=== PATIENT | male | born 1945 | race Caucasian/White ===

== ENCOUNTER 2019-01-14 22:08 | Inpatient (IN) | payer MEDICARE, MEDICAID ==
[~2019-01-14] VITALS: Ht 182.9 cm; Wt 97.6 kg
[2019-01-14] MEDS ORDERED: morphine INJ 4 MG/ML 1 ML (VIAL/SYRINGE) IVP STA (22:31)
[2019-01-14 22:45] LABS: HEMATOCRIT 34 % (40-54); HEMOGLOBIN 11.2 G/DL (13.3-17.7); MEAN CORPUSCULAR HEMOGLOBIN 29 PG (25-34); MEAN CORPUSCULAR HGB CONC 33 G/DL (32-36); MEAN CORPUSCULAR VOLUME 96 FL (80-99); RED CELL DISTRIBUTION WIDTH 17.8 % (10.0-14.5); WHITE BLOOD COUNT 1.6 10^3/uL (4.3-11.0)
[2019-01-14] MEDS ORDERED: ONDANSETRON 4 MG/2 ML (SDV) Z0FRAN IVP ONE (22:45)
[2019-01-14] MEDS ORDERED: RT-ALBUTEROL/IPRATROPIUM 3 ML (DUONEB) VIAL INH ONE (22:45)
[2019-01-14 22:46] LABS: MEAN PLATELET VOLUME 12.5 FL (7.4-10.4); PLATELET COUNT 83 10^3/uL (130-400)
[2019-01-14 22:47] LABS: BASOPHILS % (AUTO) 2 % (0-10); EOSINOPHILS # (AUTO) 0.1 10^3/uL (0.0-0.3); EOSINOPHILS % (AUTO) 6 % (0-10); LYMPHOCYTES # (AUTO) 1.1 X 10^3 (1.0-4.0); LYMPHOCYTES % (AUTO) 66 % (12-44); MONOCYTES # (AUTO) 0.3 X 10^3 (0.0-1.0); MONOCYTES % (AUTO) 17 % (0-12); NEUTROPHILS # (AUTO) 0.1 X 10^3 (1.8-7.8); NEUTROPHILS % (AUTO) 4 % (42-75)
[2019-01-14] MEDS ORDERED: ALBU18HF2 INH (22:51)
[2019-01-14] MEDS ORDERED: CITA20TA9 PO (22:51)
[2019-01-14] MEDS ORDERED: METF-399 PO (22:51)
[2019-01-14] MEDS ORDERED: ATOR40TA70 PO (22:51)
[2019-01-14] MEDS ORDERED: INSA70301U SC (22:51)
[2019-01-14] MEDS ORDERED: FLUT1AER INH (22:51)
[2019-01-14] MEDS ORDERED: MUPI22OI2 (22:51)
[2019-01-14] MEDS ORDERED: CODE118S4 (22:51)
[2019-01-14] MEDS ORDERED: morphine INJ 10 MG/ML 1ML (SYR OR VIAL) ONE (22:51)
[2019-01-14] MEDS ORDERED: LORA1TAB PO (22:51)
[2019-01-14] MEDS ORDERED: BLOO-438 (22:51)
[2019-01-14] MEDS ORDERED: morphine INJ 10 MG/ML 1ML (SYR OR VIAL) IV STA (23:06)
[2019-01-14] MEDS ORDERED: CEFEPIME INJECTION 2,000 MG in WATER (STERILE) FOR INJECTION 20 ML IV ONE (23:15)
[2019-01-14 23:22] LABS: BUN/CREATININE RATIO 24; CALCIUM 9.4 MG/DL (8.5-10.1); CARBON DIOXIDE 18 MMOL/L (21-32); CHLORIDE 93 MMOL/L (98-107); CREATININE SERUM 0.89 MG/DL (0.60-1.30); GFR ESTIMATED > 60; GLUCOSE 278 MG/DL (70-105); POTASSIUM 4.2 MMOL/L (3.6-5.0); SODIUM 128 MMOL/L (135-145)
[2019-01-14 23:23] LABS: ALANINE AMINOTRANSFERASE 20 U/L (0-55); ALBUMIN 3.6 GM/DL (3.2-4.5); ALKALINE PHOSPHATASE 53 U/L (40-136); BILIRUBIN,TOTAL 0.7 MG/DL (0.1-1.0); TOTAL PROTEIN 6.6 GM/DL (6.4-8.2)
[2019-01-14] MEDS ORDERED: NS IV 1000 ML 1,000 ML IV SCH (23:30)
[2019-01-14 23:32] LABS: BAND NEUTROPHILS 2 %; BASOPHILS % (MANUAL) 2 %; EOSINOPHILS % (MANUAL) 2 %; LYMPHOCYTES % (MANUAL) 76 %; MONOCYTES % (MANUAL) 12 %; NEUTROPHILS % (MANUAL) 8 %
[2019-01-14 23:33] LABS: RBC MORPH NORMAL
--- NOTE | 2019-01-14 23:33 | ED General ---
General Chief Complaint: Chest Pain Stated Complaint: LEG PAIN,COUGH Nursing Triage Note: Cough, Shortness of breathe, and chest pain Nursing Sepsis Screen: Possible Sepsis Risk Source of Information: Patient, Caregiver Exam Limitations: No Limitations History of Present Illness Date Seen by Provider: Jan 14, 2019 Time Seen by Provider: 22:30 Initial Comments Patient is a 73-year-old male with history of lymphoma currently on chemotherapy with last chemotherapy 1 week ago presents with voice hoarseness, persistent cough, sore throat, left-sided chest wall pain, leg pain and fever. Pressure 100.4 at triage. Left-sided chest pain is diffuse, worse with palpation and left arm movement. No nausea vomiting. No abdominal pain. No reports of diarrhea, urinary frequency or urgency or burning. No other acute symptoms or complaints. History obtained from the patient's [id number] and son his power of commercial attorney.. Allergies and Home Medications Allergies Coded Allergies: acetaminophen (Verified Allergy, Unknown, 01/14/19) adhesive tape (Verified Allergy, Unknown, Rash, 01/14/19) aspirin (Verified Allergy, Unknown, 01/14/19) Patient Home Medication List Home Medication List Reviewed: Yes Review of Systems Review of Systems Constitutional: see HPI, fever, malaise, weakness EENTM: see HPI, hoarseness, nose congestion, throat pain Respiratory: short of breath Gastrointestinal: No abdominal pain Genitourinary: no symptoms reported Musculoskeletal: muscle cramps Skin: no symptoms reported Psychiatric/Neurological: Anxiety Past Wexcfox-Dlxtuq-Yarsld Hx Patient Social History Recent Foreign Travel: No Contact w/Someone Who Travel: No Recent Infectious Disease Expo: No Physical Abuse: No Sexual Abuse: No Mistreated: No Fear: No Physical Exam-Suspected Sepsis Physical Exam Vital Signs Vital Signs - First Documented 01/14/19 22:10 Temp 100.4 Pulse 103 Resp 16 B/P (MAP) 130/52 (78) Pulse Ox 96 Capillary Refill : Less Than 3 Seconds Blood Pressure Mean: 78 Height, Weight, BMI Height: 6'0" Weight: 214lbs. oz. 97.455829yi; BMI Method:Actual General Appearance: No Apparent Distress, Anxious Eyes: Bilateral Eye Normal Inspection, Bilateral Eye PERRL HEENT: PERRL/EOMI, TMs Normal; No Pharyngeal Erythema Neck: Full Range of Motion, Normal Inspection, Non Tender, Supple Respiratory: No No Respiratory Distress; Decreased Breath Sounds, Rales, Rhonci Cardiovascular: Regular Rate, Rhythm Gastrointestinal: Normal Bowel Sounds Back: Normal Inspection Extremity: No Calf Tenderness Neurologic/Psychiatric: Oriented x3, Other (anxious) Skin: normal color; No diaphoresis Focused Exam Sepsis Stage: Sepsis Possible Source: Pulmonary Lactate Level 01/14/19 22:35: Lactic Acid Level 2.23*H Time of Focused Exam: 22:45 Respiratory: No Normal Breath Sounds, No No Accessory Muscle Use; Decreased Breath Sounds, Rales Cardiovascular: Regular Rate, Rhythm Skin: normal color Lactic Acid Level Laboratory Tests Test 01/14/19 22:35 Lactic Acid Level 2.23 MMOL/L (0.50-2.00) *H Within 3hrs of presentation: Admin fluids, Admin ABX, Blood cultures prior to ABX's, Lactate level Progress/Results/Core Measures Suspected Sepsis Recent Fever Within 48 Hours: Yes Infection Criteria Present: Suspected New Infection New/Unexplained Altered Menta: No Sepsis Screen: Possible Sepsis Risk SIRS Temperature:100.4 Pulse: 103 Respiratory Rate: 16 Laboratory Tests 01/14/19 22:25: White Blood Count 1.6L Blood Pressure 130 /52 Mean: 78 01/14/19 22:35: Lactic Acid Level 2.23*H Laboratory Tests 01/14/19 22:25: Creatinine 0.89, Platelet Count 83L, Total Bilirubin 0.7 Results/Orders Lab Results Laboratory Tests Test 01/14/19 22:25 01/14/19 22:35 01/14/19 23:24 Range/Units White Blood Count 1.6 L 4.3-11.0 10^3/uL Red Blood Count 3.92 L 4.35-5.85 10^6/uL Hemoglobin 11.2 L 13.3-17.7 G/DL Hematocrit 34 L 40-54 % Mean Corpuscular Volume 96 80-99 FL Mean Corpuscular Hemoglobin 29 25-34 PG Mean Corpuscular Hemoglobin Concent 33 32-36 G/DL Red Cell Distribution Width 17.8 H 10.0-14.5 % Platelet Count 83 L 130-400 10^3/uL Mean Platelet Volume 12.5 H 7.4-10.4 FL Neutrophils (%) (Auto) 4 L 42-75 % Lymphocytes (%) (Auto) 66 H 12-44 % Monocytes (%) (Auto) 17 H 0-12 % Eosinophils (%) (Auto) 6 0-10 % Basophils (%) (Auto) 2 0-10 % Neutrophils # (Auto) 0.1 L 1.8-7.8 X 10^3 Lymphocytes # (Auto) 1.1 1.0-4.0 X 10^3 Monocytes # (Auto) 0.3 0.0-1.0 X 10^3 Eosinophils # (Auto) 0.1 0.0-0.3 10^3/uL Basophils # (Auto) 0.0 0.0-0.1 10^3/uL Neutrophils % (Manual) 8 % Lymphocytes % (Manual) 76 % Monocytes % (Manual) 12 % Eosinophils % (Manual) 2 % Basophils % (Manual) 2 % Band Neutrophils 2 % Blood Morphology Comment NORMAL Sodium Level 128 L 135-145 MMOL/L Potassium Level 4.2 3.6-5.0 MMOL/L Chloride Level 93 L 98-107 MMOL/L Carbon Dioxide Level 18 L 21-32 MMOL/L Anion Gap 17 H 5-14 MMOL/L Blood Urea Nitrogen 21 H 7-18 MG/DL Creatinine 0.89 0.60-1.30 MG/DL Estimat Glomerular Filtration Rate > 60 BUN/Creatinine Ratio 24 Glucose Level 278 H 70-105 MG/DL Calcium Level 9.4 8.5-10.1 MG/DL Corrected Calcium 9.7 8.5-10.1 MG/DL Total Bilirubin 0.7 0.1-1.0 MG/DL Aspartate Amino Transf (AST/SGOT) 27 5-34 U/L Alanine Aminotransferase (ALT/SGPT) 20 0-55 U/L Alkaline Phosphatase 53 40-136 U/L Troponin T 27 H <=15 NG/L Total Protein 6.6 6.4-8.2 GM/DL Albumin 3.6 3.2-4.5 GM/DL Lactic Acid Level 2.23 *H 0.50-2.00 MMOL/L My Velia Gunn - TYREL GASTON DO Cbc With Automated Diff (01/14/19 22:23) Comprehensive Metabolic Panel (01/14/19 22:23) Chest 1 View Ap/Pa Only (01/14/19 22:23) BNP (01/14/19 22:23) Blood Culture (01/14/19 22:23) Lactic Acid Analyzer (01/14/19 22:23) Albuterol/Ipra Inhalation Soln (Duoneb I (01/14/19 22:45) Svn Small Volume Nebulizer (01/14/19 22:31) Morphine Injection (Morphine Injection (01/14/19 22:31) Ondansetron Injection (Zofran Injectio (01/14/19 22:45) Manual Differential (01/14/19 22:25) Morphine Injection (Morphine Injection (01/14/19 22:51) Morphine Injection (Morphine Injection (01/14/19 23:06) Cefepime Injection (Maxipime Injection) (01/14/19 23:15) Blood Culture (01/14/19 23:10) Influenza A Antibodies (01/14/19 23:10) Ns Iv 1000 Ml (Sodium Chloride 0.9%) (01/14/19 23:30) Clopidogrel Tablet (Plavix Tablet) (01/14/19 23:45) Enoxaparin Injection (Lovenox Injection) (01/14/19 23:45) Medications Given in ED Current Medications Medications Dose Ordered Sig/Stephan Route Start Time Stop Time Status Last Admin Dose Admin Albuterol/ Ipratropium 3 ml ONCE ONCE INH 01/14/19 22:45 01/14/19 22:46 DC 01/14/19 23:00 3 ML Morphine Sulfate 10 mg STK-MED ONCE .ROUTE 01/14/19 22:51 01/14/19 22:57 DC 01/14/19 23:08 4 MG Ondansetron HCl 4 mg ONCE ONCE IVP 01/14/19 22:45 01/14/19 22:46 DC 01/14/19 23:01 4 MG Vital Signs/I&O 01/14/19 22:10 Temp 100.4 Pulse 103 Resp 16 B/P (MAP) 130/52 (78) Pulse Ox 96 Capillary Refill : Less Than 3 Seconds Blood Pressure Mean: 78 Progress Note : Time: 23:33 Progress Note Medically complex patient with h/o lymphoma on chemo who presents with fever, cough, abnormal chest x-ray. Serum lactate is elevated. IV fluids, Blood cultures obtained, empiric abx. Fluid bolus restricted to less than 30 cc/kg due to concern of volume overload and congestive heart failure. Trop elevated. No acute ST segment elevation. Lovenox and Plavix given. Will transfer to [facility] for comprehensive medical treatment. Dr. Mai accepts and Dr. Felix agrees to consult. family and patient given. ECG Initial ECG Impression Date: Jan 14, 2019 Initial ECG Impression Time: 22:09 Initial ECG Rate: 107 Initial ECG Rhythm: S.Tach Diagnostic Imaging Diagonstic Imaging: Xray (cardiomegaly, pulmonary vascular congestion, questionable left lobar infiltrate versus effusion on preliminary ED read.) Departure Impression Primary Impression: Chest pain Additional Impressions: Non-STEMI (non-ST elevated myocardial infarction) Pneumonia Sepsis Leukopenia Lymphoma Hyponatremia Disposition: XFER SHT-TRM HOSP Condition: Critical Admissions Decision to Admit Reason: Admit from ER (General) Decision to Admit/Date: Jan 14, 2019 Time/Decision to Admit Time: 23:00 Transfer Time Spoke to Accepting Phy: 23:30 (Dr. Mai) Transfer Progress Notes Patient resting comfortably, stable blood pressure time of transfer. Method of Transfer: EMS Departure-Patient Inst. Referrals: ANNEMARIE WANG MD (PCP/Family) Primary Care Physician TYREL GASTON DO Jan 14, 2019 23:33
[2019-01-14] MEDS ORDERED: CLOPIDOGREL 300 MG (PLAVIX) TABLET PO ONE (23:45)
[2019-01-14] MEDS ORDERED: ENOXAPARIN 100 MG/1 ML (LOVENOX) SYR SC ONE (23:45)
[2019-01-15] VITALS (20 sets, daily range): BP systolic 88–145; BP diastolic 27–104
[2019-01-15 02:26] LABS: BASOPHILS % (AUTO) 2 % (0-10); BUN/CREATININE RATIO 22; CALCIUM 9.3 MG/DL (8.5-10.1); CARBON DIOXIDE 20 MMOL/L (21-32); CHLORIDE 100 MMOL/L (98-107); CREATININE SERUM 1.02 MG/DL (0.60-1.30); EOSINOPHILS # (AUTO) 0.1 10^3/uL (0.0-0.3); EOSINOPHILS % (AUTO) 9 % (0-10); GFR ESTIMATED > 60; GLUCOSE 210 MG/DL (70-105); HEMATOCRIT 31 % (40-54); HEMOGLOBIN 10.4 G/DL (13.3-17.7); LYMPHOCYTES # (AUTO) 0.8 X 10^3 (1.0-4.0); LYMPHOCYTES % (AUTO) 58 % (12-44); MAGNESIUM 1.5 MG/DL (1.8-2.4); MEAN CORPUSCULAR HEMOGLOBIN 28 PG (25-34); MEAN CORPUSCULAR HGB CONC 34 G/DL (32-36); MEAN CORPUSCULAR VOLUME 84 FL (80-99); MEAN PLATELET VOLUME 11.7 FL (7.4-10.4); MONOCYTES # (AUTO) 0.2 X 10^3 (0.0-1.0); MONOCYTES % (AUTO) 19 % (0-12); NEUTROPHILS # (AUTO) 0.2 X 10^3 (1.8-7.8); NEUTROPHILS % (AUTO) 14 % (42-75); PHOSPHORUS 2.7 MG/DL (2.3-4.7); PLATELET COUNT 85 10^3/uL (130-400); POTASSIUM 3.8 MMOL/L (3.6-5.0); RED CELL DISTRIBUTION WIDTH 18.3 % (10.0-14.5); SODIUM 131 MMOL/L (135-145)
[2019-01-15 02:28] LABS: WHITE BLOOD COUNT 1.3 10^3/uL (4.3-11.0)
[2019-01-15] MEDS ORDERED: IOHEXOL 350 MG/ML 150 ML (OMNIPAQUE 350) VIAL IV ONE (02:45)
[2019-01-15] MEDS ORDERED: RECEIVED CONTRAST (Hold Metformin) IV SCH (02:45)
[2019-01-15] MEDS ORDERED: NS 100 ML (IVPB) BAG IV ONE (02:45)
[2019-01-15] MEDS ORDERED: VANCOMYCIN 2000 MG/NS 500 ML IVPB IV ONE ×2 (04:45)
[2019-01-15] MEDS ORDERED: AZITHROMYCIN 500 MG/NS 250 ML IVPB IV SCH ×2 (05:00)
[2019-01-15] MEDS ORDERED: RT-ALBUTEROL/IPRATROPIUM 3 ML (DUONEB) VIAL INH PRN (05:15)
--- NOTE | 2019-01-15 05:22 | History & Physical-Hospitalist ---
History of Present Illness HPI/Chief Complaint CC: Pneumonia with left chest wall pain. HPI: This is a 73yoWM patient of Dr. Epps and Dr. Shi (Oncology out of [place], [place]) Pt has a history of Non Hodgkins lymphoma diagnosed 8 years ago and in remission for 4 years, but receiving chemotherapy who presented with left chest wall pain found to have low grade fever and pneumonia, heart failure, hyponatremia, neutropenia, giving rise to the need for ICU admission to higher level of care from [facility]. is at the bedside. Aggressive IV fluids will be initiated along with landrum catheter placement and empiric antibiotics. Overall critical illness and considering Pt is very hard of hearing, and blind, cannot obtain any significant, relevant details from the Pt. Source: family, RN/MD Exam Limitations: clinical condition Date Seen 01/15/19 Time Seen by a Provider: 09:30 Attending Physician Brielle Mai Pankaj K MD Referring Physician Date of Admission Jan 15, 2019 at 01:20 Home Medications & Allergies Home Medications Reviewed patient Home Medication Reconciliation performed by pharmacy medication reconciliations building energy retrofit technician and/or nursing. Patients Allergies have been reviewed. Allergies Allergies Coded Allergies acetaminophen (Verified Allergy, Unknown, 01/14/19) adhesive tape (Verified Allergy, Unknown, Rash, 01/14/19) aspirin (Verified Allergy, Unknown, 01/14/19) Past Fcxtkgp-Foyouo-Kzjbpz Hx Past Med/Social Hx: Reviewed Nursing Past Med/Soc Hx, Reviewed and Corrections made Patient Social History Marrital Status: Employed/Student: retired Alcohol Use: Denies Use Recreational Drug Use: No Smoking Status: Never a Smoker 2nd Hand Smoke Exposure: No Recent Foreign Travel: No Contact w/other who traveled: No Recent Hopitalizations: No Recent Infectious Disease Expo: No Immunizations Up To Date Tetanus Booster (TDap): Unknown Seasonal Allergies Seasonal Allergies: No Past Medical History Surgeries: CABG Cardiac: Congenital Heart Disease, Heart Attack Sexually Transmitted Disease: No HIV/AIDS: No Musculoskeletal: Arthritis, Chronic Back Pain Endocrine: Diabetes, Insulin dep Are Your Blood Sugars Over 250: Yes HEENT: Cataract, Glaucoma Loss of Vision: Bilateral Hearing Impairment: Denies Cancer: Lymphoma Did You Recieve Any Treatments: Yes What Type of Treatment Did You: Chemotherapy History of Blood Disorders: No Family History Hypertension Review of Systems Constitutional: fever, malaise, weakness EENTM: no symptoms reported Respiratory: cough, dyspnea on exertion, short of breath, wheezing Cardiovascular: chest pain Gastrointestinal: loss of appetite, nausea, vomiting Genitourinary: no symptoms reported Musculoskeletal: no symptoms reported Skin: no symptoms reported Psychiatric/Neurological: No Symptoms Reported All Other Systems Reviewed Negative Unless Noted: Yes Physical Exam Physical Exam Vital Signs Vital Signs - First Documented 01/14/19 01/14/19 01/15/19 22:10 22:45 01:25 Temp 100.4 Pulse 103 Resp 16 B/P (MAP) 130/52 (78) Pulse Ox 96 O2 Delivery Room Air O2 Flow Rate 2.00 Capillary Refill : Less Than 3 Seconds Height, Weight, BMI Height: 6'0" Weight: 214lbs. oz. 97.002502ee; BMI Method:Actual General Appearance: WD/WN, Chronically ill, Cachetic, Moderate Distress HEENT: Other (blindness, deafness) Neck: Normal Inspection, Non Tender, Supple Respiratory: Crackles, Decreased Breath Sounds, Wheezing Cardiovascular: Regular Rate, Rhythm, No Edema, Systolic Murmur Neurologic/Psychiatric: Alert, Disoriented Results Results/Procedures Labs Laboratory Tests 01/14/19 22:25 01/15/19 01:59 Patient resulted labs reviewed. Assessment/Plan Admission Diagnosis Assessment: Sepsis Pneumonia Neutropenia due to chemotherapy Blindness Deafness CAD previous CABG Plan: IVF Abx Monitor closely Appreciate Dr Alonso's expertise Admission Status: Inpatient Order (span 2 midnights) Reason for Inpatient Admission: Critical care management chinedu require 4 days of inpt Diagnosis/Problems Diagnosis/Problems (1) Sepsis Status: Acute Qualifiers: Sepsis type: sepsis due to unspecified organism Qualified Codes: A41.9 - Sepsis, unspecified organism (2) Neutropenia Status: Acute Qualifiers: Neutropenia type: secondary to cancer chemotherapy Qualified Codes: D70.1 - Agranulocytosis secondary to cancer chemotherapy; T45.1X5A - Adverse effect of antineoplastic and immunosuppressive drugs, initial encounter (3) Non-Hodgkin lymphoma Status: Chronic Qualifiers: Non-Hodgkin lymphoma type: unspecified type Lymphoma site: unspecified region Qualified Codes: C85.90 - Non-Hodgkin lymphoma, unspecified, unspecified site (4) Blindness Status: Chronic (5) Deafness Status: Chronic Qualifiers: Laterality: unspecified laterality Qualified Codes: H91.90 - Unspecified hearing loss, unspecified ear (6) CHF (congestive heart failure) Status: Chronic Qualifiers: Heart failure type: unspecified Heart failure chronicity: unspecified Qualified Codes: I50.9 - Heart failure, unspecified (7) NSTEMI (non-ST elevated myocardial infarction) Status: Acute Clinical Quality Measures AMI/AHF: ASA po Prior to arrival: BRIELLE Espinosa DO Jan 15, 2019 05:22
[2019-01-15] MEDS ORDERED: VANCOMYCIN 1000 MG/VIAL ONE (05:30)
[2019-01-15] MEDS ORDERED: NS IV 500 ML 500 ML ONE (05:32)
[2019-01-15] MEDS: MAGNESIUM 1 GM/100 ML IVPB 100 ML IV SCH ×3 (05:48→08:28)
[2019-01-15] MEDS: KCL 20 MEQ TAB (K-DUR) PO SCH (05:48)
[2019-01-15] MEDS: POTASSIUM CL 10MEQ/50ML IVPB 50 ML IV SCH (05:48)
--- NOTE | 2019-01-15 06:25 | Pulmonary Consultation ---
History of Present Illness History of Present Illness Date of Consultation 01/15/19 06:20 Time Seen by Provider: 06:59 Date of Admission History of Present Illness 73 yo with hx of lymphoma currently undergoing chemotherapy (last chemo 1wk ago ) presented to [facility] secondary to fever hoarsness, persistent cough, sore throat, and reproducible left sided chest wall pain. Allergies and Home Medications Allergies Coded Allergies: acetaminophen (Verified Allergy, Unknown, 01/14/19) adhesive tape (Verified Allergy, Unknown, Rash, 01/14/19) aspirin (Verified Allergy, Unknown, 01/14/19) Past Mwopumy-Wexlfh-Nbieqn Hx Patient Social History Alcohol Use: Denies Use Recreational Drug Use: No Smoking Status: Never a Smoker 2nd Hand Smoke Exposure: No Recent Foreign Travel: No Contact w/Someone Who Travel: No Recent Infectious Disease Expo: No Recent Hopitalizations: No Physical Abuse: No Sexual Abuse: No Mistreated: No Fear: No Immunizations Up To Date Tetanus Booster (TDap): Unknown Seasonal Allergies Seasonal Allergies: No Past Medical History Surgeries: Yes CABG Respiratory: No Cardiac: Yes Congenital Heart Disease, Heart Attack Neurological: No Sexually Transmitted Disease: No HIV/AIDS: No Genitourinary: No Gastrointestinal: No Musculoskeletal: Yes Arthritis, Chronic Back Pain Endocrine: Yes Diabetes, Insulin dep Are Your Blood Sugars Over 250: Yes HEENT: Yes Cataract, Glaucoma Loss of Vision: Bilateral Hearing Impairment: Denies Cancer: Yes Lymphoma Did You Recieve Any Treatments: Yes What Type of Treatment Did You: Chemotherapy Psychosocial: No Integumentary: No Blood Disorders: No Review of Systems Time Seen by Provider: 07:06 Constitutional: Fever, Chills, Sweats, Weakness, Malaise Eyes: No: Pain, Vision change, Conjunctivae inflammation, Eyelid inflammation, Other, Redness ENT: No: Ear pain, Ear discharge, Nose pain, Nose discharge, Nose congestion, Mouth pain, Mouth swelling, Throat pain, Throat swelling, Other Respiratory: Cough, Dry, Shortness of breath, SOB with excertion, Wheezing, Pleuritic Pain Cardiovascular: Chest Pain, Paroxysmal Noc. Dyspnea, Lt Headedness Gastrointestinal: No: Nausea, Vomiting, Abdominal Pain, Diarrhea, Constipation , Melena, Hematochezia, Other Neurological: Weakness, Incoordination, Confusion Sepsis Event Evaluation Height, Weight, BMI Height: 6'0.00" Weight: 205lbs. 1.0oz. 93.733683eb; 27.8 BMI Method:Actual Exam Exam Vital Signs Date Time Temp Pulse Resp B/P (MAP) Pulse Ox O2 Delivery O2 Flow Rate FiO2 01/15/19 06:00 8 22 119/67 (84) 93 Nasal Cannula 2.00 01/15/19 05:00 90 12 115/73 (87) 96 Nasal Cannula 2.00 01/15/19 04:00 86 13 125/59 (81) 91 Nasal Cannula 2.00 01/15/19 03:00 82 13 127/57 (80) 94 Nasal Cannula 2.00 01/15/19 01:45 89 11 120/72 (88) 98 Nasal Cannula 2.00 01/15/19 01:29 92 01/15/19 01:25 98.7 93 16 113/66 (82) 98 Nasal Cannula 2.00 01/15/19 00:39 99.0 94 18 105/52 (69) 95 Room Air 01/14/19 22:45 Room Air 01/14/19 22:10 100.4 103 16 130/52 (78) 96 I & O 01/15/19 06:59 Intake Total 1000 ml Output Total 0 ml Balance 1000 ml Height & Weight Height: 6'0.00" Weight: 205lbs. 1.0oz. 93.954874lb; 27.8 BMI Method:Actual General Appearance: No Apparent Distress, Anxious HEENT: PERRL/EOMI, TMs Normal; No Pharyngeal Erythema Neck: Full Range of Motion, Normal Inspection, Non Tender, Supple Respiratory: No Normal Breath Sounds, No No Accessory Muscle Use; Decreased Breath Sounds, Rales Cardiovascular: Regular Rate, Rhythm Capillary Refill: Less Than 3 Seconds Gastrointestinal: normal bowel sounds, non tender, soft Extremity: No Calf Tenderness, No Pedal Edema Neurologic/Psychiatric: Oriented x3, Other (anxious) Skin: Normal Color, Warm/Dry Lymphatic: No Adenopathy Results Lab Laboratory Tests 01/14/19 22:25 01/15/19 01:59 Assessment/Plan Assessment/Plan Severe sepsis with PNA -Vancomycin, and cefepime - change to vanco zosyn -30cc/kg of IVF were not given secondary to fear of volume overload -pt has not been hypotensive -Will repeat LA -Start NS at 150 for now and monitor close -landon cultures pending -IVF Metabolic lactic acidosis -IVF start at 150cc/hr now -Repeat LA pancytopenia with neutropenia -Start reverse isolation -Monitor CHF hx NSTEMI lymphoma - currently undergoing chemotherapy MARCUS OLIVIER DO Jan 15, 2019 06:25
--- NOTE | 2019-01-15 06:28 | Diagnostic Imaging Report ---
PROCEDURE: CT angiography of the chest with contrast. TECHNIQUE: Multiple contiguous axial images were obtained through the chest after uneventful bolus administration of intravenous contrast. 2D reconstructed CTA MIP acquisitions were also performed. INDICATION: Chest pain. Heart failure. Pneumonia. COMPARISON: Chest radiograph 01/14/2019. FINDINGS: Examination limited by motion artifact. No large or central pulmonary emboli. No thoracic aortic aneurysm or dissection. Sternotomy with CABG. Cardiomegaly. No pericardial effusion. Moderate esophageal hiatal hernia. No mediastinal, hilar or axillary lymphadenopathy. Dependent atelectasis in the lungs. No pleural effusion or pneumothorax. Chronic left rib fractures. No acute osseous findings. Calcified granulomas in the liver. Indeterminate enhancing mass in the left hepatic lobe measuring up to 2.9 x 2.0 cm. There is a similar lesion more superiorly in the left hepatic lobe measuring up to 2.4 x 2.6 cm. Both of these appear to demonstrate peripheral arterial enhancement. Cystic mass in the body of the pancreas measuring 2.9 x 1.8 cm. IMPRESSION: 1. No thoracic aortic aneurysm or dissection. No large or central pulmonary emboli. 2. Indeterminate enhancing masses in the left hepatic lobe. Although these demonstrate peripheral arterial enhancement and may represent benign hemangiomas, a malignant process is not excluded. Recommend dedicated multiphase contrast-enhanced CT for further evaluation. 3. Cystic mass in the body of the pancreas measuring up to 2.9 cm. This is also indeterminate and should be evaluated with the same multiphase contrast enhanced CT of the abdomen. 4. Moderate esophageal hiatal hernia. Dictated by: Dictated on workstation # [id number]
[2019-01-15] MEDS ORDERED: PIPERACILLIN/TAZOBACTAM (BULK) 4.5 GM in NS (IVPB) 100 ML IV SCH (06:30)
[2019-01-15] MEDS ORDERED: PIPERACILLIN/TAZO 4.5 GM/NS 100 ML IV NR ×2 (06:45)
--- NOTE | 2019-01-15 06:55 | Diagnostic Imaging Report ---
EXAM: CHEST 1 VIEW AP/PA ONLY INDICATION: Chest pain. Cough. COMPARISON: None. FINDINGS: Low lung volumes. Normal heart size and central pulmonary vascularity. Mild perihilar and bibasilar atelectasis. Sternotomy. No pleural effusion or pneumothorax. No acute osseous findings. IMPRESSION: Low lung volumes with perihilar and bibasilar atelectasis. Dictated by: Dictated on workstation # [id number]
--- NOTE | 2019-01-15 07:17 | NUR ---
PTD VANCOMYCIN: LABS: SCR 1.02 A/P: PATIENT RECEIVED VANCOMYCIN 2 GRAMS IV AT 0400 THIS AM, WE WILL START VANCOMYCIN 1,500MG IV Q 12 HOURS X 3 DAYS, NEXT DOSE DUE @ 1600. IF PLAN TO CONTINUE LONGER THAN 3 DAYS WILL ORDER A TROUGH LEVEL AND ADJUST DOSING, MONITOR SCR/RENAL FXN AND ADJUST DOSE/ORDER LEVEL IS CHANGES OCCUR.
--- NOTE | 2019-01-15 07:38 | Diagnostic Imaging Report ---
EXAM: CHEST 1 VIEW, AP/PA ONLY INDICATION: Pneumonia. Heart failure. COMPARISON: CTA chest 01/15/2019. FINDINGS: Normal heart size and central pulmonary vascularity. Low lung volumes. No focal pulmonary opacity, pleural effusion or pneumothorax. Sternotomy. No acute osseous findings. IMPRESSION: Low lung volumes. Chest is otherwise unremarkable. Dictated by: Dictated on workstation # [id number]
[2019-01-15] MEDS ORDERED: morphine INJ 4 MG/ML 1 ML (VIAL/SYRINGE) ONE (08:20)
[2019-01-15] MEDS: morphine INJ 4 MG/ML 1 ML (VIAL/SYRINGE) IVP PRN ×4 (08:28→21:02)
[2019-01-15] MEDS: inSUlin ASPART (NovoLOG) 1 UNIT/0.01 ML (CHARGE PER UNIT) SC SCH ×3 (08:29→21:03)
[2019-01-15] MEDS: NS IV 1000 ML 1,000 ML IV SCH ×3 (08:33→20:40)
[2019-01-15] MEDS ORDERED: CEFEPIME 2,000 MG/SWFI 20 ML IV PUSH IV SCH ×2 (09:00)
--- NOTE | 2019-01-15 09:29 | Consultation-Cardiology ---
HPI-Cardiology Cardiology Consultation: Date of Consultation 01/15/19 Date of Admission Attending Physician Brielle Mai DO Admitting Physician Alvarado Epps MD Consulting Physician Jeanne FELIX MD HPI: Time Seen by a Provider: 09:30 Chief Complaint: Cough, fever This is a 73-year-old gentleman who has history of non-Hodgkin lymphoma on chemotherapy. He was lost chemotherapy was a week ago. He presented with cough , fever left-sided chest discomfort. The patient denies any GI symptoms. Review of Systems-Cardiology Review of Systems Constitutional: As described under HPI; No As described under HPI, No no symptoms reported, No chills; fever; No lightheadedness Eyes: No As described under HPI, No no symptoms reported; blindness; No blurred vision, No contact lenses, No drainage, No decreased acuity, No foreign body sensation, No pain, No vision change Ears/Nose/Throat: No As described under HPI, No no symptoms reported; chronic hearing loss; No ear discharge, No ear pain, No nasal drainage, No ulcerations Respiratory: No no symptoms reported; As described under HPI; No As described under HPI, No cough, No orthopnea; shortness of breath; No SOB with excertion Cardiovascular: No no symptoms reported; As described under HPI; No As described under HPI; chest pain; No edema, No irregular heart rate, No lightheadedness, No palpitations Gastrointestinal: No no symptoms reported, No As described under HPI, No abdomen distended, No abdominal pain, No blood streaked bowels, No constipation , No diarrhea, No nausea, No vomiting, No stool coloration changes Genitourinary: No As described under HPI, No burning, No dysuria, No discharge , No frequency, No flank pain, No hematuria, No urgency Skin: No rash, No skin related problems, No ulcerations Psychiatric/Neurological: No anxiety, No depression, No seizure, No focal weakness, No syncope Hematologic: No bleeding abnormalities [id number] Hx Patient Social History Alcohol Use: Denies Use Recreational Drug Use: No Smoking Status: Never a Smoker 2nd Hand Smoke Exposure: No Recent Foreign Travel: No Recent Infectious Disease Expo: No Hospitalization with Isolation: Denies Immunizations Up To Date Tetanus Booster (TDap): Unknown Date of Pneumonia Vaccine: Sep 10, 2017 Date of Influenza Vaccine: Aug 12, 2018 Past Medical History PMH As described under Assessment. Allergies and Home Medications Allergies Coded Allergies: acetaminophen (Verified Allergy, Unknown, 01/14/19) adhesive tape (Verified Allergy, Unknown, Rash, 01/14/19) aspirin (Verified Allergy, Unknown, 01/14/19) Home Medications Albuterol Sulfate 18 Gm Hfa.aer.ad, 2 PUFF INH Q6H PRN for SHORTNESS OF BREATH, (Reported) Allopurinol 300 Mg Tablet, 300 MG PO DAILY, (Reported) Atorvastatin Calcium 40 Mg Tablet, 40 MG PO HS, (Reported) Brimonidine Tartrate 5 Ml Drops, 1 DROP OS BID, (Reported) Cilostazol 100 Mg Tablet, 100 MG PO BID, (Reported) Citalopram Hydrobromide 20 Mg Tablet, 20 MG PO DAILY, (Reported) Dorzolamide HCl/Timolol Maleat 10 Ml Drops, 1 DROP OU BID, (Reported) Fenofibrate Nanocrystallized 145 Mg Tablet, 145 MG PO HS, (Reported) Flaxseed Oil 1,000 Mg Capsule, 1,000 MG PO BID, (Reported) Fluticasone/Vilanterol 1 Each Blst.w.dev, 1 PUFF INH DAILY, (Reported) Gabapentin 300 Mg Capsule, 300 MG PO BID, (Reported) Insuln Asp Prt/Insulin Aspart 1 Unit/0.01 Ml Susp, 100 UNITS SC BID, (Reported) Lorazepam 1 Mg Tablet, 1 MG PO TID PRN for ANXIETY, (Reported) Metformin HCl 1,000 Mg Tablet, 1,000 MG PO BID, (Reported) [place] 3 Polyunsat Fatty Acids 1,000 Mg Cap, 1,000 MG PO BID, (Reported) Prednisolone Acetate 5 Ml Drops.susp, 1 DROP OU BID, (Reported) Tramadol HCl 50 Mg Tablet, 100 MG PO Q6H PRN for PAIN-MODERATE, (Reported) Patient Home Medication List Home Medication List Reviewed: Yes Physical Exam-Cardiology Physical Exam Vital Signs/I&O 01/17/19 01/17/19 01/17/19 01/17/19 07:15 08:00 08:28 09:49 Temp 98.2 Pulse 75 81 Resp 20 B/P (MAP) 162/77 (105) Pulse Ox 95 94 94 O2 Delivery Room Air Room Air Room Air 01/17/19 01/17/19 01/17/19 11:39 13:26 15:50 Temp 98.5 97.8 Pulse 78 85 75 Resp 20 18 B/P (MAP) 173/73 (106) 174/70 (104) Pulse Ox 93 95 O2 Delivery Room Air Room Air 01/17/19 00:00 Intake Total 2460 ml Output Total 3100 ml Balance -640 ml Capillary Refill : Less Than 3 Seconds Constitutional: appears stated age; No apparent distress; well-developed, well- nourished HEENT: PERRL; No discharge; hearing is well preserved, oral hygience is good; No ulceration, No xanthelasmas are seen Neck: No carotid bruit; carotid pulses are 2 + bilaterally Respiratory: chest is bilaterally symmetric, crackles, other (course respiratory breathing) Cardiovascular: regular rate-rhythm; No irregularly irregular, No extra beats, No parasternal heave is noted, No JVD, No edema, No bradycardia, No tachycardia , No point of maximal impulse, No cardiac thrills are palpable; S1 and S2; No gallop/S3, No gallop/S4, No diastolic murmur, No systolic murmur, No friction rub, No click, No other Gastrointestinal: No tender, No soft, No round, No distended, No pulsatile mass , No organomegaly, No guarding, No rebound, No tenderness, No hernia, No mass, No audible bowel sounds, No abnormal bowel sounds, No abdominal bruits, No spleenomegaly, No other Rectal: deferred Extremities: No normal range of motion, No non-tender, No normal inspection, No pedal edema, No calf tenderness, No normal capillary refill, No pelvis stable , No calf tenderness, No inflammation, No pedal edema, No slow capillary refill , No swelling, No other, No abrasion, No clubbing, No cyanosis, No ecchymosis, No laceration, No no lower extremity edema bilateral, No significant edema, No tenderness, No wound Neurologic/Psychiatric: no motor/sensory deficits, power is 5/5 both on sides Skin: normal color; No warm/dry, No cyanosis, No cool, No diaphoresis, No damp , No ecchymosis, No jaundice, No mottled, No pallor, No rash, No tattoos/ piercings, No ulcerations, No rash on exposed areas, No ulcerations on exposed areas, No other Data Review Labs Laboratory Tests 01/16/19 21:05: Glucometer 136H 01/17/19 05:21: Glucometer 198H 01/17/19 06:55: White Blood Count 1.1*L, Red Blood Count 3.68L, Hemoglobin 10.6L, Hematocrit 32L , Mean Corpuscular Volume 86, Mean Corpuscular Hemoglobin 29, Mean Corpuscular Hemoglobin Concent 33, Red Cell Distribution Width 18.6H, Platelet Count 105L, Mean Platelet Volume 11.7H, Neutrophils (%) (Auto) 37L, Lymphocytes (%) (Auto) 36, Monocytes (%) (Auto) 22H, Eosinophils (%) (Auto) 4, Basophils (%) (Auto) 1, Neutrophils # (Auto) 0.4L, Lymphocytes # (Auto) 0.4L, Monocytes # (Auto) 0.3, Eosinophils # (Auto) 0.1, Basophils # (Auto) 0.0, Sodium Level 138, Potassium Level 3.2L, Chloride Level 104, Carbon Dioxide Level 22, Anion Gap 12, Blood Urea Nitrogen 5L, Creatinine 0.80, Estimat Glomerular Filtration Rate > 60, BUN/ Creatinine Ratio 6, Glucose Level 198H, Calcium Level 8.2L, Corrected Calcium 8.5, Total Bilirubin 0.6, Aspartate Amino Transf (AST/SGOT) 32, Alanine Aminotransferase (ALT/SGPT) 26, Alkaline Phosphatase 44, Total Protein 5.3L, Albumin 3.6 01/17/19 15:33: Glucometer 199H Microbiology 01/14/19 Blood Culture - Preliminary, Resulted No growth 01/14/19 Influenza Types A,B Antigen (SHAI) - Final, Complete ECG Impression ECG Initial ECG Rhythm: Normal Sinus Initial ECG Impression: Nonspecific Changes A/P-Cardiology Assessment/Admission Diagnosis Type II [place] , likely due to severe sepsis, Severe sepsis, Cancer, on chemotherapy, diabetes, CAD, CABG Plan Severe sepsis, immunodeficiency, broad-spectrum antibiotics, IV fluids, deferred to the primary team. Type II [place] likely due to severe sepsis, pneumonia. However patient may require nuclear stress testing as an outpatient once infection is resolved. CAD/CABG: Continue outpatient medical therapy. Diabetes: Continue metformin. Non-Hodgkin's lymphoma. Thank you for your consultation. Please call me if you have any questions. Nagi Felix MD, FACP, FACC, FSCAI, FHRS, CCDS Interventional Cardiology Cardiac Electrophysiology Vascular Medicine and Endovascular Interventions Clinical Quality Measures AMI/AHF: ASA po Prior to arrival: No DVT/VTE Risk/Contraindication: Risk Factor Score Per Nursin RFS Level Per Nursing on Admit: 4+=Very High Jeanne FELIX MD Jan 15, 2019 09:29
[2019-01-15] MEDS ORDERED: ALLO300T2 PO (09:31)
[2019-01-15] MEDS ORDERED: CILO100T PO (09:31)
[2019-01-15] MEDS ORDERED: GABA-488 PO (09:31)
[2019-01-15] MEDS ORDERED: TRAM50TA2 PO (09:31)
[2019-01-15] MEDS ORDERED: FLUT16SP22 NS (09:31)
[2019-01-15] MEDS ORDERED: FENO145T37 PO (09:31)
[2019-01-15] MEDS ORDERED: BRIM5DRO2 OS (09:36)
[2019-01-15] MEDS ORDERED: DORZ10DR8 OU (09:36)
[2019-01-15] MEDS ORDERED: PRED5DRO17 OU (09:36)
[2019-01-15] MEDS ORDERED: OMG1KC PO (09:38)
[2019-01-15] MEDS ORDERED: FLAX100031 PO (09:38)
--- NOTE | 2019-01-15 09:39 | NUR ---
WENT OVER THE EXT MED HX WITH THE PATIENTS . SHE VERIFIED HOW HE TAKES EACH MEDICATION. SHE STATES HE TAKES FISH OIL AND FLAXSEED OIL BID OTC WELL. HE IS NO LONGER TAKING THE FLONASE NASAL SPRAY. SHE ALSO STATES HE FINISHED HIS CHEMO TREATMENTS SO WILL NO LONGER BE TAKING THE DEXAMETHASONE. HE DID NOT NEED THE ZOFRAN FOR NAUSEA SO I DID NOT INCLUDE THAT ON THE MED REC EITHER.
[2019-01-15] MEDS: RT-ALBUTEROL/IPRATROPIUM 3 ML (DUONEB) VIAL INH SCH ×3 (09:55→22:09)
[2019-01-15 11:55] LABS: BILIRUBIN,URINE NEGATIVE (NEGATIVE); CLARITY,URINE SLIGHTLY CLOUDY; COLOR,URINE YELLOW; GLUCOSE, URINE (UA) 2+ (NEGATIVE); KETONES,URINE NEGATIVE (NEGATIVE); LEUKOCYTE ESTERASE ,URINE NEGATIVE (NEGATIVE); NITRITE,URINE NEGATIVE (NEGATIVE); PH,URINE 5 (5-9); PROTEIN,URINE 2+ (NEGATIVE); UROBILINOGEN,URINE NORMAL (NORMAL)
[2019-01-15 12:05] LABS: BACTERIA,URINE NEGATIVE /HPF; RBC,URINE RARE /HPF; SQUAMOUS EPITHELIAL CELL,UR RARE /HPF
--- NOTE | 2019-01-15 13:55 | NUR ---
Pastoral care visit, provided support and prayer.
[2019-01-15] MEDS: PIPERACILLIN/TAZOBACTAM (BULK) 4.5 GM in NS (IVPB) 100 ML IV SCH ×2 (14:11→21:02)
[2019-01-15] MEDS: ENOXAPARIN 100 MG/1 ML (LOVENOX) SYR SC SCH (14:11)
[2019-01-15] MEDS: VANCOMYCIN 1500 MG/NS 500 ML IVPB IV SCH ×2 (16:25)
[2019-01-15] MEDS ORDERED: METHYL SALICYLATE/MENTHOL (BENGAY, MUSCLE RUB) 3 OZ TUBE TP PRN (16:30)
[2019-01-15] MEDS: FAMOTIDINE 20MG/2ML IV (PEPCID) IVP SCH (21:02)
[2019-01-16] VITALS (11 sets, daily range): BP systolic 111–177; BP diastolic 55–83
[2019-01-16] MEDS: NS IV 1000 ML 1,000 ML IV SCH (00:56)
[2019-01-16] MEDS: ENOXAPARIN 100 MG/1 ML (LOVENOX) SYR SC SCH ×3 (01:30→23:47)
[2019-01-16] MEDS: morphine INJ 4 MG/ML 1 ML (VIAL/SYRINGE) IVP PRN ×4 (03:15→21:12)
[2019-01-16] MEDS: RT-ALBUTEROL/IPRATROPIUM 3 ML (DUONEB) VIAL INH SCH ×4 (03:41→20:41)
[2019-01-16 03:45] LABS: BASOPHILS % (AUTO) 2 % (0-10); EOSINOPHILS # (AUTO) 0.1 10^3/uL (0.0-0.3); EOSINOPHILS % (AUTO) 7 % (0-10); HEMATOCRIT 30 % (40-54); HEMOGLOBIN 10.2 G/DL (13.3-17.7); LYMPHOCYTES # (AUTO) 0.5 X 10^3 (1.0-4.0); LYMPHOCYTES % (AUTO) 46 % (12-44); MEAN CORPUSCULAR HEMOGLOBIN 29 PG (25-34); MEAN CORPUSCULAR HGB CONC 34 G/DL (32-36); MEAN CORPUSCULAR VOLUME 85 FL (80-99); MEAN PLATELET VOLUME 10.4 FL (7.4-10.4); MONOCYTES # (AUTO) 0.3 X 10^3 (0.0-1.0); MONOCYTES % (AUTO) 22 % (0-12); NEUTROPHILS # (AUTO) 0.3 X 10^3 (1.8-7.8); NEUTROPHILS % (AUTO) 24 % (42-75); PLATELET COUNT 74 10^3/uL (130-400); RED CELL DISTRIBUTION WIDTH 18.2 % (10.0-14.5)
[2019-01-16 03:50] LABS: WHITE BLOOD COUNT 1.2 10^3/uL (4.3-11.0)
[2019-01-16 04:03] LABS: BUN/CREATININE RATIO 13; CALCIUM 8.3 MG/DL (8.5-10.1); CARBON DIOXIDE 19 MMOL/L (21-32); CHLORIDE 105 MMOL/L (98-107); CREATININE SERUM 0.78 MG/DL (0.60-1.30); GFR ESTIMATED > 60; GLUCOSE 145 MG/DL (70-105); MAGNESIUM 1.6 MG/DL (1.8-2.4); PHOSPHORUS 2.4 MG/DL (2.3-4.7); POTASSIUM 3.2 MMOL/L (3.6-5.0); SODIUM 136 MMOL/L (135-145)
[2019-01-16] MEDS: VANCOMYCIN 1500 MG/NS 500 ML IVPB IV SCH ×4 (05:05→16:30)
[2019-01-16] MEDS: KCL 20 MEQ TAB (K-DUR) PO SCH (05:57)
[2019-01-16] MEDS: POTASSIUM CL 10MEQ/50ML IVPB 50 ML IV SCH (05:57)
[2019-01-16] MEDS: MAGNESIUM 1 GM/100 ML IVPB 100 ML IV SCH (05:57)
[2019-01-16] MEDS: inSUlin ASPART (NovoLOG) 1 UNIT/0.01 ML (CHARGE PER UNIT) SC SCH ×4 (05:59→21:08)
--- NOTE | 2019-01-16 06:19 | Pulmonary Progress Note ---
Subjective Time Seen by a Provider: 06:19 Subjective/Events-last exam BC positive x 1 Sepsis Event Evaluation Height, Weight, BMI Height: 6'0.00" Weight: 205lbs. 1.0oz. 93.939017fh; 27.8 BMI Method:Actual Focused Exam Lactate Level 01/14/19 00:35: Lactic Acid Level 1.70 01/14/19 22:35: Lactic Acid Level 2.23*H 01/15/19 08:00: Lactic Acid Level 0.99 Time of Focused Exam: 22:45 Exam Exam Vital Signs Date Time Temp Pulse Resp B/P (MAP) Pulse Ox O2 Delivery O2 Flow Rate FiO2 01/16/19 04:00 94 Room Air 01/16/19 03:42 95 Room Air 01/16/19 03:00 83 10 94 Room Air 01/16/19 02:00 82 21 151/83 (105) 92 Room Air 01/16/19 01:00 88 01/16/19 01:00 81 22 130/62 (84) 90 Room Air 01/16/19 00:00 94 Room Air 01/16/19 00:00 85 23 92 Room Air 01/15/19 23:00 85 23 91 Room Air 01/15/19 22:09 95 Room Air 01/15/19 22:00 96 28 122/79 (93) 94 Room Air 01/15/19 21:00 89 13 145/65 (91) 95 Room Air 01/15/19 20:00 89 15 95 Room Air 01/15/19 20:00 96 Room Air 01/15/19 19:33 98.3 90 16 126/98 (107) 96 Nasal Cannula 2.00 01/15/19 19:00 85 01/15/19 18:00 87 13 138/104 (115) 95 Vapotherm 45.00 15.00 01/15/19 17:00 78 16 140/90 (107) 95 Vapotherm 45.00 15.00 01/15/19 16:00 98.4 01/15/19 16:00 80 14 113/27 (55) 93 Vapotherm 45.00 15.00 01/15/19 16:00 96 Room Air 0.00 01/15/19 15:29 95 Room Air 01/15/19 15:00 87 22 130/61 (84) 93 Vapotherm 45.00 15.00 01/15/19 14:00 81 21 120/90 (100) 92 Vapotherm 45.00 15.00 01/15/19 13:00 85 18 120/90 (100) 94 Vapotherm 45.00 15.00 01/15/19 13:00 84 01/15/19 12:00 98.1 01/15/19 12:00 96 Room Air 0.00 01/15/19 12:00 84 21 139/84 (102) 97 Vapotherm 45.00 15.00 01/15/19 11:00 81 24 106/52 (70) 94 Vapotherm 45.00 15.00 01/15/19 10:00 78 11 93 Vapotherm 45.00 15.00 01/15/19 09:56 94 Room Air 01/15/19 09:00 81 42 115/55 (75) 93 Vapotherm 45.00 15.00 01/15/19 08:00 80 18 139/78 (98) 94 Vapotherm 45.00 15.00 01/15/19 08:00 93 Nasal Cannula 2.00 01/15/19 07:00 97.4 01/15/19 07:00 76 01/15/19 07:00 78 17 143/74 (97) 92 Vapotherm 45.00 15.00 I & O 01/16/19 07:00 Intake Total 1650 ml Output Total 2200 ml Balance -550 ml Height & Weight Height: 6'0.00" Weight: 205lbs. 1.0oz. 93.186505pw; 27.8 BMI Method:Actual General Appearance: WD/WN, Chronically ill, Cachetic, Mild Distress HEENT: Other (blindness, deafness) Neck: Normal Inspection, Non Tender, Supple Respiratory: Crackles, Decreased Breath Sounds, Wheezing Cardiovascular: Regular Rate, Rhythm, No Edema, Systolic Murmur Capillary Refill: Less Than 3 Seconds Gastrointestinal: normal bowel sounds, non tender, soft Extremity: No Calf Tenderness, No Pedal Edema Neurologic/Psychiatric: Alert, Disoriented Skin: Normal Color, Warm/Dry Lymphatic: No Adenopathy Results Lab Laboratory Tests 01/14/19 22:25 01/15/19 01:59 01/16/19 03:05 Assessment/Plan Assessment/Plan Severe sepsis with PNA -Vancomycin, and cefepime - change to vanco zosyn -Start NS at 150 for now and monitor close -landon cultures pending -IVF Metabolic lactic acidosis -Improving hep lock IVF -Repeat LA - was normal pancytopenia with neutropenia -Start reverse isolation -Monitor CHF hx NSTEMI lymphoma - currently undergoing chemotherapy MARCUS OLIVIER DO Jan 16, 2019 06:19
[2019-01-16] MEDS: PIPERACILLIN/TAZOBACTAM (BULK) 4.5 GM in NS (IVPB) 100 ML IV SCH ×3 (06:23→21:13)
--- NOTE | 2019-01-16 07:50 | Diagnostic Imaging Report ---
INDICATION: Shortness of breath. Portable chest 3:38 AM FINDINGS: There are postop changes from CABG surgery. Heart size and pulmonary vascularity are normal. Lungs are clear. There are no effusions or pneumothoraces. IMPRESSION: Postsurgical changes in the chest. No acute abnormality is seen. Dictated by: Dictated on workstation # [id number]
--- NOTE | 2019-01-16 09:00 | Progress Note-Hospitalist ---
Subjective HPI/CC On Admission Date Seen by Provider: Jan 16, 2019 Time Seen by Provider: 09:30 CC: Pneumonia with left chest wall pain. HPI: This is a 73yoWM patient of Dr. Epps and Dr. Shi (Oncology out of [place], [place]) Pt has a history of Non Hodgkins lymphoma diagnosed 8 years ago and in remission for 4 years, but receiving chemotherapy who presented with left chest wall pain found to have low grade fever and pneumonia, heart failure, hyponatremia, neutropenia, giving rise to the need for ICU admission to higher level of care from [facility]. is at the bedside. Aggressive IV fluids will be initiated along with landrum catheter placement and empiric antibiotics. Overall critical illness and considering Pt is very hard of hearing, and blind, cannot obtain any significant, relevant details from the Pt. Subjective/Events-last exam Patient much improved Transferring to fourth floor Denied any pain at bedside We'll continue supportive care Review of Systems General: Fatigue Focused Exam Lactate Level 01/14/19 00:35: Lactic Acid Level 1.70 01/14/19 22:35: Lactic Acid Level 2.23*H 01/15/19 08:00: Lactic Acid Level 0.99 Time of Focused Exam: 22:45 Objective Exam Vital Signs Vital Signs Date Time Temp Pulse Resp B/P (MAP) Pulse Ox O2 Delivery O2 Flow Rate FiO2 01/16/19 09:23 Room Air 01/16/19 09:00 87 17 111/59 (76) 95 01/15/19 19:33 98.3 2.00 Capillary Refill : Less Than 3 Seconds General Appearance: No Apparent Distress, WD/WN, Chronically ill, Cachetic HEENT: Other (blindness, deafness) Neck: Normal Inspection, Non Tender, Supple Respiratory: Crackles, Decreased Breath Sounds, Wheezing Cardiovascular: Regular Rate, Rhythm, No Edema, Systolic Murmur Gastrointestinal: Normal Bowel Sounds Back: Normal Inspection Extremity: No Calf Tenderness, No Pedal Edema Neurologic/Psychiatric: Alert, Disoriented Skin: Normal Color, Warm/Dry Lymphatic: No Adenopathy Results/Procedures Lab Laboratory Tests 01/16/19 03:05 Patient resulted labs reviewed. Assessment/Plan Assessment and Plan Assess & Plan/Chief Complaint Assessment: Sepsis Pneumonia Neutropenia due to chemotherapy Blindness Deafness CAD previous CABG Plan: IVF Tx to 4th Abx Monitor closely Appreciate Dr Alonso's expertise Diagnosis/Problems Diagnosis/Problems (1) Sepsis Status: Resolved Qualifiers: Sepsis type: sepsis due to unspecified organism Qualified Codes: A41.9 - Sepsis, unspecified organism Resolution Date/Time: 01/16/19 @ 11:20 (2) Neutropenia Status: Acute Qualifiers: Neutropenia type: secondary to cancer chemotherapy Qualified Codes: D70.1 - Agranulocytosis secondary to cancer chemotherapy; T45.1X5A - Adverse effect of antineoplastic and immunosuppressive drugs, initial encounter (3) Non-Hodgkin lymphoma Status: Chronic Qualifiers: Non-Hodgkin lymphoma type: unspecified type Lymphoma site: unspecified region Qualified Codes: C85.90 - Non-Hodgkin lymphoma, unspecified, unspecified site (4) Blindness Status: Chronic (5) Deafness Status: Chronic Qualifiers: Laterality: unspecified laterality Qualified Codes: H91.90 - Unspecified hearing loss, unspecified ear (6) CHF (congestive heart failure) Status: Chronic Qualifiers: Heart failure type: unspecified Heart failure chronicity: unspecified Qualified Codes: I50.9 - Heart failure, unspecified (7) NSTEMI (non-ST elevated myocardial infarction) Status: Acute Clinical Quality Measures AMI/AHF: ASA po Prior to arrival: No DVT/VTE Risk/Contraindication: Risk Factor Score Per Nursin RFS Level Per Nursing on Admit: 4+=Very High ERICKSON BARAJAS DO Jan 16, 2019 09:00
[2019-01-16] MEDS: FAMOTIDINE 20MG/2ML IV (PEPCID) IVP SCH ×2 (09:35→21:12)
--- NOTE | 2019-01-16 20:19 | Cardiology Progress Note ---
Cardiology SOAP Progress Note Subjective: No cardiac complaints. Objective: I&O/Vital Signs 01/17/19 01/17/19 01/17/19 01/17/19 07:15 08:00 08:28 09:49 Temp 98.2 Pulse 75 81 Resp 20 B/P (MAP) 162/77 (105) Pulse Ox 95 94 94 O2 Delivery Room Air Room Air Room Air 01/17/19 01/17/19 01/17/19 11:39 13:26 15:50 Temp 98.5 97.8 Pulse 78 85 75 Resp 20 18 B/P (MAP) 173/73 (106) 174/70 (104) Pulse Ox 93 95 O2 Delivery Room Air Room Air 01/17/19 00:00 Intake Total 2460 ml Output Total 3100 ml Balance -640 ml Weight (Pounds): 215 Weight (Ounces): 1.0 Weight (Calculated Kilograms): 97.896571 Constitutional: No appears stated age; AAO x 3; No apparent distress, No PERRL , No well-developed, No well-nourished, No other Respiratory: No accessory muscle use, No respiratory distress, No chest tender , No chest expansion is symmetric; chest is bilaterally symmetric; No lungs clear to percussion; lungs clear to auscultation; No crackles, No rhonchi, No rales, No stridor, No wheezing, No pleural rub, No other Cardiovascular: regular rate-rhythm; No irregularly irregular, No extra beats, No parasternal heave is noted, No JVD, No edema, No bradycardia, No tachycardia , No point of maximal impulse, No cardiac thrills are palpable; S1 and S2; No gallop/S3, No gallop/S4, No diastolic murmur, No systolic murmur, No friction rub, No click, No other Gastrointestional: No tender, No soft, No round, No distended, No pulsatile mass, No organomegaly, No guarding, No rebound, No tenderness, No hernia, No mass, No audible bowel sounds, No abnormal bowel sounds, No abdominal bruits, No spleenomegaly, No other Extremities: No normal range of motion, No non-tender, No normal inspection, No pedal edema, No calf tenderness, No normal capillary refill, No pelvis stable , No calf tenderness, No inflammation, No pedal edema, No slow capillary refill , No swelling, No other, No abrasion, No clubbing, No cyanosis, No ecchymosis, No laceration, No no lower extremity edema bilateral, No significant edema, No tenderness, No wound Neurologic/Psychiatric: no motor/sensory deficits, alert, normal mood/affect Skin: normal color Results/Procedures: Labs Laboratory Tests 01/16/19 21:05: Glucometer 136H 01/17/19 05:21: Glucometer 198H 01/17/19 06:55: White Blood Count 1.1*L, Red Blood Count 3.68L, Hemoglobin 10.6L, Hematocrit 32L , Mean Corpuscular Volume 86, Mean Corpuscular Hemoglobin 29, Mean Corpuscular Hemoglobin Concent 33, Red Cell Distribution Width 18.6H, Platelet Count 105L, Mean Platelet Volume 11.7H, Neutrophils (%) (Auto) 37L, Lymphocytes (%) (Auto) 36, Monocytes (%) (Auto) 22H, Eosinophils (%) (Auto) 4, Basophils (%) (Auto) 1, Neutrophils # (Auto) 0.4L, Lymphocytes # (Auto) 0.4L, Monocytes # (Auto) 0.3, Eosinophils # (Auto) 0.1, Basophils # (Auto) 0.0, Sodium Level 138, Potassium Level 3.2L, Chloride Level 104, Carbon Dioxide Level 22, Anion Gap 12, Blood Urea Nitrogen 5L, Creatinine 0.80, Estimat Glomerular Filtration Rate > 60, BUN/ Creatinine Ratio 6, Glucose Level 198H, Calcium Level 8.2L, Corrected Calcium 8.5, Total Bilirubin 0.6, Aspartate Amino Transf (AST/SGOT) 32, Alanine Aminotransferase (ALT/SGPT) 26, Alkaline Phosphatase 44, Total Protein 5.3L, Albumin 3.6 01/17/19 15:33: Glucometer 199H Microbiology 01/14/19 Blood Culture - Preliminary, Resulted No growth 01/14/19 Influenza Types A,B Antigen (SHAI) - Final, Complete A/P: Assessment/Dx: Type II [place] , likely due to severe sepsis, Severe sepsis, Cancer, on chemotherapy, diabetes, CAD, CABG Plan: Severe sepsis, immunodeficiency, broad-spectrum antibiotics, IV fluids, deferred to the primary team. Type II [place] likely due to severe sepsis, pneumonia. However patient may require nuclear stress testing as an outpatient once infection is resolved. CAD/CABG: Continue outpatient medical therapy. Diabetes: Continue metformin. Non-Hodgkin's lymphoma. Thank you for your consultation. Please call me if you have any questions. Nagi Felix MD, FACP, FACC, FSCAI, FHRS, CCDS Interventional Cardiology Cardiac Electrophysiology Vascular Medicine and Endovascular Interventions Focused Exam Lactate Level 01/14/19 22:35: Lactic Acid Level 2.23*H 01/15/19 08:00: Lactic Acid Level 0.99 Time of Focused Exam: 22:45 Clinical Quality Measures AMI/AHF: ASA po Prior to arrival: Jeanne Posey MD Jan 16, 2019 20:19
[2019-01-17] VITALS (8 sets, daily range): BP systolic 141–174; BP diastolic 64–81
[2019-01-17] MEDS: morphine INJ 4 MG/ML 1 ML (VIAL/SYRINGE) IVP PRN ×5 (01:28→23:54)
[2019-01-17] MEDS: RT-ALBUTEROL/IPRATROPIUM 3 ML (DUONEB) VIAL INH SCH ×5 (03:10→20:44)
[2019-01-17] MEDS: VANCOMYCIN 1500 MG/NS 500 ML IVPB IV SCH ×4 (04:02→15:39)
[2019-01-17] MEDS: PIPERACILLIN/TAZOBACTAM (BULK) 4.5 GM in NS (IVPB) 100 ML IV SCH ×3 (05:20→20:53)
[2019-01-17] MEDS: inSUlin ASPART (NovoLOG) 1 UNIT/0.01 ML (CHARGE PER UNIT) SC SCH ×4 (05:22→20:57)
--- NOTE | 2019-01-17 08:04 | Pulmonary Progress Note ---
Sepsis Event Evaluation Height, Weight, BMI Height: 6'0.00" Weight: 215lbs. 1.0oz. 97.425151sl; 27.8 BMI Method:Actual Focused Exam Lactate Level 01/14/19 22:35: Lactic Acid Level 2.23*H 01/15/19 08:00: Lactic Acid Level 0.99 Time of Focused Exam: 22:45 Exam Exam Vital Signs Date Time Temp Pulse Resp B/P (MAP) Pulse Ox O2 Delivery O2 Flow Rate FiO2 01/17/19 07:15 75 01/17/19 01:00 88 01/17/19 00:05 98.9 82 20 141/65 (90) 92 Room Air 01/16/19 20:41 92 Room Air 01/16/19 20:18 97.6 75 20 177/77 (110) 94 Room Air 01/16/19 19:00 84 01/16/19 16:20 97.7 80 20 150/70 (96) 97 Room Air 01/16/19 13:00 91 01/16/19 12:07 98.4 83 18 128/72 (90) 93 Room Air 01/16/19 09:23 Room Air 01/16/19 09:00 87 17 111/59 (76) 95 Room Air I & O 01/17/19 07:00 Intake Total 2460 ml Output Total 3100 ml Balance -640 ml Height & Weight Height: 6'0.00" Weight: 215lbs. 1.0oz. 97.542697jp; 27.8 BMI Method:Actual General Appearance: No Apparent Distress, WD/WN, Chronically ill, Cachetic HEENT: Other (blindness, deafness) Neck: Normal Inspection, Non Tender, Supple Respiratory: Crackles, Decreased Breath Sounds, Wheezing Cardiovascular: Regular Rate, Rhythm, No Edema, Systolic Murmur Capillary Refill: Less Than 3 Seconds Gastrointestinal: normal bowel sounds, non tender, soft Extremity: No Calf Tenderness, No Pedal Edema Neurologic/Psychiatric: Alert, Disoriented Skin: Normal Color, Warm/Dry Lymphatic: No Adenopathy Results Lab Laboratory Tests 01/16/19 03:05 Assessment/Plan Assessment/Plan Severe sepsis with PNA -change to vanco zosyn -landon cultures pending -IVF Metabolic lactic acidosis -Improving hep lock IVF -Repeat LA - was normal pancytopenia with neutropenia -Start reverse isolation -Monitor CHF hx NSTEMI lymphoma - currently undergoing chemotherapy MARCUS OLIVIER DO Jan 17, 2019 08:04
[2019-01-17] MEDS: FAMOTIDINE 20MG/2ML IV (PEPCID) IVP SCH ×2 (10:06→20:53)
[2019-01-17] MEDS: ENOXAPARIN 100 MG/1 ML (LOVENOX) SYR SC SCH (11:34)
[2019-01-17] MEDS ORDERED: ONDANSETRON 4 MG/2 ML (SDV) Z0FRAN IVP PRN (13:15)
--- NOTE | 2019-01-17 13:59 | Progress Note-Hospitalist ---
Subjective HPI/CC On Admission Date Seen by Provider: Jan 17, 2019 Time Seen by Provider: 13:00 CC: Pneumonia with left chest wall pain. HPI: This is a 73yoWM patient of Dr[address] Epps and Dr. Shi (Oncology out of [place], [place]) Pt has a history of Non Hodgkins lymphoma diagnosed 8 years ago and in remission for 4 years, but receiving chemotherapy who presented with left chest wall pain found to have low grade fever and pneumonia, heart failure, hyponatremia, neutropenia, giving rise to the need for ICU admission to higher level of care from [facility]. is at the bedside. Aggressive IV fluids will be initiated along with landrum catheter placement and empiric antibiotics. Overall critical illness and considering Pt is very hard of hearing, and blind, cannot obtain any significant, relevant details from the Pt. Subjective/Events-last exam Chest x-ray shows no infiltrate ,patient started vomiting after I left today. he would like to go home. No blood work was available today. CT chest does show hepatic masses and possible a mass at the pancreatic head. He is still on antibiotics. He coughs during my exam. He has no new complaints Review of Systems Pulmonary: Cough Gastrointestinal: Nausea, Vomiting Focused Exam Lactate Level 01/14/19 22:35: Lactic Acid Level 2.23*H 01/15/19 08:00: Lactic Acid Level 0.99 Time of Focused Exam: 22:45 Objective Exam Vital Signs Vital Signs Date Time Temp Pulse Resp B/P (MAP) Pulse Ox O2 Delivery O2 Flow Rate FiO2 01/17/19 11:39 98.5 78 20 173/73 (106) 93 Room Air 01/16/19 20:30 2.00 Capillary Refill : Less Than 3 Seconds General Appearance: No Apparent Distress, WD/WN, Chronically ill, Cachetic HEENT: Other (blindness, deafness) Neck: Normal Inspection, Non Tender, Supple Respiratory: Crackles, Decreased Breath Sounds, Wheezing Cardiovascular: Regular Rate, Rhythm, No Edema, Systolic Murmur Gastrointestinal: Normal Bowel Sounds Back: Normal Inspection Extremity: No Calf Tenderness, No Pedal Edema Neurologic/Psychiatric: Alert, Disoriented Skin: Normal Color, Warm/Dry Lymphatic: No Adenopathy Results/Procedures Lab Patient resulted labs reviewed. Imaging: Reviewed Imaging Report Assessment/Plan Assessment and Plan Assess & Plan/Chief Complaint neutropenia Non-Hodgkin's lymphoma Hepatic masses Massive the pancreatic head monocytosis New onset vomiting of uncertain etiology Plan to continue the Zosyn and further evaluation per oncology as needed Clinical Quality Measures AMI/AHF: ASA po Prior to arrival: No DVT/VTE Risk/Contraindication: Risk Factor Score Per Nursin RFS Level Per Nursing on Admit: 4+=Very High LIA MITCHELL MD Jan 17, 2019 13:59
[2019-01-17 14:05] LABS: BASOPHILS % (AUTO) 1 % (0-10); EOSINOPHILS # (AUTO) 0.1 10^3/uL (0.0-0.3); EOSINOPHILS % (AUTO) 4 % (0-10); HEMATOCRIT 32 % (40-54); HEMOGLOBIN 10.6 G/DL (13.3-17.7); LYMPHOCYTES # (AUTO) 0.4 X 10^3 (1.0-4.0); LYMPHOCYTES % (AUTO) 36 % (12-44); MEAN CORPUSCULAR HEMOGLOBIN 29 PG (25-34); MEAN CORPUSCULAR HGB CONC 33 G/DL (32-36); MEAN CORPUSCULAR VOLUME 86 FL (80-99); MEAN PLATELET VOLUME 11.7 FL (7.4-10.4); MONOCYTES # (AUTO) 0.3 X 10^3 (0.0-1.0); MONOCYTES % (AUTO) 22 % (0-12); NEUTROPHILS # (AUTO) 0.4 X 10^3 (1.8-7.8); NEUTROPHILS % (AUTO) 37 % (42-75); PLATELET COUNT 105 10^3/uL (130-400); RED CELL DISTRIBUTION WIDTH 18.6 % (10.0-14.5)
[2019-01-17 14:11] LABS: WHITE BLOOD COUNT 1.1 10^3/uL (4.3-11.0)
[2019-01-17 14:20] LABS: ALANINE AMINOTRANSFERASE 26 U/L (0-55); ALBUMIN 3.6 GM/DL (3.2-4.5); ALKALINE PHOSPHATASE 44 U/L (40-136); BILIRUBIN,TOTAL 0.6 MG/DL (0.1-1.0); BUN/CREATININE RATIO 6; CALCIUM 8.2 MG/DL (8.5-10.1); CARBON DIOXIDE 22 MMOL/L (21-32); CHLORIDE 104 MMOL/L (98-107); GFR ESTIMATED > 60; GLUCOSE 198 MG/DL (70-105); POTASSIUM 3.2 MMOL/L (3.6-5.0); SODIUM 138 MMOL/L (135-145); TOTAL PROTEIN 5.3 GM/DL (6.4-8.2)
[2019-01-17] MEDS ORDERED: METHYL SALICYLATE/MENTHOL (BENGAY, MUSCLE RUB) 3 OZ TUBE TP PRN (14:30)
--- NOTE | 2019-01-17 17:45 | Cardiology Progress Note ---
Cardiology SOAP Progress Note Subjective: No cardiac complaints. Objective: I&O/Vital Signs 01/17/19 01/17/19 01/17/19 01/17/19 07:15 08:00 08:28 09:49 Temp 98.2 Pulse 75 81 Resp 20 B/P (MAP) 162/77 (105) Pulse Ox 95 94 94 O2 Delivery Room Air Room Air Room Air 01/17/19 01/17/19 01/17/19 11:39 13:26 15:50 Temp 98.5 97.8 Pulse 78 85 75 Resp 20 18 B/P (MAP) 173/73 (106) 174/70 (104) Pulse Ox 93 95 O2 Delivery Room Air Room Air 01/17/19 00:00 Intake Total 2460 ml Output Total 3100 ml Balance -640 ml Weight (Pounds): 215 Weight (Ounces): 1.0 Weight (Calculated Kilograms): 97.626624 Constitutional: No appears stated age; AAO x 3; No apparent distress, No PERRL , No well-developed, No well-nourished, No other Respiratory: No accessory muscle use, No respiratory distress, No chest tender , No chest expansion is symmetric; chest is bilaterally symmetric; No lungs clear to percussion; lungs clear to auscultation; No crackles, No rhonchi, No rales, No stridor, No wheezing, No pleural rub, No other Cardiovascular: regular rate-rhythm; No irregularly irregular, No extra beats, No parasternal heave is noted, No JVD, No edema, No bradycardia, No tachycardia , No point of maximal impulse, No cardiac thrills are palpable; S1 and S2; No gallop/S3, No gallop/S4, No diastolic murmur, No systolic murmur, No friction rub, No click, No other Gastrointestional: No tender, No soft, No round, No distended, No pulsatile mass, No organomegaly, No guarding, No rebound, No tenderness, No hernia, No mass, No audible bowel sounds, No abnormal bowel sounds, No abdominal bruits, No spleenomegaly, No other Extremities: No normal range of motion, No non-tender, No normal inspection, No pedal edema, No calf tenderness, No normal capillary refill, No pelvis stable , No calf tenderness, No inflammation, No pedal edema, No slow capillary refill , No swelling, No other, No abrasion, No clubbing, No cyanosis, No ecchymosis, No laceration, No no lower extremity edema bilateral, No significant edema, No tenderness, No wound Neurologic/Psychiatric: no motor/sensory deficits, alert, normal mood/affect Skin: normal color Results/Procedures: Labs Laboratory Tests 01/16/19 21:05: Glucometer 136H 01/17/19 05:21: Glucometer 198H 01/17/19 06:55: White Blood Count 1.1*L, Red Blood Count 3.68L, Hemoglobin 10.6L, Hematocrit 32L , Mean Corpuscular Volume 86, Mean Corpuscular Hemoglobin 29, Mean Corpuscular Hemoglobin Concent 33, Red Cell Distribution Width 18.6H, Platelet Count 105L, Mean Platelet Volume 11.7H, Neutrophils (%) (Auto) 37L, Lymphocytes (%) (Auto) 36, Monocytes (%) (Auto) 22H, Eosinophils (%) (Auto) 4, Basophils (%) (Auto) 1, Neutrophils # (Auto) 0.4L, Lymphocytes # (Auto) 0.4L, Monocytes # (Auto) 0.3, Eosinophils # (Auto) 0.1, Basophils # (Auto) 0.0, Sodium Level 138, Potassium Level 3.2L, Chloride Level 104, Carbon Dioxide Level 22, Anion Gap 12, Blood Urea Nitrogen 5L, Creatinine 0.80, Estimat Glomerular Filtration Rate > 60, BUN/ Creatinine Ratio 6, Glucose Level 198H, Calcium Level 8.2L, Corrected Calcium 8.5, Total Bilirubin 0.6, Aspartate Amino Transf (AST/SGOT) 32, Alanine Aminotransferase (ALT/SGPT) 26, Alkaline Phosphatase 44, Total Protein 5.3L, Albumin 3.6 01/17/19 15:33: Glucometer 199H Microbiology 01/14/19 Blood Culture - Preliminary, Resulted No growth 01/14/19 Influenza Types A,B Antigen (SHAI) - Final, Complete A/P: Assessment/Dx: Type II AL , likely due to severe sepsis, Severe sepsis, Cancer, on chemotherapy, diabetes, CAD, CABG Plan: Severe sepsis, immunodeficiency, broad-spectrum antibiotics, IV fluids, deferred to the primary team. Type II AL likely due to severe sepsis, pneumonia. However patient may require nuclear stress testing as an outpatient once infection is resolved. CAD/CABG: Continue outpatient medical therapy. Diabetes: Continue metformin. Non-Hodgkin's lymphoma. Thank you for your consultation. Please call me if you have any questions. Nagi Felix MD, FACP, FACC, FSCAI, FHRS, CCDS Interventional Cardiology Cardiac Electrophysiology Vascular Medicine and Endovascular Interventions Focused Exam Lactate Level 01/14/19 22:35: Lactic Acid Level 2.23*H 01/15/19 08:00: Lactic Acid Level 0.99 Time of Focused Exam: 22:45 Clinical Quality Measures AMI/AHF: ASA po Prior to arrival: Jeanne Posey MD Jan 17, 2019 17:45
[2019-01-17] MEDS: ACETAMINOPHEN 325 MG TABLET PO PRN (22:33)
[2019-01-18] MEDS: ENOXAPARIN 100 MG/1 ML (LOVENOX) SYR SC SCH ×3 (00:14→23:39)
[2019-01-18 04:59] VITALS: BP 158/70
[2019-01-18] MEDS: inSUlin ASPART (NovoLOG) 1 UNIT/0.01 ML (CHARGE PER UNIT) SC SCH ×4 (06:18→20:46)
[2019-01-18] MEDS: PIPERACILLIN/TAZOBACTAM (BULK) 4.5 GM in NS (IVPB) 100 ML IV SCH ×3 (06:19→20:45)
[2019-01-18 06:47] LABS: BASOPHILS % (AUTO) 1 % (0-10); EOSINOPHILS # (AUTO) 0.1 10^3/uL (0.0-0.3); EOSINOPHILS % (AUTO) 7 % (0-10); HEMATOCRIT 37 % (40-54); HEMOGLOBIN 12.1 G/DL (13.3-17.7); LYMPHOCYTES # (AUTO) 0.5 X 10^3 (1.0-4.0); LYMPHOCYTES % (AUTO) 29 % (12-44); MEAN CORPUSCULAR HEMOGLOBIN 27 PG (25-34); MEAN CORPUSCULAR HGB CONC 33 G/DL (32-36); MEAN CORPUSCULAR VOLUME 84 FL (80-99); MEAN PLATELET VOLUME 11.1 FL (7.4-10.4); MONOCYTES # (AUTO) 0.3 X 10^3 (0.0-1.0); MONOCYTES % (AUTO) 17 % (0-12); NEUTROPHILS # (AUTO) 0.7 X 10^3 (1.8-7.8); NEUTROPHILS % (AUTO) 46 % (42-75); PLATELET COUNT 126 10^3/uL (130-400); WHITE BLOOD COUNT 1.6 10^3/uL (4.3-11.0)
[2019-01-18 07:12] LABS: BUN/CREATININE RATIO 6; CALCIUM 9.1 MG/DL (8.5-10.1); CARBON DIOXIDE 23 MMOL/L (21-32); CHLORIDE 104 MMOL/L (98-107); CREATININE SERUM 0.69 MG/DL (0.60-1.30); GFR ESTIMATED > 60; GLUCOSE 158 MG/DL (70-105); PHOSPHORUS 1.9 MG/DL (2.3-4.7); POTASSIUM 2.9 MMOL/L (3.6-5.0); SODIUM 140 MMOL/L (135-145)
[2019-01-18 08:58] VITALS: BP 169/70
[2019-01-18] MEDS: FAMOTIDINE 20MG/2ML IV (PEPCID) IVP SCH ×2 (10:26→20:45)
[2019-01-18] MEDS: RT-ALBUTEROL/IPRATROPIUM 3 ML (DUONEB) VIAL INH SCH ×3 (10:27→19:25)
[2019-01-18 11:08] VITALS: BP 161/74
--- NOTE | 2019-01-18 12:02 | Cardiology Progress Note ---
Cardiology SOAP Progress Note Subjective: no cardiac complaints. Objective: I&O/Vital Signs 01/18/19 01/18/19 01/18/19 01/18/19 01:00 04:59 07:13 08:58 Temp 97.3 98.6 Pulse 67 79 66 82 Resp 18 20 B/P (MAP) 158/70 (99) 169/70 (103) Pulse Ox 94 97 O2 Delivery Room Air Room Air 01/18/19 11:08 Temp 98.2 Pulse 81 Resp 16 B/P (MAP) 161/74 (103) Pulse Ox 98 O2 Delivery Room Air 01/18/19 00:00 Intake Total 1825 ml Output Total 2800 ml Balance -975 ml Weight (Pounds): 215 Weight (Ounces): 1.0 Weight (Calculated Kilograms): 97.875303 Constitutional: No appears stated age; AAO x 3; No apparent distress, No PERRL , No well-developed, No well-nourished, No other Respiratory: No accessory muscle use, No respiratory distress, No chest tender , No chest expansion is symmetric; chest is bilaterally symmetric; No lungs clear to percussion; lungs clear to auscultation; No crackles, No rhonchi, No rales, No stridor, No wheezing, No pleural rub, No other Cardiovascular: regular rate-rhythm; No irregularly irregular, No extra beats, No parasternal heave is noted, No JVD, No edema, No bradycardia, No tachycardia , No point of maximal impulse, No cardiac thrills are palpable; S1 and S2; No gallop/S3, No gallop/S4, No diastolic murmur, No systolic murmur, No friction rub, No click, No other Gastrointestional: No tender, No soft, No round, No distended, No pulsatile mass, No organomegaly, No guarding, No rebound, No tenderness, No hernia, No mass, No audible bowel sounds, No abnormal bowel sounds, No abdominal bruits, No spleenomegaly, No other Extremities: No normal range of motion, No non-tender, No normal inspection, No pedal edema, No calf tenderness, No normal capillary refill, No pelvis stable , No calf tenderness, No inflammation, No pedal edema, No slow capillary refill , No swelling, No other, No abrasion, No clubbing, No cyanosis, No ecchymosis, No laceration, No no lower extremity edema bilateral, No significant edema, No tenderness, No wound Neurologic/Psychiatric: no motor/sensory deficits, alert, normal mood/affect Skin: normal color Results/Procedures: Labs Laboratory Tests 01/17/19 15:33: Glucometer 199H 01/17/19 20:56: Glucometer 227H 01/18/19 06:16: Glucometer 171H 01/18/19 06:20: White Blood Count 1.6L, Red Blood Count 4.41, Hemoglobin 12.1L, Hematocrit 37L, Mean Corpuscular Volume 84, Mean Corpuscular Hemoglobin 27, Mean Corpuscular Hemoglobin Concent 33, Red Cell Distribution Width 18.0H, Platelet Count 126L, Mean Platelet Volume 11.1H, Neutrophils (%) (Auto) 46, Lymphocytes (%) (Auto) 29 , Monocytes (%) (Auto) 17H, Eosinophils (%) (Auto) 7, Basophils (%) (Auto) 1, Neutrophils # (Auto) 0.7L, Lymphocytes # (Auto) 0.5L, Monocytes # (Auto) 0.3, Eosinophils # (Auto) 0.1, Basophils # (Auto) 0.0, Sodium Level 140, Potassium Level 2.9L, Chloride Level 104, Carbon Dioxide Level 23, Anion Gap 13, Blood Urea Nitrogen 4L, Creatinine 0.69, Estimat Glomerular Filtration Rate > 60, BUN/ Creatinine Ratio 6, Glucose Level 158H, Calcium Level 9.1, Phosphorus Level 1.9L , Magnesium Level 2.0 01/18/19 11:11: Glucometer 197H Microbiology 01/14/19 Blood Culture - Preliminary, Resulted No growth 01/14/19 Influenza Types A,B Antigen (SHAI) - Final, Complete A/P: Assessment/Dx: Type II [place] , likely due to severe sepsis, Severe sepsis, Cancer, on chemotherapy, diabetes, CAD, CABG Plan: Severe sepsis, immunodeficiency, broad-spectrum antibiotics, IV fluids, deferred to the primary team. Type II FL likely due to severe sepsis, pneumonia. However patient may require nuclear stress testing as an outpatient once infection is resolved. CAD/CABG: Continue outpatient medical therapy. Diabetes: Continue metformin. Non-Hodgkin's lymphoma. Thank you for your consultation. Please call me if you have any questions. Nagi Felix MD, FACP, FACC, FSCAI, FHRS, CCDS Interventional Cardiology Cardiac Electrophysiology Vascular Medicine and Endovascular Interventions Focused Exam Time of Focused Exam: 22:45 Clinical Quality Measures AMI/AHF: ASA po Prior to arrival: Jeanne Posey MD Jan 18, 2019 12:02 pm
[2019-01-18] MEDS: ACETAMINOPHEN 325 MG TABLET PO PRN ×3 (12:08→23:39)
[2019-01-18] MEDS ORDERED: POTASSIUM PHOSPHATE INJ 30 MM in NS (IVPB) 250 ML IV ONE (13:15)
--- NOTE | 2019-01-18 13:20 | Progress Note-Hospitalist ---
Subjective HPI/CC On Admission Date Seen by Provider: Jan 18, 2019 Time Seen by Provider: 11:45 CC: Pneumonia with left chest wall pain. HPI: This is a 73yoWM patient of Dr[address] Epps and Dr. Shi (Oncology out of [place], [place]) Pt has a history of Non Hodgkins lymphoma diagnosed 8 years ago and in remission for 4 years, but receiving chemotherapy who presented with left chest wall pain found to have low grade fever and pneumonia, heart failure, hyponatremia, neutropenia, giving rise to the need for ICU admission to higher level of care from [facility]. is at the bedside. Aggressive IV fluids will be initiated along with landrum catheter placement and empiric antibiotics. Overall critical illness and considering Pt is very hard of hearing, and blind, cannot obtain any significant, relevant details from the Pt. Subjective/Events-last exam Patient is sleeping today the says that he is getting a little bit better. Both white count hemoglobin and platelet count are up a bit today. He's had no further vomiting Review of Systems Neurological: Weakness Focused Exam Time of Focused Exam: 22:45 Objective Exam Vital Signs Vital Signs Date Time Temp Pulse Resp B/P (MAP) Pulse Ox O2 Delivery O2 Flow Rate FiO2 01/18/19 11:08 98.2 81 16 161/74 (103) 98 Room Air 01/17/19 21:11 21 01/16/19 20:30 2.00 Capillary Refill : Less Than 3 Seconds General Appearance: No Apparent Distress, WD/WN, Chronically ill, Cachetic HEENT: Other (blindness, deafness) Neck: Normal Inspection, Non Tender, Supple Respiratory: Lungs Clear, No Accessory Muscle Use, No Respiratory Distress, Crackles, Decreased Breath Sounds, Wheezing Cardiovascular: Regular Rate, Rhythm, No Edema, Systolic Murmur Gastrointestinal: Normal Bowel Sounds Back: Normal Inspection Extremity: No Calf Tenderness, No Pedal Edema Neurologic/Psychiatric: Alert, Disoriented Skin: Normal Color, Warm/Dry Lymphatic: No Adenopathy Results/Procedures Lab Laboratory Tests 01/18/19 06:20 Patient resulted labs reviewed. Imaging: Reviewed Imaging Report Assessment/Plan Assessment and Plan Assess & Plan/Chief Complaint Pancytopenia presumed secondary to chemotherapy Non-Hodgkin's lymphoma Hepatic masses Mass of the pancreatic head monocytosis New onset vomiting of uncertain etiology hypokalemia will replace Hypo-phosphatemia Plan to continue the Zosyn and further evaluation per oncology as needed Clinical Quality Measures AMI/AHF: ASA po Prior to arrival: No DVT/VTE Risk/Contraindication: Risk Factor Score Per Nursin RFS Level Per Nursing on Admit: 4+=Very High LIA MITCHELL MD Jan 18, 2019 13:20
[2019-01-18] MEDS: KCL 20 MEQ TAB (K-DUR) PO SCH (13:54)
--- NOTE | 2019-01-18 14:48 | NUR ---
PT HAS HAD SEVERAL LOOSE STOOLS TODAY AND IS REQUESTING IMODIUM. DR MITCHELL NOTIFIED AND NEW ORDERS RECEIVED TO START IMODIUM DIRECTED AND CHECK PT FOR C-DIFF. ORDERS ENTERED. PT INFORMED.
[2019-01-18 16:11] VITALS: BP 160/71
[2019-01-18] MEDS: LOPERAMIDE 2 MG (IMODIUM) CAP PO PRN (17:57)
[2019-01-18 20:00] VITALS: BP 129/63
[2019-01-18] MEDS: morphine INJ 4 MG/ML 1 ML (VIAL/SYRINGE) IVP PRN (20:46)
[2019-01-19 00:03] VITALS: BP 137/67
[2019-01-19 04:58] LABS: BASOPHILS % (AUTO) 2 % (0-10); EOSINOPHILS # (AUTO) 0.1 10^3/uL (0.0-0.3); EOSINOPHILS % (AUTO) 6 % (0-10); HEMATOCRIT 33 % (40-54); HEMOGLOBIN 11.3 G/DL (13.3-17.7); LYMPHOCYTES # (AUTO) 0.4 X 10^3 (1.0-4.0); LYMPHOCYTES % (AUTO) 25 % (12-44); MEAN CORPUSCULAR HEMOGLOBIN 29 PG (25-34); MEAN CORPUSCULAR HGB CONC 35 G/DL (32-36); MEAN CORPUSCULAR VOLUME 84 FL (80-99); MEAN PLATELET VOLUME 9.9 FL (7.4-10.4); MONOCYTES # (AUTO) 0.3 X 10^3 (0.0-1.0); MONOCYTES % (AUTO) 16 % (0-12); NEUTROPHILS # (AUTO) 0.8 X 10^3 (1.8-7.8); NEUTROPHILS % (AUTO) 51 % (42-75); PLATELET COUNT 132 10^3/uL (130-400); RED CELL DISTRIBUTION WIDTH 18.4 % (10.0-14.5); WHITE BLOOD COUNT 1.6 10^3/uL (4.3-11.0)
[2019-01-19 05:17] LABS: BUN/CREATININE RATIO 7; CALCIUM 8.8 MG/DL (8.5-10.1); CARBON DIOXIDE 22 MMOL/L (21-32); CHLORIDE 103 MMOL/L (98-107); CREATININE SERUM 0.72 MG/DL (0.60-1.30); GFR ESTIMATED > 60; GLUCOSE 235 MG/DL (70-105); MAGNESIUM 1.7 MG/DL (1.8-2.4); POTASSIUM 3.1 MMOL/L (3.6-5.0); SODIUM 138 MMOL/L (135-145)
[2019-01-19] MEDS: PIPERACILLIN/TAZOBACTAM (BULK) 4.5 GM in NS (IVPB) 100 ML IV SCH ×3 (05:35→21:27)
[2019-01-19] MEDS: inSUlin ASPART (NovoLOG) 1 UNIT/0.01 ML (CHARGE PER UNIT) SC SCH ×4 (05:57→21:29)
[2019-01-19] MEDS: RT-ALBUTEROL/IPRATROPIUM 3 ML (DUONEB) VIAL INH SCH ×3 (07:30→19:43)
[2019-01-19 08:00] VITALS: BP 148/66
--- NOTE | 2019-01-19 08:40 | Cardiology Progress Note ---
Cardiology SOAP Progress Note Subjective: No cardiac complaints. Objective: I&O/Vital Signs 01/19/19 01/19/19 00:03 07:30 Temp 97.2 Pulse 74 Resp 18 B/P (MAP) 137/67 (90) Pulse Ox 99 96 O2 Delivery Room Air Room Air 01/19/19 00:00 Intake Total 1830 ml Output Total 1100 ml Balance 730 ml Weight (Pounds): 215 Weight (Ounces): 1.0 Weight (Calculated Kilograms): 97.103289 Constitutional: No appears stated age; AAO x 3; No apparent distress, No PERRL , No well-developed, No well-nourished, No other Respiratory: No accessory muscle use, No respiratory distress, No chest tender , No chest expansion is symmetric; chest is bilaterally symmetric; No lungs clear to percussion; lungs clear to auscultation; No crackles, No rhonchi, No rales, No stridor, No wheezing, No pleural rub, No other Cardiovascular: regular rate-rhythm; No irregularly irregular, No extra beats, No parasternal heave is noted, No JVD, No edema, No bradycardia, No tachycardia , No point of maximal impulse, No cardiac thrills are palpable; S1 and S2; No gallop/S3, No gallop/S4, No diastolic murmur, No systolic murmur, No friction rub, No click, No other Gastrointestional: No tender, No soft, No round, No distended, No pulsatile mass, No organomegaly, No guarding, No rebound, No tenderness, No hernia, No mass, No audible bowel sounds, No abnormal bowel sounds, No abdominal bruits, No spleenomegaly, No other Extremities: No normal range of motion, No non-tender, No normal inspection, No pedal edema, No calf tenderness, No normal capillary refill, No pelvis stable , No calf tenderness, No inflammation, No pedal edema, No slow capillary refill , No swelling, No other, No abrasion, No clubbing, No cyanosis, No ecchymosis, No laceration, No no lower extremity edema bilateral, No significant edema, No tenderness, No wound Neurologic/Psychiatric: no motor/sensory deficits, alert, normal mood/affect Skin: normal color Results/Procedures: Labs Laboratory Tests 01/18/19 11:11: Glucometer 197H 01/18/19 16:11: Glucometer 254H 01/18/19 19:51: Glucometer 174H 01/19/19 04:50: White Blood Count 1.6L, Red Blood Count 3.93L, Hemoglobin 11.3L, Hematocrit 33L , Mean Corpuscular Volume 84, Mean Corpuscular Hemoglobin 29, Mean Corpuscular Hemoglobin Concent 35, Red Cell Distribution Width 18.4H, Platelet Count 132, Mean Platelet Volume 9.9, Neutrophils (%) (Auto) 51, Lymphocytes (%) (Auto) 25, Monocytes (%) (Auto) 16H, Eosinophils (%) (Auto) 6, Basophils (%) (Auto) 2, Neutrophils # (Auto) 0.8L, Lymphocytes # (Auto) 0.4L, Monocytes # (Auto) 0.3, Eosinophils # (Auto) 0.1, Basophils # (Auto) 0.0, Sodium Level 138, Potassium Level 3.1L, Chloride Level 103, Carbon Dioxide Level 22, Anion Gap 13, Blood Urea Nitrogen 5L, Creatinine 0.72, Estimat Glomerular Filtration Rate > 60, BUN/ Creatinine Ratio 7, Glucose Level 235H, Calcium Level 8.8, Phosphorus Level 2.0L , Magnesium Level 1.7L 01/19/19 05:47: Glucometer 222H Microbiology 01/14/19 Blood Culture - Preliminary, Resulted No growth 01/14/19 Influenza Types A,B Antigen (SHAI) - Final, Complete A/P: Assessment/Dx: Type II SD , likely due to severe sepsis, Severe sepsis, Cancer, on chemotherapy, diabetes, CAD, CABG Plan: Severe sepsis, immunodeficiency, broad-spectrum antibiotics, IV fluids, deferred to the primary team. Type II SD likely due to severe sepsis, pneumonia. However patient may require nuclear stress testing as an outpatient once infection is resolved. CAD/CABG: Continue outpatient medical therapy. Diabetes: Continue metformin. Non-Hodgkin's lymphoma. Thank you for your consultation. Please call me if you have any questions. Nagi Felix MD, FACP, FACC, FSCAI, FHRS, CCDS Interventional Cardiology Cardiac Electrophysiology Vascular Medicine and Endovascular Interventions Focused Exam Time of Focused Exam: 22:45 Clinical Quality Measures AMI/AHF: ASA po Prior to arrival: Jeanne Posey MD Jan 19, 2019 8:40 am
[2019-01-19] MEDS: FAMOTIDINE 20MG/2ML IV (PEPCID) IVP SCH ×2 (09:47→21:27)
[2019-01-19] MEDS: KCL 20 MEQ TAB (K-DUR) PO SCH (09:47)
[2019-01-19] MEDS: ACETAMINOPHEN 325 MG TABLET PO PRN ×4 (09:47→22:36)
[2019-01-19] MEDS: ENOXAPARIN 100 MG/1 ML (LOVENOX) SYR SC SCH ×2 (12:04→23:03)
--- NOTE | 2019-01-19 13:34 | Progress Note-Hospitalist ---
Subjective HPI/CC On Admission Date Seen by Provider: Jan 19, 2019 Time Seen by Provider: 13:28 CC: Pneumonia with left chest wall pain. HPI: This is a 73yoWM patient of Dr[address] Epps and Dr. Shi (Oncology out of [place], [place]) Pt has a history of Non Hodgkins lymphoma diagnosed 8 years ago and in remission for 4 years, but receiving chemotherapy who presented with left chest wall pain found to have low grade fever and pneumonia, heart failure, hyponatremia, neutropenia, giving rise to the need for ICU admission to higher level of care from [facility]. is at the bedside. Aggressive IV fluids will be initiated along with landrum catheter placement and empiric antibiotics. Overall critical illness and considering Pt is very hard of hearing, and blind, cannot obtain any significant, relevant details from the Pt. Subjective/Events-last exam Pt is laying in bed requesting discharge home because his cannot stay with him tonight. He became distraught at the idea of having to stay but calmed quickly. Focused Exam Time of Focused Exam: 22:45 Objective Exam Vital Signs Vital Signs Date Time Temp Pulse Resp B/P (MAP) Pulse Ox O2 Delivery O2 Flow Rate FiO2 01/19/19 08:00 94 Room Air 01/19/19 08:00 98.2 73 18 148/66 (93) 01/17/19 21:11 21 01/16/19 20:30 2.00 Capillary Refill : Less Than 3 Seconds General Appearance: No Apparent Distress, WD/WN, Chronically ill, Cachetic HEENT: Other (blindness, deafness, left eye with cataract) Respiratory: Lungs Clear, No Accessory Muscle Use, No Respiratory Distress Cardiovascular: Regular Rate, Rhythm, No Edema, Systolic Murmur Gastrointestinal: Normal Bowel Sounds Back: Normal Inspection Extremity: No Calf Tenderness, No Pedal Edema Neurologic/Psychiatric: Alert, Disoriented Skin: Normal Color, Warm/Dry Lymphatic: No Adenopathy Results/Procedures Lab Laboratory Tests 01/19/19 04:50 Patient resulted labs reviewed. Imaging: Reviewed Imaging Report Assessment/Plan Assessment and Plan Assess & Plan/Chief Complaint Severe sepsis- 2/2 pneumonia improved, continue on Zosyn Pulm consulted appreciate recs Pancytopenia presumed secondary to chemotherapy- remains neutropenic, discussed with oncology who recommends Granix and will see in consultation Non-Hodgkin's lymphoma- hold chemotherapy Hepatic masses Mass of the pancreatic head Hypokalemia- replaced Elevated troponin- cardiology consulted, appreciate recs; likely Type II CA- outpatient follow up needed Clinical Quality Measures AMI/AHF: ASA po Prior to arrival: No DVT/VTE Risk/Contraindication: Risk Factor Score Per Nursin RFS Level Per Nursing on Admit: 4+=Very High SHANTELL MALAGON MD Jan 19, 2019 13:34
[2019-01-19] MEDS ORDERED: LORazepam 1 MG (ATIVAN) TAB PO PRN (13:45)
[2019-01-19] MEDS: TBO-FILGRASTIM 480 MCG/0.8 ML (GRANIX) SQ SCH (14:13)
[2019-01-19] MEDS: LOPERAMIDE 2 MG (IMODIUM) CAP PO PRN (14:23)
--- NOTE | 2019-01-19 15:28 | Pulmonary Progress Note ---
Sepsis Event Evaluation Height, Weight, BMI Height: 6'0.00" Weight: 215lbs. 1.0oz. 97.247643ac; 27.8 BMI Method:Actual Focused Exam Time of Focused Exam: 22:45 Exam Exam Vital Signs Date Time Temp Pulse Resp B/P (MAP) Pulse Ox O2 Delivery O2 Flow Rate FiO2 01/19/19 08:00 94 Room Air 01/19/19 08:00 98.2 73 18 148/66 (93) 94 Room Air 01/19/19 07:30 96 Room Air 01/19/19 00:03 97.2 74 18 137/67 (90) 99 Room Air 01/18/19 20:15 Room Air 01/18/19 20:00 97.5 82 18 129/63 (85) 97 Room Air 01/18/19 19:25 96 Room Air 01/18/19 16:11 98.6 74 18 160/71 (100) 97 Room Air I & O 01/19/19 07:00 Intake Total 2080 ml Output Total 1850 ml Balance 230 ml Height & Weight Height: 6'0.00" Weight: 215lbs. 1.0oz. 97.224921ho; 27.8 BMI Method:Actual General Appearance: No Apparent Distress, WD/WN, Chronically ill, Cachetic HEENT: Other (blindness, deafness, left eye with cataract) Respiratory: Lungs Clear, No Accessory Muscle Use, No Respiratory Distress Cardiovascular: Regular Rate, Rhythm, No Edema, Systolic Murmur Capillary Refill: Less Than 3 Seconds Gastrointestinal: normal bowel sounds, non tender, soft Extremity: No Calf Tenderness, No Pedal Edema Neurologic/Psychiatric: Alert, Disoriented Skin: Normal Color, Warm/Dry Lymphatic: No Adenopathy Results Lab Laboratory Tests 01/18/19 06:20 01/19/19 04:50 Assessment/Plan Assessment/Plan PNA - improving - vanco zosyn -landon cultures pending Metabolic lactic acidosis -Improving hep lock IVF -Repeat LA - was normal CHF hx NSTEMI lymphoma - currently undergoing chemotherapy MARCUS OLIVIER DO Jan 19, 2019 15:28
--- NOTE | 2019-01-19 15:51 | NUR ---
TALKED TO PATIENT ABOUT HIS LISTED ALLERGIES. HE DENIES ALLERGY TO TYLENOL, OR TAPE. HE CAN TAKE THE 81 MG ASPIRIN BUT NOT THE "BIG ASPIRIN"
[2019-01-19 16:01] VITALS: BP 136/64
[2019-01-19 20:05] VITALS: BP 165/70
[2019-01-19] MEDS ORDERED: prednisoLONE 1% OPTH (PRED FORTE) 5 ML BTL OU SCH (21:00)
[2019-01-19] MEDS ORDERED: ATORVASTATIN 40 MG (LIPITOR) TABLET PO SCH (21:00)
[2019-01-19] MEDS ORDERED: NON-FORMULARY MEDICATION 1 EA EA (Cilostazol 100 MG) PO SCH (21:00)
[2019-01-19] MEDS: DORZOLAMIDE/TIMOLOL (COSOPT) 2-0.68% 10 ML BTL OU SCH (21:28)
[2019-01-19] MEDS: GABAPENTIN 300 MG (NEURONTIN) CAP PO SCH (21:28)
[2019-01-19] MEDS: BRIMONIDINE 0.2% (ALPHAGAN) OPHTH SOLN 5 ML BTL OU SCH (21:28)
[2019-01-19] MEDS: inSUlin NPH/REG (NovoLIN 70/30) CHARGE PER UNIT SQ SCH (21:29)
--- NOTE | 2019-01-19 21:49 | CONSULTATION REPORT ---
DATE OF SERVICE: 01/19/2019 The patient is admitted to room #431. PHYSICIAN REQUESTING CONSULTATION: Alejandrina Jones MD IMPRESSION: 1. A 73-year-old male admitted to the hospital with cough, sore throat and fever with evidence of bibasilar atelectasis by chest x-ray. 2. History of lymphoma and on chemotherapy with bendamustine and Rituxan completed two weeks ago. 3. Grade III to IV neutropenia secondary to chemotherapy. 4. Other comorbidities including diabetes mellitus, coronary artery disease with 4-vessel CABG. 5. Blindness. RECOMMENDATIONS: 1. Continue broad spectrum antibiotic therapy as you are doing. 2. Start the patient on GCSF 480 mcg subcutaneously daily until ANC more than 10,000. Monitor CBC daily while on growth factors. 3. Continue incentive spirometry. Follow up with primary oncologist upon discharge. BRIEF HISTORY: The patient is a 73-year-old male patient from [place], [place], with the 6- to 7-year history of non-Hodgkin's lymphoma. The patient and his does not know the type of lymphoma, but from the treatments and maintenance that he has been on previously, most likely he has a low-grade lymphoma. Recently, he was started on chemotherapy with bendamustine and Rituxan regimen and completed the first course approximately 2 weeks ago. The patient developed sore throat, cough and fever at home and was evaluated at the [facility]. Because of neutropenia and possible pneumonia, he was sent to [facility] for admission and further management. The patient was noted to have a grade IV neutropenia at the time of admission, which has improved slightly over the past two days. As he still has a grade III neutropenia, oncology consultation was requested for further evaluation and recommendations. PAST MEDICAL HISTORY: Significant for diagnosis of non-Hodgkin's lymphoma as mentioned above. The patient or his is unsure about what all treatments he has had, but remembers that he was on Rituxan for maintenance for long time. Recently, he was restarted on chemotherapy with bendamustine plus Rituxan regimen. Other significant history includes diabetes mellitus diagnosed approximately 12 years ago. He was initially on oral agents, switched over to insulin now. He has coronary artery disease and GA in the past, requiring a 4-vessel CABG few years ago. He has a glaucoma and complete blindness since past few years. SOCIAL HISTORY: The patient is and lives in [facility]. He has two sons, both of whom live close by. 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 He has also used chewing tobacco extensively and quit this more than 12 to 15 years ago. He denied any recreational drug use. Previously, he worked as a flight teacher for a long time. He is unsure if he has had any exposure to chemicals during his work or not. FAMILY HISTORY: Unremarkable as the patient does not remember the details. PHYSICAL EXAMINATION: GENERAL: Today showed elderly male, slightly hard of hearing and completely blind, awake and answering questions fairly, in no acute distress. VITAL SIGNS: Temperature 97.6, pulse rate of 78, respirations 20, blood pressure 136/64 with oxygen saturation of 98% on room air. HEENT: Normocephalic, extraocular muscles intact with markedly diminished visual acuity, oral mucosa moist. NECK: Supple, with no JVD. No cervical, supraclavicular or axillary lymphadenopathy palpable. CHEST: Symmetrical. Lungs with slightly diminished breath sounds bilaterally without wheezes or rales. HEART: Regular in rate and rhythm with occasional missed beats. No murmurs or gallops heard. ABDOMEN: Soft, nontender with no hepatosplenomegaly or other masses palpable. EXTREMITIES: Showed no edema. NEUROLOGIC: Showed no focal motor deficits. LABORATORY DATA: CBC done today showed total white count of 1.6, hemoglobin 11.3, platelet count 132,000 with neutrophil count 0.8 and lymphocyte count 0.4. CBC done at the time of admission showed total white count of 1.6, hemoglobin 11.2 and platelet count of 83,000 with neutrophil count 0.1 and lymphocyte count 1.1. BMP done today showed normal electrolytes except potassium level of 3.1. BUN was 5 and creatinine 0.72 with GFR more than 60 mL per minute. Nonfasting glucose was 235. Serum magnesium was 1.7. Liver function studies from 01/17/2019 was within normal limits. Chest x-ray done at the time of admission showed low lung volumes with perihilar and bibasilar atelectasis. CT angiogram of the chest done on 01/15/2019 showed indeterminate enhancing masses in the left hepatic lobe and may represent benign hemangiomas. Malignant process is not excluded. Cystic mass in the body of the pancreas measuring up to 2.8 cm this was also indeterminate and recommended further evaluation. Most recent chest x-ray from 01/16/2019 showed postsurgical changes of CABG. Heart size and pulmonary vascularity are normal. Lungs were clear with no effusion or pneumothoraces. Thank you for allowing me to participate in this patient's care. Job ID: [id number] DocumentID: [id number] Dictated Date: 01/19/2019 17:19:56 Dining Service Worker Date: 01/19/2019 21:49:24 Dictated By: ANEL ARMENDARIZ MD
[2019-01-19 23:10] VITALS: BP 142/64
[2019-01-20 04:52] LABS: BASOPHILS % (AUTO) 1 % (0-10); EOSINOPHILS # (AUTO) 0.1 10^3/uL (0.0-0.3); EOSINOPHILS % (AUTO) 1 % (0-10); HEMATOCRIT 36 % (40-54); LYMPHOCYTES # (AUTO) 0.6 X 10^3 (1.0-4.0); LYMPHOCYTES % (AUTO) 9 % (12-44); MEAN CORPUSCULAR HEMOGLOBIN 28 PG (25-34); MEAN CORPUSCULAR HGB CONC 34 G/DL (32-36); MEAN CORPUSCULAR VOLUME 83 FL (80-99); MEAN PLATELET VOLUME 11.6 FL (7.4-10.4); MONOCYTES # (AUTO) 0.5 X 10^3 (0.0-1.0); MONOCYTES % (AUTO) 8 % (0-12); NEUTROPHILS # (AUTO) 5.2 X 10^3 (1.8-7.8); NEUTROPHILS % (AUTO) 80 % (42-75); PLATELET COUNT 157 10^3/uL (130-400); RED CELL DISTRIBUTION WIDTH 18.5 % (10.0-14.5); WHITE BLOOD COUNT 6.4 10^3/uL (4.3-11.0)
[2019-01-20] MEDS: PIPERACILLIN/TAZOBACTAM (BULK) 4.5 GM in NS (IVPB) 100 ML IV SCH ×2 (05:05→14:11)
[2019-01-20 05:12] LABS: BUN/CREATININE RATIO 7; CALCIUM 9.2 MG/DL (8.5-10.1); CARBON DIOXIDE 22 MMOL/L (21-32); CHLORIDE 105 MMOL/L (98-107); CREATININE SERUM 0.72 MG/DL (0.60-1.30); GFR ESTIMATED > 60; GLUCOSE 121 MG/DL (70-105); MAGNESIUM 1.6 MG/DL (1.8-2.4); PHOSPHORUS 2.3 MG/DL (2.3-4.7); POTASSIUM 2.8 MMOL/L (3.6-5.0); SODIUM 141 MMOL/L (135-145)
[2019-01-20] MEDS: inSUlin ASPART (NovoLOG) 1 UNIT/0.01 ML (CHARGE PER UNIT) SC SCH ×2 (06:25→12:23)
--- NOTE | 2019-01-20 07:30 | Pulmonary Progress Note ---
Subjective Time Seen by a Provider: 08:06 Subjective/Events-last exam Pt appears to be doing better. He wants to go home. Sepsis Event Evaluation Height, Weight, BMI Height: 6'0.00" Weight: 215lbs. 1.0oz. 97.926626hv; 27.8 BMI Method:Actual Focused Exam Time of Focused Exam: 22:45 Exam Exam Vital Signs Date Time Temp Pulse Resp B/P (MAP) Pulse Ox O2 Delivery O2 Flow Rate FiO2 01/19/19 23:10 97.3 81 18 142/64 (90) 95 Room Air 01/19/19 20:30 Room Air 01/19/19 20:05 97.8 77 18 165/70 (101) 95 Room Air 01/19/19 19:43 98 Room Air 01/19/19 16:01 97.6 78 20 136/64 (88) 98 Room Air 01/19/19 15:28 98 Room Air 01/19/19 08:00 94 Room Air 01/19/19 08:00 98.2 73 18 148/66 (93) 94 Room Air 01/19/19 07:30 96 Room Air I & O 01/20/19 07:00 Intake Total 1520 ml Output Total 1475 ml Balance 45 ml Height & Weight Height: 6'0.00" Weight: 215lbs. 1.0oz. 97.214635os; 27.8 BMI Method:Actual General Appearance: No Apparent Distress, WD/WN, Chronically ill, Cachetic HEENT: Other (blindness, deafness, left eye with cataract) Respiratory: Lungs Clear, No Accessory Muscle Use, No Respiratory Distress Cardiovascular: Regular Rate, Rhythm, No Edema, Systolic Murmur Capillary Refill: Less Than 3 Seconds Gastrointestinal: normal bowel sounds, non tender, soft Extremity: No Calf Tenderness, No Pedal Edema Neurologic/Psychiatric: Alert, Disoriented Skin: Normal Color, Warm/Dry Lymphatic: No Adenopathy Results Lab Laboratory Tests 01/19/19 04:50 01/20/19 04:40 Assessment/Plan Assessment/Plan PNA - improving -zosyn change to Augmentin -landon cultures pending Hypokalemia, and hypomag -replace CHF hx NSTEMI lymphoma - currently undergoing chemotherapy Pt is ok for discharge from pulmonary standpoint. MARCUS OLIVIER DO Jan 20, 2019 07:30
[2019-01-20] MEDS ORDERED: RT-ADVAIR HFA 115/21 MCG PER PUFF IH SCH (08:00)
--- NOTE | 2019-01-20 08:03 | Diagnostic Imaging Report ---
Indication: Dyspnea. Findings: The sternal wires are midline. The lungs are clear. The heart size and vascularity are within normal limits. No effusion or pneumothorax. Impression: No acute-appearing abnormality. Dictated by: Dictated on workstation # [id number]
[2019-01-20] MEDS ORDERED: KCL 20 MEQ TAB (K-DUR) PO NR (08:15)
[2019-01-20 08:42] VITALS: BP 170/71
[2019-01-20] MEDS ORDERED: AMOX-358 PO (08:53)
--- NOTE | 2019-01-20 08:58 | Discharge Inst-Simple/Standard ---
Discharge Inst-Standard Discharge Medications New, Converted or Re-Newed RX: Transmitted to Pharmacy Patient Instructions/Follow Up Plan of Care/Instructions/FU: Please continue to take your medications as written. Please follow up with Dr Epps in the next week and with you oncologist in the next week as well. Activity as Tolerated: Yes Discharge Diet: No Restrictions Return to The Hospital For: Shortness of breath, fever, chest pain, confusion, if you feel you are getting worse. SHANTELL MALAGON MD Jan 20, 2019 08:58
[2019-01-20] MEDS ORDERED: ALLOPURINOL 300 MG (ZYLOPRIM) TAB PO SCH (09:00)
[2019-01-20] MEDS: inSUlin NPH/REG (NovoLIN 70/30) CHARGE PER UNIT SQ SCH (09:00)
--- NOTE | 2019-01-20 09:02 | Discharge Summary-Hospitalist ---
Diagnosis/Chief Complaint Date of Admission Jan 15, 2019 at 01:20 Date of Discharge Discharge Date: Jan 20, 2019 Admission Diagnosis Assessment: Sepsis Pneumonia Neutropenia due to chemotherapy Blindness Deafness CAD previous CABG Discharge Diagnosis (1) Sepsis Status: Resolved (2) Neutropenia Status: Acute (3) Non-Hodgkin lymphoma Status: Chronic (4) Blindness Status: Chronic (5) Deafness Status: Chronic (6) CHF (congestive heart failure) Status: Chronic (7) NSTEMI (non-ST elevated myocardial infarction) Status: Acute Discharge Summary Procedures/Consulations Dr Alonso- Pulm Dr Felix- Cardiology Dr Mittal- Oncology Discharge Physical Exam Allergies: Coded Allergies: aspirin (Unverified Adverse Reaction, Unknown, 01/19/19) PATIENT STATES HE IS ABLE TO TAKE THE 81 MG DOSE BUT NOT THE "BIG ASPIRIN" Vitals & I&Os Vital Signs Date Time Temp Pulse Resp B/P (MAP) Pulse Ox O2 Delivery O2 Flow Rate FiO2 01/20/19 16:30 79 18 170/71 96 Room Air 01/20/19 16:00 97.7 01/17/19 21:11 21 01/16/19 20:30 2.00 General Appearance: No Apparent Distress, Chronically ill HEENT: Other (blindness, deafness, left eye with cataract) Respiratory: Lungs Clear, No Accessory Muscle Use, No Respiratory Distress Cardiovascular: Regular Rate, Rhythm, No Edema, Systolic Murmur Gastrointestinal: Normal Bowel Sounds Extremity: No Calf Tenderness, No Pedal Edema Neurologic/Psychiatric: Alert, Other (oriented to person and place) Hospital Course Pt was admitted for sepsis due to pneumonia and was found to be neutropenic secondary to chemotherapy for his NHL. He responded well to antibiotics but had a slow recovery of his cell counts. Oncology was consulted to assist with management of neutropenia and granix was given with significant increase in his ANC. He remained afebrile and was requesting discharge home emphatically. He was discharged to home to follow up with his PCP. He did request information on switching oncologists to [facility] due to distance his current oncologist is from his home. Social Work was consulted to assist with this. Labs (last 24 hrs) Microbiology 01/14/19 Blood Culture - Final, Complete No growth 01/19/19 Stool Culture - Final, Complete 01/14/19 Influenza Types A,B Antigen (SHAI) - Final, Complete Patient resulted labs reviewed. Pending Labs Imaging: Reviewed Imaging Report Discussion & Recommendations Discharge Planning: >30 minutes discharge planning Discharge Home Medications: Active Scripts Active Augmentin 875-125 Tablet (Amoxicillin/Potassium Clav) 1 Each Tablet 1 Each PO BID Reported Flax Seed Oil (Flaxseed Oil) 1,000 Mg Capsule 1,000 Mg PO BID Fish Oil 1,000 mg Capsule (Vilas 3 Polyunsat Fatty Acids) 1,000 Mg Cap 1,000 Mg PO BID Prednisolone Acetate 5 Ml Drops.susp 1 Drop OU BID Dorzolamide-Timolol Eye Drops (Dorzolamide HCl/Timolol Maleat) 10 Ml Drops 1 Drop OU BID Alphagan P (Brimonidine Tartrate) 5 Ml Drops 1 Drop OS BID Fenofibrate (Fenofibrate Nanocrystallized) 145 Mg Tablet 145 Mg PO HS Gabapentin 300 Mg Capsule 300 Mg PO BID Allopurinol 300 Mg Tablet 300 Mg PO DAILY Cilostazol 100 Mg Tablet 100 Mg PO BID Tramadol HCl 50 Mg Tablet 100 Mg PO Q6H PRN Breo Ellipta 100-25 Mcg INH (Fluticasone/Vilanterol) 1 Each Blst.w.dev 1 Puff INH DAILY Metformin HCl 1,000 Mg Tablet 1,000 Mg PO BID Novolog Mix 70-30 Vial (Insuln Asp Prt/Insulin Aspart) 1 Unit/0.01 Ml Susp 100 Units SC BID Atorvastatin Calcium 40 Mg Tablet 40 Mg PO HS Ventolin Hfa (Albuterol Sulfate) 18 Gm Hfa.aer.ad 2 Puff INH Q6H PRN Lorazepam 1 Mg Tablet 1 Mg PO TID PRN Citalopram HBr (Citalopram Hydrobromide) 20 Mg Tablet 20 Mg PO DAILY Instructions to patient/family Please see electronic discharge instructions given to patient. Clinical Quality Measures AMI/AHF: ASA po Prior to arrival: No DVT/VTE Risk/Contraindication: Risk Factor Score Per Nursin RFS Level Per Nursing on Admit: 4+=Very High Problem Qualifiers (1) Sepsis: Sepsis type: sepsis due to unspecified organism Qualified Codes: A41.9 - Sepsis, unspecified organism (2) Neutropenia: Neutropenia type: secondary to cancer chemotherapy Qualified Codes: D70.1 - Agranulocytosis secondary to cancer chemotherapy; T45.1X5A - Adverse effect of antineoplastic and immunosuppressive drugs, initial encounter (3) Non-Hodgkin lymphoma: Non-Hodgkin lymphoma type: unspecified type Lymphoma site: unspecified region Qualified Codes: C85.90 - Non-Hodgkin lymphoma, unspecified, unspecified site (4) Deafness: Laterality: unspecified laterality Qualified Codes: H91.90 - Unspecified hearing loss, unspecified ear (5) CHF (congestive heart failure): Heart failure type: unspecified Heart failure chronicity: unspecified Qualified Codes: I50.9 - Heart failure, unspecified SHANTELL MALAGON MD Jan 20, 2019 09:02
[2019-01-20] MEDS: GABAPENTIN 300 MG (NEURONTIN) CAP PO SCH (09:07)
[2019-01-20] MEDS: FAMOTIDINE 20MG/2ML IV (PEPCID) IVP SCH (09:07)
[2019-01-20] MEDS: LOPERAMIDE 2 MG (IMODIUM) CAP PO PRN (09:07)
[2019-01-20] MEDS: KCL 20 MEQ TAB (K-DUR) PO SCH ×2 (09:08→09:13)
[2019-01-20] MEDS: DORZOLAMIDE/TIMOLOL (COSOPT) 2-0.68% 10 ML BTL OU SCH (09:08)
[2019-01-20] MEDS ORDERED: NS IV 1000 ML 1,000 ML ONE (09:08)
[2019-01-20] MEDS: BRIMONIDINE 0.2% (ALPHAGAN) OPHTH SOLN 5 ML BTL OU SCH (09:08)
[2019-01-20] MEDS: POTASSIUM CL 10MEQ/50ML IVPB 50 ML IV SCH ×5 (09:20→13:47)
[2019-01-20] MEDS: MAGNESIUM 1 GM/100 ML IVPB 100 ML IV SCH ×3 (09:21→11:46)
--- NOTE | 2019-01-20 09:21 | Cardiology Progress Note ---
Cardiology SOAP Progress Note Subjective: No cardiac complaints. Objective: I&O/Vital Signs 01/19/19 01/20/19 23:10 08:42 Temp 97.3 97.5 Pulse 81 79 Resp 18 18 B/P (MAP) 142/64 (90) 170/71 (104) Pulse Ox 95 99 O2 Delivery Room Air Room Air 01/20/19 00:00 Intake Total 1180 ml Output Total 925 ml Balance 255 ml Weight (Pounds): 215 Weight (Ounces): 1.0 Weight (Calculated Kilograms): 97.373367 Constitutional: No appears stated age; AAO x 3; No apparent distress, No PERRL , No well-developed, No well-nourished, No other Respiratory: No accessory muscle use, No respiratory distress, No chest tender , No chest expansion is symmetric; chest is bilaterally symmetric; No lungs clear to percussion; lungs clear to auscultation; No crackles, No rhonchi, No rales, No stridor, No wheezing, No pleural rub, No other Cardiovascular: regular rate-rhythm; No irregularly irregular, No extra beats, No parasternal heave is noted, No JVD, No edema, No bradycardia, No tachycardia , No point of maximal impulse, No cardiac thrills are palpable; S1 and S2; No gallop/S3, No gallop/S4, No diastolic murmur, No systolic murmur, No friction rub, No click, No other Gastrointestional: No tender, No soft, No round, No distended, No pulsatile mass, No organomegaly, No guarding, No rebound, No tenderness, No hernia, No mass, No audible bowel sounds, No abnormal bowel sounds, No abdominal bruits, No spleenomegaly, No other Extremities: No normal range of motion, No non-tender, No normal inspection, No pedal edema, No calf tenderness, No normal capillary refill, No pelvis stable , No calf tenderness, No inflammation, No pedal edema, No slow capillary refill , No swelling, No other, No abrasion, No clubbing, No cyanosis, No ecchymosis, No laceration, No no lower extremity edema bilateral, No significant edema, No tenderness, No wound Neurologic/Psychiatric: no motor/sensory deficits, alert, normal mood/affect Skin: normal color Results/Procedures: Labs Laboratory Tests 01/19/19 11:33: Glucometer 250H 01/19/19 15:49: Glucometer 258H 01/19/19 20:08: Glucometer 222H 01/20/19 04:40: White Blood Count 6.4, Red Blood Count 4.30L, Hemoglobin 12.0L, Hematocrit 36L, Mean Corpuscular Volume 83, Mean Corpuscular Hemoglobin 28, Mean Corpuscular Hemoglobin Concent 34, Red Cell Distribution Width 18.5H, Platelet Count 157, Mean Platelet Volume 11.6H, Neutrophils (%) (Auto) 80H, Lymphocytes (%) (Auto) 9L, Monocytes (%) (Auto) 8, Eosinophils (%) (Auto) 1, Basophils (%) (Auto) 1, Neutrophils # (Auto) 5.2, Lymphocytes # (Auto) 0.6L, Monocytes # (Auto) 0.5, Eosinophils # (Auto) 0.1, Basophils # (Auto) 0.0, Sodium Level 141, Potassium Level 2.8L, Chloride Level 105, Carbon Dioxide Level 22, Anion Gap 14, Blood Urea Nitrogen 5L, Creatinine 0.72, Estimat Glomerular Filtration Rate > 60, BUN/ Creatinine Ratio 7, Glucose Level 121H, Calcium Level 9.2, Phosphorus Level 2.3 , Magnesium Level 1.6L Microbiology 01/14/19 Blood Culture - Preliminary, Resulted No growth 01/14/19 Influenza Types A,B Antigen (SHAI) - Final, Complete A/P: Assessment/Dx: Type II OR , likely due to severe sepsis, Severe sepsis, Cancer, on chemotherapy, diabetes, CAD, CABG Plan: Severe sepsis, immunodeficiency, broad-spectrum antibiotics, IV fluids, deferred to the primary team. Type II OR likely due to severe sepsis, pneumonia. However patient may require nuclear stress testing as an outpatient once infection is resolved. CAD/CABG: Continue outpatient medical therapy. Diabetes: Continue metformin. Non-Hodgkin's lymphoma. Will be discharged today. Can follow-up with me in 2 weeks. Thank you for your consultation. Please call me if you have any questions. Nagi Felix MD, FACP, FACC, FSCAI, FHRS, CCDS Interventional Cardiology Cardiac Electrophysiology Vascular Medicine and Endovascular Interventions Focused Exam Time of Focused Exam: 22:45 Clinical Quality Measures AMI/AHF: ASA po Prior to arrival: Jeanne Posey MD Jan 20, 2019 9:21 am
[2019-01-20] MEDS: RT-ALBUTEROL/IPRATROPIUM 3 ML (DUONEB) VIAL INH SCH ×2 (10:29→15:32)
[2019-01-20] MEDS: TBO-FILGRASTIM 480 MCG/0.8 ML (GRANIX) SQ SCH (10:46)
[2019-01-20] MEDS: ENOXAPARIN 100 MG/1 ML (LOVENOX) SYR SC SCH (12:23)
[2019-01-20 16:00] VITALS: BP 148/62
[2019-01-20 16:30] VITALS: BP 170/71
--- NOTE | 2019-01-20 17:14 | NUR ---
Pt was ready for discharge home. He is being transported by his 's sister home as is working today at the local alf. Pt requested that I call tomorrow morning for 's concerns about follow-up care and I agreed with plan.
--- NOTE | 2019-01-21 15:20 | NUR ---
Contacted p's as he had requested. states pt is doing well and will make contact us if she would like follow-up with [facility]. Pt does have an appt with his oncologist Dr. Prince.
== END 2019-01-20 16:30 | disposition home or self-care (01) | DRG 871 ==
LOC: ER FS 22:11 → ICU 23:30 → UNDOADMIN 01-15 00:08 → ICU 01-15 00:08 → UNDOADMIN 01-15 01:20 → ICU 01-15 01:20 → 4TH 01-16 10:29 → UNDODISIN 01-20 16:30
PROVIDERS: ADMIT Internal Medicine; ATTEND Internal Medicine
DX: A41.9 Sepsis, unspecified organism (principal); R65.20 Severe sepsis without septic shock; J18.9 Pneumonia, unspecified organism; I21.A1 Myocardial infarction type 2; E87.2 Acidosis; C85.90 Non-Hodgkin lymphoma, unspecified, unspecified site; E87.1 Hypo-osmolality and hyponatremia; R64 Cachexia; D84.9 Immunodeficiency, unspecified; D61.810 Antineoplastic chemotherapy induced pancytopenia; D70.1 Agranulocytosis secondary to cancer chemotherapy; T45.1X5A Adverse effect of antineoplastic and immunosuppressive drugs, initial encounter; E87.6 Hypokalemia; E83.39 Other disorders of phosphorus metabolism; I11.0 Hypertensive heart disease with heart failure; I50.9 Heart failure, unspecified; I25.10 Atherosclerotic heart disease of native coronary artery without angina pectoris; E11.9 Type 2 diabetes mellitus without complications; R16.0 Hepatomegaly, not elsewhere classified; K86.9 Disease of pancreas, unspecified; F41.9 Anxiety disorder, unspecified; H91.90 Unspecified hearing loss, unspecified ear; H40.9 Unspecified glaucoma; H54.8 Legal blindness, as defined in USA; M19.91 Primary osteoarthritis, unspecified site; M54.9 Dorsalgia, unspecified; R11.10 Vomiting, unspecified; I25.2 Old myocardial infarction; Z95.1 Presence of aortocoronary bypass graft; Z79.4 Long term (current) use of insulin
CPT/HCPCS: 36415; 71045; 71275; 80048; 80053; 81000; 82962; 83605; 83735; 83880; 84100; 84145; 84484; 85007; 85025; 85027; 86710; 87015; 87040; 87045; 87046; 87077; 87804; 87899; 93005; 93306; 94640; 94760; 96361; 96365; 96372; 96375

== ENCOUNTER 2019-02-06 14:44 | Emergency (ER) | payer MEDICARE, MEDICAID ==
[~2019-02-06] VITALS: Ht 175.3 cm; Wt 92.5 kg
[~2019-02-06 14:44] MED LIST: ALBU18HF2 INH; ALLO300T2 PO; AMOX-358 PO; ATOR40TA70 PO; BLOO-438; BRIM5DRO2 OS; CILO100T PO; CITA20TA9 PO; CODE118S4; DORZ10DR8 OU; FENO145T37 PO; FLAX100031 PO; FLUT16SP22 NS; FLUT1AER INH; GABA-488 PO; INSA70301U SC; LORA1TAB PO; METF-399 PO; MUPI22OI2; OMG1KC PO; PRED5DRO17 OU; TRAM50TA2 PO
--- NOTE | 2019-02-06 16:11 | Diagnostic Imaging Report ---
EXAMINATION: Portable erect AP chest at 02:54 p.m. INDICATION: Chest pain. FINDINGS: There is shallow inspiration when compared with the prior exam 01/20/2019. Allowing for this technical factor, the heart size is stable. The sternotomy wires and surgical clips noted previously are again evident and no different. The lungs remain clear. There is still no sign of failure, pneumonia, or pleural effusion. The mediastinum is not widened. The osseous structures are intact. IMPRESSION: Allowing for the shallow degree of inspiration, there has been no significant change since the prior exam. There is no evidence for an acute abnormality. Dictated by: Dictated on workstation # [id number]
[2019-02-06 16:17] LABS: INR 1.1 (0.8-1.4); PROTHROMBIN TIME PATIENT 14.3 SEC (12.2-14.7)
[2019-02-06 16:19] LABS: BUN/CREATININE RATIO 23; CALCIUM 9.6 MG/DL (8.5-10.1); CARBON DIOXIDE 15 MMOL/L (21-32); CHLORIDE 97 MMOL/L (98-107); CREATININE SERUM 0.88 MG/DL (0.60-1.30); GFR ESTIMATED > 60; GLUCOSE 176 MG/DL (70-105); MAGNESIUM 1.5 MG/DL (1.8-2.4); POTASSIUM 3.9 MMOL/L (3.6-5.0); SODIUM 135 MMOL/L (135-145)
[2019-02-06 16:20] LABS: ALANINE AMINOTRANSFERASE 19 U/L (0-55); ALBUMIN 4.3 GM/DL (3.2-4.5); ALKALINE PHOSPHATASE 58 U/L (40-136)
[2019-02-06 16:22] LABS: HEMATOCRIT 36 % (40-54); HEMOGLOBIN 11.8 G/DL (13.3-17.7); MEAN CORPUSCULAR HEMOGLOBIN 28 PG (25-34); MEAN CORPUSCULAR HGB CONC 33 G/DL (32-36); MEAN CORPUSCULAR VOLUME 87 FL (80-99); WHITE BLOOD COUNT 1.3 10^3/uL (4.3-11.0)
[2019-02-06 16:23] LABS: BASOPHILS % (AUTO) 1 % (0-10); EOSINOPHILS # (AUTO) 0.1 10^3/uL (0.0-0.3); EOSINOPHILS % (AUTO) 9 % (0-10); LYMPHOCYTES # (AUTO) 0.7 X 10^3 (1.0-4.0); LYMPHOCYTES % (AUTO) 53 % (12-44); MEAN PLATELET VOLUME 10.4 FL (7.4-10.4); MONOCYTES # (AUTO) 0.4 X 10^3 (0.0-1.0); MONOCYTES % (AUTO) 30 % (0-12); NEUTROPHILS # (AUTO) 0.1 X 10^3 (1.8-7.8); NEUTROPHILS % (AUTO) 7 % (42-75); PLATELET COUNT 118 10^3/uL (130-400); RED CELL DISTRIBUTION WIDTH 16.8 % (10.0-14.5)
[2019-02-06 16:32] LABS: ANISOCYTOSIS SLIGHT; BAND NEUTROPHILS 1 %; BASOPHILS % (MANUAL) 2 %; EOSINOPHILS % (MANUAL) 9 %; LYMPHOCYTES % (MANUAL) 46 %; MICROCYTOSIS SLIGHT; MONOCYTES % (MANUAL) 35 %; NEUTROPHILS % (MANUAL) 7 %
[2019-02-06 17:43] VITALS: BP 108/56
--- NOTE | 2019-02-06 18:31 | ED General ---
General Chief Complaint: Cardiac/General Problems Stated Complaint: CHEST PAIN Nursing Triage Note: PT REPORTS CHEST PAIN LEFT UPPER SIDE AND LEFT LOWER SIDE. REPORTS HE HAS CHEST PAIN QUITE OFTEN AT HOME. COUGHING FOR ABOUT TWO WEEKS. Nursing Sepsis Screen: Possible Sepsis Risk History of Present Illness Date Seen by Provider: Feb 06, 2019 Time Seen by Provider: 17:00 Initial Comments 73 yo M presents with 3 weeks of diarrhea since leaving hospital in [place]. Also complaining of cough and chest wall pain that has recurred in the last few days. He has recurrent cough off and on that has been an issue with his Non Hodgkins Lymphoma and his prior treatments for it. He was found to be neutropenic when he was admitted in December to [facility] and was treated for it at that time. Now he is having low grade temp and complaining of chest wall pain with the cough. He was more concerned about the non stop diarrhea over the last 3 weeks. he denies any n/v but states anytime he tries to eat or drink it goes right through him with the diarrhea. He has had decreased urine output as well. He denies having any abdominal pain and no blood in stool or urine. He is not taking chemotherapy right now with his recent bout of neutropenia when he was admitted in December. He is trying to get set up to see Dr. Jaquez in the outpatient Oncology services at [facility] but has not had an appointment yet. Allergies and Home Medications Allergies Coded Allergies: aspirin (Unverified Adverse Reaction, Unknown, 01/19/19) PATIENT STATES HE IS ABLE TO TAKE THE 81 MG DOSE BUT NOT THE "BIG ASPIRIN" Home Medications Albuterol Sulfate 18 Gm Hfa.aer.ad, 2 PUFF INH Q6H PRN for SHORTNESS OF BREATH, (Reported) Allopurinol 300 Mg Tablet, 300 MG PO DAILY, (Reported) Amoxicillin/Potassium Clav 1 Each Tablet, 1 EACH PO BID Prescribed by: SHANTELL MALAGON on 01/20/19 0853 Atorvastatin Calcium 40 Mg Tablet, 40 MG PO HS, (Reported) Brimonidine Tartrate 5 Ml Drops, 1 DROP OS BID, (Reported) Cilostazol 100 Mg Tablet, 100 MG PO BID, (Reported) Citalopram Hydrobromide 20 Mg Tablet, 20 MG PO DAILY, (Reported) Dorzolamide HCl/Timolol Maleat 10 Ml Drops, 1 DROP OU BID, (Reported) Fenofibrate Nanocrystallized 145 Mg Tablet, 145 MG PO HS, (Reported) Flaxseed Oil 1,000 Mg Capsule, 1,000 MG PO BID, (Reported) Fluticasone/Vilanterol 1 Each Blst.w.dev, 1 PUFF INH DAILY, (Reported) Gabapentin 300 Mg Capsule, 300 MG PO BID, (Reported) Insuln Asp Prt/Insulin Aspart 1 Unit/0.01 Ml Susp, 100 UNITS SC BID, (Reported) Lorazepam 1 Mg Tablet, 1 MG PO TID PRN for ANXIETY, (Reported) Metformin HCl 1,000 Mg Tablet, 1,000 MG PO BID, (Reported) [place] 3 Polyunsat Fatty Acids 1,000 Mg Cap, 1,000 MG PO BID, (Reported) Prednisolone Acetate 5 Ml Drops.susp, 1 DROP OU BID, (Reported) Tramadol HCl 50 Mg Tablet, 100 MG PO Q6H PRN for PAIN-MODERATE, (Reported) Patient Home Medication List Home Medication List Reviewed: Yes Review of Systems Review of Systems Constitutional: malaise, weakness EENTM: No epistaxis, No nose congestion, No throat pain Respiratory: cough, dyspnea on exertion; No hemoptysis; short of breath Cardiovascular: chest pain (with coughing) Gastrointestinal: No abdominal pain; diarrhea (x 3 weeks); No melena, No nausea , No vomiting Genitourinary: decreased output; No dysuria Musculoskeletal: muscle pain (diffuse) Skin: dryness; No rash Psychiatric/Neurological: Anxiety Past Hxrndnp-Fynmck-Cihkvs Hx Past Med/Social Hx: Reviewed Nursing Past Med/Soc Hx Patient Social History Alcohol Use: Denies Use Recreational Drug Use: No 2nd Hand Smoke Exposure: No Recent Foreign Travel: No Contact w/Someone Who Travel: No Recent Infectious Disease Expo: No Recent Hopitalizations: No Physical Abuse: No Sexual Abuse: No Mistreated: No Fear: No Immunizations Up To Date Tetanus Booster (TDap): Unknown Date of Pneumonia Vaccine: Sep 10, 2017 Date of Influenza Vaccine: Aug 12, 2018 Seasonal Allergies Seasonal Allergies: No Past Medical History Surgeries: Yes CABG Respiratory: No Cardiac: Yes Congenital Heart Disease, Heart Attack Neurological: No Sexually Transmitted Disease: No HIV/AIDS: No Genitourinary: No Gastrointestinal: No Musculoskeletal: Yes Arthritis, Chronic Back Pain Endocrine: Yes Diabetes, Insulin dep HEENT: Yes Cataract, Glaucoma Loss of Vision: Bilateral Hearing Impairment: Denies Cancer: Yes Lymphoma Did You Recieve Any Treatments: Yes What Type of Treatment Did You: Chemotherapy Psychosocial: No Integumentary: No Blood Disorders: No Family Medical History Hypertension Physical Exam Vital Signs Vital Signs - First Documented 02/06/19 02/06/19 15:11 17:43 Temp 100.0 Pulse 91 Resp 18 B/P (MAP) 134/82 (99) Pulse Ox 99 O2 Delivery Room Air Capillary Refill : Less Than 3 Seconds Height, Weight, BMI Height: 5'9.00" Weight: 204lbs. 1.0oz. [id number]; 27.8 BMI Method:Stated General Appearance: Chronically ill Eyes: Bilateral Eye Other (blind with scarring bilaterally) HEENT: No Moist Mucous Membranes (slightly dry MM) Neck: Non Tender, Supple Respiratory: No Respiratory Distress, Decreased Breath Sounds; No Respiratory Distress; Rhonci; No Stridor Cardiovascular: Regular Rate, Rhythm Gastrointestinal: No Pulsatile Mass, Abnormal Bowel Sounds (hyperactive); No Rebound, No Tenderness Rectal: Deferred Extremity: Normal Range of Motion, Non Tender Neurologic/Psychiatric: Alert, Oriented x3 Skin: Cool, Pallor; No Rash Progress/Results/Core Measures Suspected Sepsis Recent Fever Within 48 Hours: Yes Infection Criteria Present: Suspected New Infection New/Unexplained Altered Menta: No Sepsis Screen: Possible Sepsis Risk SIRS Temperature:100.0 Pulse: 81 Respiratory Rate: 16 Laboratory Tests 02/06/19 15:30: White Blood Count 1.3*L Blood Pressure 108 /56 Mean: 73 Laboratory Tests 02/06/19 15:30: Creatinine 0.88, INR Comment 1.1, Platelet Count 118L, Total Bilirubin 5.0H Results/Orders Lab Results Laboratory Tests Test 02/06/19 15:30 Range/Units White Blood Count 1.3 *L 4.3-11.0 10^3/uL Red Blood Count 4.16 L 4.35-5.85 10^6/uL Hemoglobin 11.8 L 13.3-17.7 G/DL Hematocrit 36 L 40-54 % Mean Corpuscular Volume 87 80-99 FL Mean Corpuscular Hemoglobin 28 25-34 PG Mean Corpuscular Hemoglobin Concent 33 32-36 G/DL Red Cell Distribution Width 16.8 H 10.0-14.5 % Platelet Count 118 L 130-400 10^3/uL Mean Platelet Volume 10.4 7.4-10.4 FL Neutrophils (%) (Auto) 7 L 42-75 % Lymphocytes (%) (Auto) 53 H 12-44 % Monocytes (%) (Auto) 30 H 0-12 % Eosinophils (%) (Auto) 9 0-10 % Basophils (%) (Auto) 1 0-10 % Neutrophils # (Auto) 0.1 L 1.8-7.8 X 10^3 Lymphocytes # (Auto) 0.7 L 1.0-4.0 X 10^3 Monocytes # (Auto) 0.4 0.0-1.0 X 10^3 Eosinophils # (Auto) 0.1 0.0-0.3 10^3/uL Basophils # (Auto) 0.0 0.0-0.1 10^3/uL Neutrophils % (Manual) 7 % Lymphocytes % (Manual) 46 % Monocytes % (Manual) 35 % Eosinophils % (Manual) 9 % Basophils % (Manual) 2 % Band Neutrophils 1 % Anisocytosis SLIGHT Microcytosis SLIGHT Prothrombin Time 14.3 12.2-14.7 SEC INR Comment 1.1 0.8-1.4 Activated Partial Thromboplast Time 29 24-35 SEC Sodium Level 135 135-145 MMOL/L Potassium Level 3.9 3.6-5.0 MMOL/L Chloride Level 97 L 98-107 MMOL/L Carbon Dioxide Level 15 L 21-32 MMOL/L Anion Gap 23 H 5-14 MMOL/L Blood Urea Nitrogen 20 H 7-18 MG/DL Creatinine 0.88 0.60-1.30 MG/DL Estimat Glomerular Filtration Rate > 60 BUN/Creatinine Ratio 23 Glucose Level 176 H 70-105 MG/DL Calcium Level 9.6 8.5-10.1 MG/DL Corrected Calcium 9.4 8.5-10.1 MG/DL Magnesium Level 1.5 L 1.8-2.4 MG/DL Total Bilirubin 5.0 H 0.1-1.0 MG/DL Aspartate Amino Transf (AST/SGOT) 24 5-34 U/L Alanine Aminotransferase (ALT/SGPT) 19 0-55 U/L Alkaline Phosphatase 58 40-136 U/L Troponin T 24 H <=15 NG/L Pro-B-Type Natriuretic Peptide 272.2 H <75.0 PG/ML Total Protein 7.0 6.4-8.2 GM/DL Albumin 4.3 3.2-4.5 GM/DL My Orders Orders - OPAL CARTER MD Cbc With Automated Diff (02/06/19:02) Magnesium (02/06/19:) Chest 1 View Ap/Pa Only (02/06/19:) Ekg Tracing (02/06/19:) Comprehensive Metabolic Panel (02/06/19:) Protime With Inr (02/06/19:) Partial Thromboplastin Time (02/06/19:) O2 (02/06/19:) Monitor-Rhythm Ecg Trace Only (02/06/19:) Saline Lock/Iv-Start (02/06/19:) Troponin T (02/06/19:) Probnp Fs (02/06/19:) Manual Differential (02/06/19 15:30) Stool Culture (02/06/19 17:39) Fecal Wbc (02/06/19 17:39) C Difficile Ag + Toxin A/B. (02/06/19 17:39) Parasite Complete Exam Stool (02/06/19 17:39) Isolation Central Supply Req (02/06/19 17:39) Blood Culture (02/06/19 18:25) Blood Culture (02/06/19 18:25) Ns Iv 1000 Ml (Sodium Chloride 0.9%) (02/06/19 19:00) Vital Signs/I&O 02/07/19 00:00 Intake Total 1000 ml Balance 1000 ml Capillary Refill : Less Than 3 Seconds Blood Pressure Mean: 73 Progress Note #1: Time: 15:20 Progress Note Obtain labs and with his temp at 100 F will check a lactic acid as well. Progress Note #2: Time: 17:00 Progress Note Labs are back and do show he is neutropenic again and has a 7% Neutrophil count with 1.3K WBC count. He had a normal lactic acid. Will obtain 2 sets of blood cultures and obtain stool studies. He has no acute change on his CXR. D/w Dr. Haney that is covering for Oncology out of [facility]. She stated that unless he was running high fevers with this or having pain or having trouble staying hydrated he could try pushing fluids at home rather than be admitted and be exposed to more infections in the hospital. When discussed with pt and family they stated that he was not able to urinate much and felt hydration was an issue so family especially wanted him to be admitted for fluids. The pt refused to go to [place], stating he had a bad experience there but would not elaborate on the details. He was willing to go to [place] and be admitted. He was not wanting to o by ambulance but his family did get him calmed down and convinced to go instead of signing out AMA. But it did take a while to get to that point. Finally at 183 they stated he was willing to be admitted and transferred so I called to [facility]. 1844 I placed a page for hospitalist for [facility] 1852 Dr. Aguila Pineda called back and I discussed the case with him. He accepted the patient for admit and to get hydration and observe for fever and wait on stool studies and culture prelim results to come back. Departure Impression Primary Impression: Neutropenia Qualified Codes: D70.1 - Agranulocytosis secondary to cancer chemotherapy; T45.1X5A - Adverse effect of antineoplastic and immunosuppressive drugs, initial encounter Additional Impressions: Diarrhea Qualified Codes: R19.7 - Diarrhea, unspecified Dehydration Personal history of non-Hodgkin lymphomas Disposition: S[facility]-TRM HOSP Condition: Stable Transfer Time Spoke to Accepting Phy: 18:53 Transfer Progress Notes Discussed with Dr. Pineda and with the patient and family. Patient does need IV fluids for hydration due to his continuous presumed infectious diarrhea. At this point will hold off on any antibiotics until any stool studies or blood cultures come back. Transfer Facility: [facility] Method of Transfer: EMS Departure-Patient Inst. Referrals: ANNEMARIE WANG MD (PCP/Family) Primary Care Physician OPAL CARTER MD Feb 06, 2019 18:31
[2019-02-06] MEDS ORDERED: NS IV 1000 ML 1,000 ML IV SCH (19:00)
[2019-02-06 21:13] VITALS: BP 130/66
== END 2019-02-06 21:13 | disposition short-term general hospital (02) ==
LOC: EDUNIT# 14:44 → ER FS 14:46
DX: D70.9 Neutropenia, unspecified (principal); R19.7 Diarrhea, unspecified; E86.0 Dehydration; I25.2 Old myocardial infarction; E11.9 Type 2 diabetes mellitus without complications; Z92.21 Personal history of antineoplastic chemotherapy; Z82.49 Family history of ischemic heart disease and other diseases of the circulatory system; Z85.72 Personal history of non-Hodgkin lymphomas; Z88.6 Allergy status to analgesic agent; Z79.51 Long term (current) use of inhaled steroids; Z79.52 Long term (current) use of systemic steroids; Z95.1 Presence of aortocoronary bypass graft
CPT/HCPCS: 36415; 71045; 80053; 83735; 83880; 84484; 85007; 85027; 85610; 85730; 87040; 93005; 93041

== ENCOUNTER → 2019-03-16 | Outpatient (CLI) | payer MEDICARE, MEDICAID, OTHER ==
[~2019-03-16] MED LIST changes: +HOLD METFORMIN - RECEIVED CONTRAST 20 ML VIAL IV SCH; +IOHEXOL 350 MG/ML 100 ML (OMNIPAQUE 350) VIAL IV ONE
--- NOTE | 2019-03-16 15:51 | Diagnostic Imaging Report ---
PROCEDURE: CT chest with contrast, CT abdomen and pelvis with and without contrast. TECHNIQUE: Pre and post intravenous contrast axial imaging of the abdomen and pelvis and post contrast axial imaging of the chest were performed. Auto Exposure Controls were utilized during the CT exam to meet ALARA standards for radiation dose reduction. INDICATION: Non-Hodgkin's lymphoma. COMPARISON: Correlation is made with prior CT chest study from 01/15/2019. No prior CT of the abdomen or pelvis is identified for comparison. CT CHEST: Changes of median sternotomy are noted. No axillary lymphadenopathy is seen. There are calcified lymph nodes in the mediastinum and blanquita consistent with prior granulomatous exposure versus treated lymphoma. No noncalcified mediastinal or hilar lymphadenopathy is seen. No pericardial or pleural fluid is detected. No pulmonary masses or nodules are seen. There are no infiltrates. IMPRESSION: Stable CT of the chest since study from 01/15/2019. No thoracic lymphadenopathy or evidence of pulmonary metastatic disease is identified. CT ABDOMEN AND PELVIS: Previously noted hyperenhancing lesion in the left lobe of the liver is barely visible on today's study, likely owing to slight differences in bolus contrast timing. No other liver mass is identified. The gallbladder is unremarkable. No biliary ductal dilatation is seen. Cystic mass in the region of the pancreatic body has decreased in size measuring 15 mm AP x 17 mm transverse compared with 29 mm AP x 18 mm transverse on prior exam. No new pancreatic lesion is seen. No pancreatic ductal dilatation is seen. The spleen is unremarkable. No adrenal mass is identified. The kidneys are unremarkable. The aorta is non aneurysmal. Small lymph nodes in the central retroperitoneum are noted. No pathologically enlarged nodes are seen. No mesenteric lymphadenopathy is seen. Small and large bowel loops are normal in caliber. There is moderate stool in the sigmoid colon. Prostate is unremarkable. There appears to be some wall thickening of the bladder, particularly the anterior bladder near the dome, indeterminate. No pelvic lymphadenopathy is seen. Bony structures are unremarkable. IMPRESSION: 1. Previously noted hepatic lesions are not well seen on today's study, perhaps owing to differences in contrast bolus timing. Continued followup with dedicated hepatic imaging is recommended to assure stability of previously described lesions. 2. Decrease in size of pancreatic cystic mass since prior CT. 3. No evidence of abdominal or pelvic lymphadenopathy. 4. Abnormal wall thickening involving the urinary bladder. While this may in part be secondary to incomplete distention, other etiologies cannot be entirely excluded. Cystoscopy may be useful for further evaluation. Dictated by: Dictated on workstation # [id number]
== END ==
LOC: RAD 14:46
PROVIDERS: ATTEND Internal Medicine Hematology & Oncology
DX: C82.89 Other types of follicular lymphoma, extranodal and solid organ sites (principal); K86.89 Other specified diseases of pancreas; N32.89 Other specified disorders of bladder; Z98.890 Other specified postprocedural states
CPT/HCPCS: 71260; 74178

== ENCOUNTER 2019-05-15 20:56 | Emergency (ER) | payer MEDICARE, MEDICAID ==
[~2019-05-15] VITALS: Ht 182.9 cm; Wt 88.0 kg
[~2019-05-15 20:56] MED LIST changes: -HOLD METFORMIN - RECEIVED CONTRAST 20 ML VIAL IV SCH; -IOHEXOL 350 MG/ML 100 ML (OMNIPAQUE 350) VIAL IV ONE
[2019-05-15] MEDS ORDERED: ASPIRIN 81 MG CHEW (CHILDREN'S ASA) PO ONE (21:15)
[2019-05-15] MEDS ORDERED: RT-ALBUTEROL/IPRATROPIUM 3 ML (DUONEB) VIAL INH ONE (21:15)
[2019-05-15] MEDS ORDERED: NITROGLYCERIN 0.4 MG SL TABS BTL 25'S SL PRN (21:15)
[2019-05-15] MEDS ORDERED: NS IV 1000 ML 1,000 ML IV SCH (21:15)
[2019-05-15 21:30] LABS: HEMATOCRIT 32 % (40-54); HEMOGLOBIN 10.7 G/DL (13.3-17.7); LYMPHOCYTES % (AUTO) 48 % (12-44); MEAN CORPUSCULAR HEMOGLOBIN 28 PG (25-34); MEAN CORPUSCULAR HGB CONC 33 G/DL (32-36); MEAN CORPUSCULAR VOLUME 83 FL (80-99); MEAN PLATELET VOLUME 10.8 FL (7.4-10.4); MONOCYTES % (AUTO) 16 % (0-12); NEUTROPHILS % (AUTO) 26 % (42-75); PLATELET COUNT 157 10^3/uL (130-400); RED CELL DISTRIBUTION WIDTH 14.9 % (10.0-14.5); WHITE BLOOD COUNT 1.9 10^3/uL (4.3-11.0)
[2019-05-15 21:31] LABS: BASOPHILS % (AUTO) 1 % (0-10); EOSINOPHILS # (AUTO) 0.2 10^3/uL (0.0-0.3); EOSINOPHILS % (AUTO) 8 % (0-10); LYMPHOCYTES # (AUTO) 0.9 X 10^3 (1.0-4.0); MONOCYTES # (AUTO) 0.3 X 10^3 (0.0-1.0); NEUTROPHILS # (AUTO) 0.5 X 10^3 (1.8-7.8)
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
[2019-05-15 21:46] LABS: INR 1.1 (0.8-1.4)
--- NOTE | 2019-05-15 21:47 | Diagnostic Imaging Report ---
PATIENT HISTORY: Chest pain. TECHNIQUE: Frontal view of the chest. COMPARISON: 02/06/2019. FINDINGS: Lung volumes are low. Interstitial opacities appear prominent. The heart is normal in size. Sternotomy wires and post CABG changes are seen. No pneumothorax or pleural effusion is seen. IMPRESSION: Mildly prominent interstitial opacities, may be due to mild interstitial edema or secondary to low lung volumes. No focal consolidation is seen. Dictated by: Dictated on workstation # [id number]
[2019-05-15 21:53] LABS: CARBON DIOXIDE 23 MMOL/L (21-32); CHLORIDE 92 MMOL/L (98-107); POTASSIUM 4.1 MMOL/L (3.6-5.0); SODIUM 131 MMOL/L (135-145)
[2019-05-15 21:54] LABS: ALANINE AMINOTRANSFERASE 36 U/L (0-55); ALKALINE PHOSPHATASE 64 U/L (40-136); BILIRUBIN,TOTAL 0.5 MG/DL (0.1-1.0); BUN/CREATININE RATIO 21; CALCIUM 9.3 MG/DL (8.5-10.1); CREATININE SERUM 0.95 MG/DL (0.60-1.30); GFR ESTIMATED > 60; GLUCOSE 169 MG/DL (70-105); MAGNESIUM 1.5 MG/DL (1.8-2.4); TOTAL PROTEIN 6.6 GM/DL (6.4-8.2)
[2019-05-15 21:55] LABS: ALBUMIN 3.7 GM/DL (3.2-4.5)
[2019-05-15] MEDS ORDERED: AZITHROMYCIN INJECTION 500 MG in NS (IVPB) 250 ML IV ONE (22:00)
[2019-05-15] MEDS ORDERED: cefTRIAXone FOR IV USE 2,000 MG in WATER (STERILE) FOR INJECTION 20 ML IV ONE (22:00)
[2019-05-15 22:06] LABS: BAND NEUTROPHILS 2 %; BASOPHILS % (MANUAL) 2 %; EOSINOPHILS % (MANUAL) 7 %; LYMPHOCYTES % (MANUAL) 53 %; MONOCYTES % (MANUAL) 12 %; NEUTROPHILS % (MANUAL) 19 %
[2019-05-15 22:07] LABS: ATYPICAL LYMPHOCYTES 1 %; BLAST CELLS 1 %; METAMYELOCYTES % 1 %; MYELOCYTES % 0 %; PROMYELOCYTES % 2 %
--- OUTSIDE RECORDS SUMMARY | 2019-05-15 22:09 | XMS REPORT | Continuity of Care Document ---
Author Organization Unknown Address Unknown Allergies Active Description Code Type Severity Reaction Onset Reported/Identified Relationship to Patient Clinical Status Yes acetaminophen [id number] Drug Allergy Unknown N/A 01/14/2019 Yes adhesive tape [id number] Drug Allergy Unknown Rash 01/14/2019 Yes No Known Drug Allergies [id number] Drug Allergy Unknown N/A 01/14/2019 Yes aspirin [id number] Drug Allergy Unknown N/A 01/19/2019 Medications There is no data. 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0 HYPERTENSIVE HEART DISEASE WITH HEART FA 01/19/2019 KARL PORTER ERICKSON Ot I21.A1 MYOCARDIAL INFARCTION TYPE 2 01/19/2019 EMILE BARAJAS DOI Ot I25.10 ATHSCL HEART DISEASE OF [place] CORONARY 01/19/2019 KARL PORTER ERICKSON Ot I25.2 OLD MYOCARDIAL INFARCTION 01/19/2019 KARL PORTER ERICKSON Ot I50.9 HEART FAILURE, UNSPECIFIED 01/19/2019 KARL PORTER ERICKSON Ot J18.9 PNEUMONIA, UNSPECIFIED ORGANISM 01/19/2019 KARL PORTER ERICKSON Ot K86.9 DISEASE OF PANCREAS, UNSPECIFIED 01/19/2019 KARL PORTER ERICKSON Ot M19.91 PRIMARY OSTEOARTHRITIS, UNSPECIFIED SITE 01/19/2019 KARL PORTER ERICKSON Ot M54.9 DORSALGIA, UNSPECIFIED 01/19/2019 KARL PORTER ERICKSON Ot R16.0 HEPATOMEGALY, NOT ELSEWHERE CLASSIFIED 01/19/2019 KARL PORTER ERICKSON Ot R64 CACHEXIA 01/19/2019 KARL PORTER ERICKSON Ot R65.20 SEVERE SEPSIS WITHOUT SEPTIC SHOCK 01/19/2019 KARL PORTER ERICKSON Ot T45.1X5A ADVERSE EFFECT OF ANTINEOPLASTIC AND IMM 01/19/2019 EMILE BARAJAS DOI Ot Z79.4 IRONER SOCK (CURRENT) USE OF INSULIN 01/19/2019 EMILE BARAJAS DOI Ot Z95.1 PRESENCE OF AORTOCORONARY BYPASS GRAFT 01/20/2019 EMILE BARAJAS DOI Ot A41.9 SEPSIS, UNSPECIFIED ORGANISM 01/20/2019 EMILE BARAJAS DOI Ot C85.90 NON-[place] LYMPHOMA, UNSPECIFIED, UNSPE 01/20/2019 KARL PORTER ERICKSON Ot 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9 UNSPECIFIED GLAUCOMA 01/20/2019 KARL PORTER ERICKSON Ot 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, [place]FINED [place] 01/20/2019 EMILE BARAJAS DOI Ot H91.90 UNSPECIFIED HEARING LOSS, UNSPECIFIED EA 01/20/2019 KARL PORTER ERICKSON Ot I11.0 HYPERTENSIVE HEART DISEASE WITH HEART FA 01/20/2019 KARL PORTER ERICKSON Ot 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.A1 MYOCARDIAL INFARCTION TYPE 2 01/20/2019 KARL PORTER ERICKSON Ot I25.10 ATHSCL HEART DISEASE OF [place] CORONARY 01/20/2019 KARL PORTER ERICKSON Ot I25.2 OLD MYOCARDIAL INFARCTION 01/20/2019 KARL PORTER ERICKSON Ot I50.9 HEART FAILURE, UNSPECIFIED 01/20/2019 KARL PORTER ERICKSON Ot J18.9 PNEUMONIA, UNSPECIFIED ORGANISM 01/20/2019 KARL PORTER ERICKSON Ot K86.9 DISEASE OF PANCREAS, UNSPECIFIED 01/20/2019 KARL PORTER ERICKSON Ot M19.91 PRIMARY OSTEOARTHRITIS, UNSPECIFIED SITE 01/20/2019 EMILE BARAJAS DOI Ot M54.9 DORSALGIA, UNSPECIFIED 01/20/2019 KARL PORTER ERICKSON Ot R11.10 VOMITING, UNSPECIFIED 01/20/2019 KARL PORTER ERICKSON Ot R16.0 HEPATOMEGALY, NOT ELSEWHERE CLASSIFIED 01/20/2019 KARL PORTER ERICKSON Ot R64 CACHEXIA 01/20/2019 KARL PORTER ERICKSON Ot R65.20 SEVERE SEPSIS WITHOUT SEPTIC SHOCK 01/20/2019 KARL PORTER ERICKSON Ot T45.1X5A ADVERSE EFFECT OF ANTINEOPLASTIC AND IMM 01/20/2019 ERICKSON BARAJAS DO Ot Z79.4 SNF (CURRENT) USE OF INSULIN 01/20/2019 EMILE BARAJAS DOI Ot Z95.1 PRESENCE OF AORTOCORONARY BYPASS GRAFT 01/21/2019 EMILE BARAJAS DOI Ot A41.9 SEPSIS, UNSPECIFIED ORGANISM 01/21/2019 KARL PORTER ERICKSON Ot C85.90 NON-[place] LYMPHOMA, UNSPECIFIED, UNSPE 01/21/2019 KARL PORTER ERICKSON Ot 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 01/21/2019 EMILE BARAJAS DOI Ot D84.9 IMMUNODEFICIENCY, UNSPECIFIED 01/21/2019 KARL PORTER ERICKSON Ot E11.9 TYPE 2 DIABETES MELLITUS WITHOUT COMPLIC 01/21/2019 KARL PORTER ERICKSON Ot E87.1 HYPO-OSMOLALITY AND HYPONATREMIA 01/21/2019 ERICKSON BARAJAS DO Ot E87.2 ACIDOSIS 01/21/2019 KARL PORTER ERICKSON Ot F41.9 ANXIETY DISORDER, UNSPECIFIED 01/21/2019 EMILE BARAJAS DOI Ot H40.9 UNSPECIFIED GLAUCOMA 01/21/2019 EMILE BARAJAS DOI Ot 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, [place]FINED [place] 01/21/2019 EMILE BARAJAS DOI Ot H91.90 UNSPECIFIED HEARING LOSS, UNSPECIFIED EA 01/21/2019 KARL PORTER ERICKSON Ot I11.0 HYPERTENSIVE HEART DISEASE WITH HEART FA 01/21/2019 EMILE BARAJAS DOI Ot 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.A1 MYOCARDIAL INFARCTION TYPE 2 01/21/2019 KARL PORTER ERICKSON Ot I25.10 ATHSCL HEART DISEASE OF [place] CORONARY 01/21/2019 KARL PORTER ERICKSON Ot I25.2 OLD MYOCARDIAL INFARCTION 01/21/2019 EMILE BARAJAS DOI Ot I50.9 HEART FAILURE, UNSPECIFIED 01/21/2019 KARL PORTER ERICKSON Ot J18.9 PNEUMONIA, UNSPECIFIED ORGANISM 01/21/2019 KARL PORTER ERICKSON Ot K86.9 DISEASE OF PANCREAS, UNSPECIFIED 01/21/2019 KARL PORTER ERICKSON Ot M19.91 PRIMARY OSTEOARTHRITIS, UNSPECIFIED SITE 01/21/2019 KARL PORTER ERICKSON Ot M54.9 DORSALGIA, UNSPECIFIED 01/21/2019 EMILE BARAJAS DOI Ot R16.0 HEPATOMEGALY, NOT ELSEWHERE CLASSIFIED 01/21/2019 KARL PORTER ERICKSON Ot R64 CACHEXIA 01/21/2019 KARL PORTER ERICKSON Ot R65.20 SEVERE SEPSIS WITHOUT SEPTIC SHOCK 01/21/2019 ERICKSON BARAJAS DO Ot T45.1X5A ADVERSE EFFECT OF ANTINEOPLASTIC AND IMM 01/21/2019 ERICKSON BARAJAS DO Ot Z79.4 SNF (CURRENT) USE OF INSULIN 01/21/2019 ERICKSON BARAJAS DO Ot Z95.1 PRESENCE OF AORTOCORONARY BYPASS GRAFT 02/06/2019 OPAL CARTER MD, Ot D70.9 NEUTROPENIA, UNSPECIFIED 02/06/2019 OPAL CARTER MD Ot E11.9 TYPE 2 DIABETES MELLITUS WITHOUT COMPLIC 02/06/2019 OPAL CARTER MD Ot E86.0 DEHYDRATION 02/06/2019 OPAL CARTER MD Ot I25.2 OLD MYOCARDIAL INFARCTION 02/06/2019 OPAL CRATER MD Ot R07.89 OTHER CHEST PAIN 02/06/2019 OPAL CARTER MD Ot R19.7 DIARRHEA, UNSPECIFIED 02/06/2019 OPAL CARTER MD Ot Z79.51 SNF (CURRENT) USE OF INHALED STERO 02/06/2019 OPAL CARTER MD Ot Z79.52 IRONER SOCK (CURRENT) USE OF SYSTEMIC STER 02/06/2019 OPAL CARTER MD Ot Z82.49 FAMILY HX OF ISCHEM HEART DIS AND OTH DI 02/06/2019 OPAL CARTER MD Ot Z85.72 PERSONAL HISTORY OF NON-[place] LYMPHOMA 02/06/2019 OPAL CARTER MD Ot Z88.6 ALLERGY STATUS TO ANALGESIC AGENT STATUS 02/06/2019 OPAL CARTER MD Ot Z92.21 PERSONAL HISTORY OF ANTINEOPLASTIC CHEMO 02/06/2019 OPAL CARTER MD Ot Z95.1 PRESENCE OF AORTOCORONARY BYPASS GRAFT 02/09/2019 OPAL CARTER MD Ot D70.9 NEUTROPENIA, UNSPECIFIED 02/09/2019 OPAL CARTER MD Ot E11.9 TYPE 2 DIABETES MELLITUS WITHOUT COMPLIC 02/09/2019 OPAL CARTER MD Ot E86.0 DEHYDRATION 02/09/2019 OPAL CARTER MD Ot I25.2 OLD MYOCARDIAL INFARCTION 02/09/2019 OPAL CARTER MD Ot R07.89 OTHER CHEST PAIN 02/09/2019 OPAL CARTER MD Ot R19.7 DIARRHEA, UNSPECIFIED 02/09/2019 OPAL CARTER MD Ot Z79.51 IRONER SOCK (CURRENT) USE OF INHALED STERO 02/09/2019 OPAL CARTER MD Ot Z79.52 IRONER SOCK (CURRENT) USE OF SYSTEMIC STER 02/09/2019 OPAL CARTER MD Ot Z82.49 FAMILY HX OF ISCHEM HEART DIS AND OTH DI 02/09/2019 OPAL CARTER MD Ot Z85.72 PERSONAL HISTORY OF NON-[place] LYMPHOMA 02/09/2019 OPAL CARTER MD Ot Z88.6 ALLERGY STATUS TO ANALGESIC AGENT STATUS 02/09/2019 RAUL PONCE, OPAL Powers Ot Z92.21 PERSONAL HISTORY OF ANTINEOPLASTIC CHEMO 02/09/2019 RAUL PONCE, OPAL Powers Ot Z95.1 PRESENCE OF AORTOCORONARY BYPASS GRAFT 03/11/2019 KALAANEL Ot C85.90 NON-[place] LYMPHOMA, UNSPECIFIED, UNSPE 03/11/2019 KALAANEL N Ot E11.9 TYPE 2 DIABETES MELLITUS WITHOUT COMPLIC 03/11/2019 ANEL ARMENDARIZ N Ot Z79.4 SNF (CURRENT) USE OF INSULIN 03/11/2019 ANEL ARMENDARIZ N Ot Z79.82 IRONER SOCK (CURRENT) USE OF ASPIRIN 03/11/2019 ANEL ARMENDARIZ N Ot Z79.899 OTHER SNF (CURRENT) DRUG THERAPY 03/17/2019 KALAANEL N Ot 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, EXTRNOD AND 03/17/2019 ANEL ARMENDARIZ N Ot K86.89 OTHER SPECIFIED DISEASES OF PANCREAS 03/17/2019 KALAANEL N Ot N32.89 OTHER SPECIFIED DISORDERS OF BLADDER 03/17/2019 KALAANEL N Ot Z98.890 OTHER SPECIFIED POSTPROCEDURAL STATES 03/17/2019 KALAANEL N Ot 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, EXTRNOD AND 03/17/2019 KALAANEL N Ot K86.89 OTHER SPECIFIED DISEASES OF PANCREAS 03/17/2019 KALASANDYANNA N Ot N32.89 OTHER SPECIFIED DISORDERS OF BLADDER 03/17/2019 KALAANEL N Ot Z98.890 OTHER SPECIFIED POSTPROCEDURAL STATES 03/18/2019 KALAANEL N Ot C85.90 NON-[place] LYMPHOMA, UNSPECIFIED, UNSPE 03/18/2019 KALAANEL N Ot E11.9 TYPE 2 DIABETES MELLITUS WITHOUT COMPLIC 03/18/2019 ANEL ARMENDARIZ N Ot Z79.4 IRONER SOCK (CURRENT) USE OF INSULIN 03/18/2019 ANEL ARMENDARIZ N Ot Z79.82 SNF (CURRENT) USE OF ASPIRIN 03/18/2019 ANEL ARMENDARIZ N Ot Z79.899 OTHER IRONER SOCK (CURRENT) DRUG THERAPY 03/18/2019 ANEL ARMENDARIZ N Ot 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, EXTRNOD AND 03/18/2019 ANEL ARMENDARIZ Wilder Ot K86.89 OTHER SPECIFIED DISEASES OF PANCREAS 03/18/2019 ANEL ARMENDARIZ Wilder Ot N32.89 OTHER SPECIFIED DISORDERS OF BLADDER 03/18/2019 ANEL ARMENDARIZ Wilder Ot Z98.890 OTHER SPECIFIED POSTPROCEDURAL STATES 03/18/2019 ANEL ARMENDARIZ Wilder Ot C85.90 NON-[place] LYMPHOMA, UNSPECIFIED, UNSPE 03/18/2019 ANEL ARMENDARIZ Wilder Ot E11.9 TYPE 2 DIABETES MELLITUS WITHOUT COMPLIC 03/18/2019 ANEL ARMENDARIZ Wilder Ot Z79.4 IRONER SOCK (CURRENT) USE OF INSULIN 03/18/2019 AKLASANDYANNA Wilder Ot Z79.82 SNF (CURRENT) USE OF ASPIRIN 03/18/2019 ANEL ARMENDARIZ Wilder Ot Z79.899 OTHER SNF (CURRENT) DRUG THERAPY 03/19/2019 NANCY PONCE, Jeanne THORNE Ot I73.9 PERIPHERAL VASCULAR DISEASE, UNSPECIFIED 03/19/2019 Jeanne CRUZ MD Ot I73.9 PERIPHERAL VASCULAR DISEASE, UNSPECIFIED 03/19/2019 Jeanne CRUZ MD Ot I73.9 PERIPHERAL VASCULAR DISEASE, UNSPECIFIED 03/22/2019 ANEL ARMENDARIZ Wilder Ot 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, EXTRNOD AND 03/22/2019 KALA ANEL Wilder Ot K86.89 OTHER SPECIFIED DISEASES OF PANCREAS 03/22/2019 ANEL ARMENDARIZ Wilder Ot N32.89 OTHER SPECIFIED DISORDERS OF BLADDER 03/22/2019 ANEL ARMENDARIZ Wilder Ot Z98.890 OTHER SPECIFIED POSTPROCEDURAL STATES 03/27/2019 ANEL ARMENDARIZ Wilder Ot 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, EXTRNOD AND 03/27/2019 KALASANDYANNA Wilder Ot K86.89 OTHER SPECIFIED DISEASES OF PANCREAS 03/27/2019 KALASANDYANNA Wilder Ot N32.89 OTHER SPECIFIED DISORDERS OF BLADDER 03/27/2019 ANEL ARMENDARIZ Wilder Ot Z98.890 OTHER SPECIFIED POSTPROCEDURAL STATES 03/30/2019 KALASANDYANNA Wilder Ot C85.90 NON-[place] LYMPHOMA, UNSPECIFIED, UNSPE 03/30/2019 ANEL ARMENDARIZ Ot E11.9 TYPE 2 DIABETES MELLITUS WITHOUT COMPLIC 03/30/2019 ANEL ARMENDARIZ Ot Z79.4 IRONER SOCK (CURRENT) USE OF INSULIN 03/30/2019 ANEL ARMENDARIZ N Ot Z79.82 SNF (CURRENT) USE OF ASPIRIN 03/30/2019 ANEL ARMENDARIZ N Ot Z79.899 OTHER IRONER SOCK (CURRENT) DRUG THERAPY 03/31/2019 ANEL ARMENDARIZ N Ot C85.90 NON-HODG[place]IN LYMPHOMA, UNSPECIFIED, UNSPE 03/31/2019 ANEL ARMENDARIZ N Ot E11.9 TYPE 2 DIABETES MELLITUS WITHOUT COMPLIC 03/31/2019 ANEL ARMENDARIZ Ot Z79.4 SNF (CURRENT) USE OF INSULIN 03/31/2019 ANEL ARMENDARIZ N Ot Z79.82 IRONER SOCK (CURRENT) USE OF ASPIRIN 03/31/2019 ANEL ARMENDARIZ N Ot Z79.899 OTHER IRONER SOCK (CURRENT) DRUG THERAPY 04/07/2019 ANEL ARMENDARIZ Ot C85.90 NON-[place]IN LYMPHOMA, UNSPECIFIED, UNSPE 04/07/2019 ANEL ARMENDARIZ N Ot E11.9 TYPE 2 DIABETES MELLITUS WITHOUT COMPLIC 04/07/2019 ANEL ARMENDARIZ Ot Z79.4 SNF (CURRENT) USE OF INSULIN 04/07/2019 ANEL ARMENDARIZ N Ot Z79.82 SNF (CURRENT) USE OF ASPIRIN 04/07/2019 ANEL ARMENDARIZ Ot Z79.899 OTHER IRONER SOCK (CURRENT) DRUG THERAPY Procedures There is no data. Results Test Result Range Serum or plasma lactate measurement (moles/volume) - 01/14/19 00:35 Serum or plasma lactate measurement (moles/volume) 1.70 mmol/L 0.50-2.00 Complete blood count (CBC) with automated white blood cell (WBC) differential - 01/14/19 22:25 Blood leukocytes automated count (number/volume) 1.6 10*3/uL 4.3-11.0 Blood erythrocytes automated count (number/volume) 3.92 10*6/uL 4.35-5.85 Venous blood hemoglobin measurement (mass/volume) 11.2 g/dL 13.3-17.7 Blood hematocrit (volume fraction) 34 % 40-54 Automated erythrocyte mean corpuscular volume 96 [foz_us] 80-99 Automated erythrocyte mean corpuscular hemoglobin (mass per erythrocyte) 29 pg 25-34 Automated erythrocyte mean corpuscular hemoglobin concentration measurement (mass/volume) 33 g/dL 32-36 Automated erythrocyte distribution width ratio 17.8 % 10.0- 14.5 Automated blood platelet count (count/volume) 83 10*3/uL 130- 400 Automated blood platelet mean volume measurement 12.5 [foz_us] 7.4-10.4 Automated blood neutrophils/100 leukocytes 4 % 42-75 Automated blood lymphocytes/100 leukocytes 66 % 12-44 Blood monocytes/100 leukocytes 17 % 0-12 Automated blood eosinophils/100 leukocytes 6 % 0-10 Automated blood basophils/100 leukocytes 2 % 0-10 Blood neutrophils automated count (number/volume) 0.1 10*3 1.8-7.8 Blood lymphocytes automated count (number/volume) 1.1 10*3 1.0-4.0 Blood monocytes automated count (number/volume) 0.3 10*3 0.0- 1.0 Automated eosinophil count 0.1 10*3/uL 0.0-0.3 Automated blood basophil count (count/volume) 0.0 10*3/uL 0.0-0.1 Comprehensive metabolic panel - 01/14/19 22:25 Serum or plasma sodium measurement (moles/volume) 128 mmol/L 135-145 Serum or plasma potassium measurement (moles/volume) 4.2 mmol/L 3.6-5.0 Serum or plasma chloride measurement (moles/volume) 93 mmol/L 98-107 Carbon dioxide 18 mmol/L 21-32 Serum or plasma anion gap determination (moles/volume) 17 mmol/L 5-14 Serum or plasma urea nitrogen measurement (mass/volume) 21 mg/dL 7-18 Serum or plasma creatinine measurement (mass/volume) 0.89 mg/dL 0.60-1.30 Serum or plasma urea nitrogen/creatinine mass ratio 24 NRG Serum or plasma creatinine measurement with calculation of estimated glomerular filtration rate > NRG Serum or plasma glucose measurement (mass/volume) 278 mg/dL 70-105 Serum or plasma calcium measurement (mass/volume) 9.4 mg/dL 8.5-10.1 Serum or plasma total bilirubin measurement (mass/volume) 0.7 mg/dL 0.1-1.0 Serum or plasma alkaline phosphatase measurement (enzymatic activity/volume) 53 U/L 40-136 Serum or plasma aspartate aminotransferase measurement (enzymatic activity/volume) 27 U/L 5-34 Serum or plasma alanine aminotransferase measurement (enzymatic activity/volume) 20 U/L 0-55 Serum or plasma protein measurement (mass/volume) 6.6 g/dL 6.4-8.2 Serum or plasma albumin measurement (mass/volume) 3.6 g/dL 3.2-4.5 CALCIUM CORRECTED 9.7 mg/dL 8.5-10.1 Blood manual differential performed detection - 01/14/19 22:25 Blood monocytes/100 leukocytes 12 % NRG Manual blood segmented neutrophils/100 leukocytes 8 % NRG Blood band neutrophils/100 leukocytes 2 % NRG Manual blood lymphocytes/100 leukocytes 76 % NRG Manual eosinophils/100 leukocytes in nose 2 % NRG Manual blood basophils/100 leukocytes 2 % NR Blood erythrocyte morphology finding identification NORMAL [facility] TROPONIN T - 01/14/19 22:25 TROPONIN T 27 % <=15 Serum or plasma lithium measurement (moles/volume) - 01/14/19 22:25 BNP level 111.8 pg/mL <100.0 Bacterial blood culture - 01/14/19 22:25 FREE TEXT EXTERNAL NO SUSCEPTIBILITY PERFORMED NR QUANTITY OF GROWTH . [facility] Bacterial blood culture SEE COMMEN [facility] Blood lactic acid measurement (moles/volume) - 01/14/19 22:35 Blood lactic acid measurement (moles/volume) 2.23 mmol/L 0.50- 2.00 Influenza virus A and B antigen detection - 01/14/19 23:24 FLU RESULT NEGATIVE FOR INFLUENZA A AND B ANTIGENS BY IA [facility] Bacterial blood culture - 01/14/19 23:45 Bacterial blood culture [facility] Whole blood basic metabolic panel - 01/15/19 01:59 Serum or plasma sodium measurement (moles/volume) 131 mmol/L 135-145 Serum or plasma potassium measurement (moles/volume) 3.8 mmol/L 3.6-5.0 Serum or plasma chloride measurement (moles/volume) 100 mmol/L 98-107 Carbon dioxide 20 mmol/L 21-32 Serum or plasma anion gap determination (moles/volume) 11 mmol/L 5-14 Serum or plasma urea nitrogen measurement (mass/volume) 22 mg/dL 7-18 Serum or plasma creatinine measurement (mass/volume) 1.02 mg/dL 0.60-1.30 Serum or plasma urea nitrogen/creatinine mass ratio 22 NRG Serum or plasma creatinine measurement with calculation of estimated glomerular filtration rate > NRG Serum or plasma glucose measurement (mass/volume) 210 mg/dL 70-105 Serum or plasma calcium measurement (mass/volume) 9.3 mg/dL 8.5-10.1 Serum or plasma phosphate measurement (mass/volume) - 01/15/19 01:59 Serum or plasma phosphate measurement (mass/volume) 2.7 mg/dL 2.3-4.7 Magnesium - 01/15/19 01:59 Magnesium 1.5 mg/dL 1.8-2.4 Complete blood count (CBC) with automated white blood cell (WBC) differential - 01/15/19 01:59 Blood leukocytes automated count (number/volume) 1.3 10*3/uL 4.3-11.0 Blood erythrocytes automated count (number/volume) 3.66 10*6/uL 4.35-5.85 Venous blood hemoglobin measurement (mass/volume) 10.4 g/dL 13.3-17.7 Blood hematocrit (volume fraction) 31 % 40-54 Automated erythrocyte mean corpuscular volume 84 [foz_us] 80-99 Automated erythrocyte mean corpuscular hemoglobin (mass per erythrocyte) 28 pg 25-34 Automated erythrocyte mean corpuscular hemoglobin concentration measurement (mass/volume) 34 g/dL 32-36 Automated erythrocyte distribution width ratio 18.3 % 10.0- 14.5 Automated blood platelet count (count/volume) 85 10*3/uL 130- 400 Automated blood platelet mean volume measurement 11.7 [foz_us] 7.4-10.4 Automated blood neutrophils/100 leukocytes 14 % 42-75 Automated blood lymphocytes/100 leukocytes 58 % 12-44 Blood monocytes/100 leukocytes 19 % 0-12 Automated blood eosinophils/100 leukocytes 9 % 0-10 Automated blood basophils/100 leukocytes 2 % 0-10 Blood neutrophils automated count (number/volume) 0.2 10*3 1.8-7.8 Blood lymphocytes automated count (number/volume) 0.8 10*3 1.0-4.0 Blood monocytes automated count (number/volume) 0.2 10*3 0.0- 1.0 Automated eosinophil count 0.1 10*3/uL 0.0-0.3 Automated blood basophil count (count/volume) 0.0 10*3/uL 0.0-0.1 Serum or plasma troponin i.cardiac measurement (mass/volume) - 01/15/19 01:59 Serum or plasma troponin i.cardiac measurement (mass/volume) < ng/mL <0.028 PROCALCITONIN (PCT) - 01/15/19 01:59 PROCALCITONIN (PCT) 0.20 ng/mL <0.10 Serum or plasma troponin i.cardiac measurement (mass/volume) - 01/15/19 06:12 Serum or plasma troponin i.cardiac measurement (mass/volume) < ng/mL <0.028 Capillary blood glucose measurement by glucometer (mass/volume) - 01/15/19 07:51 Capillary blood glucose measurement by glucometer (mass/volume) 237 mg/dL 70-110 Blood lactic acid measurement (moles/volume) - 01/15/19 08:00 Blood lactic acid measurement (moles/volume) 0.99 mmol/L 0.50- 2.00 Complete urinalysis with reflex to culture - 01/15/19 11:11 Urine color determination YELLOW NRG Urine clarity determination SLIGHTLY CLOUDY NRG Urine pH measurement by test strip 5 5-9 Specific gravity of urine by test strip 1.010 1.016-1.022 Urine protein assay by test strip, semi-quantitative 2+ NEGATIVE Urine glucose detection by automated test strip 2+ NEGATIVE Erythrocytes detection in urine sediment by light microscopy NEGATIVE NEGATIVE Urine ketones detection by automated test strip NEGATIVE NEGATIVE Urine nitrite detection by test strip NEGATIVE NEGATIVE Urine total bilirubin detection by test strip NEGATIVE NEGATIVE Urine urobilinogen measurement by automated test strip (mass/volume) NORMAL NORMAL Urine leukocyte esterase detection by dipstick NEGATIVE NEGATIVE Automated urine sediment erythrocyte count by microscopy (number/high power field) RARE NRG Automated urine sediment leukocyte count by microscopy (number/high power field) NONE NRG Bacteria detection in urine sediment by light microscopy NEGATIVE NRG Squamous epithelial cells detection in urine sediment by light microscopy RARE NRG Crystals detection in urine sediment by light microscopy NONE NRG Casts detection in urine sediment by light microscopy NONE NRG Mucus detection in urine sediment by light microscopy NEGATIVE NRG Complete urinalysis with reflex to culture NO NRG Capillary blood glucose measurement by glucometer (mass/volume) - 02/21/19 14:09 Capillary blood glucose measurement by glucometer (mass/volume) 279 mg/dL 70-110 Capillary blood glucose measurement by glucometer (mass/volume) - 01/15/19 20:46 Capillary blood glucose measurement by glucometer (mass/volume) 222 mg/dL 70-110 Complete blood count (CBC) with automated white blood cell (WBC) differential - 01/16/19 03:05 Blood leukocytes automated count (number/volume) 1.2 10*3/uL 4.3-11.0 Blood erythrocytes automated count (number/volume) 3.58 10*6/uL 4.35-5.85 Venous blood hemoglobin measurement (mass/volume) 10.2 g/dL 13.3-17.7 Blood hematocrit (volume fraction) 30 % 40-54 Automated erythrocyte mean corpuscular volume 85 [foz_us] 80-99 Automated erythrocyte mean corpuscular hemoglobin (mass per erythrocyte) 29 pg 25-34 Automated erythrocyte mean corpuscular hemoglobin concentration measurement (mass/volume) 34 g/dL 32-36 Automated erythrocyte distribution width ratio 18.2 % 10.0- 14.5 Automated blood platelet count (count/volume) 74 10*3/uL 130- 400 Automated blood platelet mean volume measurement 10.4 [foz_us] 7.4-10.4 Automated blood neutrophils/100 leukocytes 24 % 42-75 Automated blood lymphocytes/100 leukocytes 46 % 12-44 Blood monocytes/100 leukocytes 22 % 0-12 Automated blood eosinophils/100 leukocytes 7 % 0-10 Automated blood basophils/100 leukocytes 2 % 0-10 Blood neutrophils automated count (number/volume) 0.3 10*3 1.8-7.8 Blood lymphocytes automated count (number/volume) 0.5 10*3 1.0-4.0 Blood monocytes automated count (number/volume) 0.3 10*3 0.0- 1.0 Automated eosinophil count 0.1 10*3/uL 0.0-0.3 Automated blood basophil count (count/volume) 0.0 10*3/uL 0.0-0.1 Whole blood basic metabolic panel - 01/16/19 03:05 Serum or plasma sodium measurement (moles/volume) 136 mmol/L 135-145 Serum or plasma potassium measurement (moles/volume) 3.2 mmol/L 3.6-5.0 Serum or plasma chloride measurement (moles/volume) 105 mmol/L 98-107 Carbon dioxide 19 mmol/L 21-32 Serum or plasma anion gap determination (moles/volume) 12 mmol/L 5-14 Serum or plasma urea nitrogen measurement (mass/volume) 10 mg/dL 7-18 Serum or plasma creatinine measurement (mass/volume) 0.78 mg/dL 0.60-1.30 Serum or plasma urea nitrogen/creatinine mass ratio 13 NRG Serum or plasma creatinine measurement with calculation of estimated glomerular filtration rate > NRG Serum or plasma glucose measurement (mass/volume) 145 mg/dL 70-105 Serum or plasma calcium measurement (mass/volume) 8.3 mg/dL 8.5-10.1 Serum or plasma phosphate measurement (mass/volume) - 01/16/19 03:05 Serum or plasma phosphate measurement (mass/volume) 2.4 mg/dL 2.3-4.7 Magnesium - 01/16/19 03:05 Magnesium 1.6 mg/dL 1.8-2.4 Capillary blood glucose measurement by glucometer (mass/volume) - 01/16/19 11:46 Capillary blood glucose measurement by glucometer (mass/volume) 272 mg/dL 70-110 Capillary blood glucose measurement by glucometer (mass/volume) - 01/16/19 16:21 Capillary blood glucose measurement by glucometer (mass/volume) 249 mg/dL 70-110 Capillary blood glucose measurement by glucometer (mass/volume) - 01/16/19 21:05 Capillary blood glucose measurement by glucometer (mass/volume) 136 mg/dL 70-110 Capillary blood glucose measurement by glucometer (mass/volume) - 01/17/19 05:21 Capillary blood glucose measurement by glucometer (mass/volume) 198 mg/dL 70-110 Complete blood count (CBC) with automated white blood cell (WBC) differential - 01/17/19 06:55 Blood leukocytes automated count (number/volume) 1.1 10*3/uL 4.3-11.0 Blood erythrocytes automated count (number/volume) 3.68 10*6/uL 4.35-5.85 Venous blood hemoglobin measurement (mass/volume) 10.6 g/dL 13.3-17.7 Blood hematocrit (volume fraction) 32 % 40-54 Automated erythrocyte mean corpuscular volume 86 [foz_us] 80-99 Automated erythrocyte mean corpuscular hemoglobin (mass per erythrocyte) 29 pg 25-34 Automated erythrocyte mean corpuscular hemoglobin concentration measurement (mass/volume) 33 g/dL 32-36 Automated erythrocyte distribution width ratio 18.6 % 10.0- 14.5 Automated blood platelet count (count/volume) 105 10*3/uL 130-400 Automated blood platelet mean volume measurement 11.7 [foz_us] 7.4-10.4 Automated blood neutrophils/100 leukocytes 37 % 42-75 Automated blood lymphocytes/100 leukocytes 36 % 12-44 Blood monocytes/100 leukocytes 22 % 0-12 Automated blood eosinophils/100 leukocytes 4 % 0-10 Automated blood basophils/100 leukocytes 1 % 0-10 Blood neutrophils automated count (number/volume) 0.4 10*3 1.8-7.8 Blood lymphocytes automated count (number/volume) 0.4 10*3 1.0-4.0 Blood monocytes automated count (number/volume) 0.3 10*3 0.0- 1.0 Automated eosinophil count 0.1 10*3/uL 0.0-0.3 Automated blood basophil count (count/volume) 0.0 10*3/uL 0.0-0.1 Comprehensive metabolic panel - 01/17/19 06:55 Serum or plasma sodium measurement (moles/volume) 138 mmol/L 135-145 Serum or plasma potassium measurement (moles/volume) 3.2 mmol/L 3.6-5.0 Serum or plasma chloride measurement (moles/volume) 104 mmol/L 98-107 Carbon dioxide 22 mmol/L 21-32 Serum or plasma anion gap determination (moles/volume) 12 mmol/L 5-14 Serum or plasma urea nitrogen measurement (mass/volume) 5 mg/dL 7-18 Serum or plasma creatinine measurement (mass/volume) 0.80 mg/dL 0.60-1.30 Serum or plasma urea nitrogen/creatinine mass ratio 6 NRG Serum or plasma creatinine measurement with calculation of estimated glomerular filtration rate > NRG Serum or plasma glucose measurement (mass/volume) 198 mg/dL 70-105 Serum or plasma calcium measurement (mass/volume) 8.2 mg/dL 8.5-10.1 Serum or plasma total bilirubin measurement (mass/volume) 0.6 mg/dL 0.1-1.0 Serum or plasma alkaline phosphatase measurement (enzymatic activity/volume) 44 U/L 40-136 Serum or plasma aspartate aminotransferase measurement (enzymatic activity/volume) 32 U/L 5-34 Serum or plasma alanine aminotransferase measurement (enzymatic activity/volume) 26 U/L 0-55 Serum or plasma protein measurement (mass/volume) 5.3 g/dL 6.4-8.2 Serum or plasma albumin measurement (mass/volume) 3.6 g/dL 3.2-4.5 CALCIUM CORRECTED 8.5 mg/dL 8.5-10.1 Capillary blood glucose measurement by glucometer (mass/volume) - 01/17/19 11:29 Capillary blood glucose measurement by glucometer (mass/volume) 305 mg/dL 70-110 Capillary blood glucose measurement by glucometer (mass/volume) - 01/17/19 15:33 Capillary blood glucose measurement by glucometer (mass/volume) 199 mg/dL 70-110 Capillary blood glucose measurement by glucometer (mass/volume) - 01/17/19 20:56 Capillary blood glucose measurement by glucometer (mass/volume) 227 mg/dL 70-110 Capillary blood glucose measurement by glucometer (mass/volume) - 01/18/19 06:16 Capillary blood glucose measurement by glucometer (mass/volume) 171 mg/dL 70-110 Complete blood count (CBC) with automated white blood cell (WBC) differential - 01/18/19 06:20 Blood leukocytes automated count (number/volume) 1.6 10*3/uL 4.3-11.0 Blood erythrocytes automated count (number/volume) 4.41 10*6/uL 4.35-5.85 Venous blood hemoglobin measurement (mass/volume) 12.1 g/dL 13.3-17.7 Blood hematocrit (volume fraction) 37 % 40-54 Automated erythrocyte mean corpuscular volume 84 [foz_us] 80-99 Automated erythrocyte mean corpuscular hemoglobin (mass per erythrocyte) 27 pg 25-34 Automated erythrocyte mean corpuscular hemoglobin concentration measurement (mass/volume) 33 g/dL 32-36 Automated erythrocyte distribution width ratio 18.0 % 10.0- 14.5 Automated blood platelet count (count/volume) 126 10*3/uL 130-400 Automated blood platelet mean volume measurement 11.1 [foz_us] 7.4-10.4 Automated blood neutrophils/100 leukocytes 46 % 42-75 Automated blood lymphocytes/100 leukocytes 29 % 12-44 Blood monocytes/100 leukocytes 17 % 0-12 Automated blood eosinophils/100 leukocytes 7 % 0-10 Automated blood basophils/100 leukocytes 1 % 0-10 Blood neutrophils automated count (number/volume) 0.7 10*3 1.8-7.8 Blood lymphocytes automated count (number/volume) 0.5 10*3 1.0-4.0 Blood monocytes automated count (number/volume) 0.3 10*3 0.0- 1.0 Automated eosinophil count 0.1 10*3/uL 0.0-0.3 Automated blood basophil count (count/volume) 0.0 10*3/uL 0.0-0.1 Whole blood basic metabolic panel - 01/18/19 06:20 Serum or plasma sodium measurement (moles/volume) 140 mmol/L 135-145 Serum or plasma potassium measurement (moles/volume) 2.9 mmol/L 3.6-5.0 Serum or plasma chloride measurement (moles/volume) 104 mmol/L 98-107 Carbon dioxide 23 mmol/L 21-32 Serum or plasma anion gap determination (moles/volume) 13 mmol/L 5-14 Serum or plasma urea nitrogen measurement (mass/volume) 4 mg/dL 7-18 Serum or plasma creatinine measurement (mass/volume) 0.69 mg/dL 0.60-1.30 Serum or plasma urea nitrogen/creatinine mass ratio 6 NRG Serum or plasma creatinine measurement with calculation of estimated glomerular filtration rate > NRG Serum or plasma glucose measurement (mass/volume) 158 mg/dL 70-105 Serum or plasma calcium measurement (mass/volume) 9.1 mg/dL 8.5-10.1 Serum or plasma phosphate measurement (mass/volume) - 01/18/19 06:20 Serum or plasma phosphate measurement (mass/volume) 1.9 mg/dL 2.3-4.7 Magnesium - 01/18/19 06:20 Magnesium 2.0 mg/dL 1.8-2.4 Capillary blood glucose measurement by glucometer (mass/volume) - 01/18/19 11:11 Capillary blood glucose measurement by glucometer (mass/volume) 197 mg/dL 70-110 Capillary blood glucose measurement by glucometer (mass/volume) - 01/18/19 16:11 Capillary blood glucose measurement by glucometer (mass/volume) 254 mg/dL 70-110 Capillary blood glucose measurement by glucometer (mass/volume) - 01/18/19 19:51 Capillary blood glucose measurement by glucometer (mass/volume) 174 mg/dL 70-110 Complete blood count (CBC) with automated white blood cell (WBC) differential - 01/19/19 04:50 Blood leukocytes automated count (number/volume) 1.6 10*3/uL 4.3-11.0 Blood erythrocytes automated count (number/volume) 3.93 10*6/uL 4.35-5.85 Venous blood hemoglobin measurement (mass/volume) 11.3 g/dL 13.3-17.7 Blood hematocrit (volume fraction) 33 % 40-54 Automated erythrocyte mean corpuscular volume 84 [foz_us] 80-99 Automated erythrocyte mean corpuscular hemoglobin (mass per erythrocyte) 29 pg 25-34 Automated erythrocyte mean corpuscular hemoglobin concentration measurement (mass/volume) 35 g/dL 32-36 Automated erythrocyte distribution width ratio 18.4 % 10.0- 14.5 Automated blood platelet count (count/volume) 132 10*3/uL 130-400 Automated blood platelet mean volume measurement 9.9 [foz_us] 7.4-10.4 Automated blood neutrophils/100 leukocytes 51 % 42-75 Automated blood lymphocytes/100 leukocytes 25 % 12-44 Blood monocytes/100 leukocytes 16 % 0-12 Automated blood eosinophils/100 leukocytes 6 % 0-10 Automated blood basophils/100 leukocytes 2 % 0-10 Blood neutrophils automated count (number/volume) 0.8 10*3 1.8-7.8 Blood lymphocytes automated count (number/volume) 0.4 10*3 1.0-4.0 Blood monocytes automated count (number/volume) 0.3 10*3 0.0- 1.0 Automated eosinophil count 0.1 10*3/uL 0.0-0.3 Automated blood basophil count (count/volume) 0.0 10*3/uL 0.0-0.1 Whole blood basic metabolic panel - 01/19/19 04:50 Serum or plasma sodium measurement (moles/volume) 138 mmol/L 135-145 Serum or plasma potassium measurement (moles/volume) 3.1 mmol/L 3.6-5.0 Serum or plasma chloride measurement (moles/volume) 103 mmol/L 98-107 Carbon dioxide 22 mmol/L 21-32 Serum or plasma anion gap determination (moles/volume) 13 mmol/L 5-14 Serum or plasma urea nitrogen measurement (mass/volume) 5 mg/dL 7-18 Serum or plasma creatinine measurement (mass/volume) 0.72 mg/dL 0.60-1.30 Serum or plasma urea nitrogen/creatinine mass ratio 7 NRG Serum or plasma creatinine measurement with calculation of estimated glomerular filtration rate > NRG Serum or plasma glucose measurement (mass/volume) 235 mg/dL 70-105 Serum or plasma calcium measurement (mass/volume) 8.8 mg/dL 8.5-10.1 Serum or plasma phosphate measurement (mass/volume) - 01/19/19 04:50 Serum or plasma phosphate measurement (mass/volume) 2.0 mg/dL 2.3-4.7 Magnesium - 01/19/19 04:50 Magnesium 1.7 mg/dL 1.8-2.4 Capillary blood glucose measurement by glucometer (mass/volume) - 01/19/19 05:47 Capillary blood glucose measurement by glucometer (mass/volume) 222 mg/dL 70-110 Stool bacteria identification by culture - 01/19/19 06:00 Capillary blood glucose measurement by glucometer (mass/volume) - 01/19/19 11:33 Capillary blood glucose measurement by glucometer (mass/volume) 250 mg/dL 70-110 Capillary blood glucose measurement by glucometer (mass/volume) - 01/19/19 15:49 Capillary blood glucose measurement by glucometer (mass/volume) 258 mg/dL 70-110 Capillary blood glucose measurement by glucometer (mass/volume) - 01/19/19 20:08 Capillary blood glucose measurement by glucometer (mass/volume) 222 mg/dL 70-110 Complete blood count (CBC) with automated white blood cell (WBC) differential - 01/20/19 04:40 Blood leukocytes automated count (number/volume) 6.4 10*3/uL 4.3-11.0 Blood erythrocytes automated count (number/volume) 4.30 10*6/uL 4.35-5.85 Venous blood hemoglobin measurement (mass/volume) 12.0 g/dL 13.3-17.7 Blood hematocrit (volume fraction) 36 % 40-54 Automated erythrocyte mean corpuscular volume 83 [foz_us] 80-99 Automated erythrocyte mean corpuscular hemoglobin (mass per erythrocyte) 28 pg 25-34 Automated erythrocyte mean corpuscular hemoglobin concentration measurement (mass/volume) 34 g/dL 32-36 Automated erythrocyte distribution width ratio 18.5 % 10.0- 14.5 Automated blood platelet count (count/volume) 157 10*3/uL 130-400 Automated blood platelet mean volume measurement 11.6 [foz_us] 7.4-10.4 Automated blood neutrophils/100 leukocytes 80 % 42-75 Automated blood lymphocytes/100 leukocytes 9 % 12-44 Blood monocytes/100 leukocytes 8 % 0-12 Automated blood eosinophils/100 leukocytes 1 % 0-10 Automated blood basophils/100 leukocytes 1 % 0-10 Blood neutrophils automated count (number/volume) 5.2 10*3 1.8-7.8 Blood lymphocytes automated count (number/volume) 0.6 10*3 1.0-4.0 Blood monocytes automated count (number/volume) 0.5 10*3 0.0- 1.0 Automated eosinophil count 0.1 10*3/uL 0.0-0.3 Automated blood basophil count (count/volume) 0.0 10*3/uL 0.0-0.1 Whole blood basic metabolic panel - 01/20/19 04:40 Serum or plasma sodium measurement (moles/volume) 141 mmol/L 135-145 Serum or plasma potassium measurement (moles/volume) 2.8 mmol/L 3.6-5.0 Serum or plasma chloride measurement (moles/volume) 105 mmol/L 98-107 Carbon dioxide 22 mmol/L 21-32 Serum or plasma anion gap determination (moles/volume) 14 mmol/L 5-14 Serum or plasma urea nitrogen measurement (mass/volume) 5 mg/dL 7-18 Serum or plasma creatinine measurement (mass/volume) 0.72 mg/dL 0.60-1.30 Serum or plasma urea nitrogen/creatinine mass ratio 7 NRG Serum or plasma creatinine measurement with calculation of estimated glomerular filtration rate > NRG Serum or plasma glucose measurement (mass/volume) 121 mg/dL 70-105 Serum or plasma calcium measurement (mass/volume) 9.2 mg/dL 8.5-10.1 Serum or plasma phosphate measurement (mass/volume) - 01/20/19 04:40 Serum or plasma phosphate measurement (mass/volume) 2.3 mg/dL 2.3-4.7 Magnesium - 01/20/19 04:40 Magnesium 1.6 mg/dL 1.8-2.4 Capillary blood glucose measurement by glucometer (mass/volume) - 01/20/19 11:40 Capillary blood glucose measurement by glucometer (mass/volume) 287 mg/dL 70-110 Capillary blood glucose measurement by glucometer (mass/volume) - 01/20/19 15:49 Capillary blood glucose measurement by glucometer (mass/volume) 288 mg/dL 70-110 PT panel in platelet poor plasma by coagulation assay - 02/06/19 15:30 Prothrombin time (PT) in platelet poor plasma by coagulation assay 14.3 s 12.2-14.7 INR in platelet poor plasma or blood by coagulation assay 1.1 0.8-1.4 Activated partial thromboplastin time (aPTT) in platelet poor plasma bycoagulation assay - 02/06/19 15:30 Activated partial thromboplastin time (aPTT) in platelet poor plasma bycoagulation assay 29 s 24-35 Comprehensive metabolic panel - 02/06/19 15:30 Serum or plasma sodium measurement (moles/volume) 135 mmol/L 135-145 Serum or plasma potassium measurement (moles/volume) 3.9 mmol/L 3.6-5.0 Serum or plasma chloride measurement (moles/volume) 97 mmol/L 98-107 Carbon dioxide 15 mmol/L 21-32 Serum or plasma anion gap determination (moles/volume) 23 mmol/L 5-14 Serum or plasma urea nitrogen measurement (mass/volume) 20 mg/dL 7-18 Serum or plasma creatinine measurement (mass/volume) 0.88 mg/dL 0.60-1.30 Serum or plasma urea nitrogen/creatinine mass ratio 23 NRG Serum or plasma creatinine measurement with calculation of estimated glomerular filtration rate > NRG Serum or plasma glucose measurement (mass/volume) 176 mg/dL 70-105 Serum or plasma calcium measurement (mass/volume) 9.6 mg/dL 8.5-10.1 Serum or plasma total bilirubin measurement (mass/volume) 5.0 mg/dL 0.1-1.0 Serum or plasma alkaline phosphatase measurement (enzymatic activity/volume) 58 U/L 40-136 Serum or plasma aspartate aminotransferase measurement (enzymatic activity/volume) 24 U/L 5-34 Serum or plasma alanine aminotransferase measurement (enzymatic activity/volume) 19 U/L 0-55 Serum or plasma protein measurement (mass/volume) 7.0 g/dL 6.4-8.2 Serum or plasma albumin measurement (mass/volume) 4.3 g/dL 3.2-4.5 CALCIUM CORRECTED 9.4 mg/dL 8.5-10.1 Magnesium - 02/06/19 15:30 Magnesium 1.5 mg/dL 1.8-2.4 TROPONIN T - 02/06/19 15:30 TROPONIN T 24 % <=15 PROBNP FS - 02/06/19 15:30 PROBNP FS 272.2 pg/mL <75.0 Complete blood count (CBC) with automated white blood cell (WBC) differential - 02/06/19 15:30 Blood leukocytes automated count (number/volume) 1.3 10*3/uL 4.3-11.0 Blood erythrocytes automated count (number/volume) 4.16 10*6/uL 4.35-5.85 Venous blood hemoglobin measurement (mass/volume) 11.8 g/dL 13.3-17.7 Blood hematocrit (volume fraction) 36 % 40-54 Automated erythrocyte mean corpuscular volume 87 [foz_us] 80-99 Automated erythrocyte mean corpuscular hemoglobin (mass per erythrocyte) 28 pg 25-34 Automated erythrocyte mean corpuscular hemoglobin concentration measurement (mass/volume) 33 g/dL 32-36 Automated erythrocyte distribution width ratio 16.8 % 10.0- 14.5 Automated blood platelet count (count/volume) 118 10*3/uL 130-400 Automated blood platelet mean volume measurement 10.4 [foz_us] 7.4-10.4 Automated blood neutrophils/100 leukocytes 7 % 42-75 Automated blood lymphocytes/100 leukocytes 53 % 12-44 Blood monocytes/100 leukocytes 30 % 0-12 Automated blood eosinophils/100 leukocytes 9 % 0-10 Automated blood basophils/100 leukocytes 1 % 0-10 Blood neutrophils automated count (number/volume) 0.1 10*3 1.8-7.8 Blood lymphocytes automated count (number/volume) 0.7 10*3 1.0-4.0 Blood monocytes automated count (number/volume) 0.4 10*3 0.0- 1.0 Automated eosinophil count 0.1 10*3/uL 0.0-0.3 Automated blood basophil count (count/volume) 0.0 10*3/uL 0.0-0.1 Blood manual differential performed detection - 02/06/19 15:30 Blood monocytes/100 leukocytes 35 % NRG Manual blood segmented neutrophils/100 leukocytes 7 % NRG Blood band neutrophils/100 leukocytes 1 % NRG Manual blood lymphocytes/100 leukocytes 46 % NRG Manual eosinophils/100 leukocytes in nose 9 % NRG Manual blood basophils/100 leukocytes 2 % NRG Blood anisocytosis detection by light microscopy SLIGHT NRG Blood microcytes detection by light microscopy SLIGHT NRG Bacterial blood culture - 02/06/19 15:30 Bacterial blood culture NG NRG Bacterial blood culture - 02/06/19 18:30 Bacterial blood culture NG NRG CBC - 02/17/19 09:30 WHITE BLOOD CELL COUNT 4.2 Thousand/uL 3.8-10.8 RED BLOOD CELL COUNT 4.34 Million/uL 4.20-5.80 HEMOGLOBIN 12.5 g/dL 13.2-17.1 HEMATOCRIT 37.9 % 38.5-50.0 MCV 87.3 fL 80.0-100.0 MCH 28.8 pg 27.0-33.0 MCHC 33.0 g/dL 32.0-36.0 RDW 16.2 % 11.0-15.0 PLATELET COUNT 145 Thousand/uL 140-400 MPV 10.7 fL 7.5-12.5 ABSOLUTE NEUTROPHILS 2617 cells/uL 3194-3182 ABSOLUTE LYMPHOCYTES 966 cells/uL 850-3900 ABSOLUTE MONOCYTES 449 cells/uL 200-950 ABSOLUTE EOSINOPHILS 139 cells/uL 15-500 ABSOLUTE BASOPHILS 29 cells/uL 0-200 NEUTROPHILS 62.3 % NRG LYMPHOCYTES 23.0 % NRG MONOCYTES 10.7 % NRG EOSINOPHILS 3.3 % NRG BASOPHILS 0.7 % NRG A1C - 02/17/19 09:30 HEMOGLOBIN A1c 7.3 % of total Hgb <5.7 A1C - 04/10/19 08:50 HEMOGLOBIN A1c 7.7 % of total Hgb <5.7 Encounters ACCT No. Visit Date/Time Discharge Status Pt. Type Provider Facility Loc./Unit Complaint [id number] 04/28/2019 09:15:00 04/28/2019 23:59:59 [facility] Outpatient ANNEMARIE WANG [facility] [id number] 04/10/2019 08:30:00 Document Registration [id number] 02/17/2019 09:00:00 Document Registration [id number] 04/09/2019 12:24:00 04/09/2019 23:59:59 CLS Outpatient ANEL ARMENDARIZ [facility] ONC [id number] 03/18/2019 12:18:00 03/18/2019 23:59:59 CLS Outpatient Jeanne CRUZ MD [facility] RAD CLAUDICATION, CAD, DIABETES [id number] 03/18/2019 11:53:00 03/18/2019 23:59:59 CLS Preadmit Jeanne CRUZ MD [facility] CARD ANTERIOR CHEST WALL PAIN [id number] 03/18/2019 11:51:00 03/18/2019 23:59:59 CLS Preadmit Jeanne CRUZ MD [facility] RAD CLAUDICATION [id number] 03/16/2019 14:46:00 03/16/2019 23:59:59 CLS Outpatient ANEL ARMENDARIZ [facility] RAD NON HODGKIN LYMPHOMA [id number] 02/06/2019 14:46:00 02/06/2019 21:13:00 DIS Emergency OPAL CARTER MD [facility] ER FS CHEST PAIN [id number] 01/14/2019 23:30:00 01/20/2019 16:30:00 DIS Inpatient ERICKSON BARAJAS DO [facility] 4TH PNEUMONIA,CHF,NSTEMI,LEUKOPENIA,SEPSIS
[2019-05-15] MEDS ORDERED: AMOX-358 PO (23:15)
[2019-05-15 23:17] VITALS: BP 105/53
== END 2019-05-15 23:17 | disposition left against medical advice (07) ==
LOC: EDUNIT# 20:56 → ER FS 20:57
DX: J06.9 Acute upper respiratory infection, unspecified (principal); R09.89 Other specified symptoms and signs involving the circulatory and respiratory systems; R74.8 Abnormal levels of other serum enzymes; I10 Essential (primary) hypertension; I25.2 Old myocardial infarction; E11.9 Type 2 diabetes mellitus without complications; Z88.6 Allergy status to analgesic agent; Z79.4 Long term (current) use of insulin; Z85.72 Personal history of non-Hodgkin lymphomas; Z90.49 Acquired absence of other specified parts of digestive tract; Z95.1 Presence of aortocoronary bypass graft; Z82.49 Family history of ischemic heart disease and other diseases of the circulatory system
CPT/HCPCS: 36415; 71045; 80053; 83735; 83874; 84484; 85007; 85027; 85610; 85730; 87040

== ENCOUNTER 2019-05-31 17:51 | Emergency (ER) | payer MEDICARE, MEDICAID ==
[~2019-05-31] VITALS: Ht 182.9 cm; Wt 88.0 kg
--- OUTSIDE RECORDS SUMMARY | 2019-05-31 17:58 | XMS REPORT | Continuity of Care Document ---
Author Organization Unknown Address Unknown Allergies Active Description Code Type Severity Reaction Onset Reported/Identified Relationship to Patient Clinical Status Yes acetaminophen [id number] Drug Allergy Unknown N/A 01/14/2019 Yes adhesive tape [id number] Drug Allergy Unknown Rash 01/14/2019 Yes No Known Drug Allergies [id number] Drug Allergy Unknown N/A 01/14/2019 Yes aspirin [id number] Drug Allergy Unknown N/A 01/19/2019 Medications There [...] HEART DISEASE WITH HEART FA 01/19/2019 KARL OPRTER ERICKSON Ot I21.A1 MYOCARDIAL INFARCTION TYPE 2 01/19/2019 EMILE BARAJAS DOI Ot I25.10 ATHSCL HEART DISEASE OF [place] CORONARY 01/19/2019 KARL PORTER ERICKSON Ot I25.2 [...] EFFECT OF ANTINEOPLASTIC AND IMM 01/19/2019 EMILE BRAAJAS DOI Ot Z79.4 PADDER (CURRENT) USE OF INSULIN 01/19/2019 EMILE BARAJAS [...] PORTER ERICKSON Ot E87.2 ACIDOSIS 01/20/2019 KARL PORTER ERICKSON Ot E87.6 HYPOKALEMIA 01/20/2019 EMILE BARAJAS [...] ERICKSON Ot I25.10 ATHSCL HEART DISEASE OF [place] CORONARY 01/20/2019 KARL PORTER ERICKSON Ot I25.2 [...] IMM 01/20/2019 ERICKSON BARAJAS DO Ot Z79.4 PADDER (CURRENT) USE OF INSULIN 01/20/2019 EMILE BARAJAS [...] ERICKSON Ot I25.10 ATHSCL HEART DISEASE OF [place] CORONARY 01/21/2019 KARL PORTER ERICKSON Ot I25.2 [...] IMM 01/21/2019 ERICKSON BARAJAS DO Ot Z79.4 CORRECTION (CURRENT) USE OF INSULIN 01/21/2019 ERICKSON BARAJAS DO Ot Z95.1 PRESENCE OF AORTOCORONARY BYPASS GRAFT 02/06/2019 OPAL CARTER MD, Ot D70.9 NEUTROPENIA, UNSPECIFIED 02/06/2019 OPAL CARTER MD Ot E11.9 TYPE 2 DIABETES MELLITUS WITHOUT COMPLIC 02/06/2019 OPAL CARTER MD Ot E86.0 DEHYDRATION 02/06/2019 OPAL CARTER MD Ot I25.2 OLD MYOCARDIAL INFARCTION 02/06/2019 OPAL CARTER MD Ot R07.89 OTHER CHEST PAIN 02/06/2019 OPAL CARTER MD Ot R19.7 DIARRHEA, UNSPECIFIED 02/06/2019 OPAL CARTER MD Ot Z79.51 PADDER (CURRENT) USE OF INHALED STERO 02/06/2019 OPAL CARTER MD Ot Z79.52 PADDER (CURRENT) USE OF SYSTEMIC STER 02/06/2019 OPAL [...] UNSPECIFIED 02/09/2019 OPAL CARTER MD Ot Z79.51 PADDER (CURRENT) USE OF INHALED STERO 02/09/2019 OPAL CARTER MD Ot Z79.52 PADDER (CURRENT) USE OF SYSTEMIC STER 02/09/2019 OPAL [...] COMPLIC 03/11/2019 ANEL ARMENDARIZ N Ot Z79.4 CORRECTION (CURRENT) USE OF INSULIN 03/11/2019 ANEL ARMENDARIZ N Ot Z79.82 PADDER (CURRENT) USE OF ASPIRIN 03/11/2019 ANEL ARMENDARIZ N Ot Z79.899 OTHER CORRECTION (CURRENT) DRUG THERAPY 03/17/2019 KALAANEL N Ot [...] COMPLIC 03/18/2019 ANEL ARMENDARIZ N Ot Z79.4 PADDER (CURRENT) USE OF INSULIN 03/18/2019 ANEL ARMENDARIZ N Ot Z79.82 CORRECTION (CURRENT) USE OF ASPIRIN 03/18/2019 ANEL ARMENDARIZ N Ot Z79.899 OTHER CORRECTION (CURRENT) DRUG THERAPY 03/18/2019 ANEL ARMENDARIZ N [...] COMPLIC 03/18/2019 ANEL ARMENDARIZ Wilder Ot Z79.4 PADDER (CURRENT) USE OF INSULIN 03/18/2019 KALASANDYANNA Wilder Ot Z79.82 CORRECTION (CURRENT) USE OF ASPIRIN 03/18/2019 ANEL ARMENDARIZ Wilder Ot Z79.899 OTHER CORRECTION (CURRENT) DRUG THERAPY 03/19/2019 NANCY PONCE, Jeanne [...] WITHOUT COMPLIC 03/30/2019 ANEL ARMENDARIZ Ot Z79.4 PADDER (CURRENT) USE OF INSULIN 03/30/2019 AENL ARMENDARIZ N Ot Z79.82 CORRECTION (CURRENT) USE OF ASPIRIN 03/30/2019 ANEL ARMENDARIZ N Ot Z79.899 OTHER PADDER (CURRENT) DRUG THERAPY 03/31/2019 ANEL ARMENDARIZ Ot C85.90 NON-[place] LYMPHOMA, UNSPECIFIED, UNSPE 03/31/2019 ANEL ARMENDARIZ Ot E11.9 TYPE 2 DIABETES MELLITUS WITHOUT COMPLIC 03/31/2019 ANEL ARMENDARIZ N Ot Z79.4 CORRECTION (CURRENT) USE OF INSULIN 03/31/2019 AENL ARMENDARIZ N Ot Z79.82 PADDER (CURRENT) USE OF ASPIRIN 03/31/2019 ANEL ARMENDARIZ N Ot Z79.899 OTHER CORRECTION (CURRENT) DRUG THERAPY 04/07/2019 ANEL ARMENDARIZ N Ot C85.90 NON-[place] LYMPHOMA, UNSPECIFIED, UNSPE 04/07/2019 ANEL ARMENDARIZ Ot E11.9 TYPE 2 DIABETES MELLITUS WITHOUT COMPLIC 04/07/2019 ANEL ARMENDARIZ N Ot Z79.4 PADDER (CURRENT) USE OF INSULIN 04/07/2019 ANEL ARMENDARIZ N Ot Z79.82 CORRECTION (CURRENT) USE OF ASPIRIN 04/07/2019 ANEL ARMENDARIZ N Ot Z79.899 OTHER PADDER (CURRENT) DRUG THERAPY 05/15/2019 LUTHER BIRCH MD Ot E11.9 TYPE 2 DIABETES MELLITUS WITHOUT COMPLIC 05/15/2019 LUTHER BIRCH MD Ot I10 ESSENTIAL (PRIMARY) HYPERTENSION 05/15/2019 LUTHER BIRCH MD Ot I25.2 OLD MYOCARDIAL INFARCTION 05/15/2019 LUTHER BIRCH MD Ot J06.9 ACUTE UPPER RESPIRATORY INFECTION, UNSPE 05/15/2019 LUTHER BIRCH MD Ot R07.9 CHEST PAIN, UNSPECIFIED 05/15/2019 LUTHER BIRCH MD Ot R09.89 OTH SYMPTOMS AND SIGNS INVOLVING THE CIR 05/15/2019 LUTHER BIRCH MD Ot R74.8 ABNORMAL LEVELS OF OTHER SERUM ENZYMES 05/15/2019 LUTHER BIRCH MD Ot Z79.4 PADDER (CURRENT) USE OF INSULIN 05/15/2019 LUTHER BIRCH MD Ot Z82.49 FAMILY HX OF ISCHEM HEART DIS AND OTH DI 05/15/2019 LUTHER BIRCH MD Ot Z85.72 PERSONAL HISTORY OF NON-[place] LYMPHOMA 05/15/2019 LUTHER BIRCH MD Ot Z88.6 ALLERGY STATUS TO ANALGESIC AGENT STATUS 05/15/2019 LUTHER BIRCH MD Ot Z90.49 ACQUIRED ABSENCE OF OTHER SPECIFIED PART 05/15/2019 LUTHER BIRCH MD Ot Z95.1 PRESENCE OF AORTOCORONARY BYPASS GRAFT 05/18/2019 LUTHER BIRCH MD Ot E11.9 TYPE 2 DIABETES MELLITUS WITHOUT COMPLIC 05/18/2019 LUTHER BIRCH MD Ot I10 ESSENTIAL (PRIMARY) HYPERTENSION 05/18/2019 LUTHER BIRCH MD Ot I25.2 OLD MYOCARDIAL INFARCTION 05/18/2019 LUTHER BIRCH MD Ot J06.9 ACUTE UPPER RESPIRATORY INFECTION, UNSPE 05/18/2019 LUTHER BIRCH MD Ot R07.9 CHEST PAIN, UNSPECIFIED 05/18/2019 LUTHER BIRCH MD Ot R09.89 OT SYMPTOMS AND SIGNS INVOLVING THE CIR 05/18/2019 LUTHER BIRCH MD Ot R74.8 ABNORMAL LEVELS OF OTHER SERUM ENZYMES 05/18/2019 LUTHER BIRCH MD Ot Z79.4 CORRECTION (CURRENT) USE OF INSULIN 05/18/2019 LUTHER BIRCH MD Ot Z82.49 FAMILY HX OF ISCHEM HEART DIS AND OTH DI 05/18/2019 LUTHER BIRCH MD Ot Z85.72 PERSONAL HISTORY OF NON-[place] LYMPHOMA 05/18/2019 LUTHER BIRCH MD Ot Z88.6 ALLERGY STATUS TO ANALGESIC AGENT STATUS 05/18/2019 LUTHER BIRCH MD Ot Z90.49 ACQUIRED ABSENCE OF OTHER SPECIFIED PART 05/18/2019 LUTHER BIRCH MD Ot Z95.1 PRESENCE OF AORTOCORONARY BYPASS GRAFT Procedures There is no data. Results Test [...] 01/14/19 22:25 Blood monocytes/100 leukocytes 12 % NR Manual blood segmented neutrophils/100 leukocytes 8 % NRG Blood band neutrophils/100 leukocytes 2 % NRG Manual blood lymphocytes/100 leukocytes 76 % NRG Manual eosinophils/100 leukocytes in nose 2 % NRG Manual blood basophils/100 leukocytes 2 % NRG Blood erythrocyte morphology finding identification NORMAL NR TROPONIN T - 01/14/19 22:25 TROPONIN T 27 % <=15 Serum or plasma lithium measurement (moles/volume) - 01/14/19 22:25 BNP level 111.8 pg/mL <100.0 Bacterial blood culture - 01/14/19 22:25 FREE TEXT EXTERNAL NO SUSCEPTIBILITY PERFORMED NR QUANTITY OF GROWTH . [facility] Bacterial blood culture SEE COMMEN [facility] Blood lactic acid measurement (moles/volume) - 01/14/19 22:35 Blood lactic acid measurement (moles/volume) 2.23 mmol/L 0.50- 2.00 Influenza virus A and B antigen detection - 01/14/19 23:24 FLU RESULT NEGATIVE FOR INFLUENZA A AND B ANTIGENS BY IA [facility] Bacterial blood culture - 01/14/19 23:45 Bacterial blood culture NG [facility] Whole blood basic metabolic panel - [...] glucose measurement by glucometer (mass/volume) - 01/15/19 14:09 Capillary blood glucose measurement by glucometer [...] 10.7 fL 7.5-12.5 ABSOLUTE NEUTROPHILS 2617 cells/uL 2089-2492 ABSOLUTE LYMPHOCYTES 966 cells/uL 850-3900 ABSOLUTE MONOCYTES [...] A1c 7.7 % of total Hgb <5.7 Complete blood count (CBC) with automated white blood cell (WBC) differential - 05/15/19 21:15 Blood leukocytes automated count (number/volume) 1.9 10*3/uL 4.3-11.0 Blood erythrocytes automated count (number/volume) 3.89 10*6/uL 4.35-5.85 Venous blood hemoglobin measurement (mass/volume) 10.7 g/dL 13.3-17.7 Blood hematocrit (volume fraction) 32 % 40-54 Automated erythrocyte mean corpuscular volume 83 [foz_us] 80-99 Automated erythrocyte mean corpuscular hemoglobin (mass per erythrocyte) 28 pg 25-34 Automated erythrocyte mean corpuscular hemoglobin concentration measurement (mass/volume) 33 g/dL 32-36 Automated erythrocyte distribution width ratio 14.9 % 10.0- 14.5 Automated blood platelet count (count/volume) 157 10*3/uL 130-400 Automated blood platelet mean volume measurement 10.8 [foz_us] 7.4-10.4 Automated blood neutrophils/100 leukocytes 26 % 42-75 Automated blood lymphocytes/100 leukocytes 48 % 12-44 Blood monocytes/100 leukocytes 16 % 0-12 Automated blood eosinophils/100 leukocytes 8 % 0-10 Automated blood basophils/100 leukocytes 1 % 0-10 Blood neutrophils automated count (number/volume) 0.5 10*3 1.8-7.8 Blood lymphocytes automated count (number/volume) 0.9 10*3 1.0-4.0 Blood monocytes automated count (number/volume) 0.3 10*3 0.0- 1.0 Automated eosinophil count 0.2 10*3/uL 0.0-0.3 Automated blood basophil count (count/volume) 0.0 10*3/uL 0.0-0.1 PT panel in platelet poor plasma by coagulation assay - 05/15/19 21:15 Prothrombin time (PT) in platelet poor plasma by coagulation assay 15.0 s 12.2-14.7 INR in platelet poor plasma or blood by coagulation assay 1.1 0.8-1.4 Activated partial thromboplastin time (aPTT) in platelet poor plasma bycoagulation assay - 05/15/19 21:15 Activated partial thromboplastin time (aPTT) in platelet poor plasma bycoagulation assay 30 s 24-35 Comprehensive metabolic panel - 05/15/19 21:15 Serum or plasma sodium measurement (moles/volume) 131 mmol/L 135-145 Serum or plasma potassium measurement (moles/volume) 4.1 mmol/L 3.6-5.0 Serum or plasma chloride measurement (moles/volume) 92 mmol/L 98-107 Carbon dioxide 23 mmol/L 21-32 Serum or plasma anion gap determination (moles/volume) 16 mmol/L 5-14 Serum or plasma urea nitrogen measurement (mass/volume) 20 mg/dL 7-18 Serum or plasma creatinine measurement (mass/volume) 0.95 mg/dL 0.60-1.30 Serum or plasma urea nitrogen/creatinine mass ratio 21 NRG Serum or plasma creatinine measurement with calculation of estimated glomerular filtration rate > NRG Serum or plasma glucose measurement (mass/volume) 169 mg/dL 70-105 Serum or plasma calcium measurement (mass/volume) 9.3 mg/dL 8.5-10.1 Serum or plasma total bilirubin measurement (mass/volume) 0.5 mg/dL 0.1-1.0 Serum or plasma alkaline phosphatase measurement (enzymatic activity/volume) 64 U/L 40-136 Serum or plasma aspartate aminotransferase measurement (enzymatic activity/volume) 37 U/L 5-34 Serum or plasma alanine aminotransferase measurement (enzymatic activity/volume) 36 U/L 0-55 Serum or plasma protein measurement (mass/volume) 6.6 g/dL 6.4-8.2 Serum or plasma albumin measurement (mass/volume) 3.7 g/dL 3.2-4.5 CALCIUM CORRECTED 9.5 mg/dL 8.5-10.1 Magnesium - 05/15/19 21:15 Magnesium 1.5 mg/dL 1.8-2.4 Myoglobin, serum - 05/15/19 21:15 Myoglobin, serum 111.1 ng/mL 10.0-92.0 TROPONIN T - 05/15/19 21:15 TROPONIN T 30 % <=15 Manual absolute plasma cell count - 05/15/19 21:15 Blood monocytes/100 leukocytes 12 % NRG Manual blood segmented neutrophils/100 leukocytes 19 % NRG Blood band neutrophils/100 leukocytes 2 % NRG Manual blood lymphocytes/100 leukocytes 53 % NRG Manual eosinophils/100 leukocytes in nose 7 % NRG Manual blood basophils/100 leukocytes 2 % NRG Manual blood lymphocytes variant/100 leukocytes 1 % NRG Manual blood metamyelocytes/100 leukocytes 1 % NRG Manual blood myelocytes/100 leukocytes 0 % NRG Manual blood promyelocytes/100 leukocytes 2 % NRG Blood blasts/100 leukocytes 1 % NRG Bacterial blood culture - 05/15/19 21:30 Bacterial blood culture NG NRG Bacterial blood culture - 05/15/19 22:04 Bacterial blood culture NG NRG Encounters ACCT No. Visit Date/Time Discharge Status Pt. Type Provider Facility Loc./Unit Complaint [id number] 04/28/2019 09:15:00 04/28/2019 23:59:59 CLS Outpatient ANNEMARIE WANG [facility] [id number] 04/10/2019 08:30:00 Document Registration [id number] 02/17/2019 09:00:00 Document Registration [id number] 05/15/2019 20:57:00 05/15/2019 23:17:00 DIS Emergency LUTHER BIRCH MD [facility] ER FS CHEST PAIN [id number] 04/09/2019 12:24:00 04/09/2019 23:59:59 CLS Outpatient ANEL ARMENDARIZ [facility] ONC [id number] 03/18/2019 12:18:00 03/18/2019 23:59:59 CLS Outpatient Jeanne CRUZ MD [facility] RAD CLAUDICATION, CAD, DIABETES [id number] 03/18/2019 11:53:00 03/18/2019 23:59:59 CLS Preadmit Jeanne CRUZ MD [facility] CARD ANTERIOR CHEST WALL PAIN [id number] 03/18/2019 11:51:00 03/18/2019 23:59:59 CLS Preadmit Jeanne CRUZ MD [facility] RAD CLAUDICATION [id number] 03/16/2019 14:46:00 03/16/2019 23:59:59 CLS Outpatient ANEL ARMENDARIZ [facility] RAD NON [place] LYMPHOMA [id number] 02/06/2019 14:46:00 02/06/2019 21:13:00 DIS Emergency OPAL CARTER MD [facility] ER FS CHEST PAIN [id number] 01/14/2019 23:30:00 01/20/2019 16:30:00 DIS Inpatient ERICKSON BARAJAS DO [facility] 4TH PNEUMONIA,CHF,NSTEMI,LEUKOPENIA,SEPSIS
--- NOTE | 2019-05-31 18:44 | ED GU-Male ---
General Chief Complaint: - Urinary Stated Complaint: COUGH,SWOLLEN PENIS Source: patient Exam Limitations: no limitations History of Present Illness Date Seen by Provider: May 31, 2019 Time Seen by Provider: 18:29 Initial Comments Patient presents to ER with chief complaint of last day or so his has noticed that the foreskin has been closing around the head of his penis and she's not been able to get it open. He is still able to urinate but he has some difficulty urinating when he sits on his commode. No burning or discharge. No pain. 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 She's been cleaning with regular soap and water and using Vaseline. She denies any discharge from the penis. He does not see a urologist. He is known to Dr. Wang. No fevers or chills. His intake note discussed a cough but when asked he said he has a chronic cough and it doesn't really bother him and if he needed to he would follow up with his primary care doctor. Allergies and Home Medications Allergies Coded Allergies: aspirin (Unverified Adverse Reaction, Unknown, 01/19/19) PATIENT STATES HE IS ABLE TO TAKE THE 81 MG DOSE BUT NOT THE "BIG ASPIRIN" Home Medications Albuterol Sulfate 18 Gm Hfa.aer.ad, 2 PUFF INH Q6H PRN for SHORTNESS OF BREATH, (Reported) Allopurinol 300 Mg Tablet, 300 MG PO DAILY, (Reported) Amoxicillin/Potassium Clav 1 Each Tablet, 1 EACH PO BID Prescribed by: SHANTELL MALAGON on 01/20/19 0853 Amoxicillin/Potassium Clav 1 Each Tablet, 1 EACH PO BID Prescribed by: LUTHER BIRCH MD on 05/15/19 2315 Atorvastatin Calcium 40 Mg Tablet, 40 MG PO HS, (Reported) Brimonidine Tartrate 5 Ml Drops, 1 DROP OS BID, (Reported) Cilostazol 100 Mg Tablet, 100 MG PO BID, (Reported) Citalopram Hydrobromide 20 Mg Tablet, 20 MG PO DAILY, (Reported) Dorzolamide HCl/Timolol Maleat 10 Ml Drops, 1 DROP OU BID, (Reported) Fenofibrate Nanocrystallized 145 Mg Tablet, 145 MG PO HS, (Reported) Flaxseed Oil 1,000 Mg Capsule, 1,000 MG PO BID, (Reported) Fluticasone/Vilanterol 1 Each Blst.w.dev, 1 PUFF INH DAILY, (Reported) Gabapentin 300 Mg Capsule, 300 MG PO BID, (Reported) Insuln Asp Prt/Insulin Aspart 1 Unit/0.01 Ml Susp, 100 UNITS SC BID, (Reported) Lorazepam 1 Mg Tablet, 1 MG PO TID PRN for ANXIETY, (Reported) Metformin HCl 1,000 Mg Tablet, 1,000 MG PO BID, (Reported) [place] 3 Polyunsat Fatty Acids 1,000 Mg Cap, 1,000 MG PO BID, (Reported) Prednisolone Acetate 5 Ml Drops.susp, 1 DROP OU BID, (Reported) Tramadol HCl 50 Mg Tablet, 100 MG PO Q6H PRN for PAIN-MODERATE, (Reported) Patient Home Medication List Home Medication List Reviewed: Yes Review of Systems Review of Systems Constitutional: No chills, No diaphoresis EENTM: No ear discharge, No hearing loss Respiratory: No cough, No short of breath Cardiovascular: No chest pain, No edema Gastrointestinal: No constipation, No diarrhea Genitourinary: see HPI; denies burning, denies discharge Musculoskeletal: No back pain, No joint pain Skin: other (skin of the penis is moist, mild maceration at the 12:00 and unable to retract the foreskin and expose the glans.) Past Szahjuz-Hgodyd-Uqxbbm Hx Patient Social History Alcohol Use: Denies Use Recreational Drug Use: No Smoking Status: Never a Smoker 2nd Hand Smoke Exposure: No Recent Hopitalizations: No Immunizations Up To Date Tetanus Booster (TDap): Unknown Date of Pneumonia Vaccine: Sep 10, 2017 Date of Influenza Vaccine: Aug 12, 2018 Seasonal Allergies Seasonal Allergies: No Past Medical History Surgeries: Yes Appendectomy, CABG Respiratory: No Cardiac: Yes Heart Attack, Hypertension Neurological: No Sexually Transmitted Disease: No HIV/AIDS: No Genitourinary: No Gastrointestinal: No Musculoskeletal: No Arthritis, Chronic Back Pain Endocrine: No Diabetes, Insulin dep HEENT: Yes (blind) Cataract, Glaucoma Loss of Vision: Bilateral Hearing Impairment: Denies Cancer: Yes Lymphoma Did You Recieve Any Treatments: Yes What Type of Treatment Did You: Chemotherapy Psychosocial: No Integumentary: No Blood Disorders: No Family Medical History Hypertension Physical Exam Vital Signs Vital Signs - First Documented 05/31/19 18:11 Temp 98.3 Pulse 78 Resp 18 B/P (MAP) 111/53 (72) Pulse Ox 99 O2 Delivery Room Air Capillary Refill : Height, Weight, BMI Height: 6'0" Weight: 194lbs. 1.0oz. 87.650272lm; 27.8 BMI Method:Stated General Appearance: WD/WN, no apparent distress HEENT: pharynx normal Neck: non-tender, full range of motion Cardiovascular: normal peripheral pulses, regular rate, rhythm Respiratory: no respiratory distress, no accessory muscle use Gastrointestinal: non tender, soft Genital/Rectal: other (uncircumcised male with irritated, erythematous, in flamed prepuce and inability to retract foreskin. No discharge or plaque.) Neurologic/Psychiatric: alert, normal mood/affect, oriented x 3 Progress/Results/Core Measures Suspected Sepsis SIRS Temperature: Pulse: Respiratory Rate: Blood Pressure / Mean: Results/Orders Lab Results Laboratory Tests Test 05/31/19 18:38 Range/Units Urine Color YELLOW Urine Clarity CLEAR Urine pH 6.5 5-9 Urine Specific [place] 1.020 1.016-1.022 Urine Protein TRACE NEGATIVE Urine Glucose (UA) 3+ H NEGATIVE Urine Ketones NEGATIVE NEGATIVE Urine Nitrite NEGATIVE NEGATIVE Urine Bilirubin NEGATIVE NEGATIVE Urine Urobilinogen 1.0 NORMAL MG/DL Urine Leukocyte Esterase NEGATIVE NEGATIVE Urine RBC (Auto) NEGATIVE NEGATIVE Urine RBC 0-2 /HPF Urine WBC 0-2 /HPF Urine Squamous Epithelial Cells NONE /HPF Urine Crystals NONE /LPF Urine Bacteria NEGATIVE /HPF Urine Casts NONE /LPF Urine Mucus NONE /LPF Urine Culture Indicated NO Micro Results Microbiology 05/31/19 Wet Prep - Final, Complete My Orders Orders - RONIT MARSH Ua Culture If Indicated (05/31/19 18:34) Wet Prep (05/31/19 18:55) Arpit Prep (05/31/19 18:55) Vital Signs/I&O 05/31/19 18:11 Temp 98.3 Pulse 78 Resp 18 B/P (MAP) 111/53 (72) Pulse Ox 99 O2 Delivery Room Air Capillary Refill : Progress Note : Time: 18:49 Progress Note Balanoposthitis most likely candidal. We'll put him on topical Nystatin cream twice daily and have him follow-up with urology this week. Wet prep and ARPIT prep to try and identify the organism and direct therapy. Departure Impression Primary Impression: Balanoposthitis Disposition: HOME, SELF-CARE Condition: Stable Departure-Patient Inst. Decision time for Depature: 20:04 Referrals: ANNEMARIE WANG MD (PCP/Family) Primary Care Physician Patient Instructions: Vazquez (YVONNE) Add. Discharge Instructions: Keep the skin clean with regular soap and water and dried thoroughly. Apply a pea sized amount of the nystatin cream in under the foreskin twice a day for the next 10 days. Next week call and make an appointment with the urologist for follow-up within the next 1-2 weeks. If you have difficulty urinating, fever nausea or other worrisome symptoms please return to the nearest ER immediately. All discharge instructions reviewed with patient and/or family. Voiced understanding. Scripts Nystatin (Nystatin) 15 Gm Cream..g. 1 GM TP BID for 10 Days, #2 TUBE 0 Refills Prov: RONIT MARSH 05/31/19 RONIT MARSH May 31, 2019 18:44
[2019-05-31 19:34] LABS: BILIRUBIN,URINE NEGATIVE (NEGATIVE); CLARITY,URINE CLEAR; COLOR,URINE YELLOW; GLUCOSE, URINE (UA) 3+ (NEGATIVE); KETONES,URINE NEGATIVE (NEGATIVE); LEUKOCYTE ESTERASE ,URINE NEGATIVE (NEGATIVE); NITRITE,URINE NEGATIVE (NEGATIVE); PH,URINE 6.5 (5-9); PROTEIN,URINE TRACE (NEGATIVE)
[2019-05-31 19:35] LABS: BACTERIA,URINE NEGATIVE /HPF; RBC,URINE 0-2 /HPF; WBC,URINE 0-2 /HPF
[2019-05-31] MEDS ORDERED: NYST15CR TP (20:06)
[2019-05-31 20:17] VITALS: BP 111/53
== END 2019-05-31 20:17 | disposition home or self-care (01) ==
LOC: EDUNIT# 17:51 → ER FS 17:53
DX: N47.6 Balanoposthitis (principal); I10 Essential (primary) hypertension; I25.2 Old myocardial infarction; E11.9 Type 2 diabetes mellitus without complications; Z85.72 Personal history of non-Hodgkin lymphomas; Z88.6 Allergy status to analgesic agent; Z79.4 Long term (current) use of insulin; Z90.49 Acquired absence of other specified parts of digestive tract; Z95.1 Presence of aortocoronary bypass graft; Z82.49 Family history of ischemic heart disease and other diseases of the circulatory system
CPT/HCPCS: 81000; 87210; 87220; 99282

== ENCOUNTER → 2019-06-03 | Outpatient (RCR) | payer MEDICARE, MEDICAID, OTHER ==
[2019-03-10 13:08] LABS: HEMATOCRIT 36 % (40-54); HEMOGLOBIN 12.2 G/DL (13.3-17.7); LYMPHOCYTES % (AUTO) 30 % (12-44); MEAN CORPUSCULAR HEMOGLOBIN 29 PG (25-34); MEAN CORPUSCULAR HGB CONC 34 G/DL (32-36); MEAN CORPUSCULAR VOLUME 86 FL (80-99); MEAN PLATELET VOLUME 10.5 FL (7.4-10.4); NEUTROPHILS % (AUTO) 52 % (42-75); PLATELET COUNT 153 10^3/uL (130-400); RED CELL DISTRIBUTION WIDTH 16.7 % (10.0-14.5); WHITE BLOOD COUNT 3.7 10^3/uL (4.3-11.0)
[2019-03-10 13:09] LABS: BASOPHILS % (AUTO) 0 % (0-10); EOSINOPHILS # (AUTO) 0.1 10^3/uL (0.0-0.3); EOSINOPHILS % (AUTO) 4 % (0-10); LYMPHOCYTES # (AUTO) 1.1 X 10^3 (1.0-4.0); MONOCYTES # (AUTO) 0.5 X 10^3 (0.0-1.0); MONOCYTES % (AUTO) 13 % (0-12)
[2019-03-10 13:11] LABS: CARBON DIOXIDE 25 MMOL/L (21-32); CHLORIDE 105 MMOL/L (98-107); POTASSIUM 4.3 MMOL/L (3.6-5.0); SODIUM 138 MMOL/L (135-145)
[2019-03-10 13:12] LABS: ALANINE AMINOTRANSFERASE 32 U/L (0-55); ALBUMIN 4.3 GM/DL (3.2-4.5); ALKALINE PHOSPHATASE 55 U/L (40-136); BILIRUBIN,TOTAL 0.5 MG/DL (0.1-1.0); BUN/CREATININE RATIO 20; CALCIUM 9.8 MG/DL (8.5-10.1); CREATININE SERUM 1.09 MG/DL (0.60-1.30); GFR ESTIMATED > 60; GLUCOSE 198 MG/DL (70-105); TOTAL PROTEIN 6.7 GM/DL (6.4-8.2)
[~2019-06-03] VITALS: Ht 182.9 cm; Wt 86.2 kg
[~2019-06-03] MED LIST changes: +ACETAMINOPHEN 325 MG TAB (TYLENOL) CANCER CTR PO PRN; +NS IV 1000 ML (CANCER CTR) IV SCH; +NYST15CR TP; +OBINUTUZUMAB 1,000 MG in NS (IVPB) CANCER CENTER 250 ML IV SCH; +diphenhydrAMINE 25 MG TAB (BENADRYL) CANCER CENTER PO SCH; +methylPREDNISolone 125 MG/2 ML (SOLU-MEDROL) CANCER CTR ONE
[2019-06-03 10:42] LABS: BASOPHILS % (AUTO) 1 % (0-10); EOSINOPHILS # (AUTO) 0.2 10^3/uL (0.0-0.3); EOSINOPHILS % (AUTO) 14 % (0-10); HEMATOCRIT 36 % (40-54); HEMOGLOBIN 11.8 G/DL (13.3-17.7); LYMPHOCYTES # (AUTO) 0.8 X 10^3 (1.0-4.0); LYMPHOCYTES % (AUTO) 61 % (12-44); MEAN CORPUSCULAR HEMOGLOBIN 27 PG (25-34); MEAN CORPUSCULAR HGB CONC 33 G/DL (32-36); MEAN CORPUSCULAR VOLUME 83 FL (80-99); MEAN PLATELET VOLUME 10.6 FL (7.4-10.4); MONOCYTES # (AUTO) 0.2 X 10^3 (0.0-1.0); MONOCYTES % (AUTO) 12 % (0-12); NEUTROPHILS # (AUTO) 0.2 X 10^3 (1.8-7.8); NEUTROPHILS % (AUTO) 12 % (42-75); PLATELET COUNT 168 10^3/uL (130-400); RED CELL DISTRIBUTION WIDTH 16.3 % (10.0-14.5)
[2019-06-03 10:45] LABS: WHITE BLOOD COUNT 1.2 10^3/uL (4.3-11.0)
[2019-06-03 11:05] LABS: ALANINE AMINOTRANSFERASE 13 U/L (0-55); ALKALINE PHOSPHATASE 56 U/L (40-136); BILIRUBIN,TOTAL 0.6 MG/DL (0.1-1.0); BUN/CREATININE RATIO 15; CALCIUM 9.6 MG/DL (8.5-10.1); CARBON DIOXIDE 23 MMOL/L (21-32); CHLORIDE 103 MMOL/L (98-107); CREATININE SERUM 1.01 MG/DL (0.60-1.30); GFR ESTIMATED > 60; GLUCOSE 244 MG/DL (70-105); POTASSIUM 3.8 MMOL/L (3.6-5.0); SODIUM 136 MMOL/L (135-145); TOTAL PROTEIN 6.6 GM/DL (6.4-8.2)
== END | disposition home or self-care (01) ==
LOC: ONC 03-05 10:30
PROVIDERS: ATTEND Internal Medicine Hematology & Oncology
DX: C85.90 Non-Hodgkin lymphoma, unspecified, unspecified site (principal); E11.9 Type 2 diabetes mellitus without complications; Z79.4 Long term (current) use of insulin; Z79.82 Long term (current) use of aspirin; Z79.899 Other long term (current) drug therapy
CPT/HCPCS: 36415; 80053; 83615; 85025; 96375; 96413; 96415; 99213

== ENCOUNTER 2019-06-24 15:45 | Emergency (ER) | payer MEDICARE, MEDICAID ==
[~2019-06-24] VITALS: Ht 182.9 cm; Wt 86.2 kg
[~2019-06-24 15:45] MED LIST changes: -ACETAMINOPHEN 325 MG TAB (TYLENOL) CANCER CTR PO PRN; -NS IV 1000 ML (CANCER CTR) IV SCH; -OBINUTUZUMAB 1,000 MG in NS (IVPB) CANCER CENTER 250 ML IV SCH; -diphenhydrAMINE 25 MG TAB (BENADRYL) CANCER CENTER PO SCH; -methylPREDNISolone 125 MG/2 ML (SOLU-MEDROL) CANCER CTR ONE
--- OUTSIDE RECORDS SUMMARY | 2019-06-24 15:52 | XMS REPORT | Continuity of Care Document ---
Author Organization Unknown Address Unknown Phone Unavailable Allergies Active Description Code Type Severity Reaction Onset Reported/Identified Relationship to Patient Clinical Status Yes acetaminophen [id number] Drug Allergy Unknown N/A 01/14/2019 Yes adhesive tape [id number] Drug Allergy Unknown Rash 01/14/2019 Yes No Known Drug Allergies [id number] Drug Allergy Unknown N/A 01/14/2019 Yes aspirin [id number] Drug Allergy Unknown N/A 01/19/2019 Medications There is no data. 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 01/19/2019 EMILE BARAJAS DOI Ot D84.9 IMMUNODEFICIENCY, UNSPECIFIED 01/19/2019 EMILE BARAJAS DOI Ot E11.9 TYPE 2 DIABETES MELLITUS WITHOUT COMPLIC 01/19/2019 EMILE BARAJAS DOI Ot E87.1 HYPO-OSMOLALITY AND HYPONATREMIA 01/19/2019 KARL PORTER ERICKSON Ot E87.2 ACIDOSIS 01/19/2019 ERICKSON BARAJAS DO Ot F41.9 ANXIETY DISORDER, UNSPECIFIED 01/19/2019 EMILE BARAJAS DOI Ot H40.9 UNSPECIFIED GLAUCOMA 01/19/2019 EMILE BARAJAS DOI Ot 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, DEFINED IN [place] 01/19/2019 EMILE BARAJAS DOI Ot H91.90 UNSPECIFIED HEARING LOSS, UNSPECIFIED EA 01/19/2019 EMILE BARAJAS DOI Ot I11.0 HYPERTENSIVE HEART DISEASE WITH HEART FA 01/19/2019 EMILE BARAJAS DOI Ot I21.A1 MYOCARDIAL INFARCTION TYPE 2 01/19/2019 EMILE BARAJAS DOI Ot I25.10 ATHSCL HEART DISEASE OF [place] CORONARY 01/19/2019 EMILE BARAJAS DOI Ot I25.2 OLD MYOCARDIAL INFARCTION 01/19/2019 EMILE BARAJAS DOI Ot I50.9 HEART FAILURE, UNSPECIFIED 01/19/2019 ERICKSON BARAJAS DO Ot J18.9 PNEUMONIA, UNSPECIFIED ORGANISM 01/19/2019 EMILE BARAJAS DOI Ot K86.9 DISEASE OF PANCREAS, UNSPECIFIED 01/19/2019 EMILE BARAJAS DOI Ot M19.91 PRIMARY OSTEOARTHRITIS, UNSPECIFIED SITE 01/19/2019 ERICKSON BARAJAS DO Ot M54.9 DORSALGIA, UNSPECIFIED 01/19/2019 EMILE BARAJAS DOI Ot R16.0 HEPATOMEGALY, NOT ELSEWHERE CLASSIFIED 01/19/2019 EMILE BARAJAS DOI Ot R64 CACHEXIA 01/19/2019 EMILE BARAJAS DOI Ot R65.20 SEVERE SEPSIS WITHOUT SEPTIC SHOCK 01/19/2019 ERICKSON BARAJAS DO Ot T45.1X5A ADVERSE EFFECT OF ANTINEOPLASTIC AND IMM 01/19/2019 EMILE BARAJAS DOI Ot Z79.4 NURSING HOME (CURRENT) USE OF INSULIN 01/19/2019 ERICKSON BARAJAS DO Ot Z95.1 PRESENCE OF AORTOCORONARY BYPASS GRAFT 01/20/2019 ERICKSON BARAJAS DO Ot A41.9 SEPSIS, UNSPECIFIED ORGANISM 01/20/2019 EMILE BARAJAS DOI Ot C85.90 NON-HODGKIN LYMPHOMA, UNSPECIFIED, UNSPE 01/20/2019 EMILE BARAJAS DOI Ot D61.810 ANTINEOPLASTIC CHEMOTHERAPY INDUCED PANC 01/20/2019 EMILE BARAJAS DOI Ot 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 01/20/2019 ERICKSON BARAJAS DO Ot D84.9 IMMUNODEFICIENCY, UNSPECIFIED 01/20/2019 EMILE BARAJAS DOI Ot E11.9 TYPE 2 DIABETES MELLITUS WITHOUT COMPLIC 01/20/2019 EMILE BARAJAS DOI Ot E83.39 OTHER DISORDERS OF PHOSPHORUS METABOLISM 01/20/2019 EMILE BARAJAS DOI Ot E87.1 HYPO-OSMOLALITY AND HYPONATREMIA 01/20/2019 EMILE BARAJAS DOI Ot E87.2 ACIDOSIS 01/20/2019 EMILE BARAJAS DOI Ot E87.6 HYPOKALEMIA 01/20/2019 EMILE BARAJAS DOI Ot F41.9 ANXIETY DISORDER, UNSPECIFIED 01/20/2019 EMILE BARAJAS DOI Ot H40.9 UNSPECIFIED GLAUCOMA 01/20/2019 EMILE BARAJAS DOI Ot 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, [place]FINED [place] 01/20/2019 EMILE BARAJAS DOI Ot H91.90 UNSPECIFIED HEARING LOSS, UNSPECIFIED EA 01/20/2019 KARL PORTER ERICKSON Ot I11.0 HYPERTENSIVE HEART DISEASE WITH HEART FA 01/20/2019 KARL PORTER ERICKSON Ot I21.A1 MYOCARDIAL INFARCTION TYPE 2 01/20/2019 EMILE BARAJAS DOI Ot I25.10 ATHSCL HEART DISEASE OF [place] CORONARY 01/20/2019 KARL PORTER ERICKSON Ot I25.2 OLD MYOCARDIAL INFARCTION 01/20/2019 EMILE BRAAJAS DOI Ot I50.9 HEART FAILURE, UNSPECIFIED 01/20/2019 EMILE BARAJAS DOI Ot J18.9 PNEUMONIA, UNSPECIFIED ORGANISM 01/20/2019 KARL [...] IMM 01/20/2019 ERICKSON BARAJAS DO Ot Z79.4 INSPECTOR TOOL (CURRENT) USE OF INSULIN 01/20/2019 EMILE BARAJAS DOI Ot Z95.1 PRESENCE OF AORTOCORONARY BYPASS GRAFT 01/21/2019 KARL PORTER ERICKSON Ot A41.9 SEPSIS, UNSPECIFIED ORGANISM 01/21/2019 EMILE BARAJAS DOI Ot C85.90 NON-HODGKIN LYMPHOMA, UNSPECIFIED, UNSPE 01/21/2019 KARL PORTER ERICKSON Ot 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 01/21/2019 EMILE BARAJAS DOI Ot D84.9 IMMUNODEFICIENCY, UNSPECIFIED 01/21/2019 KARL PORTER ERICKSON Ot E11.9 TYPE 2 DIABETES MELLITUS WITHOUT COMPLIC 01/21/2019 KARL PORTER ERICKSON Ot E87.1 HYPO-OSMOLALITY AND HYPONATREMIA 01/21/2019 KARL PORTER ERICKSON Ot E87.2 ACIDOSIS 01/21/2019 KARL PORTER ERICKSON Ot F41.9 ANXIETY DISORDER, UNSPECIFIED 01/21/2019 KARL DO ERICKSON Ot H40.9 UNSPECIFIED GLAUCOMA 01/21/2019 KARL PORTER ERICKSON Ot 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, [place]FINED IN [place] 01/21/2019 KARL PORTER ERICKSON Ot H91.90 UNSPECIFIED HEARING LOSS, UNSPECIFIED EA 01/21/2019 KARL PORTER ERICKSON Ot I11.0 HYPERTENSIVE HEART DISEASE WITH HEART FA 01/21/2019 KARL PORTER ERICKSON Ot I21.A1 MYOCARDIAL INFARCTION TYPE 2 01/21/2019 KARL PORTER ERICKSON Ot I25.10 ATHSCL HEART DISEASE OF [place] CORONARY 01/21/2019 KARL PORTER ERICKSON Ot I25.2 OLD MYOCARDIAL INFARCTION 01/21/2019 KARL PORTER ERICKSON Ot I50.9 HEART FAILURE, UNSPECIFIED 01/21/2019 KARL PORTER ERICKSON Ot J18.9 PNEUMONIA, UNSPECIFIED ORGANISM 01/21/2019 KARL PORTER ERICKSON Ot K86.9 DISEASE OF PANCREAS, UNSPECIFIED 01/21/2019 KARL PORTER ERICKSON Ot M19.91 PRIMARY OSTEOARTHRITIS, UNSPECIFIED SITE 01/21/2019 KARL PORTER ERICKSON Ot M54.9 DORSALGIA, UNSPECIFIED 01/21/2019 KARL PORTER ERICKSON Ot R16.0 HEPATOMEGALY, NOT ELSEWHERE CLASSIFIED 01/21/2019 KRAL PORTER ERICKSON Ot R64 CACHEXIA 01/21/2019 KARL PORTER ERICKSON Ot R65.20 SEVERE SEPSIS WITHOUT SEPTIC SHOCK 01/21/2019 KARL PORTER ERICKSON Ot T45.1X5A ADVERSE EFFECT OF ANTINEOPLASTIC AND IMM 01/21/2019 EMILE BARAJAS DOI Ot Z79.4 NURSING HOME (CURRENT) USE OF INSULIN 01/21/2019 KARL PORTER ERICKSON Ot Z95.1 PRESENCE OF AORTOCORONARY BYPASS GRAFT [...] UNSPECIFIED 02/06/2019 OPAL CARTER MD Ot Z79.51 NURSING HOME (CURRENT) USE OF INHALED STERO 02/06/2019 OPAL CARTER MD Ot Z79.52 NURSING HOME (CURRENT) USE OF SYSTEMIC STER 02/06/2019 OPAL [...] UNSPECIFIED 02/09/2019 OPAL CARTER MD Ot Z79.51 NURSING HOME (CURRENT) USE OF INHALED STERO 02/09/2019 OPAL CARTER MD Ot Z79.52 NURSING HOME (CURRENT) USE OF SYSTEMIC STER 02/09/2019 OPAL [...] Ot C85.90 NON-[place]ODGKIN LYMPHOMA, UNSPECIFIED, UNSPE 03/11/2019 KALA SANDYANNA N Ot E11.9 TYPE 2 DIABETES MELLITUS WITHOUT COMPLIC 03/11/2019 ANEL ARMENDARIZ Ot Z79.4 INSPECTOR TOOL (CURRENT) USE OF INSULIN 03/11/2019 ANEL ARMENDARIZ N Ot Z79.82 NURSING HOME (CURRENT) USE OF ASPIRIN 03/11/2019 ANEL ARMENDARIZ N Ot Z79.899 OTHER INSPECTOR TOOL (CURRENT) DRUG THERAPY 03/17/2019 KALAANEL Ot 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, [...] DIABETES MELLITUS WITHOUT COMPLIC 03/18/2019 ANEL ARMENDARIZ Ot Z79.4 NURSING HOME (CURRENT) USE OF INSULIN 03/18/2019 ANEL ARMENDARIZ N Ot Z79.82 INSPECTOR TOOL (CURRENT) USE OF ASPIRIN 03/18/2019 ANEL ARMENDARIZ N Ot Z79.899 OTHER INSPECTOR TOOL (CURRENT) DRUG THERAPY 03/18/2019 ANEL ARMENDARIZ N Ot 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, EXTRNOD AND 03/18/2019 ANEL ARMENDARIZ Wilder Ot K86.89 OTHER SPECIFIED DISEASES OF PANCREAS 03/18/2019 ANEL ARMENDARIZ Wilder Ot N32.89 OTHER SPECIFIED DISORDERS OF BLADDER 03/18/2019 ANEL ARMENDARIZ Wilder Ot Z98.890 OTHER SPECIFIED POSTPROCEDURAL STATES 03/18/2019 ANEL ARMENDARIZ Wilder Ot C85.90 NON-HODG[place]IN LYMPHOMA, UNSPECIFIED, UNSPE 03/18/2019 KALA SANDYANNA Wilder Ot E11.9 TYPE 2 DIABETES MELLITUS WITHOUT COMPLIC 03/18/2019 ANEL ARMENDARIZ Wilder Ot Z79.4 NURSING HOME (CURRENT) USE OF INSULIN 03/18/2019 KALASANDYANNA Wilder Ot Z79.82 INSPECTOR TOOL (CURRENT) USE OF ASPIRIN 03/18/2019 ANEL ARMENDARZI Wilder Ot Z79.899 OTHER NURSING HOME (CURRENT) DRUG THERAPY 03/19/2019 NANCY PONCE, Jeanne THORNE Ot I73.9 PERIPHERAL VASCULAR DISEASE, UNSPECIFIED 03/19/2019 Jeanne CRUZ MD Ot I73.9 PERIPHERAL VASCULAR DISEASE, UNSPECIFIED 03/19/2019 Jeanne CRUZ MD Ot I73.9 PERIPHERAL VASCULAR DISEASE, UNSPECIFIED 03/22/2019 ANEL ARMENDARIZ Wilder Ot 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, EXTRNOD AND 03/22/2019 KALA ANEL N Ot K86.89 OTHER SPECIFIED DISEASES OF PANCREAS 03/22/2019 ANEL ARMENDARIZ Wilder Ot N32.89 OTHER SPECIFIED DISORDERS OF BLADDER 03/22/2019 ANEL ARMENDARIZ Wilder Ot Z98.890 OTHER SPECIFIED POSTPROCEDURAL STATES 03/27/2019 ANEL ARMENDARIZ Wilder Ot 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, EXTRNOD AND 03/27/2019 KALA ANEL N Ot K86.89 OTHER SPECIFIED DISEASES OF PANCREAS 03/27/2019 KALASANDYANNA Wilder Ot N32.89 OTHER SPECIFIED DISORDERS OF BLADDER 03/27/2019 ANEL ARMENDARIZ Wilder Ot Z98.890 OTHER SPECIFIED POSTPROCEDURAL STATES 03/30/2019 KALA SANDYANNA Wilder Ot C85.90 NON-HODGKIN LYMPHOMA, UNSPECIFIED, UNSPE 03/30/2019 ANEL ARMENDARIZ Wilder Ot E11.9 TYPE 2 DIABETES MELLITUS WITHOUT COMPLIC 03/30/2019 ANEL ARMENDARIZ Ot Z79.4 INSPECTOR TOOL (CURRENT) USE OF INSULIN 03/30/2019 ANEL ARMENDARIZ N Ot Z79.82 INSPECTOR TOOL (CURRENT) USE OF ASPIRIN 03/30/2019 ANEL ARMENDARIZ N Ot Z79.899 OTHER NURSING HOME (CURRENT) DRUG THERAPY 03/31/2019 ANEL ARMENDARIZ Ot C85.90 NON-HODGKIN LYMPHOMA, UNSPECIFIED, UNSPE 03/31/2019 ANEL ARMENDARIZ Ot E11.9 TYPE 2 DIABETES MELLITUS WITHOUT COMPLIC 03/31/2019 ANEL ARMENDARIZ Ot Z79.4 INSPECTOR TOOL (CURRENT) USE OF INSULIN 03/31/2019 ANEL ARMENDARIZ N Ot Z79.82 NURSING HOME (CURRENT) USE OF ASPIRIN 03/31/2019 ANEL ARMENDARIZ N Ot Z79.899 OTHER INSPECTOR TOOL (CURRENT) DRUG THERAPY 04/07/2019 ANEL ARMENDARIZ N Ot C85.90 NON-HODGKIN LYMPHOMA, UNSPECIFIED, UNSPE 04/07/2019 ANEL ARMENDARIZ Ot E11.9 TYPE 2 DIABETES MELLITUS WITHOUT COMPLIC 04/07/2019 ANEL ARMENDARIZ Ot Z79.4 INSPECTOR TOOL (CURRENT) USE OF INSULIN 04/07/2019 ANEL ARMENDARIZ Ot Z79.82 INSPECTOR TOOL (CURRENT) USE OF ASPIRIN 04/07/2019 ANEL ARMENDARIZ N Ot Z79.899 OTHER INSPECTOR TOOL (CURRENT) DRUG THERAPY 05/15/2019 LUTHER BIRCH MD Ot E11.9 TYPE 2 DIABETES MELLITUS WITHOUT COMPLIC 05/15/2019 LUTHER BIRCH MD Ot I10 ESSENTIAL (PRIMARY) HYPERTENSION 05/15/2019 LUTHER BICRH MD Ot I25.2 OLD MYOCARDIAL INFARCTION 05/15/2019 LUTHER BIRCH MD Ot J06.9 ACUTE UPPER RESPIRATORY INFECTION, UNSPE 05/15/2019 LUTHER BIRCH MD Ot R07.9 CHEST PAIN, UNSPECIFIED 05/15/2019 LUTHER BIRCH MD Ot R09.89 OTH SYMPTOMS AND SIGNS INVOLVING THE CIR 05/15/2019 LUTHER BIRCH MD Ot R74.8 ABNORMAL LEVELS OF OTHER SERUM ENZYMES 05/15/2019 LUTHER BIRCH MD Ot Z79.4 INSPECTOR TOOL (CURRENT) USE OF INSULIN 05/15/2019 LUTHER BIRCH [...] ENZYMES 05/18/2019 LUTHER BIRCH MD Ot Z79.4 INSPECTOR TOOL (CURRENT) USE OF INSULIN 05/18/2019 LUTHER BIRCH [...] Ot Z95.1 PRESENCE OF AORTOCORONARY BYPASS GRAFT 05/31/2019 RONIT MARSH MD Ot E11.9 TYPE 2 DIABETES MELLITUS WITHOUT COMPLIC 05/31/2019 MAXIMO PONCE, RONIT [place] Ot I10 ESSENTIAL (PRIMARY) HYPERTENSION 05/31/2019 MAXIMO PONCE, RONIT J Ot I25.2 OLD MYOCARDIAL INFARCTION 05/31/2019 RONIT MARSH MD, Ot 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 05/31/2019 RONIT MARSH MD Ot N48.89 OTHER SPECIFIED DISORDERS OF PENIS 05/31/2019 RONIT MARSH MD Ot Z79.4 INSPECTOR TOOL (CURRENT) USE OF INSULIN 05/31/2019 RONIT MARSH MD, Ot Z82.49 FAMILY HX OF ISCHEM HEART DIS AND OTH DI 05/31/2019 RONIT MARSH MD, Ot Z85.72 PERSONAL HISTORY OF NON-HODGKIN LYMPHOMA 05/31/2019 RONIT MARSH MD, Ot Z88.6 ALLERGY STATUS TO ANALGESIC AGENT STATUS 05/31/2019 RONIT MARSH MD, Ot Z90.49 ACQUIRED ABSENCE OF OTHER SPECIFIED PART 05/31/2019 RONIT MARSH MD, Ot Z95.1 PRESENCE OF AORTOCORONARY BYPASS GRAFT 06/03/2019 ANEL ARMENDARIZ Ot C85.90 NON-HODG[place]IN LYMPHOMA, UNSPECIFIED, UNSPE 06/03/2019 ANEL ARMENDARIZ Ot E11.9 TYPE 2 DIABETES MELLITUS WITHOUT COMPLIC 06/03/2019 ANEL ARMENDARIZ N Ot Z79.4 NURSING HOME (CURRENT) USE OF INSULIN 06/03/2019 ANEL ARMENDARIZ N Ot Z79.82 NURSING HOME (CURRENT) USE OF ASPIRIN 06/03/2019 ANEL ARMENDARIZ N Ot Z79.899 OTHER NURSING HOME (CURRENT) DRUG THERAPY 06/04/2019 ANEL ARMENDARIZ Ot C85.90 NON-H[place]IN LYMPHOMA, UNSPECIFIED, UNSPE 06/04/2019 ANEL ARMENDARIZ N Ot E11.9 TYPE 2 DIABETES MELLITUS WITHOUT COMPLIC 06/04/2019 ANEL ARMENDARIZ Ot Z79.4 NURSING HOME (CURRENT) USE OF INSULIN 06/04/2019 ANEL ARMENDARIZ N Ot Z79.82 INSPECTOR TOOL (CURRENT) USE OF ASPIRIN 06/04/2019 ANEL ARMENDARIZ N Ot Z79.899 OTHER INSPECTOR TOOL (CURRENT) DRUG THERAPY 06/06/2019 RONIT MARSH MD Ot E11.9 TYPE 2 DIABETES MELLITUS WITHOUT COMPLIC 06/06/2019 RONIT MARSH MD Ot I10 ESSENTIAL (PRIMARY) HYPERTENSION 06/06/2019 RONIT MARSH MD, Ot I25.2 OLD MYOCARDIAL INFARCTION 06/06/2019 RONIT MARSH MD Ot 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 06/06/2019 RONIT MARSH MD Ot N48.89 OTHER SPECIFIED DISORDERS OF PENIS 06/06/2019 RONIT MARSH MD Ot Z79.4 INSPECTOR TOOL (CURRENT) USE OF INSULIN 06/06/2019 RONIT MARSH MD Ot Z82.49 FAMILY HX OF ISCHEM HEART DIS AND OTH DI 06/06/2019 RONIT MARSH MD, Ot Z85.72 PERSONAL HISTORY OF NON-HODGKIN LYMPHOMA 06/06/2019 RONIT MARSH MD, Ot Z88.6 ALLERGY STATUS TO ANALGESIC AGENT STATUS 06/06/2019 RONIT MARSH MD, Ot Z90.49 ACQUIRED ABSENCE OF OTHER SPECIFIED PART 06/06/2019 RONIT MARSH MD, Ot Z95.1 PRESENCE OF AORTOCORONARY BYPASS GRAFT [...] NR Blood erythrocyte morphology finding identification NORMAL NR TROPONIN T - 01/14/19 22:25 TROPONIN T 27 % <=15 Serum or plasma lithium measurement (moles/volume) - 01/14/19 22:25 BNP level 111.8 pg/mL <100.0 Bacterial blood culture - 01/14/19 22:25 FREE TEXT EXTERNAL NO SUSCEPTIBILITY PERFORMED NR QUANTITY OF GROWTH . [facility] Bacterial blood culture SEE COMMEN [facility] Blood lactic acid measurement (moles/volume) - 01/14/19 22:35 Blood lactic acid measurement (moles/volume) 2.23 mmol/L 0.50- 2.00 Influenza virus A and B antigen detection - 01/14/19 23:24 FLU RESULT NEGATIVE FOR INFLUENZA A AND B ANTIGENS BY IA NR Bacterial blood culture - 01/14/19 23:45 Bacterial blood culture NG [facility] Whole blood basic metabolic panel - 01/15/19 [...] 10.7 fL 7.5-12.5 ABSOLUTE NEUTROPHILS 2617 cells/uL 1438-6206 ABSOLUTE LYMPHOCYTES 966 cells/uL 850-3900 ABSOLUTE MONOCYTES [...] 05/15/19 22:04 Bacterial blood culture NG NRG Complete urinalysis with reflex to culture - 05/31/19 18:38 Urine color determination YELLOW NRG Urine clarity determination CLEAR NRG Urine pH measurement by test strip 6.5 5-9 Specific gravity of urine by test strip 1.020 1.016-1.022 Urine protein assay by test strip, semi-quantitative TRACE NEGATIVE Urine glucose detection by automated test strip 3+ NEGATIVE Erythrocytes detection in urine sediment by light microscopy NEGATIVE NEGATIVE Urine ketones detection by automated test strip NEGATIVE NEGATIVE Urine nitrite detection by test strip NEGATIVE NEGATIVE Urine total bilirubin detection by test strip NEGATIVE NEGATIVE Urine urobilinogen measurement by automated test strip (mass/volume) 1.0 mg/dL NORMAL Urine leukocyte esterase detection by dipstick NEGATIVE NEGATIVE Automated urine sediment erythrocyte count by microscopy (number/high power field) [HPF] NRG Automated urine sediment leukocyte count by microscopy (number/high power field) [HPF] NRG Bacteria detection in urine sediment by light microscopy NEGATIVE NRG Squamous epithelial cells detection in urine sediment by light microscopy NONE NRG Crystals detection in urine sediment by light microscopy NONE NRG Casts detection in urine sediment by light microscopy NONE NRG Mucus detection in urine sediment by light microscopy NONE NRG Complete urinalysis with reflex to culture NO NRG Microscopic examination by wet preparation - 05/31/19 18:54 WET PREP RESULTS NO WBC'S OBSERVED NRG Microscopic examination by ARPIT preparation - 05/31/19 18:54 ARPIT RESULT NEGATIVE; NO FUNGAL ELEMENTS OBSERVED NRG Complete blood count (CBC) with automated white blood cell (WBC) differential - 06/03/19 10:35 Blood leukocytes automated count (number/volume) 1.2 10*3/uL 4.3-11.0 Blood erythrocytes automated count (number/volume) 4.32 10*6/uL 4.35-5.85 Venous blood hemoglobin measurement (mass/volume) 11.8 g/dL 13.3-17.7 Blood hematocrit (volume fraction) 36 % 40-54 Automated erythrocyte mean corpuscular volume 83 [foz_us] 80-99 Automated erythrocyte mean corpuscular hemoglobin (mass per erythrocyte) 27 pg 25-34 Automated erythrocyte mean corpuscular hemoglobin concentration measurement (mass/volume) 33 g/dL 32-36 Automated erythrocyte distribution width ratio 16.3 % 10.0- 14.5 Automated blood platelet count (count/volume) 168 10*3/uL 130-400 Automated blood platelet mean volume measurement 10.6 [foz_us] 7.4-10.4 Automated blood neutrophils/100 leukocytes 12 % 42-75 Automated blood lymphocytes/100 leukocytes 61 % 12-44 Blood monocytes/100 leukocytes 12 % 0-12 Automated blood eosinophils/100 leukocytes 14 % 0-10 Automated blood basophils/100 leukocytes 1 % 0-10 Blood neutrophils automated count (number/volume) 0.2 10*3 1.8-7.8 Blood lymphocytes automated count (number/volume) 0.8 10*3 1.0-4.0 Blood monocytes automated count (number/volume) 0.2 10*3 0.0- 1.0 Automated eosinophil count 0.2 10*3/uL 0.0-0.3 Automated blood basophil count (count/volume) 0.0 10*3/uL 0.0-0.1 Comprehensive metabolic panel - 06/03/19 10:35 Serum or plasma sodium measurement (moles/volume) 136 mmol/L 135-145 Serum or plasma potassium measurement (moles/volume) 3.8 mmol/L 3.6-5.0 Serum or plasma chloride measurement (moles/volume) 103 mmol/L 98-107 Carbon dioxide 23 mmol/L 21-32 Serum or plasma anion gap determination (moles/volume) 10 mmol/L 5-14 Serum or plasma urea nitrogen measurement (mass/volume) 15 mg/dL 7-18 Serum or plasma creatinine measurement (mass/volume) 1.01 mg/dL 0.60-1.30 Serum or plasma urea nitrogen/creatinine mass ratio 15 NRG Serum or plasma creatinine measurement with calculation of estimated glomerular filtration rate > NRG Serum or plasma glucose measurement (mass/volume) 244 mg/dL 70-105 Serum or plasma calcium measurement (mass/volume) 9.6 mg/dL 8.5-10.1 Serum or plasma total bilirubin measurement (mass/volume) 0.6 mg/dL 0.1-1.0 Serum or plasma alkaline phosphatase measurement (enzymatic activity/volume) 56 U/L 40-136 Serum or plasma aspartate aminotransferase measurement (enzymatic activity/volume) 20 U/L 5-34 Serum or plasma alanine aminotransferase measurement (enzymatic activity/volume) 13 U/L 0-55 Serum or plasma protein measurement (mass/volume) 6.6 g/dL 6.4-8.2 Serum or plasma albumin measurement (mass/volume) 4.0 g/dL 3.2-4.5 CALCIUM CORRECTED 9.6 mg/dL 8.5-10.1 PDM - TRAMADOL - 06/15/19 10:35 COMMENT NRG Desmethyltramadol 3138 ng/mL <100 medMATCH Desmethyltram CONSISTENT NRG Tramadol 4457 ng/mL <100 medMATCH Tramadol CONSISTENT NRG Prescribed Drug 2 Lorazepam NRG Prescribed Drug 3 Ultram(TM) NRG Prescribed Drug 4 Ultram(TM) NRG Prescribed Drug 5 Lorazepam NRG Encounters ACCT No. Visit Date/Time Discharge Status Pt. Type Provider Facility Loc./Unit Complaint [id number] 06/15/2019 10:15:00 06/15/2019 23:59:59 CLS Outpatient ANNEMARIE WANG [facility] [id number] 06/15/2019 10:15:00 Document Registration [id number] 04/10/2019 08:30:00 Document Registration [id number] 02/17/2019 09:00:00 Document Registration [id number] 06/17/2019 16:17:00 06/17/2019 23:59:59 CLS Preadmit Jeanne CRUZ MD [facility] CARD CAD [id number] 06/04/2019 00:10:00 06/04/2019 23:59:59 CLS Preadmit ANEL ARMENDARIZ [facility] ONC [id number] 06/03/2019 10:16:00 06/03/2019 00:01:00 DIS Outpatient ANEL ARMENDARIZ [facility] ONC [id number] 05/31/2019 17:53:00 05/31/2019 20:17:00 DIS Emergency MAXIMO PONCE, RNOIT [place] [facility] ER FS COUGH,SWOLLEN PENIS [id number] 05/15/2019 20:57:00 05/15/2019 23:17:00 DIS Emergency EYAL PONCE, LUTHER Arana [facility] ER FS CHEST PAIN [id number] 03/18/2019 12:18:00 03/18/2019 23:59:59 CLS Outpatient Jeanne CRUZ MD [facility] RAD CLAUDICATION, CAD, DIABETES [id number] 03/18/2019 11:53:00 03/18/2019 23:59:59 CLS Preadmit Jeanne CRUZ MD [facility] CARD ANTERIOR CHEST WALL PAIN [id number] 03/18/2019 11:51:00 03/18/2019 23:59:59 CLS Preadmit Jeanne CRUZ MD [facility] RAD CLAUDICATION [id number] 03/16/2019 14:46:00 03/16/2019 23:59:59 CLS Outpatient ANEL ARMENDARIZ [facility] RAD NON HODGKIN LYMPHOMA [id number] 02/06/2019 14:46:00 02/06/2019 21:13:00 DIS Emergency OPAL CARTER MD [facility] ER FS CHEST PAIN [id number] 01/14/2019 23:30:00 01/20/2019 16:30:00 DIS Inpatient ERICKSON BARAJAS DO [facility] 4TH PNEUMONIA,CHF,NSTEMI,LEUKOPENIA,SEPSIS
--- NOTE | 2019-06-24 16:07 | ED Chest Pain ---
General Chief Complaint: Chest Pain Stated Complaint: CHEST PAIN History of Present Illness Date Seen by Provider: Jun 24, 2019 Time Seen by Provider: 15:50 Initial Comments The patient is a pleasant 74-year-old male here with a care worker for evaluat ion of left-sided chest pain. He states he is having pain when he coughs and only very mild soreness when he is not coughing. The pain and discomfort began yesterday. He has history of CAD and is status post CABG. He reports some mild chills at home and is noted have a temperature of 99.9 upon arrival. Interestingly, aspirin is listed as an allergy, however he tells me that he take s an 81 mg aspirin every morning and that he did take one today. He denies diaphoresis, shortness of breath, lower extremity edema, abdominal or back pain, hemoptysis, productive cough, palpitations, nausea or vomiting, dizziness or syncope. He is alert and oriented 4, calm, appears to be in no distress at this time. He also mentions that he drinks 24 beers daily. Timing/Duration: 1-2 days Severity/Quality: mild Location: other (left upper lateral chest wall) Radiation: no radiation Activities at Onset: none Prior CP/Workup: heart attack ASA po ENTRANCE GUARD: Yes Associated Symptoms: fever/chills (reports chills, temp is 99.9 on arrival) Allergies and Home Medications Allergies Coded Allergies: aspirin (Unverified Adverse Reaction, Unknown, 01/19/19) PATIENT STATES HE IS ABLE TO TAKE THE 81 MG DOSE BUT NOT THE "BIG ASPIRIN" Home Medications Albuterol Sulfate 18 Gm Hfa.aer.ad, 2 PUFF INH Q6H PRN for SHORTNESS OF BREATH, (Reported) Albuterol Sulfate 18 Gm Hfa.aer.ad, 18 GM INH Q4H PRN for COUGH Prescribed by: RODO ROCHA on 06/24/19 181 Allopurinol 300 Mg Tablet, 300 MG PO DAILY, (Reported) Amoxicillin/Potassium Clav 1 Each Tablet, 1 EACH PO BID Prescribed by: SHANTELL MALAGON on 01/20/19 0853 Amoxicillin/Potassium Clav 1 Each Tablet, 1 EACH PO BID Prescribed by: LUTHER BIRCH MD on 05/15/19 7415 Atorvastatin Calcium 40 Mg Tablet, 40 MG PO HS, (Reported) Benzonatate 100 Mg Capsule, 100 MG PO TID PRN for COUGH Prescribed by: RODO ROCHA on 06/24/191818 Brimonidine Tartrate 5 Ml Drops, 1 DROP OS BID, (Reported) Cilostazol 100 Mg Tablet, 100 MG PO BID, (Reported) Citalopram Hydrobromide 20 Mg Tablet, 20 MG PO DAILY, (Reported) Dorzolamide HCl/Timolol Maleat 10 Ml Drops, 1 DROP OU BID, (Reported) Fenofibrate Nanocrystallized 145 Mg Tablet, 145 MG PO HS, (Reported) Flaxseed Oil 1,000 Mg Capsule, 1,000 MG PO BID, (Reported) Fluticasone/Vilanterol 1 Each Blst.w.dev, 1 PUFF INH DAILY, (Reported) Gabapentin 300 Mg Capsule, 300 MG PO BID, (Reported) Insuln Asp Prt/Insulin Aspart 1 Unit/0.01 Ml Susp, 100 UNITS SC BID, (Reported) Levofloxacin 750 Mg Tablet, 750 MG PO DAILY Prescribed by: RODO ROCHA on 06/24/191818 Lorazepam 1 Mg Tablet, 1 MG PO TID PRN for ANXIETY, (Reported) Metformin HCl 1,000 Mg Tablet, 1,000 MG PO BID, (Reported) Nystatin 15 Gm Cream..g., 1 GM TP BID Prescribed by: RONIT MARSH on 05/31/192005 [place] 3 Polyunsat Fatty Acids 1,000 Mg Cap, 1,000 MG PO BID, (Reported) Prednisolone Acetate 5 Ml Drops.susp, 1 DROP OU BID, (Reported) Prednisone 20 Mg Tab, 20 MG PO DAILY Prescribed by: RODO ROCHA on 06/24/191818 Tramadol HCl 50 Mg Tablet, 100 MG PO Q6H PRN for PAIN-MODERATE, (Reported) Patient Home Medication List Home Medication List Reviewed: Yes Review of Systems Review of Systems Constitutional: chills EENTM: No Symptoms Reported Respiratory: Cough Cardiovascular: Chest Pain Gastrointestinal: No Symptoms Reported Genitourinary: No Symptoms Reported Musculoskeletal: no symptoms reported Skin: no symptoms reported Psychiatric/Neurological: No Symptoms Reported Endocrine: No Symptoms Reported Hematologic/Lymphatic: No Symptoms Reported All Other Systems Reviewed Negative Unless Noted: Yes Past [id number]-Pefnqt Hx Past Med/Social Hx: Reviewed Nursing Past Med/Soc Hx Patient Social History Number of Drinks Today: 24 Alcohol Beverage of Choice: Beer 2nd Hand Smoke Exposure: No Recent Hopitalizations: No Immunizations Up To Date Tetanus Booster (TDap): Unknown Date of Pneumonia Vaccine: Sep 10, 2017 Date of Influenza Vaccine: Aug 12, 2018 Seasonal Allergies Seasonal Allergies: No Past Medical History Surgeries: Yes Appendectomy, CABG Respiratory: No Cardiac: Yes Heart Attack, Hypertension Neurological: No Sexually Transmitted Disease: No HIV/AIDS: No Genitourinary: No Gastrointestinal: No Musculoskeletal: No Arthritis, Chronic Back Pain Endocrine: Yes Diabetes, Insulin dep HEENT: Yes (blind) Cataract, Glaucoma Loss of Vision: Bilateral Hearing Impairment: Denies Cancer: Yes Lymphoma Did You Recieve Any Treatments: Yes What Type of Treatment Did You: Chemotherapy Psychosocial: No Integumentary: No Blood Disorders: No Family Medical History Hypertension Physical Exam Vital Signs Vital Signs - First Documented 06/24/19 15:49 Temp 99.9 Pulse 93 Resp 24 B/P (MAP) 153/65 (94) Pulse Ox 94 Capillary Refill : Height, Weight, BMI Height: 6'0" Weight: 194lbs. 1.0oz. 88.445417hb; 27.8 BMI Method:Stated General Appearance: No Apparent Distress, WD/WN HEENT: Normal ENT Inspection, Other (b/l advanced cataracts) Neck: Full Range of Motion, Normal Inspection, Non Tender, Supple Respiratory: Chest Non Tender, Normal Breath Sounds, No Accessory Muscle Use, No Respiratory Distress Cardiovascular: Regular Rate, Rhythm, No Edema, No JVD, Normal Peripheral Pulses Gastrointestinal: Normal Bowel Sounds, No Organomegaly, No Pulsatile Mass, Non Tender, Soft Extremity: Normal Capillary Refill, Normal Range of Motion, Non Tender, No Calf Tenderness Neurologic/Psychiatric: Alert, Oriented x3, No Motor/Sensory Deficits, Normal Mood/Affect, call center rn II-XII Norm as Tested Skin: Normal Color, Warm/Dry Lymphatic: No Adenopathy Focused Exam Lactate Level 06/24/19 16:07: Lactic Acid Level 1.36 Lactic Acid Level Laboratory Tests Test 06/24/19 16:07 Lactic Acid Level 1.36 MMOL/L (0.50-2.00) Progress/Results/Core Measures Results/Orders Lab Results Laboratory Tests Test 06/24/19 16:07 Range/Units White Blood Count 1.5 L 4.3-11.0 10^3/uL Red Blood Count 4.30 L 4.35-5.85 10^6/uL Hemoglobin 11.4 L 13.3-17.7 G/DL Hematocrit 35 L 40-54 % Mean Corpuscular Volume 80 80-99 FL Mean Corpuscular Hemoglobin 27 25-34 PG Mean Corpuscular Hemoglobin Concent 33 32-36 G/DL Red Cell Distribution Width 17.2 H 10.0-14.5 % Platelet Count 176 130-400 10^3/uL Mean Platelet Volume 10.5 H 7.4-10.4 FL Neutrophils (%) (Auto) 22 L 42-75 % Lymphocytes (%) (Auto) 61 H 12-44 % Monocytes (%) (Auto) 13 H 0-12 % Eosinophils (%) (Auto) 4 0-10 % Basophils (%) (Auto) 1 0-10 % Neutrophils # (Auto) 0.3 L 1.8-7.8 X 10^3 Lymphocytes # (Auto) 0.9 L 1.0-4.0 X 10^3 Monocytes # (Auto) 0.2 0.0-1.0 X 10^3 Eosinophils # (Auto) 0.1 0.0-0.3 10^3/uL Basophils # (Auto) 0.0 0.0-0.1 10^3/uL Sodium Level 134 L 135-145 MMOL/L Potassium Level 3.7 3.6-5.0 MMOL/L Chloride Level 93 L 98-107 MMOL/L Carbon Dioxide Level 23 21-32 MMOL/L Anion Gap 18 H 5-14 MMOL/L Blood Urea Nitrogen 14 7-18 MG/DL Creatinine 0.87 0.60-1.30 MG/DL Estimat Glomerular Filtration Rate > 60 BUN/Creatinine Ratio 16 Glucose Level 210 H 70-105 MG/DL Lactic Acid Level 1.36 0.50-2.00 MMOL/L Calcium Level 9.6 8.5-10.1 MG/DL Corrected Calcium 9.8 8.5-10.1 MG/DL Magnesium Level 1.6 L 1.8-2.4 MG/DL Total Bilirubin 0.9 0.1-1.0 MG/DL Aspartate Amino Transf (AST/SGOT) 27 5-34 U/L Alanine Aminotransferase (ALT/SGPT) 14 0-55 U/L Alkaline Phosphatase 55 40-136 U/L Myoglobin 55.4 10.0-92.0 NG/ML Troponin I < 0.30 <0.30 NG/ML Pro-B-Type Natriuretic Peptide 493.7 H <75.0 PG/ML Total Protein 7.0 6.4-8.2 GM/DL Albumin 3.8 3.2-4.5 GM/DL My Orders Orders - RODO ROCHA DO Cbc With Automated Diff (06/24/19 15:49) Magnesium (06/24/19 15:49) Chest 1 View Ap/Pa Only (06/24/19 15:49) Ekg Tracing (06/24/19 15:49) Comprehensive Metabolic Panel (06/24/19 15:49) Myoglobin Serum (06/24/19 15:49) O2 (06/24/19 15:49) Monitor-Rhythm Ecg Trace Only (06/24/19 15:49) Ed Iv/Invasive Line Start (06/24/19 15:49) Troponin I (06/24/19 15:49) Probnp Fs (06/24/19 15:49) Creatine Kinase Mb (06/24/19 15:49) Blood Culture (06/24/19 15:50) Lactic Acid Analyzer (06/24/19 15:50) Blood Culture (06/24/19 16:34) Magnesium 1 Gm/100 Ml Ivpb (Magnesium Patel (06/24/19 17:15) Furosemide Injection (Lasix Injection) (06/24/19 17:15) Acetaminophen Tablet (Tylenol Tablet) (06/24/19 17:45) Levofloxacin 750 Mg/150 Ml Iv (Levaquin (06/24/19 17:45) Medications Given in ED Current Medications Medications Dose Ordered Sig/Stephan Route Start Time Stop Time Status Last Admin Dose Admin Acetaminophen 1,000 mg ONCE ONCE PO 06/24/19 17:45 06/24/19 17:46 DC 06/24/19 17:46 1,000 MG Furosemide 40 mg ONCE ONCE IVP 06/24/19 17:15 06/24/19 17:16 DC 06/24/19 17:23 40 MG Levofloxacin/ Dextrose 150 ml @ 100 mls/hr ONCE ONCE IV 06/24/19 17:45 06/24/19 19:14 06/24/19 18:23 100 MLS/HR Vital Signs/I&O 06/24/19 15:49 Temp 99.9 Pulse 93 Resp 24 B/P (MAP) 153/65 (94) Pulse Ox 94 Progress Progress Note : Progress Note @1900 - Pt updated on lab and imaging results. As chest pain began yesterday the troponin should be elevated by now if indeed ischemic/cardiac. The pt only has pain when coughing. This pain does not remind of him of his previous UT. He states he would like to go home at this time. I did offer to admit the pt for a possible early pneumonia but he declines. Pt is saturating over 95% on room air. Pt advised to take the prescribed medications and to follow-up with his PCP in the next 1-2 days. Comment @1558 - Normal sinus rhythm, rate of 89, left access deviation present, no acute ischemic findings noted, no STEMI, baseline ecg tremor/feedback noted, reviewed and interpreted by myself Departure Impression Primary Impression: Cough Additional Impressions: Left-sided chest wall pain Chronic leukopenia Hypomagnesemia Bronchitis Disposition: HOME, SELF-CARE Condition: Stable Departure-Patient Inst. Decision time for Depature: 19:00 Referrals: ANNEMARIE WANG MD (PCP/Family) Primary Care Physician Patient Instructions: Chest Pain That Is Not Caused by the Heart (DC), Low Magnesium Level, Cough in Adults, Acute Bronchitis Add. Discharge Instructions: Follow up with your doctor in the next 1-2 days. Return to the ER for difficulty breathing, new or worsening symptoms. Take the prescribed medications as directed. Scripts Benzonatate (TESSALON PERLES) 100 Mg Capsule 100 MG PO TID PRN for COUGH, #20 CAP Prov: RODO ROCHA DO 06/24/19 Albuterol Sulfate (Ventolin Hfa) 18 Gm Hfa.aer.ad 18 GM INH Q4H PRN for COUGH for 7 Days, #1 GM Prov: RODO ROCHA DO 06/24/19 Prednisone (Prednisone) 20 Mg Tab 20 MG PO DAILY for 5 Days, #5 TAB 0 Refills Prov: RODO ROCHA DO 06/24/19 Levofloxacin (Levaquin) 750 Mg Tablet 750 MG PO DAILY for 5 Days, #5 TAB Prov: RODO ROCHA DO 06/24/19 RODO ROCHA DO Jun 24, 2019 16:07
[2019-06-24 16:26] LABS: BASOPHILS % (AUTO) 1 % (0-10); EOSINOPHILS % (AUTO) 4 % (0-10); HEMATOCRIT 35 % (40-54); HEMOGLOBIN 11.4 G/DL (13.3-17.7); LYMPHOCYTES % (AUTO) 61 % (12-44); MEAN CORPUSCULAR HEMOGLOBIN 27 PG (25-34); MEAN CORPUSCULAR HGB CONC 33 G/DL (32-36); MEAN CORPUSCULAR VOLUME 80 FL (80-99); MEAN PLATELET VOLUME 10.5 FL (7.4-10.4); MONOCYTES % (AUTO) 13 % (0-12); NEUTROPHILS % (AUTO) 22 % (42-75); PLATELET COUNT 176 10^3/uL (130-400); RED CELL DISTRIBUTION WIDTH 17.2 % (10.0-14.5); WHITE BLOOD COUNT 1.5 10^3/uL (4.3-11.0)
[2019-06-24 16:27] LABS: EOSINOPHILS # (AUTO) 0.1 10^3/uL (0.0-0.3); LYMPHOCYTES # (AUTO) 0.9 X 10^3 (1.0-4.0); MONOCYTES # (AUTO) 0.2 X 10^3 (0.0-1.0); NEUTROPHILS # (AUTO) 0.3 X 10^3 (1.8-7.8)
--- NOTE | 2019-06-24 16:28 | Diagnostic Imaging Report ---
INDICATION: Chest pain. EXAMINATION: Portable chest at 2:00 p.m. FINDINGS: There are postop changes from CABG surgery. Heart size and pulmonary vascularity are normal. Lungs are clear. There are no effusions or pneumothoraces. IMPRESSION: Postsurgical changes in the chest. No acute abnormality is seen. Dictated by: Dictated on workstation # [id number]
[2019-06-24 17:03] LABS: CHLORIDE 93 MMOL/L (98-107); POTASSIUM 3.7 MMOL/L (3.6-5.0); SODIUM 134 MMOL/L (135-145)
[2019-06-24 17:04] LABS: BUN/CREATININE RATIO 16; CALCIUM 9.6 MG/DL (8.5-10.1); CARBON DIOXIDE 23 MMOL/L (21-32); CREATININE SERUM 0.87 MG/DL (0.60-1.30); GFR ESTIMATED > 60; GLUCOSE 210 MG/DL (70-105); MAGNESIUM 1.6 MG/DL (1.8-2.4)
[2019-06-24 17:05] LABS: ALANINE AMINOTRANSFERASE 14 U/L (0-55); ALBUMIN 3.8 GM/DL (3.2-4.5); ALKALINE PHOSPHATASE 55 U/L (40-136); BILIRUBIN,TOTAL 0.9 MG/DL (0.1-1.0)
[2019-06-24] MEDS ORDERED: FUROSEMIDE 40 MG/4 ML INJ (LASIX) IVP ONE (17:15)
[2019-06-24] MEDS: MAGNESIUM 1 GM/100 ML IVPB 100 ML IV SCH ×2 (17:23→18:46)
[2019-06-24] MEDS ORDERED: LEVOFLOXACIN 750 MG/150 ML IV 150 ML IV ONE (17:45)
[2019-06-24] MEDS ORDERED: ACETAMINOPHEN 500 MG TAB (TYLENOL) PO ONE (17:45)
[2019-06-24] MEDS ORDERED: BENZ100C18 PO (18:19)
[2019-06-24] MEDS ORDERED: PRD20T PO (18:19)
[2019-06-24] MEDS ORDERED: ALBU18HF2 INH (18:19)
[2019-06-24] MEDS ORDERED: LEVO750T9 PO (18:19)
--- NOTE | 2019-06-24 18:27 | NUR ---
Called and updated Allyson, patients , of the patients plan of care and planning on discharging back home on oral antibiotics. 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
[2019-06-24 19:40] VITALS: BP 144/50
== END 2019-06-24 19:45 | disposition home or self-care (01) ==
LOC: EDUNIT# 15:45 → ER FS 15:47
DX: J40 Bronchitis, not specified as acute or chronic (principal); D72.819 Decreased white blood cell count, unspecified; E83.42 Hypomagnesemia; R07.89 Other chest pain; I10 Essential (primary) hypertension; E11.9 Type 2 diabetes mellitus without complications; I25.10 Atherosclerotic heart disease of native coronary artery without angina pectoris; Z95.1 Presence of aortocoronary bypass graft; Z88.6 Allergy status to analgesic agent; Z79.51 Long term (current) use of inhaled steroids; Z79.4 Long term (current) use of insulin; Z90.49 Acquired absence of other specified parts of digestive tract; Z85.72 Personal history of non-Hodgkin lymphomas; Z82.49 Family history of ischemic heart disease and other diseases of the circulatory system
CPT/HCPCS: 36415; 71045; 80053; 82553; 83605; 83735; 83874; 83880; 84484; 85025; 87040; 93005; 93041; 96365; 96367; 96368; 96375

== ENCOUNTER → 2019-06-30 | Outpatient (CLI) | payer MEDICARE, MEDICAID ==
[~2019-06-30] VITALS: Ht 182.9 cm; Wt 86.2 kg
[~2019-06-30] MED LIST changes: +BENZ100C18 PO; +CATHETER FLUSH 10 ML SYR IV PRN; +LEVO750T9 PO; +NS IV 500 ML 0 ML ONE; +PRD20T PO; +REGADENOSON 0.4 MG/5 ML SYR (LEXISCAN) IV ONE
[2019-06-30 12:28] VITALS: BP 80/60
[2019-06-30 12:49] VITALS: BP 84/48
--- NOTE | 2019-07-01 11:16 | Cardiology Stress Test Report ---
Stress Test Report Type of NM Stress Test: Test Type: LEXISCAN 0.4MG/5ML Date of Procedure/Referring: Date of Procedure: Jul 01, 2019 PCP Jeanne Felix MD Admitting Physician Alvarado Epps MD Indications: Chest pain Baseline Heart Rate: 80 Baseline Blood Pressure: Blood Pressure Systolic: 84 Blood Pressure Diastolic: 48 Baseline EKG: Baseline EKG: sinus rhythm Summary & Conclusion: Summary: The patient was brought to the stress lab after informed consent was taken. Str ess test was performed according to the Lexiscan protocol. 0.4 mg of IV Lexiscan was given. Baseline EKG showed sinus rhythm at 80 BPM. Initial blood pressure was 80/60 mmHg. Maximum heart rate was 84 bpm and blood pressure 84/48 mmHg. Patient did not have any chest pain, arrhythmias or ST segment changes during the stress test. Minimum PVCs. 10.33 mCi of Myoview were given for rest imaging and 30.7 mCi of Myoview given for stress imaging. Transient ischemic dilatation score 1.09, EF 74 percent. N ormal wall motion. Normal myocardial perfusion imaging during rest and stress. Conclusion: Pharmacological stress test was negative for ischemia. Normal LV function with no wall motion abnormalities. Normal myocardial perfusion imaging during rest and stress. Jeanne FELIX MD Jul 01, 2019 11:16 am
== END ==
LOC: CARD 11:18
PROVIDERS: ATTEND Internal Medicine Interventional Cardiology
DX: I25.10 Atherosclerotic heart disease of native coronary artery without angina pectoris (principal); E11.9 Type 2 diabetes mellitus without complications; C85.90 Non-Hodgkin lymphoma, unspecified, unspecified site
CPT/HCPCS: 78452; 82962; 93017

== ENCOUNTER 2019-08-18 18:15 | Emergency (ER) | payer MEDICARE, MEDICAID ==
[~2019-08-18] VITALS: Ht 182.8 cm; Wt 81.8 kg
[~2019-08-18 18:15] MED LIST changes: -CATHETER FLUSH 10 ML SYR IV PRN; -NS IV 500 ML 0 ML ONE; -REGADENOSON 0.4 MG/5 ML SYR (LEXISCAN) IV ONE
[2019-08-18] MEDS ORDERED: NS IV 1000 ML 1,000 ML IV STA (18:28)
--- NOTE | 2019-08-18 18:41 | ED General ---
General Stated Complaint: COUGH Source of Information: Patient, Caregiver History of Present Illness Date Seen by Provider: Aug 18, 2019 Time Seen by Provider: 18:15 Initial Comments 74-year-old male presenting with complaints of shortness of breath and chest tightness. He had recently been diagnosed with pneumonia. He has not been improving since treated for that. He was continuing to have chest tightness and difficulty with swallowing. He has been having weight loss as well. She was seen by his sinker puller had an in [place] and told that his heart was not causing the pain. He was feeling lightheaded and weak today so he came to the emergency department. He follows with Dr. Pineda and prefers to be admitted at [facility] in [facility]. He continues to cough and feel short of breath. He states it feels like when he swallows things get caught. He is only able to swallow Jell-O easily. He denies having any scope or camera done his throat to look at how he is swallowing. Allergies and Home Medications Allergies Coded Allergies: aspirin (Unverified Adverse Reaction, Unknown, 01/19/19) PATIENT STATES HE IS ABLE TO TAKE THE 81 MG DOSE BUT NOT THE "BIG ASPIRIN" Home Medications Albuterol Sulfate 18 Gm Hfa.aer.ad, 2 PUFF INH Q6H PRN for SHORTNESS OF BREATH, (Reported) Albuterol Sulfate 18 Gm Hfa.aer.ad, 18 GM INH Q4H PRN for COUGH Prescribed by: RODO ROCHA on 06/24/191818 Allopurinol 300 Mg Tablet, 300 MG PO DAILY, (Reported) Amoxicillin/Potassium Clav 1 Each Tablet, 1 EACH PO BID Prescribed by: SHANTELL MALAGON on 01/20/19 0853 Amoxicillin/Potassium Clav 1 Each Tablet, 1 EACH PO BID Prescribed by: LUTHER BIRCH MD on 05/15/19 2315 Atorvastatin Calcium 40 Mg Tablet, 40 MG PO HS, (Reported) Benzonatate 100 Mg Capsule, 100 MG PO TID PRN for COUGH Prescribed by: RODO ROCHA on 06/24/191818 Brimonidine Tartrate 5 Ml Drops, 1 DROP OS BID, (Reported) Cilostazol 100 Mg Tablet, 100 MG PO BID, (Reported) Citalopram Hydrobromide 20 Mg Tablet, 20 MG PO DAILY, (Reported) Dorzolamide HCl/Timolol Maleat 10 Ml Drops, 1 DROP OU BID, (Reported) Fenofibrate Nanocrystallized 145 Mg Tablet, 145 MG PO HS, (Reported) Flaxseed Oil 1,000 Mg Capsule, 1,000 MG PO BID, (Reported) Fluticasone/Vilanterol 1 Each Blst.w.dev, 1 PUFF INH DAILY, (Reported) Gabapentin 300 Mg Capsule, 300 MG PO BID, (Reported) Insuln Asp Prt/Insulin Aspart 1 Unit/0.01 Ml Susp, 100 UNITS SC BID, (Reported) Levofloxacin 750 Mg Tablet, 750 MG PO DAILY Prescribed by: RODO ROCHA on 06/24/191818 Lorazepam 1 Mg Tablet, 1 MG PO TID PRN for ANXIETY, (Reported) Metformin HCl 1,000 Mg Tablet, 1,000 MG PO BID, (Reported) Nystatin 15 Gm Cream..g., 1 GM TP BID Prescribed by: RONIT MARSH on 05/31/192005 [place] 3 Polyunsat Fatty Acids 1,000 Mg Cap, 1,000 MG PO BID, (Reported) Potassium Chloride 20 Meq/15 Ml Liquid, 20 MEQ PO DAILY Prescribed by: OPAL CARTER on 08/18/192124 Prednisolone Acetate 5 Ml Drops.susp, 1 DROP OU BID, (Reported) Prednisone 20 Mg Tab, 20 MG PO DAILY Prescribed by: RODO ROCHA on 06/24/191818 Tramadol HCl 50 Mg Tablet, 100 MG PO Q6H PRN for PAIN-MODERATE, (Reported) Patient Home Medication List Home Medication List Reviewed: Yes Review of Systems Review of Systems Constitutional: chills, dizziness, malaise, weakness (generalized) EENTM: other (difficulty swallowing); No throat swelling Respiratory: cough; No hemoptysis; short of breath; No stridor, No wheezing Cardiovascular: chest pain (tightness) Gastrointestinal: No abdominal pain, No nausea Genitourinary: No dysuria Musculoskeletal: No joint swelling Skin: other (pallor) Psychiatric/Neurological: Weakness (generalized) Hematologic/Lymphatic: Easy Bleeding, Easy Bruising Past Ctlrppn-Fvbdxc-Pqnggj Hx Past Med/Social Hx: Reviewed Nursing Past Med/Soc Hx Patient Social History Alcohol Beverage of Choice: Beer 2nd Hand Smoke Exposure: No Recent Foreign Travel: No Contact w/Someone Who Travel: No Recent Hopitalizations: No Immunizations Up To Date Tetanus Booster (TDap): Unknown Date of Pneumonia Vaccine: Sep 10, 2017 Date of Influenza Vaccine: Aug 12, 2018 Seasonal Allergies Seasonal Allergies: No Past Medical History Surgeries: Yes (cataract removal;) Appendectomy, CABG, Coronary Stent Respiratory: No Cardiac: Yes Heart Attack, Hypertension Neurological: No Sexually Transmitted Disease: No HIV/AIDS: No Genitourinary: No Gastrointestinal: No Musculoskeletal: Yes Arthritis, Chronic Back Pain Endocrine: Yes Diabetes, Insulin dep HEENT: Yes (blind) Cataract, Glaucoma Loss of Vision: Bilateral Hearing Impairment: Denies Cancer: Yes Lymphoma Did You Recieve Any Treatments: Yes What Type of Treatment Did You: Chemotherapy Psychosocial: No Integumentary: No Blood Disorders: Yes (thrombocytopenia) Family Medical History Hypertension Physical Exam Vital Signs Vital Signs - First Documented 08/18/19 18:20 Temp 36.7 Pulse 79 Resp 17 B/P (MAP) 106/50 (68) Pulse Ox 99 O2 Delivery Room Air Capillary Refill : Height, Weight, BMI Height: 6'0.00" Weight: 190lbs. 0.0oz. 86.773079cl; 25.8 BMI Method:Stated General Appearance: Cachetic, Thin HEENT: Other (scarring to both eyes) Neck: Full Range of Motion, Supple Respiratory: Chest Non Tender, No Accessory Muscle Use, No Respiratory D istress, Decreased Breath Sounds Cardiovascular: Regular Rate, Rhythm, Normal Peripheral Pulses Gastrointestinal: Normal Bowel Sounds, Soft Extremity: Normal Capillary Refill, Non Tender, No Calf Tenderness Neurologic/Psychiatric: Alert, Oriented x3 Skin: Pallor Focused Exam Lactate Level 08/18/19 18:30: Lactic Acid Level 1.66 Lactic Acid Level Progress/Results/Core Measures Suspected Sepsis SIRS Temperature: Pulse: Respiratory Rate: Laboratory Tests 08/18/19 18:30: White Blood Count 1.3*L Blood Pressure / Mean: 08/18/19 18:30: Lactic Acid Level 1.66 Laboratory Tests 08/18/19 18:30: Creatinine 1.00, Platelet Count 214, Total Bilirubin 0.7 Results/Orders Lab Results Laboratory Tests Test 08/18/19 18:30 08/18/19 19:10 Range/Units White Blood Count 1.3 *L 4.3-11.0 10^3/uL Red Blood Count 4.61 4.35-5.85 10^6/uL Hemoglobin 11.7 L 13.3-17.7 G/DL Hematocrit 37 L 40-54 % Mean Corpuscular Volume 80 80-99 FL Mean Corpuscular Hemoglobin 25 25-34 PG Mean Corpuscular Hemoglobin Concent 32 32-36 G/DL Red Cell Distribution Width 18.1 H 10.0-14.5 % Platelet Count 214 130-400 10^3/uL Mean Platelet Volume 10.9 H 7.4-10.4 FL Neutrophils (%) (Auto) 36 L 42-75 % Lymphocytes (%) (Auto) 43 12-44 % Monocytes (%) (Auto) 9 0-12 % Eosinophils (%) (Auto) 10 0-10 % Basophils (%) (Auto) 2 0-10 % Neutrophils # (Auto) 0.5 L 1.8-7.8 X 10^3 Lymphocytes # (Auto) 0.6 L 1.0-4.0 X 10^3 Monocytes # (Auto) 0.1 0.0-1.0 X 10^3 Eosinophils # (Auto) 0.1 0.0-0.3 10^3/uL Basophils # (Auto) 0.0 0.0-0.1 10^3/uL Neutrophils % (Manual) 16 % Lymphocytes % (Manual) 49 % Monocytes % (Manual) 14 % Eosinophils % (Manual) 12 % Basophils % (Manual) 2 % Band Neutrophils 7 % Poikilocytosis SLIGHT Acanthocytes SLIGHT Sodium Level 135 135-145 MMOL/L Potassium Level 2.8 L 3.6-5.0 MMOL/L Chloride Level 95 L 98-107 MMOL/L Carbon Dioxide Level 28 21-32 MMOL/L Anion Gap 12 5-14 MMOL/L Blood Urea Nitrogen 14 7-18 MG/DL Creatinine 1.00 0.60-1.30 MG/DL Estimat Glomerular Filtration Rate > 60 BUN/Creatinine Ratio 14 Glucose Level 145 H 70-105 MG/DL Lactic Acid Level 1.66 0.50-2.00 MMOL/L Calcium Level 9.9 8.5-10.1 MG/DL Corrected Calcium 9.9 8.5-10.1 MG/DL Magnesium Level 1.4 L 1.6-2.4 MG/DL Total Bilirubin 0.7 0.1-1.0 MG/DL Aspartate Amino Transf (AST/SGOT) 22 5-34 U/L Alanine Aminotransferase (ALT/SGPT) 11 0-55 U/L Alkaline Phosphatase 61 40-136 U/L Troponin I < 0.30 <0.30 NG/ML Pro-B-Type Natriuretic Peptide 722.7 H <75.0 PG/ML Total Protein 7.1 6.4-8.2 GM/DL Albumin 4.0 3.2-4.5 GM/DL Urine Color DARK YELLOW Urine Clarity CLEAR Urine pH 7.0 5-9 Urine Specific [place] 1.015 L 1.016-1.022 Urine Protein 1+ H NEGATIVE Urine Glucose (UA) 2+ H NEGATIVE Urine Ketones NEGATIVE NEGATIVE Urine Nitrite NEGATIVE NEGATIVE Urine Bilirubin NEGATIVE NEGATIVE Urine Urobilinogen 0.2 NORMAL MG/DL Urine Leukocyte Esterase NEGATIVE NEGATIVE Urine RBC (Auto) NEGATIVE NEGATIVE Urine RBC NONE /HPF Urine WBC 2-5 /HPF Urine Squamous Epithelial Cells 10-25 H /HPF Urine Crystals NONE /LPF Urine Bacteria NEGATIVE /HPF Urine Casts PRESENT /LPF Urine Hyaline Casts 10-25 H /LPF Urine Mucus SMALL H /LPF Urine Culture Indicated NO My Orders Orders - OPAL CARTER MD Cbc With Automated Diff (08/18/19 18:25) Comprehensive Metabolic Panel (08/18/19 18:25) Blood Culture (08/18/19 18:25) Chest 1 View Ap/Pa Only (08/18/19 18:25) Magnesium (08/18/19 18:25) Ekg Tracing (08/18/19 18:25) O2 (08/18/19 18:25) Ed Iv/Invasive Line Start (08/18/19 18:25) Monitor-Rhythm Ecg Trace Only (08/18/19 18:25) Lactic Acid Analyzer (08/18/19 18:25) Ua Culture If Indicated (08/18/19 18:25) Probnp Fs (08/18/19 18:25) Troponin I (08/18/19 18:25) Sputum Culture (08/18/19 18:25) Ns Iv 1000 Ml (Sodium Chloride 0.9%) (08/18/19 18:28) Manual Differential (08/18/19 18:30) Potassium Cl 10meq/50ml Ivpb (Kcl 10 Meq (08/18/19 19:45) Ns Iv 1000 Ml (Sodium Chloride 0.9%) (08/18/19 19:45) Medications Given in ED Current Medications Medications Dose Ordered Sig/Stephan Route Start Time Stop Time Status Last Admin Dose Admin Potassium Chloride 50 ml @ 50 mls/hr ONCE ONCE IV 08/18/19 19:45 08/18/19 20:44 DC 08/18/19 19:50 50 MLS/HR Vital Signs/I&O 08/18/19 08/18/19 18:20 21:14 Temp 36.7 36.7 Pulse 79 79 Resp 17 17 B/P (MAP) 106/50 (68) 106/50 (68) Pulse Ox 99 99 O2 Delivery Room Air Room Air Capillary Refill : Progress Note #1: Progress Note with generalized weakness and short of breath as well as reported recent pneumonia will check blood cultures and lactic acid. Give IVF for his low blood pressure and may need to give a vasopressor if he does not respond to fluid resuscitation for his BP. Progress Note #2: Progress Note pt feeling a little better as he gets fluids and treatment in ED. His CBC is stable with chronic leukopenia. his Chemistry shows hypokalemia at 2.8. He has negative troponin. His Lactic acid is negative. His CXR is negative for acute process or pneumonia. supplement his potassium. Progress Note #3: Progress Note After additional fluid and potassium he was feeling better and he was having improved swallowing per pt report. He is stable otherwise. Pt is asking if he can go home. Will prescribe some liquid potassium for home and advised to check with clinic about his potassium and difficulty swallowing. He may need to have an EGD or scope done. Encouraged to drink fluids and try supplement drinks. ECG Initial ECG Impression Date: Aug 18, 2019 Initial ECG Impression Time: 18:25 Initial ECG Rate: 77 Initial ECG Rhythm: Normal Sinus Comment Sinus rhythm with a heart rate of 77 bpm. MT interval 160 ms. Left ventricular hypertrophy. QT interval of 389 ms and a QT corrected interval 4 and 41 ms. There is artifact due to motion. No acute ST elevation. Appears similar to prior tracings. Diagnostic Imaging Diagonstic Imaging: Xray Plain Films/CT/US/NM/MRI: chest Comments NAME: RODO TATE MED REC#: [id number] PT STATUS: REG ER : 1945 PHYSICIAN: OPAL CARTER MD ADMIT DATE: 08/18/19/ER FS Signed Date of Exam:08/18/19 CHEST 1 VIEW AP/PA ONLY INDICATION: Shortness of breath, coronary artery disease COMPARISON: 06/24/2019 FINDINGS: Single view of the chest demonstrates stable cardiac enlargement. Lungs are clear. There is no pneumothorax. Sternal wires midline. Osseous structures normal. IMPRESSION: No acute cardiopulmonary findings. No interval change. Dictated by: Dictated on workstation # [id number] Dict: 08/18/191952 Trans: 08/18/192011 [id number] Interpreted by: JADA ANDINO Electronically signed by: JADA ANDINO 08/18/192011 Departure Impression Primary Impression: Hypokalemia Additional Impressions: Dysphagia Qualified Codes: R13.10 - Dysphagia, unspecified Dehydration Generalized weakness Disposition: HOME, SELF-CARE Condition: Stable Departure-Patient Inst. Decision time for Depature: 21:22 Referrals: ANNEMARIE WANG MD (PCP/Family) Primary Care Physician Patient Instructions: Fatigue (DC), Hypokalemia (DC), Generalized Weakness (DC) Add. Discharge Instructions: Follow up with the clinic about your swallowing difficulty and you may need to have a scope done to look at your throat and swallowing to see if there is anything that can be done to help with that. Take the extra potassium to help bring your potassium levels up. Check back with clinic about your weakness Scripts Potassium Chloride (Potassium Chloride) 20 Meq/15 Ml Liquid 20 MEQ PO DAILY for 5 Days, #75 ML 0 Refills Prov: OPAL CARTER MD 08/18/19 OPAL CARTER MD Aug 18, 2019 18:41
[2019-08-18 19:00] LABS: HEMATOCRIT 37 % (40-54); HEMOGLOBIN 11.7 G/DL (13.3-17.7); MEAN CORPUSCULAR HEMOGLOBIN 25 PG (25-34)
[2019-08-18 19:01] LABS: BASOPHILS % (AUTO) 2 % (0-10); EOSINOPHILS # (AUTO) 0.1 10^3/uL (0.0-0.3); EOSINOPHILS % (AUTO) 10 % (0-10); LYMPHOCYTES # (AUTO) 0.6 X 10^3 (1.0-4.0); LYMPHOCYTES % (AUTO) 43 % (12-44); MEAN CORPUSCULAR HGB CONC 32 G/DL (32-36); MEAN CORPUSCULAR VOLUME 80 FL (80-99); MEAN PLATELET VOLUME 10.9 FL (7.4-10.4); MONOCYTES # (AUTO) 0.1 X 10^3 (0.0-1.0); MONOCYTES % (AUTO) 9 % (0-12); NEUTROPHILS # (AUTO) 0.5 X 10^3 (1.8-7.8); NEUTROPHILS % (AUTO) 36 % (42-75); PLATELET COUNT 214 10^3/uL (130-400); RED CELL DISTRIBUTION WIDTH 18.1 % (10.0-14.5)
[2019-08-18 19:25] LABS: WHITE BLOOD COUNT 1.3 10^3/uL (4.3-11.0)
[2019-08-18 19:26] LABS: BAND NEUTROPHILS 7 %; BASOPHILS % (MANUAL) 2 %; EOSINOPHILS % (MANUAL) 12 %; LYMPHOCYTES % (MANUAL) 49 %; MONOCYTES % (MANUAL) 14 %; NEUTROPHILS % (MANUAL) 16 %
[2019-08-18 19:27] LABS: ACANTHOCYTES SLIGHT; POIKILOCYTOSIS SLIGHT
[2019-08-18 19:28] LABS: BUN/CREATININE RATIO 14; CARBON DIOXIDE 28 MMOL/L (21-32); CHLORIDE 95 MMOL/L (98-107); GFR ESTIMATED > 60; GLUCOSE 145 MG/DL (70-105); POTASSIUM 2.8 MMOL/L (3.6-5.0); SODIUM 135 MMOL/L (135-145)
[2019-08-18 19:29] LABS: ALANINE AMINOTRANSFERASE 11 U/L (0-55); ALKALINE PHOSPHATASE 61 U/L (40-136); BILIRUBIN,TOTAL 0.7 MG/DL (0.1-1.0); CALCIUM 9.9 MG/DL (8.5-10.1); MAGNESIUM 1.4 MG/DL (1.6-2.4); TOTAL PROTEIN 7.1 GM/DL (6.4-8.2)
[2019-08-18] MEDS ORDERED: POTASSIUM CL 10MEQ/50ML IVPB 50 ML IV ONE (19:45)
[2019-08-18] MEDS ORDERED: NS IV 1000 ML 1,000 ML IV SCH (19:45)
--- NOTE | 2019-08-18 20:06 | Diagnostic Imaging Report ---
INDICATION: Shortness of breath, coronary artery disease COMPARISON: 06/24/2019 FINDINGS: Single view of the chest demonstrates stable cardiac enlargement. Lungs are clear. There is no pneumothorax. Sternal wires midline. Osseous structures normal. IMPRESSION: No acute cardiopulmonary findings. No interval change. Dictated by: Dictated on workstation # [id number]
[2019-08-18 20:31] LABS: BACTERIA,URINE NEGATIVE /HPF; BILIRUBIN,URINE NEGATIVE (NEGATIVE); CLARITY,URINE CLEAR; COLOR,URINE DARK YELLOW; GLUCOSE, URINE (UA) 2+ (NEGATIVE); KETONES,URINE NEGATIVE (NEGATIVE); LEUKOCYTE ESTERASE ,URINE NEGATIVE (NEGATIVE); NITRITE,URINE NEGATIVE (NEGATIVE); PROTEIN,URINE 1+ (NEGATIVE); UROBILINOGEN,URINE 0.2 MG/DL (NORMAL)
[2019-08-18 21:14] VITALS: BP 106/50
[2019-08-18] MEDS ORDERED: POTA20LI3 PO (21:25)
== END 2019-08-18 21:34 | disposition home or self-care (01) ==
LOC: EDUNIT# 18:15 → ER FS 18:17
DX: E87.6 Hypokalemia (principal); R13.10 Dysphagia, unspecified; E86.0 Dehydration; R53.1 Weakness; I25.2 Old myocardial infarction; I10 Essential (primary) hypertension; E11.9 Type 2 diabetes mellitus without complications; Z85.72 Personal history of non-Hodgkin lymphomas; Z88.6 Allergy status to analgesic agent; Z79.51 Long term (current) use of inhaled steroids; Z79.4 Long term (current) use of insulin; Z79.52 Long term (current) use of systemic steroids; Z95.5 Presence of coronary angioplasty implant and graft; Z95.1 Presence of aortocoronary bypass graft; Z90.49 Acquired absence of other specified parts of digestive tract; Z82.49 Family history of ischemic heart disease and other diseases of the circulatory system
CPT/HCPCS: 36415; 71045; 80053; 81000; 83605; 83735; 83880; 84484; 85007; 85027; 87040; 87070; 87205; 93005; 93041; 96361; 96365

== ENCOUNTER 2019-08-28 10:44 | Outpatient (RCR) | payer MEDICARE, MEDICAID, OTHER ==
[~2019-08-28 10:44] MED LIST changes: +ACETAMINOPHEN 325 MG TAB (TYLENOL) CANCER CTR PO PRN; +NS IV 1000 ML (CANCER CTR) IV SCH; +OBINUTUZUMAB 1,000 MG in NS (IVPB) CANCER CENTER 250 ML IV SCH; +POTA20LI3 PO; +diphenhydrAMINE 25 MG TAB (BENADRYL) CANCER CENTER PO SCH
[2019-08-28] MEDS ORDERED: SULF1TAB35 PO (13:58)
[2019-09-29] MEDS ORDERED: PANT40TA3 PO (08:39)
[2019-09-29] MEDS ORDERED: FLUT1BLS3 INH (08:39)
[2019-09-29] MEDS ORDERED: METO-387 PO (08:39)
[2019-09-29] MEDS ORDERED: TRAM50TA2 PO (08:45)
[2019-10-03] MEDS ORDERED: SUCR1TAB36 PO (09:56)
== END 2019-11-26 | disposition home or self-care (01) ==
LOC: ONC 10:44
PROVIDERS: ATTEND Internal Medicine Hematology & Oncology
DX: C85.90 Non-Hodgkin lymphoma, unspecified, unspecified site (principal); E11.9 Type 2 diabetes mellitus without complications; Z79.4 Long term (current) use of insulin; Z79.82 Long term (current) use of aspirin; Z79.899 Other long term (current) drug therapy

== ENCOUNTER 2019-08-28 11:44 | Emergency (ER) | payer MEDICARE, MEDICAID ==
[~2019-08-28] VITALS: Ht 182.8 cm; Wt 81.8 kg
[~2019-08-28 11:44] MED LIST changes: -ACETAMINOPHEN 325 MG TAB (TYLENOL) CANCER CTR PO PRN; -NS IV 1000 ML (CANCER CTR) IV SCH; -OBINUTUZUMAB 1,000 MG in NS (IVPB) CANCER CENTER 250 ML IV SCH; -diphenhydrAMINE 25 MG TAB (BENADRYL) CANCER CENTER PO SCH
[2019-08-28] MEDS ORDERED: NS IV 1000 ML 1,000 ML IV SCH ×2 (12:08)
--- NOTE | 2019-08-28 12:21 | ED Syncope ---
General Chief Complaint: General Problems/Pain Stated Complaint: LOW BP Source of Information: Patient Exam Limitations: No Limitations History of Present Illness Date Seen by Provider: Aug 28, 2019 Time Seen by Provider: 12:01 Initial Comments Patient [facility] from [facility] by Dr. Calderon with chief complaint that for past 3 or 4 days had poor appetite, couple syncopal episodes a day and general malaise. No fevers chills. [facility] notices blood pressure was low at 98/50. Patient is blind and wheelchair bound for ambulation. He is on maintenance therapy for history of lymphoma. Follows with Dr. Wang for primary care. He denies runny nose sore throat difficulty with swallowing fluids daily. He's had a productive cough without shortness of breath. No chest pain or swelling in the hands or feet. Allergies and Home Medications Allergies Coded Allergies: aspirin (Unverified Adverse Reaction, Unknown, 01/19/19) PATIENT STATES HE IS ABLE TO TAKE THE 81 MG DOSE BUT NOT THE "BIG ASPIRIN" Home Medications Albuterol Sulfate 18 Gm Hfa.aer.ad, 2 PUFF INH Q6H PRN for SHORTNESS OF BREATH, (Reported) Albuterol Sulfate 18 Gm Hfa.aer.ad, 18 GM INH Q4H PRN for COUGH Prescribed by: RODO ROCHA on 06/24/191818 Allopurinol 300 Mg Tablet, 300 MG PO DAILY, (Reported) Amoxicillin/Potassium Clav 1 Each Tablet, 1 EACH PO BID Prescribed by: SHANTELL MALAGON on 01/20/19 0853 Amoxicillin/Potassium Clav 1 Each Tablet, 1 EACH PO BID Prescribed by: LUTHER BIRCH MD on 05/15/19 2315 Atorvastatin Calcium 40 Mg Tablet, 40 MG PO HS, (Reported) Benzonatate 100 Mg Capsule, 100 MG PO TID PRN for COUGH Prescribed by: RODO ROCHA on 06/24/191818 Brimonidine Tartrate 5 Ml Drops, 1 DROP OS BID, (Reported) Cilostazol 100 Mg Tablet, 100 MG PO BID, (Reported) Citalopram Hydrobromide 20 Mg Tablet, 20 MG PO DAILY, (Reported) Dorzolamide HCl/Timolol Maleat 10 Ml Drops, 1 DROP OU BID, (Reported) Fenofibrate Nanocrystallized 145 Mg Tablet, 145 MG PO HS, (Reported) Flaxseed Oil 1,000 Mg Capsule, 1,000 MG PO BID, (Reported) Fluticasone/Vilanterol 1 Each Blst.w.dev, 1 PUFF INH DAILY, (Reported) Gabapentin 300 Mg Capsule, 300 MG PO BID, (Reported) Insuln Asp Prt/Insulin Aspart 1 Unit/0.01 Ml Susp, 100 UNITS SC BID, (Reported) Levofloxacin 750 Mg Tablet, 750 MG PO DAILY Prescribed by: RODO ROCHA on 06/24/191818 Lorazepam 1 Mg Tablet, 1 MG PO TID PRN for ANXIETY, (Reported) Metformin HCl 1,000 Mg Tablet, 1,000 MG PO BID, (Reported) Nystatin 15 Gm Cream..g., 1 GM TP BID Prescribed by: RONIT MARSH on 05/31/192005 [place] 3 Polyunsat Fatty Acids 1,000 Mg Cap, 1,000 MG PO BID, (Reported) Potassium Chloride 20 Meq/15 Ml Liquid, 20 MEQ PO DAILY Prescribed by: OPAL CARTER on 08/18/192124 Prednisolone Acetate 5 Ml Drops.susp, 1 DROP OU BID, (Reported) Prednisone 20 Mg Tab, 20 MG PO DAILY Prescribed by: RODO ROCHA on 06/24/191818 Sulfamethoxazole/Trimethoprim 1 Each Tablet, 1 EACH PO BID Prescribed by: RONIT MARSH on 08/28/19 1358 Tramadol HCl 50 Mg Tablet, 100 MG PO Q6H PRN for PAIN-MODERATE, (Reported) Patient Home Medication List Home Medication List Reviewed: Yes Review of Systems Constitutional: No chills, No fever; malaise, weakness EENTM: No ear discharge, No ear pain, No eye pain Respiratory: cough; No short of breath Cardiovascular: No chest pain, No edema Gastrointestinal: No abdominal pain, No constipation, No diarrhea Genitourinary: No discharge, No dysuria Past [place]-Garmbc-Dgnhjo Hx Patient Social History Alcohol Use: Occasionally Uses Alcohol Beverage of Choice: Beer Recreational Drug Use: No Smoking Status: Never a Smoker 2nd Hand Smoke Exposure: No Recent Hopitalizations: No Immunizations Up To Date Tetanus Booster (TDap): Unknown Date of Pneumonia Vaccine: Sep 10, 2017 Date of Influenza Vaccine: Aug 12, 2018 Seasonal Allergies Seasonal Allergies: No Past Medical History Surgeries: Yes (cataract removal;) Appendectomy, CABG, Coronary Stent Respiratory: No Cardiac: Yes Heart Attack, Hypertension Neurological: No Sexually Transmitted Disease: No HIV/AIDS: No Genitourinary: No Gastrointestinal: No Musculoskeletal: Yes Arthritis, Chronic Back Pain Endocrine: Yes Diabetes, Insulin dep HEENT: Yes (blind) Cataract, Glaucoma Loss of Vision: Bilateral Hearing Impairment: Denies Cancer: Yes Lymphoma Did You Recieve Any Treatments: Yes What Type of Treatment Did You: Chemotherapy Psychosocial: No Integumentary: No Blood Disorders: Yes (thrombocytopenia) Family Medical History Hypertension Physical Exam Vital Signs Vital Signs - First Documented 08/28/19 12:00 Temp 36.5 Pulse 81 Resp 22 B/P (MAP) 113/76 (88) Pulse Ox 96 O2 Delivery Room Air Capillary Refill : Height, Weight, BMI Height: 6'0.00" Weight: 190lbs. 0.0oz. 86.158642gz; 24.00 BMI Method:Stated General Appearance: Cachetic, Thin HEENT: PERRL/EOMI, TMs Normal, Pharynx Normal; No Moist Mucous Membranes Neck: Full Range of Motion, Normal Inspection, Non Tender, Supple Cardiovascular: Regular Rate, Rhythm, No Edema, Normal Peripheral Pulses Respiratory: Lungs Clear, No Accessory Muscle Use, No Respiratory Distress, Decreased Breath Sounds Gastrointestinal: Normal Bowel Sounds, No Organomegaly, Non Tender, Soft Extremities: Normal Capillary Refill, Normal Inspection Neurologic/Psychiatric: Alert, Oriented x3, No Motor/Sensory Deficits, Normal Mood/Affect, mechanic senior II-XII Norm as Tested Skin: Normal Color, Warm/Dry, Other (3 cm diameter red, erythematous, indurated, fluctuant nodule with folliculitis in the right axilla with a necrotic central poor approximately 5 mm diameter) Focused Exam Lactate Level 08/28/19 12:20: Lactic Acid Level 1.40 Lactic Acid Level Laboratory Tests Test 08/28/19 12:20 Lactic Acid Level 1.40 MMOL/L (0.50-2.00) Procedures/Interventions I&D : Blade Size: 11 I & D Procedure: betadine prep, sterile dressing applied Progress Axilla was thoroughly drenched and scrubbed in the usual fashion with Betadine. We used 4 cc of half percent lidocaine without epinephrine to gain adequate anesthesia. We then made an elliptical incision in the central pore of necrotic tissue. Inserted a sterile wound culture swab under the skin and sent to the lab. We then tried to express purulence unsuccessfully. Using a cotton-tipped probe is a blunt instrument we gently probed the wound over unable to gain access into any abscess. We did not do any deep probing of the axilla. Dressing was placed. Patient tolerated the procedure well. Progress/Results/Core Measures Results/Orders Lab Results Laboratory Tests Test 08/28/19 12:20 08/28/19 14:26 Range/Units White Blood Count 1.7 L 4.3-11.0 10^3/uL Red Blood Count 4.45 4.35-5.85 10^6/uL Hemoglobin 11.2 L 13.3-17.7 G/DL Hematocrit 33 L 40-54 % Mean Corpuscular Volume 75 L 80-99 FL Mean Corpuscular Hemoglobin 25 25-34 PG Mean Corpuscular Hemoglobin Concent 34 32-36 G/DL Red Cell Distribution Width 17.7 H 10.0-14.5 % Platelet Count 188 130-400 10^3/uL Mean Platelet Volume 10.7 H 7.4-10.4 FL Neutrophils (%) (Auto) 39 L 42-75 % Lymphocytes (%) (Auto) 37 12-44 % Monocytes (%) (Auto) 17 H 0-12 % Eosinophils (%) (Auto) 6 0-10 % Basophils (%) (Auto) 1 0-10 % Neutrophils # (Auto) 0.7 L 1.8-7.8 X 10^3 Lymphocytes # (Auto) 0.6 L 1.0-4.0 X 10^3 Monocytes # (Auto) 0.3 0.0-1.0 X 10^3 Eosinophils # (Auto) 0.1 0.0-0.3 10^3/uL Basophils # (Auto) 0.0 0.0-0.1 10^3/uL Prothrombin Time 19.7 H 12.2-14.7 SEC INR Comment 1.6 H 0.8-1.4 Activated Partial Thromboplast Time 39 H 24-35 SEC Sodium Level 131 L 135-145 MMOL/L Potassium Level 3.3 L 3.6-5.0 MMOL/L Chloride Level 93 L 98-107 MMOL/L Carbon Dioxide Level 23 21-32 MMOL/L Anion Gap 15 H 5-14 MMOL/L Blood Urea Nitrogen 20 H 7-18 MG/DL Creatinine 1.27 0.60-1.30 MG/DL Estimat Glomerular Filtration Rate 56 BUN/Creatinine Ratio 16 Glucose Level 245 H 70-105 MG/DL Lactic Acid Level 1.40 0.50-2.00 MMOL/L Calcium Level 9.6 8.5-10.1 MG/DL Corrected Calcium 9.9 8.5-10.1 MG/DL Total Bilirubin 1.0 0.1-1.0 MG/DL Aspartate Amino Transf (AST/SGOT) 23 5-34 U/L Alanine Aminotransferase (ALT/SGPT) 15 0-55 U/L Alkaline Phosphatase 57 40-136 U/L Troponin I < 0.028 <0.028 NG/ML B-Type Natriuretic Peptide 64.0 <100.0 PG/ML Total Protein 6.5 6.4-8.2 GM/DL Albumin 3.6 3.2-4.5 GM/DL Urine Color NILAM H Urine Clarity CLEAR Urine pH 6 5-9 Urine Specific [place] 1.015 L 1.016-1.022 Urine Protein 3+ H NEGATIVE Urine Glucose (UA) 2+ H NEGATIVE Urine Ketones 1+ H NEGATIVE Urine Nitrite NEGATIVE NEGATIVE Urine Bilirubin NEGATIVE NEGATIVE Urine Urobilinogen 1 NORMAL MG/DL Urine Leukocyte Esterase 1+ H NEGATIVE Urine RBC (Auto) 1+ H NEGATIVE Urine RBC 0-2 /HPF Urine WBC 5-10 H /HPF Urine Squamous Epithelial Cells 2-5 /HPF Urine Crystals NONE /LPF Urine Bacteria FEW H /HPF Urine Casts PRESENT /LPF Urine Hyaline Casts 2-5 H /LPF Urine Granular Casts 5-10 H /LPF Urine Mucus SMALL H /LPF Urine Culture Indicated CULTURE PENDING Micro Results Microbiology 08/28/19 Influenza Types A,B Antigen (SHAI) - Final, Complete My Orders Orders - RONIT MARSH Cbc With Automated Diff (08/28/19 12:08) Comprehensive Metabolic Panel (08/28/19 12:08) Blood Culture (08/28/19 12:08) Sputum Culture (08/28/19 12:08) Urinalysis (08/28/19 12:08) Urine Culture (08/28/19 12:08) Protime With Inr (08/28/19 12:08) Partial Thromboplastin Time (08/28/19 12:08) Chest 1 View, Ap/Pa Only (08/28/19 12:08) Ed Iv/Invasive Line Start (08/28/19 12:08) Ed Iv/Invasive Line Start (08/28/19 12:08) Ekg Tracing (08/28/19 12:08) Troponin I (08/28/19 12:08) Vital Signs Adult Sepsis Patie Q15M (08/28/19 12:08) O2 (08/28/19 12:08) Remove Rings In Anticipation O (08/28/19 12:08) Lactic Acid Analyzer (08/28/19 12:08) Influenza A And B Antigens (08/28/19 12:08) Ns Iv 1000 Ml (Sodium Chloride 0.9%) (08/28/19 12:08) Ed Iv/Invasive Line Start (08/28/19 12:08) Ns Iv 1000 Ml (Sodium Chloride 0.9%) (08/28/19 12:08) BNP (08/28/19 12:15) Lidocaine 1% Inj 20 Ml (Xylocaine 1% Inj (08/28/19 13:30) Wound Culture (08/28/19 13:19) Ceftriaxone For Iv Use (Rocephin For I (08/28/19 14:00) Medications Given in ED Current Medications Medications Dose Ordered Sig/Stephan Route Start Time Stop Time Status Last Admin Dose Admin Lidocaine HCl 20 ml ONCE ONCE INJ 08/28/19 13:30 08/28/19 13:31 DC 08/28/19 13:36 20 ML Vital Signs/I&O 08/28/19 12:00 Temp 36.5 Pulse 81 Resp 22 B/P (MAP) 113/76 (88) Pulse Ox 96 O2 Delivery Room Air Progress Progress Note #1: Time: 12:20 Progress Note Productive cough, syncopal episode this will rule out pneumonia or influenza swab him some IV fluids. Orthostatic vital signs possible. Obtain labs and urine. ekg Progress Note #2: Time: 13:29 Progress Note His blood pressure soft in the 100-105 systolic range when he arrived but after some IV fluids he's already up to 133/60 with the first liter. He could be having a viral illness given his cough and malaise. Influenza is negative. His syncopal episodes are likely related to being dehydrated and possibly an infection. His white count is stable, low. [place] syncope score 1 point. Medium risk. 3.1% risk of 30-day serious adverse event. Ancef now and Bactrim starting tomorrow. Follow-up with primary care next week. Return precautions given. Initial ECG Impression Date: Aug 28, 2019 Initial ECG Impression Time: 12:15 Initial ECG Rate: 78 Initial ECG Rhythm: Normal Sinus Initial ECG Intervals: Normal Initial ECG Impression: Normal Comment No ST elevation or depression. Diagnostic Imaging Diagonstic Imaging: Xray Plain Films/CT/US/NM/MRI: chest (1v) Comments NAME: RODO TATE MED REC#: [id number] PT STATUS: REG ER : 1945 PHYSICIAN: RONIT MARSH MD ADMIT DATE: 08/28/19/ER Draft Date of Exam:08/28/19 CHEST 1 VIEW, AP/PA ONLY PATIENT HISTORY: Low blood pressure, syncope, non-Hodgkin's lymphoma. TECHNIQUE: Frontal view of the chest. COMPARISON: 08/18/2019 FINDINGS: The lung volumes are normal. No focal consolidation is seen. No large pleural effusion or pneumothorax is seen. The cardiomediastinal silhouette is normal in size and contour. No acute osseous abnormality is seen. Sternotomy wires and post-CABG changes are noted. IMPRESSION: No acute pulmonary abnormality seen. Dictated on workstation # [id number] Dict: 08/28/19 1255 Trans: 08/28/19 1257 [id number] Interpreted by: SUHAIL WOLF MD Electronically signed by: Reviewed: Reviewed by Me Departure Impression Primary Impression: Folliculitis of right axilla Additional Impressions: Viral upper respiratory tract infection with cough Dehydration Orthostatic hypotension UTI (urinary tract infection) Qualified Codes: N30.00 - Acute cystitis without hematuria Disposition: HOME, SELF-CARE Condition: Improved Departure-Patient Inst. Decision time for Depature: 14:55 Referrals: ANNEMARIE WANG MD (PCP/Family) Primary Care Physician Patient Instructions: Viral Upper Respiratory Infection, Adult (DC), Folliculitis, Orthostatic Hypotension Add. Discharge Instructions: Encourage plenty of fluids. Bactrim starting tomorrow morning one tablet twice a day with food. Follow-up next week with primary care doctor. Return to the ER if having fever, nausea vomiting or other significant changes. Change the dressing under the armpit daily or as often as it becomes soiled until the wound heals over. Return to the ER if the wound is getting worse. All discharge instructions reviewed with patient and/or family. Voiced understanding. Scripts Sulfamethoxazole/Trimethoprim (Bactrim Ds Tablet) 1 Each Tablet 1 EACH PO BID for 7 Days, #14 TAB 0 Refills Prov: RONIT MARSH 08/28/19 RONIT MARSH Aug 28, 2019 12:21
[2019-08-28 12:31] LABS: BASOPHILS % (AUTO) 1 % (0-10); EOSINOPHILS # (AUTO) 0.1 10^3/uL (0.0-0.3); EOSINOPHILS % (AUTO) 6 % (0-10); HEMATOCRIT 33 % (40-54); HEMOGLOBIN 11.2 G/DL (13.3-17.7); LYMPHOCYTES # (AUTO) 0.6 X 10^3 (1.0-4.0); LYMPHOCYTES % (AUTO) 37 % (12-44); MEAN CORPUSCULAR HEMOGLOBIN 25 PG (25-34); MEAN CORPUSCULAR HGB CONC 34 G/DL (32-36); MEAN CORPUSCULAR VOLUME 75 FL (80-99); MEAN PLATELET VOLUME 10.7 FL (7.4-10.4); MONOCYTES # (AUTO) 0.3 X 10^3 (0.0-1.0); MONOCYTES % (AUTO) 17 % (0-12); NEUTROPHILS # (AUTO) 0.7 X 10^3 (1.8-7.8); NEUTROPHILS % (AUTO) 39 % (42-75); PLATELET COUNT 188 10^3/uL (130-400); RED CELL DISTRIBUTION WIDTH 17.7 % (10.0-14.5); WHITE BLOOD COUNT 1.7 10^3/uL (4.3-11.0)
[2019-08-28 12:48] LABS: INR 1.6 (0.8-1.4); PROTHROMBIN TIME PATIENT 19.7 SEC (12.2-14.7)
[2019-08-28 12:56] LABS: ALANINE AMINOTRANSFERASE 15 U/L (0-55); ALBUMIN 3.6 GM/DL (3.2-4.5); ALKALINE PHOSPHATASE 57 U/L (40-136); BUN/CREATININE RATIO 16; CALCIUM 9.6 MG/DL (8.5-10.1); CARBON DIOXIDE 23 MMOL/L (21-32); CHLORIDE 93 MMOL/L (98-107); CREATININE SERUM 1.27 MG/DL (0.60-1.30); GFR ESTIMATED 56; GLUCOSE 245 MG/DL (70-105); POTASSIUM 3.3 MMOL/L (3.6-5.0); SODIUM 131 MMOL/L (135-145); TOTAL PROTEIN 6.5 GM/DL (6.4-8.2)
--- NOTE | 2019-08-28 12:57 | Diagnostic Imaging Report ---
PATIENT HISTORY: Low blood pressure, syncope, non-Hodgkin's lymphoma. TECHNIQUE: Frontal view of the chest. COMPARISON: 08/18/2019 FINDINGS: The lung volumes are normal. No focal consolidation is seen. No large pleural effusion or pneumothorax is seen. The cardiomediastinal silhouette is normal in size and contour. No acute osseous abnormality is seen. Sternotomy wires and post-CABG changes are noted. IMPRESSION: No acute pulmonary abnormality seen. Dictated by: Dictated on workstation # [id number]
[2019-08-28] MEDS ORDERED: LIDOCAINE 1% INJ 20 ML 20 ML VIAL INJ ONE (13:30)
[2019-08-28] MEDS ORDERED: SULF1TAB35 PO (13:58)
[2019-08-28] MEDS ORDERED: cefTRIAXone FOR IV USE 1,000 MG in WATER (STERILE) FOR INJECTION 10 ML IV ONE (14:00)
[2019-08-28 14:32] LABS: BILIRUBIN,URINE NEGATIVE (NEGATIVE); CLARITY,URINE CLEAR; COLOR,URINE AMBER; GLUCOSE, URINE (UA) 2+ (NEGATIVE); KETONES,URINE 1+ (NEGATIVE); LEUKOCYTE ESTERASE ,URINE 1+ (NEGATIVE); NITRITE,URINE NEGATIVE (NEGATIVE); PH,URINE 6 (5-9); PROTEIN,URINE 3+ (NEGATIVE); UROBILINOGEN,URINE 1 MG/DL (NORMAL)
[2019-08-28 14:45] LABS: BACTERIA,URINE FEW /HPF; RBC,URINE 0-2 /HPF
[2019-08-28 15:04] VITALS: BP 118/60
== END 2019-08-28 15:04 | disposition home or self-care (01) ==
LOC: EDUNIT# 11:44 → ER 11:45
DX: L73.9 Follicular disorder, unspecified (principal); J06.9 Acute upper respiratory infection, unspecified; E86.0 Dehydration; I95.1 Orthostatic hypotension; N39.0 Urinary tract infection, site not specified; I10 Essential (primary) hypertension; E11.9 Type 2 diabetes mellitus without complications; I25.2 Old myocardial infarction; Z85.72 Personal history of non-Hodgkin lymphomas; Z88.6 Allergy status to analgesic agent; Z79.51 Long term (current) use of inhaled steroids; Z79.4 Long term (current) use of insulin; Z79.52 Long term (current) use of systemic steroids; Z90.49 Acquired absence of other specified parts of digestive tract; Z95.5 Presence of coronary angioplasty implant and graft; Z95.1 Presence of aortocoronary bypass graft; Z82.49 Family history of ischemic heart disease and other diseases of the circulatory system
CPT/HCPCS: 36415; 71045; 80053; 81000; 83605; 83880; 84484; 85025; 85610; 85730; 87040; 87070; 87077; 87088; 87186; 87205; 87804; 93005

== ENCOUNTER 2019-09-03 17:02 | Emergency (ER) | payer MEDICARE, MEDICAID ==
[~2019-09-03] VITALS: Ht 182 cm; Wt 95.0 kg
[~2019-09-03 17:02] MED LIST changes: +SULF1TAB35 PO
[2019-09-03] MEDS ORDERED: NS IV 1000 ML 1,000 ML IV SCH (17:30)
--- NOTE | 2019-09-03 17:36 | ED General ---
General Chief Complaint: General Problems/Pain Stated Complaint: NOT ABLE TO KEEP ANYTHING DONE,DEHYDRATED Nursing Triage Note: MUTIPLE COMPLAINTS OF WEAKNESS, DIARRHEA, WOUNDIN RIGHT AXILLA AND JUST GENERAL HEALTH COMPLAINTS. Nursing Sepsis Screen: No Definite Risk Source of Information: Patient Exam Limitations: No Limitations (RODO ROCHA DO) History of Present Illness Date Seen by Provider: Sep 03, 2019 Time Seen by Provider: 17:20 Initial Comments The patient is a 74-year-old male who presents for evaluation of generalized weakness and fatigue, nausea and vomiting, diarrhea, and decreased oral intake. The patient states that he thinks that he has the flu. He denies fevers or chills, headache, neck pain or stiffness, chest pain, shortness of breath, abdominal or back pain, or urinary complaints. He does have a cough. He is also concerned about a chronic wound to the right axilla. He is alert, calm, and appears to be in no distress. He states that he feels like he is dehydrated. Timing/Duration: 1 Week Severity: Mild Associated Systoms: Loss of Appetite, Malaise, Weakness (RODO ROCHA DO) Allergies and Home Medications Allergies Coded Allergies: aspirin (Unverified Adverse Reaction, Unknown, 01/19/19) PATIENT STATES HE IS ABLE TO TAKE THE 81 MG DOSE BUT NOT THE "BIG ASPIRIN" Home Medications Albuterol Sulfate 18 Gm Hfa.aer.ad, 2 PUFF INH Q6H PRN for SHORTNESS OF BREATH, (Reported) Albuterol Sulfate 18 Gm Hfa.aer.ad, 18 GM INH Q4H PRN for COUGH Prescribed by: RODO ROCHA on 06/24/191818 Allopurinol 300 Mg Tablet, 300 MG PO DAILY, (Reported) Amoxicillin/Potassium Clav 1 Each Tablet, 1 EACH PO BID Prescribed by: SHANTELL MALAGON on 01/20/19 0853 Amoxicillin/Potassium Clav 1 Each Tablet, 1 EACH PO BID Prescribed by: LUTHER BIRCH MD on 05/15/19 2315 Atorvastatin Calcium 40 Mg Tablet, 40 MG PO HS, (Reported) Benzonatate 100 Mg Capsule, 100 MG PO TID PRN for COUGH Prescribed by: RODO ROCHA on 06/24/191818 Brimonidine Tartrate 5 Ml Drops, 1 DROP OS BID, (Reported) Cilostazol 100 Mg Tablet, 100 MG PO BID, (Reported) Citalopram Hydrobromide 20 Mg Tablet, 20 MG PO DAILY, (Reported) Dorzolamide HCl/Timolol Maleat 10 Ml Drops, 1 DROP OU BID, (Reported) Fenofibrate Nanocrystallized 145 Mg Tablet, 145 MG PO HS, (Reported) Flaxseed Oil 1,000 Mg Capsule, 1,000 MG PO BID, (Reported) Fluticasone/Vilanterol 1 Each Blst.w.dev, 1 PUFF INH DAILY, (Reported) Gabapentin 300 Mg Capsule, 300 MG PO BID, (Reported) Insuln Asp Prt/Insulin Aspart 1 Unit/0.01 Ml Susp, 100 UNITS SC BID, (Reported) Levofloxacin 750 Mg Tablet, 750 MG PO DAILY Prescribed by: RODO ROCHA on 06/24/191818 Lorazepam 1 Mg Tablet, 1 MG PO TID PRN for ANXIETY, (Reported) Metformin HCl 1,000 Mg Tablet, 1,000 MG PO BID, (Reported) Nystatin 15 Gm Cream..g., 1 GM TP BID Prescribed by: RONIT MARSH on 05/31/192005 [place] 3 Polyunsat Fatty Acids 1,000 Mg Cap, 1,000 MG PO BID, (Reported) Potassium Chloride 20 Meq/15 Ml Liquid, 20 MEQ PO DAILY Prescribed by: OPAL CARTER on 08/18/192124 Prednisolone Acetate 5 Ml Drops.susp, 1 DROP OU BID, (Reported) Prednisone 20 Mg Tab, 20 MG PO DAILY Prescribed by: RODO ROCHA on 06/24/191818 Sulfamethoxazole/Trimethoprim 1 Each Tablet, 1 EACH PO BID Prescribed by: RONIT MARSH on 08/28/19 1358 Tramadol HCl 50 Mg Tablet, 100 MG PO Q6H PRN for PAIN-MODERATE, (Reported) Patient Home Medication List Home Medication List Reviewed: Yes (RODO ROCHA DO) Review of Systems Review of Systems Constitutional: malaise, weakness EENTM: nose congestion Respiratory: cough Cardiovascular: no symptoms reported Gastrointestinal: diarrhea, nausea Genitourinary: no symptoms reported Musculoskeletal: no symptoms reported Skin: no symptoms reported, other (right axillary lesion) Psychiatric/Neurological: No Symptoms Reported Hematologic/Lymphatic: No Symptoms Reported Immunological/Allergic: no symptoms reported (RODO ROCHA DO) All Other Systems Reviewed Negative Unless Noted: Yes (RODO ROCHA DO) Past Geanobv-Imhfgb-Jkxrph Hx Past Med/Social Hx: Reviewed Nursing Past Med/Soc Hx (RODO ROCHA DO) Patient Social History Alcohol Beverage of Choice: Beer 2nd Hand Smoke Exposure: No Recent Foreign Travel: No Contact w/Someone Who Travel: No Recent Infectious Disease Expo: No Recent Hopitalizations: No Physical Abuse: No Sexual Abuse: No Mistreated: No Fear: No (RODO ROCHA DO) Immunizations Up To Date Tetanus Booster (TDap): Unknown Date of Pneumonia Vaccine: Sep 10, 2017 Date of Influenza Vaccine: Aug 12, 2018 (RODO ROCHA DO) Seasonal Allergies Seasonal Allergies: No (RODO ROCHA DO) Past Medical History Surgeries: Yes (cataract removal;) Appendectomy, CABG, Coronary Stent Respiratory: No Cardiac: Yes Heart Attack, Hypertension Neurological: No Sexually Transmitted Disease: No HIV/AIDS: No Genitourinary: No Gastrointestinal: No Musculoskeletal: Yes Arthritis, Chronic Back Pain Endocrine: Yes Diabetes, Insulin dep HEENT: Yes (blind) Cataract, Glaucoma Loss of Vision: Bilateral Hearing Impairment: Denies Cancer: Yes Lymphoma Did You Recieve Any Treatments: Yes What Type of Treatment Did You: Chemotherapy Psychosocial: No Integumentary: No Blood Disorders: Yes (thrombocytopenia) (RODO ROCHA DO) Family Medical History Hypertension (RODO ROCHA DO) Physical Exam Vital Signs Vital Signs - First Documented 09/03/19 09/03/19 17:22 22:02 Temp 35.9 Pulse 76 Resp 18 B/P (MAP) 100/65 (77) Pulse Ox 100 O2 Delivery Room Air (OPAL CARTER MD) Vital Signs Capillary Refill : Less Than 3 Seconds (RODO ROCHA DO) Height, Weight, BMI Height: 6'0.00" Weight: 190lbs. 0.0oz. 86.551349el; 28.00 BMI Method:Stated General Appearance: No Apparent Distress, WD/WN HEENT: PERRL/EOMI, Normal ENT Inspection, Other (pt is blind, has cataracts) Neck: Full Range of Motion, Normal Inspection, Non Tender, Supple Respiratory: Chest Non Tender, Lungs Clear, Normal Breath Sounds, No Accessory Muscle Use Cardiovascular: Regular Rate, Rhythm, No Edema, No Murmur, Normal Peripheral Pulses Gastrointestinal: Normal Bowel Sounds, No Pulsatile Mass, Soft Extremity: Normal Capillary Refill, Non Tender, No Calf Tenderness, Other (right axillary chronic-appearing open wound) Neurologic/Psychiatric: Alert, Oriented x3, Normal Mood/Affect Skin: Normal Color, Warm/Dry (RODO ROCHA DO) Progress/Results/Core Measures Suspected Sepsis Recent Fever Within 48 Hours: No Infection Criteria Present: None New/Unexplained Altered Menta: No Sepsis Screen: No Definite Risk SIRS Temperature: Pulse: 76 Respiratory Rate: 18 Laboratory Tests 09/03/19 17:23: Blood Pressure 100 /65 Mean: 77 Laboratory Tests 09/03/19 17:23: (RODO ROCHA DO) Results/Orders Lab Results Laboratory Tests Test 09/03/19 17:23 Range/Units White Blood Count 1.6 L 4.3-11.0 10^3/uL Red Blood Count 4.66 4.35-5.85 10^6/uL Hemoglobin 11.7 L 13.3-17.7 G/DL Hematocrit 36 L 40-54 % Mean Corpuscular Volume 76 L 80-99 FL Mean Corpuscular Hemoglobin 25 25-34 PG Mean Corpuscular Hemoglobin Concent 33 32-36 G/DL Red Cell Distribution Width 17.0 H 10.0-14.5 % Platelet Count 212 130-400 10^3/uL Mean Platelet Volume 11.2 H 7.4-10.4 FL Neutrophils (%) (Auto) 42-75 % Lymphocytes (%) (Auto) 12-44 % Monocytes (%) (Auto) 0-12 % Eosinophils (%) (Auto) 0-10 % Basophils (%) (Auto) 0-10 % Neutrophils # (Auto) 1.8-7.8 X 10^3 Lymphocytes # (Auto) 1.0-4.0 X 10^3 Monocytes # (Auto) 0.0-1.0 X 10^3 Eosinophils # (Auto) 0.0-0.3 10^3/uL Basophils # (Auto) 0.0-0.1 10^3/uL Neutrophils % (Manual) 28 % Lymphocytes % (Manual) 46 % Monocytes % (Manual) 10 % Eosinophils % (Manual) 1 % Band Neutrophils 7 % Atypical Lymphocytes 8 % Hypochromasia 1+ Poikilocytosis 2+ Microcytosis 1+ Elliptocytes SLIGHT Acanthocytes MODERATE Sodium Level 134 L 135-145 MMOL/L Potassium Level 3.3 L 3.6-5.0 MMOL/L Chloride Level 95 L 98-107 MMOL/L Carbon Dioxide Level 20 L 21-32 MMOL/L Anion Gap 19 H 5-14 MMOL/L Blood Urea Nitrogen 23 H 7-18 MG/DL Creatinine 1.03 0.60-1.30 MG/DL Estimat Glomerular Filtration Rate > 60 BUN/Creatinine Ratio 22 Glucose Level 314 H 70-105 MG/DL Calcium Level 10.1 8.5-10.1 MG/DL Corrected Calcium 10.3 H 8.5-10.1 MG/DL Total Bilirubin 0.7 0.1-1.0 MG/DL Aspartate Amino Transf (AST/SGOT) 48 H 5-34 U/L Alanine Aminotransferase (ALT/SGPT) 18 0-55 U/L Alkaline Phosphatase 67 40-136 U/L Troponin I < 0.30 <0.30 NG/ML Total Protein 6.9 6.4-8.2 GM/DL Albumin 3.8 3.2-4.5 GM/DL Serum Alcohol < 10 <10 MG/DL (OPAL CARTER MD) Micro Results Microbiology 09/03/19 Influenza Types A,B Antigen (SHAI) - Final, Complete (OPAL CARTER MD) My Orders Orders - OPAL CARTER MD Oseltamivir 75 Mg Capsule (Tamiflu 75 (09/03/19 20:09) Ondansetron Injection (Zofran Injectio (09/03/19 20:09) Ns Iv 1000 Ml (Sodium Chloride 0.9%) (09/03/19 20:09) Lorazepam Injection (Ativan Injection) (09/03/19 20:30) (OPAL CARTER MD) Medications Given in ED Current Medications Medications Dose Ordered Sig/Stephan Route Start Time Stop Time Status Last Admin Dose Admin Iohexol 100 ml ONCE ONCE IV 09/03/19 18:30 09/03/19 18:31 DC 09/03/19 19:04 100 ML Lorazepam 1 mg ONCE ONCE IVP 09/03/19 20:30 09/03/19 20:31 DC 09/03/19 20:42 1 MG Sodium Chloride 10 ml NEEDED PRN IV 09/03/19 18:30 09/03/19 19:04 10 ML Sodium Chloride 100 ml ONCE ONCE IV 09/03/19 18:30 09/03/19 18:31 DC 09/03/19 19:04 80 ML (OPAL CARTER MD) Vital Signs/I&O 09/03/19 09/03/19 17:22 22:02 Temp 35.9 36.2 Pulse 76 72 Resp 18 16 B/P (MAP) 100/65 (77) 126/79 Pulse Ox 100 O2 Delivery Room Air Room Air (OPAL CARTER MD) Vital Signs/I&O Capillary Refill : Less Than 3 Seconds (RODO ROCHA DO) Blood Pressure Mean: 77 Progress Note : Progress Note @1800 - Pt care transferred from Dr. Rocha to Dr. Carter at this time. Awaiting lab and imaging results. (RODO ROCHA DO) Progress Note #1: Progress Note I assumed care of the patient at 1800 pending labs and radiology imaging. He was positive for Influenza which would account for his not feeling well and not wanting to eat or drink well. He is getting IVF bolus of 1 L. Progress Note #2: Time: 19:58 Progress Note CBC shows that he has a stable white blood cell count with chronic leukopenia. He does have slight elevation of his lymphocytes to go along with the viral infection of his influenza. He has stable chemistry. He has still not been able to provide a urine sample. We'll give a second liter bolus of fluid. He is coughing up some clear sputum. Patient states he is a DO NOT RESUSCITATE. With his continued difficulty swallowing and not taking anything by mouth as well as not being able to provide a urine sample will check about admit for IVF hydration, starting Tamiflu and supportive care. He refused to be admitted to [facility] and states that he would be willing to be admitted to [facility] with Dr. Pineda or provider there. Progress Note #3: Time: 20:53 Progress Note I spoke with Dr. Paige Mooney and she accepted the patient in transfer to [facility] for Influenza B and dehydration. (OPAL CARTER MD) Diagnostic Imaging Diagonstic Imaging: Xray Plain Films/CT/US/NM/MRI: chest Comments NAME: RODO TATE MED REC#: [id number] PT STATUS: REG ER : 1945 PHYSICIAN: RODO ROCHA DO ADMIT DATE: 09/03/19/ER FS Draft Date of Exam:09/03/19 CHEST 1 VIEW AP/PA ONLY INDICATION: Weakness and diarrhea. Frontal chest obtained at 06:22 p.m. and compared to 08/28/2019. There is post sternotomy change. The heart is borderline in size. There is no focal infiltrate or pneumothorax or pleural fluid. IMPRESSION: Postoperative changes with no acute process in the chest. Dictated on workstation # [id number] Dict: 09/03/191851 Trans: 09/03/191855 [facility] [id number] Interpreted by: KIT CALERO MD Electronically signed by: Sandhya Imaging: CT Plain Films/CT/US/NM/MRI: abdomen, pelvis Comments NAME: RODO TATE MED REC#: [id number] PT STATUS: REG ER : 1945 PHYSICIAN: RODO ROCHA DO ADMIT DATE: 09/03/19/ER FS Draft Date of Exam:09/03/19 CT ABDOMEN/PELVIS W PROCEDURE: CT abdomen and pelvis with contrast. TECHNIQUE: Multiple contiguous axial images were obtained through the abdomen and pelvis after administration of intravenous contrast. Auto Exposure Controls were utilized during the CT exam to meet ALARA standards for radiation dose reduction. DATE: September 03, 2019. COMPARISON: CT chest, abdomen and pelvis March 16, 2019. INDICATION: 74-year-old male, weakness and diarrhea. FINDINGS: The visualized portions of the lung bases are grossly clear. There are motion limitations of the exam. There is a peripherally enhancing centrally low attenuation lesion in the left lobe of the liver on coronal image 30 measuring 2.4 x 3.1 cm in size. The lesion is present on March 16, 2019 and previously measured approximately 2.1 x 2.6 cm on coronal imaging. The lesion does appear to be increased in size on the current exam. There is an additional similar appearing lesion in the left lobe of the liver on coronal image 54 measuring 3.1 x 3.3 cm in size. This is difficult to measure on the comparison exam as it is much less well-defined previously. This is previously estimated at 1.8 x 2.4 cm in size. Size measurements of the lesion on prior exam may not be entirely accurate. There is a peripherally enhancing lesion in the liver on coronal image 77 measuring 4.6 x 2.9 cm in size. This is new since March 16, 2019. The main, right, and left portal veins are patent. The gallbladder is unremarkable. There is no identified biliary ductal dilation. The main pancreatic duct is not grossly dilated. Unremarkable appearance of the pancreatic parenchyma. The spleen is not enlarged and measures 14.1 cm in craniocaudal dimension. The adrenal glands are unremarkable. There is a subcentimeter lesion arising from the upper pole of the right kidney which is too small to characterize. There is no hydronephrosis. There is asymmetric wall thickening of the anterior aspect of the urinary bladder. There is no identified renal or ureteral stone. There does appear to be abnormal wall thickening of the distal sigmoid colon on axial image 77 and adjacent sequential images. There is no adjacent inflammatory stranding. There is no identified adjacent pericolonic lymph node. There is no free intraperitoneal air, drainable fluid collection, or free pelvic fluid. There are median sternotomy wires. There is no identified acute bony abnormality. There is no identified bone lesion to suggest bone metastasis. IMPRESSION: CT ABDOMEN AND PELVIS. 1. New peripherally enhancing lesion in the right lobe of the liver since March 16, 2019 most concerning for metastatic disease. An abscess potentially could have this imaging appearance. There are additional enhancing lesions in the left lobe of liver which also appear larger in size since March 16, 2019. Especially given the interval increase in size of these lesions, multifocal metastatic disease to the liver is the favored differential diagnostic consideration for all of the liver lesions. 2. Suspected abnormal wall thickening at the level of the distal sigmoid colon which does raise concern for potential colonic malignancy. 3. Asymmetric abnormal wall thickening of the urinary bladder. Urinary bladder malignancy is in the differential diagnosis. Dictated on workstation # [id number] Dict: 09/03/191908 Trans: 09/03/191931 [facility] [id number] Interpreted by: NANCY ALCALA MD Electronically signed by: (OPAL CARTER MD) Departure Impression Primary Impression: Influenza B Additional Impressions: Dehydration Non-Hodgkin lymphoma Qualified Codes: C85.90 - Non-Hodgkin lymphoma, unspecified, unspecified site Disposition: 02 XFER SHT-TRM HOSP Condition: Stable Transfer Time Spoke to Accepting Phy: 20:53 Transfer Progress Notes I spoke with Dr. Paige Domínguez and she accepted the patient in transfer. She will speak with the staff at the hospital and work on arranging for a bed. Patient will be admitted for fluids and hydration. Transfer Facility: [facility] Method of Transfer: EMS (OPAL CARTER MD) Departure-Patient Inst. Referrals: ANNEMARIE WANG MD (PCP/Family) Primary Care Physician RODO ROCHA DO Sep 03, 2019 17:36 OPAL CARTER MD Sep 03, 2019 19:06
[2019-09-03 18:02] LABS: WHITE BLOOD COUNT 1.6 10^3/uL (4.3-11.0)
[2019-09-03 18:03] LABS: HEMATOCRIT 36 % (40-54); HEMOGLOBIN 11.7 G/DL (13.3-17.7); MEAN CORPUSCULAR HEMOGLOBIN 25 PG (25-34); MEAN CORPUSCULAR HGB CONC 33 G/DL (32-36); MEAN CORPUSCULAR VOLUME 76 FL (80-99); MEAN PLATELET VOLUME 11.2 FL (7.4-10.4); PLATELET COUNT 212 10^3/uL (130-400)
[2019-09-03 18:07] LABS: SODIUM 134 MMOL/L (135-145)
[2019-09-03 18:08] LABS: ALANINE AMINOTRANSFERASE 18 U/L (0-55); ALBUMIN 3.8 GM/DL (3.2-4.5); ALKALINE PHOSPHATASE 67 U/L (40-136); BILIRUBIN,TOTAL 0.7 MG/DL (0.1-1.0); BUN/CREATININE RATIO 22; CALCIUM 10.1 MG/DL (8.5-10.1); CARBON DIOXIDE 20 MMOL/L (21-32); CHLORIDE 95 MMOL/L (98-107); CREATININE SERUM 1.03 MG/DL (0.60-1.30); GFR ESTIMATED > 60; GLUCOSE 314 MG/DL (70-105); POTASSIUM 3.3 MMOL/L (3.6-5.0); TOTAL PROTEIN 6.9 GM/DL (6.4-8.2)
[2019-09-03 18:21] LABS: ATYPICAL LYMPHOCYTES 8 %; BAND NEUTROPHILS 7 %; ELLIPT/OVALOCYTES SLIGHT; EOSINOPHILS % (MANUAL) 1 %; HYPOCHROMASIA 1+; LYMPHOCYTES % (MANUAL) 46 %; MICROCYTOSIS 1+; MONOCYTES % (MANUAL) 10 %; NEUTROPHILS % (MANUAL) 28 %; POIKILOCYTOSIS 2+
[2019-09-03 18:22] LABS: ACANTHOCYTES MODERATE
[2019-09-03] MEDS ORDERED: NS 100 ML (IVPB) BAG IV ONE (18:30)
[2019-09-03] MEDS ORDERED: CATHETER FLUSH 10 ML SYR IV PRN (18:30)
[2019-09-03] MEDS ORDERED: IOHEXOL 350 MG/ML 100 ML (OMNIPAQUE 350) VIAL IV ONE (18:30)
[2019-09-03] MEDS ORDERED: HOLD METFORMIN - RECEIVED CONTRAST 20 ML VIAL IV SCH (18:30)
--- NOTE | 2019-09-03 18:57 | Diagnostic Imaging Report ---
INDICATION: Weakness and diarrhea. Frontal chest obtained at 06:22 p.m. and compared to 08/28/2019. There is post sternotomy change. The heart is borderline in size. There is no focal infiltrate or pneumothorax or pleural fluid. IMPRESSION: Postoperative changes with no acute process in the chest. Dictated by: Dictated on workstation # [id number]
--- NOTE | 2019-09-03 19:33 | Diagnostic Imaging Report ---
PROCEDURE: CT abdomen and pelvis with contrast. TECHNIQUE: Multiple contiguous axial images were obtained through the abdomen and pelvis after administration of intravenous contrast. Auto Exposure Controls were utilized during the CT exam to meet ALARA standards for radiation dose reduction. DATE: September 03, 2019. COMPARISON: CT chest, abdomen and pelvis March 16, 2019. INDICATION: 74-year-old male, weakness and diarrhea. FINDINGS: The visualized portions of the lung bases are grossly clear. There are motion limitations of the exam. There is a peripherally enhancing centrally low attenuation lesion in the left lobe of the liver on coronal image 30 measuring 2.4 x 3.1 cm in size. The lesion is present on March 16, 2019 and previously measured approximately 2.1 x 2.6 cm on coronal imaging. The lesion does appear to be increased in size on the current exam. There is an additional similar appearing lesion in the left lobe of the liver on coronal image 54 measuring 3.1 x 3.3 cm in size. This is difficult to measure on the comparison exam as it is much less well-defined previously. This is previously estimated at 1.8 x 2.4 cm in size. Size measurements of the lesion on prior exam may not be entirely accurate. There is a peripherally enhancing lesion in the liver on coronal image 77 measuring 4.6 x 2.9 cm in size. This is new since March 16, 2019. The main, right, and left portal veins are patent. The gallbladder is unremarkable. There is no identified biliary ductal dilation. The main pancreatic duct is not grossly dilated. Unremarkable appearance of the pancreatic parenchyma. The spleen is not enlarged and measures 14.1 cm in craniocaudal dimension. The adrenal glands are unremarkable. There is a subcentimeter lesion arising from the upper pole of the right kidney which is too small to characterize. There is no hydronephrosis. There is asymmetric wall thickening of the anterior aspect of the urinary bladder. There is no identified renal or ureteral stone. There does appear to be abnormal wall thickening of the distal sigmoid colon on axial image 77 and adjacent sequential images. There is no adjacent inflammatory stranding. There is no identified adjacent pericolonic lymph node. There is no free intraperitoneal air, drainable fluid collection, or free pelvic fluid. There are median sternotomy wires. There is no identified acute bony abnormality. There is no identified bone lesion to suggest bone metastasis. IMPRESSION: CT ABDOMEN AND PELVIS. 1. New peripherally enhancing lesion in the right lobe of the liver since March 16, 2019 most concerning for metastatic disease. An abscess potentially could have this imaging appearance. There are additional enhancing lesions in the left lobe of liver which also appear larger in size since March 16, 2019. Especially given the interval increase in size of these lesions, multifocal metastatic disease to the liver is the favored differential diagnostic consideration for all of the liver lesions. 2. Suspected abnormal wall thickening at the level of the distal sigmoid colon which does raise concern for potential colonic malignancy. 3. Asymmetric abnormal wall thickening of the urinary bladder. Urinary bladder malignancy is in the differential diagnosis. Dictated by: Dictated on workstation # [id number]
[2019-09-03] MEDS ORDERED: OSELTAMIVIR 75 MG (TAMIFLU) CAPSULE PO STA (20:09)
[2019-09-03] MEDS ORDERED: NS IV 1000 ML 1,000 ML IV STA (20:09)
[2019-09-03] MEDS ORDERED: ONDANSETRON 4 MG/2 ML (SDV) Z0FRAN IVP STA (20:09)
[2019-09-03] MEDS ORDERED: LORazepam INJ 2 MG/ML (ATIVAN) VIAL IVP ONE (20:30)
[2019-09-03 22:02] VITALS: BP 126/79
[2019-09-03 22:37] LABS: BILIRUBIN,URINE 1+ (NEGATIVE); CLARITY,URINE CLEAR; COLOR,URINE YELLOW; GLUCOSE, URINE (UA) 2+ (NEGATIVE); KETONES,URINE NEGATIVE (NEGATIVE); LEUKOCYTE ESTERASE ,URINE NEGATIVE (NEGATIVE); NITRITE,URINE NEGATIVE (NEGATIVE); PH,URINE 7.5 (5-9); PROTEIN,URINE TRACE (NEGATIVE); RBC,URINE 0-2 /HPF; UROBILINOGEN,URINE 0.2 MG/DL (NORMAL); WBC,URINE 0-2 /HPF
[2019-09-03 22:38] LABS: BACTERIA,URINE NEGATIVE /HPF; SQUAMOUS EPITHELIAL CELL,UR 0-2 /HPF
== END 2019-09-03 22:34 | disposition short-term general hospital (02) ==
LOC: EDUNIT# 17:02 → ER FS 17:05
DX: J10.1 Influenza due to other identified influenza virus with other respiratory manifestations (principal); E86.0 Dehydration; C85.90 Non-Hodgkin lymphoma, unspecified, unspecified site; I10 Essential (primary) hypertension; E11.9 Type 2 diabetes mellitus without complications; I25.2 Old myocardial infarction; Z88.6 Allergy status to analgesic agent; Z79.52 Long term (current) use of systemic steroids; Z79.4 Long term (current) use of insulin; Z90.49 Acquired absence of other specified parts of digestive tract; Z95.5 Presence of coronary angioplasty implant and graft; Z95.1 Presence of aortocoronary bypass graft; Z82.49 Family history of ischemic heart disease and other diseases of the circulatory system
CPT/HCPCS: 36415; 71045; 74177; 80053; 80320; 81000; 84484; 85007; 85027; 87804; 93005; 96361; 96374; 96375

== ENCOUNTER 2019-09-12 15:22 | Emergency (ER) | payer MEDICARE, MEDICAID ==
[~2019-09-12] VITALS: Ht 182.8 cm; Wt 82.7 kg
[~2019-09-12 15:22] MED LIST changes: -TRAM50TA2 PO; +TRM50T PO
--- NOTE | 2019-09-12 16:04 | Diagnostic Imaging Report ---
PATIENT HISTORY: Worsening symptoms. Recently diagnosed with the flu. TECHNIQUE: Single frontal view of the chest. COMPARISON: 09/03/2019. FINDINGS: The lung volumes are normal. No focal consolidation is seen. No large pleural effusion or pneumothorax is seen. The cardiomediastinal silhouette is normal in size and contour. Post CABG changes are noted. No acute osseous abnormality is seen. IMPRESSION: No focal consolidation or mass. Dictated by: Dictated on workstation # [id number]
[2019-09-12 16:15] LABS: HEMATOCRIT 34 % (40-54); HEMOGLOBIN 10.9 G/DL (13.3-17.7); MEAN CORPUSCULAR HEMOGLOBIN 25 PG (25-34); MEAN CORPUSCULAR HGB CONC 32 G/DL (32-36); MEAN CORPUSCULAR VOLUME 79 FL (80-99); PLATELET COUNT 135 10^3/uL (130-400); RED CELL DISTRIBUTION WIDTH 17.4 % (10.0-14.5); WHITE BLOOD COUNT 1.4 10^3/uL (4.3-11.0)
[2019-09-12 16:16] LABS: BASOPHILS % (AUTO) 1 % (0-10); EOSINOPHILS # (AUTO) 0.1 10^3/uL (0.0-0.3); EOSINOPHILS % (AUTO) 8 % (0-10); LYMPHOCYTES # (AUTO) 0.8 X 10^3 (1.0-4.0); LYMPHOCYTES % (AUTO) 54 % (12-44); MEAN PLATELET VOLUME 12.1 FL (7.4-10.4); MONOCYTES # (AUTO) 0.2 X 10^3 (0.0-1.0); MONOCYTES % (AUTO) 14 % (0-12); NEUTROPHILS # (AUTO) 0.3 X 10^3 (1.8-7.8); NEUTROPHILS % (AUTO) 23 % (42-75)
[2019-09-12 16:30] LABS: BUN/CREATININE RATIO 23; CALCIUM 9.6 MG/DL (8.5-10.1); CARBON DIOXIDE 24 MMOL/L (21-32); CHLORIDE 95 MMOL/L (98-107); CREATININE SERUM 0.81 MG/DL (0.60-1.30); GFR ESTIMATED > 60; GLUCOSE 132 MG/DL (70-105); POTASSIUM 4.2 MMOL/L (3.6-5.0); SODIUM 131 MMOL/L (135-145)
[2019-09-12 16:31] LABS: ALANINE AMINOTRANSFERASE 10 U/L (0-55); ALBUMIN 3.6 GM/DL (3.2-4.5); ALKALINE PHOSPHATASE 68 U/L (40-136); BILIRUBIN,TOTAL 0.6 MG/DL (0.1-1.0); TOTAL PROTEIN 6.4 GM/DL (6.4-8.2)
[2019-09-12] MEDS ORDERED: NS IV 1000 ML 1,000 ML IV SCH (17:00)
--- NOTE | 2019-09-12 17:03 | ED General ---
General Chief Complaint: Dizziness/Syncope Stated Complaint: FALL Nursing Triage Note: Patient and caregiver state that patient was in the bathroom at his private residence, patient states he "passed out" and fell to the floor. Caregiver states she had her back turned and did not see patient fall, but found him on the floor. Patient and caregiver deny any injury from the fall. Patient states he was discharged from [facility] one week ago from inpatient hospitalization for influenza B. Patient states he has not regained his strength and has not recovered from the flu. Nursing Sepsis Screen: No Definite Risk Source of Information: Patient Exam Limitations: No Limitations History of Present Illness Date Seen by Provider: Sep 12, 2019 Time Seen by Provider: 16:00 Initial Comments Patient is a 73-year-old male presents with a witnessed syncopal episode from home. Patient had a syncopal episode in his bathroom fell to the floor. Denies hitting his head. Denies pain or injury complaint. Patient is legally blind and was being assisted by his caregiver at the time the caudal fall occurred. Patient was evaluated in this emergency Department ten-day goes go ahead diagnosed with influenza B. He was subsequently admitted to the [facility] and discharged 2 days later. He reports feeling weak and fatigued since release from the hospital. Reports decreased oral intake. Denies fever chills, cough, sore throat, chest pain palpitations abdominal pain. No urinary frequency urgency or dysuria. No other acute symptoms or complaints. Additional history obtained by EMS, health care provide and available medical record. Timing/Duration: 1 Hour Severity: Mild Associated Systoms: Syncope, Weakness, Other Allergies and Home Medications Allergies Coded Allergies: aspirin (Unverified Adverse Reaction, Unknown, 01/19/19) PATIENT STATES HE IS ABLE TO TAKE THE 81 MG DOSE BUT NOT THE "BIG ASPIRIN" Home Medications Albuterol Sulfate 18 Gm Hfa.aer.ad, 2 PUFF INH Q6H PRN for SHORTNESS OF BREATH, (Reported) Albuterol Sulfate 18 Gm Hfa.aer.ad, 18 GM INH Q4H PRN for COUGH Prescribed by: RODO ROCHA on 06/24/19 181 Allopurinol 300 Mg Tablet, 300 MG PO DAILY, (Reported) Amoxicillin/Potassium Clav 1 Each Tablet, 1 EACH PO BID Prescribed by: SHANTELL MALAGON on 01/20/19 0853 Amoxicillin/Potassium Clav 1 Each Tablet, 1 EACH PO BID Prescribed by: LUTHER BIRCH MD on 05/15/19 2315 Atorvastatin Calcium 40 Mg Tablet, 40 MG PO HS, (Reported) Benzonatate 100 Mg Capsule, 100 MG PO TID PRN for COUGH Prescribed by: RODO ROCHA on 06/24/191818 Brimonidine Tartrate 5 Ml Drops, 1 DROP OS BID, (Reported) Cilostazol 100 Mg Tablet, 100 MG PO BID, (Reported) Citalopram Hydrobromide 20 Mg Tablet, 20 MG PO DAILY, (Reported) Dorzolamide HCl/Timolol Maleat 10 Ml Drops, 1 DROP OU BID, (Reported) Fenofibrate Nanocrystallized 145 Mg Tablet, 145 MG PO HS, (Reported) Flaxseed Oil 1,000 Mg Capsule, 1,000 MG PO BID, (Reported) Fluticasone/Vilanterol 1 Each Blst.w.dev, 1 PUFF INH DAILY, (Reported) Gabapentin 300 Mg Capsule, 300 MG PO BID, (Reported) Insuln Asp Prt/Insulin Aspart 1 Unit/0.01 Ml Susp, 100 UNITS SC BID, (Reported) Levofloxacin 750 Mg Tablet, 750 MG PO DAILY Prescribed by: RODO ROCHA on 06/24/191818 Lorazepam 1 Mg Tablet, 1 MG PO TID PRN for ANXIETY, (Reported) Metformin HCl 1,000 Mg Tablet, 1,000 MG PO BID, (Reported) Nystatin 15 Gm Cream..g., 1 GM TP BID Prescribed by: RONIT MARSH on 05/31/192005 [place] 3 Polyunsat Fatty Acids 1,000 Mg Cap, 1,000 MG PO BID, (Reported) Potassium Chloride 20 Meq/15 Ml Liquid, 20 MEQ PO DAILY Prescribed by: OPAL CARTER on 08/18/192124 Prednisolone Acetate 5 Ml Drops.susp, 1 DROP OU BID, (Reported) Prednisone 20 Mg Tab, 20 MG PO DAILY Prescribed by: RODO ROCHA on 06/24/191818 Sulfamethoxazole/Trimethoprim 1 Each Tablet, 1 EACH PO BID Prescribed by: RONIT MARSH on 08/28/19 1358 Tramadol HCl 50 Mg Tablet, 100 MG PO Q6H PRN for PAIN-MODERATE, (Reported) Patient Home Medication List Home Medication List Reviewed: Yes Review of Systems Review of Systems Constitutional: see HPI EENTM: see HPI Respiratory: see HPI Cardiovascular: see HPI Gastrointestinal: see HPI Genitourinary: see HPI Musculoskeletal: see HPI Skin: see HPI Psychiatric/Neurological: See HPI Hematologic/Lymphatic: See HPI Immunological/Allergic: see HPI All Other Systems Reviewed Negative Unless Noted: Yes Past Hbteojw-Qbaclo-Uejqig Hx Past Med/Social Hx: Reviewed Nursing Past Med/Soc Hx Patient Social History Alcohol Beverage of Choice: Beer 2nd Hand Smoke Exposure: No Recent Foreign Travel: No Contact w/Someone Who Travel: No Recent Infectious Disease Expo: No Recent Hopitalizations: No Immunizations Up To Date Tetanus Booster (TDap): Unknown Date of Pneumonia Vaccine: Sep 10, 2017 Date of Influenza Vaccine: Aug 12, 2018 Seasonal Allergies Seasonal Allergies: No Past Medical History Surgeries: Yes (cataract removal;) Appendectomy, CABG, Coronary Stent Respiratory: No Cardiac: Yes Heart Attack, Hypertension Neurological: No Sexually Transmitted Disease: No HIV/AIDS: No Genitourinary: No Gastrointestinal: No Musculoskeletal: Yes Arthritis, Chronic Back Pain Endocrine: Yes Diabetes, Insulin dep HEENT: Yes (blind) Cataract, Glaucoma Loss of Vision: Bilateral Hearing Impairment: Denies Cancer: Yes Lymphoma Did You Recieve Any Treatments: Yes What Type of Treatment Did You: Chemotherapy Psychosocial: No Integumentary: No Blood Disorders: Yes (thrombocytopenia) Family Medical History Hypertension Physical Exam Vital Signs Vital Signs - First Documented 09/12/19 15:25 Temp 36.8 Pulse 73 Resp 18 B/P (MAP) 117/60 (79) Pulse Ox 100 O2 Delivery Room Air Capillary Refill : Less Than 3 Seconds Height, Weight, BMI Height: 6'0.00" Weight: 190lbs. 0.0oz. [id number]; 24.00 BMI Method:Stated General Appearance: No Apparent Distress, WD/WN, Anxious Eyes: Bilateral Eye Other HEENT: Normal ENT Inspection, Pharynx Normal Neck: Full Range of Motion, Normal Inspection, Non Tender Respiratory: Chest Non Tender, Lungs Clear, Normal Breath Sounds Cardiovascular: Regular Rate, Rhythm Gastrointestinal: Non Tender, Soft Back: Normal Inspection Neurologic/Psychiatric: Alert, Oriented x3, No Motor/Sensory Deficits Skin: Normal Color Focused Exam Sepsis Stage: Ruled Out Progress/Results/Core Measures Suspected Sepsis Recent Fever Within 48 Hours: No Infection Criteria Present: None New/Unexplained Altered Menta: No Sepsis Screen: No Definite Risk SIRS Temperature: Pulse: 73 Respiratory Rate: 18 Laboratory Tests 09/12/19 16:00: White Blood Count 1.4*L Blood Pressure 117 /60 Mean: 79 Laboratory Tests 09/12/19 16:00: Creatinine 0.81, Platelet Count 135, Total Bilirubin 0.6 Results/Orders Lab Results Laboratory Tests Test 09/12/19 16:00 09/12/19 18:04 Range/Units White Blood Count 1.4 *L 4.3-11.0 10^3/uL Red Blood Count 4.29 L 4.35-5.85 10^6/uL Hemoglobin 10.9 L 13.3-17.7 G/DL Hematocrit 34 L 40-54 % Mean Corpuscular Volume 79 L 80-99 FL Mean Corpuscular Hemoglobin 25 25-34 PG Mean Corpuscular Hemoglobin Concent 32 32-36 G/DL Red Cell Distribution Width 17.4 H 10.0-14.5 % Platelet Count 135 130-400 10^3/uL Mean Platelet Volume 12.1 H 7.4-10.4 FL Neutrophils (%) (Auto) 23 L 42-75 % Lymphocytes (%) (Auto) 54 H 12-44 % Monocytes (%) (Auto) 14 H 0-12 % Eosinophils (%) (Auto) 8 0-10 % Basophils (%) (Auto) 1 0-10 % Neutrophils # (Auto) 0.3 L 1.8-7.8 X 10^3 Lymphocytes # (Auto) 0.8 L 1.0-4.0 X 10^3 Monocytes # (Auto) 0.2 0.0-1.0 X 10^3 Eosinophils # (Auto) 0.1 0.0-0.3 10^3/uL Basophils # (Auto) 0.0 0.0-0.1 10^3/uL Sodium Level 131 L 135-145 MMOL/L Potassium Level 4.2 3.6-5.0 MMOL/L Chloride Level 95 L 98-107 MMOL/L Carbon Dioxide Level 24 21-32 MMOL/L Anion Gap 12 5-14 MMOL/L Blood Urea Nitrogen 19 H 7-18 MG/DL Creatinine 0.81 0.60-1.30 MG/DL Estimat Glomerular Filtration Rate > 60 BUN/Creatinine Ratio 23 Glucose Level 132 H 70-105 MG/DL Calcium Level 9.6 8.5-10.1 MG/DL Corrected Calcium 9.9 8.5-10.1 MG/DL Total Bilirubin 0.6 0.1-1.0 MG/DL Aspartate Amino Transf (AST/SGOT) 21 5-34 U/L Alanine Aminotransferase (ALT/SGPT) 10 0-55 U/L Alkaline Phosphatase 68 40-136 U/L Troponin I < 0.30 <0.30 NG/ML Total Protein 6.4 6.4-8.2 GM/DL Albumin 3.6 3.2-4.5 GM/DL Urine Color YELLOW Urine Clarity CLEAR Urine pH 6.5 5-9 Urine Specific [place] 1.010 L 1.016-1.022 Urine Protein NEGATIVE NEGATIVE Urine Glucose (UA) NEGATIVE NEGATIVE Urine Ketones NEGATIVE NEGATIVE Urine Nitrite NEGATIVE NEGATIVE Urine Bilirubin NEGATIVE NEGATIVE Urine Urobilinogen 0.2 NORMAL MG/DL Urine Leukocyte Esterase NEGATIVE NEGATIVE Urine RBC (Auto) NEGATIVE NEGATIVE Urine RBC NONE /HPF Urine WBC NONE /HPF Urine Squamous Epithelial Cells 2-5 /HPF Urine Crystals NONE /LPF Urine Bacteria NONE /HPF Urine Casts NONE /LPF Urine Mucus NEGATIVE /LPF Urine Culture Indicated NO My Orders Orders - TYREL GASTON DO Cbc With Automated Diff (09/12/19 15:26) Comprehensive Metabolic Panel (09/12/19 15:26) Ua Culture If Indicated (09/12/19 15:26) Ekg Tracing (09/12/19 15:26) Troponin I Fs (09/12/19 15:26) Chest 1 View Ap/Pa Only (09/12/19 15:26) Ns Iv 1000 Ml (Sodium Chloride 0.9%) (09/12/19 17:00) Orthostatic Vital Signs (Adult (09/12/19 17:03) Lidocaine 2% (Urojet) (Xylocaine Urojet) (09/12/19 17:53) Lidocaine 2% (Urojet) (Xylocaine Urojet) (09/12/19 18:30) Vital Signs/I&O 09/12/19 09/12/19 15:25 18:16 Temp 36.8 Pulse 73 73 71 Resp 18 B/P (MAP) 117/60 (79) 133/76 (95) 129/78 (95) Pulse Ox 100 O2 Delivery Room Air Capillary Refill : Less Than 3 Seconds Blood Pressure Mean: 79 Departure Communication (Admissions) EKG, Labs and imaging seen studies reviewed. Suspect orthostatic causes symptoms could be. Patient's digital strategy specialist states he has had prior syncopal episodes while sitting on the commode. IV fluids given. Patient vital signs remained stable. We'll discharge Impression Primary Impression: Syncope Disposition: HOME, SELF-CARE Condition: Stable Departure-Patient Inst. Decision time for Depature: 18:26 Referrals: ANNEMARIE WANG MD (PCP/Family) Primary Care Physician Patient Instructions: Syncope (Fainting) (DC) Add. Discharge Instructions: Please continue home medications and increase fluids and daily caloric intake. Follow-up with your PCP early next week for reevaluation as needed. Return to the ED if new or worsening symptoms. All discharge instructions reviewed with patient and/or family. Voiced understanding. TYREL GASTON DO Sep 12, 2019 17:03
[2019-09-12] MEDS ORDERED: LIDOCAINE UROJET 2% GEL 10 ML PKG ONE (17:53)
[2019-09-12 18:16] VITALS: BP_SYST 129; BP_SYST 133; BP_DIAS 76; BP_DIAS 78
[2019-09-12 18:16] LABS: BILIRUBIN,URINE NEGATIVE (NEGATIVE); CLARITY,URINE CLEAR; COLOR,URINE YELLOW; GLUCOSE, URINE (UA) NEGATIVE (NEGATIVE); KETONES,URINE NEGATIVE (NEGATIVE); LEUKOCYTE ESTERASE ,URINE NEGATIVE (NEGATIVE); NITRITE,URINE NEGATIVE (NEGATIVE); PH,URINE 6.5 (5-9); PROTEIN,URINE NEGATIVE (NEGATIVE)
[2019-09-12] MEDS ORDERED: LIDOCAINE UROJET 2% GEL 10 ML PKG TOP ONE (18:30)
[2019-09-12 19:20] VITALS: BP 126/53
[2019-09-29] MEDS ORDERED: MTP25TSR PO (08:39)
[2019-09-29] MEDS ORDERED: TRM50T PO (08:45)
== END 2019-09-12 19:20 | disposition home or self-care (01) ==
LOC: EDUNIT# 15:22 → ER FS 15:23
DX: R55 Syncope and collapse (principal); I10 Essential (primary) hypertension; I25.2 Old myocardial infarction; E11.9 Type 2 diabetes mellitus without complications; Z95.1 Presence of aortocoronary bypass graft; Z95.5 Presence of coronary angioplasty implant and graft; Z90.49 Acquired absence of other specified parts of digestive tract; Z79.4 Long term (current) use of insulin; Z79.52 Long term (current) use of systemic steroids; Z88.6 Allergy status to analgesic agent; Z85.72 Personal history of non-Hodgkin lymphomas; Z82.49 Family history of ischemic heart disease and other diseases of the circulatory system; W18.30XA Fall on same level, unspecified, initial encounter; Y92.002 Bathroom of unspecified non-institutional (private) residence as the place of occurrence of the external cause
CPT/HCPCS: 36415; 51701; 71045; 80053; 81000; 84484; 85025; 93005; 96360

== ENCOUNTER → 2019-09-25 | Outpatient (CLI) | payer MEDICARE, MEDICAID ==
[~2019-09-25] MED LIST changes: +FLUT1BLS3 INH; +MTP25TSR PO; +PANT40TA3 PO; +SUCR1TAB36 PO
--- NOTE | 2019-09-25 09:51 | Diagnostic Imaging Report ---
INDICATION: Dysphasia. No priors. Prevertebral space appeared unremarkable. No airway foreign body. Some mild lower cervical spondylosis. The vertebral statures are unremarkable. The alignment is within normal limits. There is vascular calcifications along the carotid distributions bilaterally. IMPRESSION: Relatively mild lower cervical spondylosis. No fracture or malalignment. Soft tissues of the neck appeared unremarkable. No acute findings. We do note chronic carotid atherosclerotic vascular disease. Dictated by: Dictated on workstation # [id number]
== END ==
LOC: RAD FS 09:28
PROVIDERS: ATTEND Family Medicine
DX: M47.812 Spondylosis without myelopathy or radiculopathy, cervical region (principal); I65.23 Occlusion and stenosis of bilateral carotid arteries; R13.12 Dysphagia, oropharyngeal phase
CPT/HCPCS: 72040

== ENCOUNTER 2019-09-28 10:56 | Inpatient (IN) | payer MEDICARE, MEDICAID ==
[~2019-09-28] VITALS: Ht 182 cm; Wt 68.7 kg
[2019-09-28] VITALS (7 sets, daily range): BP systolic 89–135; BP diastolic 38–75
[~2019-09-28 10:56] MED LIST changes: -FLUT1BLS3 INH; -MTP25TSR PO; -PANT40TA3 PO; -SUCR1TAB36 PO; +TRAM50TA2 PO; -TRM50T PO
[2019-09-28] MEDS ORDERED: NS IV 1000 ML 1,000 ML IV SCH (11:15)
--- NOTE | 2019-09-28 11:22 | ED General ---
General Chief Complaint: General Problems/Pain Stated Complaint: GENERAL WEAKNESS Source of Information: Patient Exam Limitations: No Limitations History of Present Illness Date Seen by Provider: Sep 28, 2019 Time Seen by Provider: 11:10 Initial Comments The patient is a 74-year-old male presents via EMS for general malaise. He states that his appetite is decreased and he feels achy all over. The patient is blind and is well-known to this emergency department. He denies headache, neck pain, chest pain or shortness of breath, abdominal pain, diarrhea, or syncope. He had some chest wall soreness earlier but none currently. He states that he wants to be admitted at [place]. He is alert, calm, and appears to be in no distress this time. Timing/Duration: 1 Day Severity: Mild Associated Systoms: Loss of Appetite, Malaise, Weakness Allergies and Home Medications Allergies Coded Allergies: aspirin (Unverified Adverse Reaction, Unknown, 01/19/19) PATIENT STATES HE IS ABLE TO TAKE THE 81 MG DOSE BUT NOT THE "BIG ASPIRIN" Home Medications Albuterol Sulfate 18 Gm Hfa.aer.ad, 2 PUFF INH Q6H PRN for SHORTNESS OF BREATH, (Reported) Albuterol Sulfate 18 Gm Hfa.aer.ad, 18 GM INH Q4H PRN for COUGH Prescribed by: RODO ROCHA on 06/24/191818 Allopurinol 300 Mg Tablet, 300 MG PO DAILY, (Reported) Amoxicillin/Potassium Clav 1 Each Tablet, 1 EACH PO BID Prescribed by: SHANTELL MALAGON on 01/20/19 0853 Amoxicillin/Potassium Clav 1 Each Tablet, 1 EACH PO BID Prescribed by: LUTHER BIRCH MD on 05/15/19 2315 Atorvastatin Calcium 40 Mg Tablet, 40 MG PO HS, (Reported) Benzonatate 100 Mg Capsule, 100 MG PO TID PRN for COUGH Prescribed by: RODO ROCHA on 06/24/191818 Brimonidine Tartrate 5 Ml Drops, 1 DROP OS BID, (Reported) Cilostazol 100 Mg Tablet, 100 MG PO BID, (Reported) Citalopram Hydrobromide 20 Mg Tablet, 20 MG PO DAILY, (Reported) Dorzolamide HCl/Timolol Maleat 10 Ml Drops, 1 DROP OU BID, (Reported) Fenofibrate Nanocrystallized 145 Mg Tablet, 145 MG PO HS, (Reported) Flaxseed Oil 1,000 Mg Capsule, 1,000 MG PO BID, (Reported) Fluticasone/Vilanterol 1 Each Blst.w.dev, 1 PUFF INH DAILY, (Reported) Gabapentin 300 Mg Capsule, 300 MG PO BID, (Reported) Insuln Asp Prt/Insulin Aspart 1 Unit/0.01 Ml Susp, 100 UNITS SC BID, (Reported) Levofloxacin 750 Mg Tablet, 750 MG PO DAILY Prescribed by: RODO ROCHA on 06/24/191818 Lorazepam 1 Mg Tablet, 1 MG PO TID PRN for ANXIETY, (Reported) Metformin HCl 1,000 Mg Tablet, 1,000 MG PO BID, (Reported) Nystatin 15 Gm Cream..g., 1 GM TP BID Prescribed by: RONIT MARSH on 05/31/192005 [place] 3 Polyunsat Fatty Acids 1,000 Mg Cap, 1,000 MG PO BID, (Reported) Potassium Chloride 20 Meq/15 Ml Liquid, 20 MEQ PO DAILY Prescribed by: OPAL CARTER on 08/18/192124 Prednisolone Acetate 5 Ml Drops.susp, 1 DROP OU BID, (Reported) Prednisone 20 Mg Tab, 20 MG PO DAILY Prescribed by: RODO ROCHA on 06/24/191818 Sulfamethoxazole/Trimethoprim 1 Each Tablet, 1 EACH PO BID Prescribed by: RONIT MARSH on 08/28/19 1358 Tramadol HCl 50 Mg Tablet, 100 MG PO Q6H PRN for PAIN-MODERATE, (Reported) Patient Home Medication List Home Medication List Reviewed: Yes Review of Systems Review of Systems Constitutional: malaise, weakness EENTM: no symptoms reported; No blurred vision, No double vision, No throat pain Respiratory: no symptoms reported; No short of breath, No stridor Cardiovascular: no symptoms reported; No edema, No palpitations, No syncope Gastrointestinal: no symptoms reported; No diarrhea, No nausea Genitourinary: no symptoms reported; No hematuria, No pain Musculoskeletal: no symptoms reported Skin: no symptoms reported Psychiatric/Neurological: No Symptoms Reported; Denies Paresthesia, Denies Seizure, Denies Tingling Hematologic/Lymphatic: No Symptoms Reported; Denies Anemia, Denies Blood Clots, Denies Other Immunological/Allergic: no symptoms reported; denies see HPI, denies transplant All Other Systems Reviewed Negative Unless Noted: Yes Past Hxigzqa-Kywpwq-Omsxxg Hx Past Med/Social Hx: Reviewed Nursing Past Med/Soc Hx Patient Social History Alcohol Use: Occasionally Uses Number of Drinks Today: AA Alcohol Beverage of Choice: Beer Recreational Drug Use: No Smoking Status: Never a Smoker 2nd Hand Smoke Exposure: No Recent Foreign Travel: Yes Recent Hopitalizations: No Physical Abuse: No Sexual Abuse: No Mistreated: No Fear: No Immunizations Up To Date Tetanus Booster (TDap): Unknown Date of Pneumonia Vaccine: Sep 10, 2017 Date of Influenza Vaccine: Aug 12, 2018 Seasonal Allergies Seasonal Allergies: No Past Medical History Surgeries: Yes (cataract removal) Appendectomy, CABG, Coronary Stent Respiratory: No Cardiac: Yes Heart Attack, Hypertension Neurological: No Sexually Transmitted Disease: No HIV/AIDS: No Genitourinary: No Gastrointestinal: No Musculoskeletal: Yes Arthritis, Chronic Back Pain Endocrine: Yes Diabetes, Insulin dep HEENT: Yes (blind) Cataract, Glaucoma Loss of Vision: Bilateral Hearing Impairment: Denies Cancer: Yes Lymphoma Did You Recieve Any Treatments: Yes What Type of Treatment Did You: Chemotherapy Psychosocial: No Integumentary: No Blood Disorders: Yes (thrombocytopenia) Family Medical History Hypertension Physical Exam Vital Signs Capillary Refill : Height, Weight, BMI Height: 6'0.00" Weight: 190lbs. 0.0oz. 86.737800vf; 24.00 BMI Method:Stated General Appearance: No Apparent Distress, WD/WN Eyes: Bilateral Eye Other (cataracts, blind) HEENT: Pharynx Normal Neck: Full Range of Motion, Normal Inspection, Non Tender, Supple Respiratory: Chest Non Tender, Lungs Clear, Normal Breath Sounds, No Accessory Muscle Use, No Respiratory Distress Cardiovascular: Regular Rate, Rhythm, No Edema, No JVD Gastrointestinal: Normal Bowel Sounds, Non Tender, Soft Extremity: Normal Capillary Refill, Non Tender, No Calf Tenderness Neurologic/Psychiatric: Alert, No Motor/Sensory Deficits, Normal Mood/Affect Skin: Normal Color, Warm/Dry Progress/Results/Core Measures Suspected Sepsis SIRS Temperature: Pulse: Respiratory Rate: Laboratory Tests 09/28/19 11:20: White Blood Count 1.3*L Blood Pressure / Mean: Laboratory Tests 09/28/19 11:20: Creatinine 1.19, Platelet Count 141, Total Bilirubin 0.9 Results/Orders Lab Results Laboratory Tests Test 09/28/19 11:20 09/28/19 12:00 Range/Units White Blood Count 1.3 *L 4.3-11.0 10^3/uL Red Blood Count 3.83 L 4.35-5.85 10^6/uL Hemoglobin 9.5 L 13.3-17.7 G/DL Hematocrit 28 L 40-54 % Mean Corpuscular Volume 74 L 80-99 FL Mean Corpuscular Hemoglobin 25 25-34 PG Mean Corpuscular Hemoglobin Concent 34 32-36 G/DL Red Cell Distribution Width 17.1 H 10.0-14.5 % Platelet Count 141 130-400 10^3/uL Mean Platelet Volume 11.4 H 7.4-10.4 FL Neutrophils (%) (Auto) 46 42-75 % Lymphocytes (%) (Auto) 29 12-44 % Monocytes (%) (Auto) 13 H 0-12 % Eosinophils (%) (Auto) 1 0-10 % Basophils (%) (Auto) 0 0-10 % Neutrophils # (Auto) 0.6 L 1.8-7.8 X 10^3 Lymphocytes # (Auto) 0.4 L 1.0-4.0 X 10^3 Monocytes # (Auto) 0.2 0.0-1.0 X 10^3 Eosinophils # (Auto) 0.0 0.0-0.3 10^3/uL Basophils # (Auto) 0.0 0.0-0.1 10^3/uL Sodium Level 128 L 135-145 MMOL/L Potassium Level 2.5 *L 3.6-5.0 MMOL/L Chloride Level 84 L 98-107 MMOL/L Carbon Dioxide Level 22 21-32 MMOL/L Anion Gap 22 H 5-14 MMOL/L Blood Urea Nitrogen 41 H 7-18 MG/DL Creatinine 1.19 0.60-1.30 MG/DL Estimat Glomerular Filtration Rate 60 BUN/Creatinine Ratio 34 Glucose Level 271 H 70-105 MG/DL Calcium Level 9.5 8.5-10.1 MG/DL Corrected Calcium 10.1 8.5-10.1 MG/DL Magnesium Level 1.1 *L 1.6-2.4 MG/DL Total Bilirubin 0.9 0.1-1.0 MG/DL Aspartate Amino Transf (AST/SGOT) 38 H 5-34 U/L Alanine Aminotransferase (ALT/SGPT) 16 0-55 U/L Alkaline Phosphatase 88 40-136 U/L Troponin I < 0.30 <0.30 NG/ML Total Protein 6.2 L 6.4-8.2 GM/DL Albumin 3.3 3.2-4.5 GM/DL Amylase Level 12 L 25-125 U/L Urine Color YELLOW Urine Clarity SL CLOUDY Urine pH 5.5 5-9 Urine Specific [place] 1.020 1.016-1.022 Urine Protein 1+ H NEGATIVE Urine Glucose (UA) TRACE H NEGATIVE Urine Ketones TRACE H NEGATIVE Urine Nitrite NEGATIVE NEGATIVE Urine Bilirubin NEGATIVE NEGATIVE Urine Urobilinogen 0.2 NORMAL MG/DL Urine Leukocyte Esterase TRACE NEGATIVE Urine RBC (Auto) NEGATIVE NEGATIVE Urine RBC NONE /HPF Urine WBC 5-10 H /HPF Urine Crystals NONE /LPF Urine Bacteria LARGE H /HPF Urine Casts NONE /LPF Urine Mucus NEGATIVE /LPF Urine Culture Indicated YES Micro Results Microbiology 09/28/19 Influenza Types A,B Antigen (SHAI) - Final, Complete My Orders Orders - RODO ROCHA DO Amylase (09/28/19 11:12) Cbc With Automated Diff (09/28/19 11:12) Comprehensive Metabolic Panel (09/28/19 11:12) Magnesium (09/28/19 11:12) Ua Culture If Indicated (09/28/19 11:12) Influenza A And B Antigens (09/28/19 11:12) Troponin I Fs (09/28/19 11:12) Ekg Tracing (09/28/19 11:12) Continuous Ekg Monitoring (09/28/19 11:12) Ns Iv 1000 Ml (Sodium Chloride 0.9%) (09/28/19 11:15) Urine Culture (09/28/19 12:00) Magnesium 1 Gm/100 Ml Ivpb (Magnesium Patel (09/28/19 12:30) Potassium Cl 10meq/50ml Ivpb (Kcl 10 Meq (09/28/19 12:30) Potassium Chloride (Tablet) (K Dur Table (09/28/19 12:30) Ceftriaxone For Iv Use (Rocephin For I (09/28/19 12:30) Medications Given in ED Current Medications Medications Dose Ordered Sig/Stephan Route Start Time Stop Time Status Last Admin Dose Admin Ceftriaxone Sodium 1000 mg/ Sterile Water 10 ml @ 200 mls/hr ONCE ONCE IV 09/28/19 12:30 09/28/19 12:32 DC 09/28/19 12:47 200 MLS/HR Vital Signs/I&O Capillary Refill : Progress Note : Progress Note @1321 - patient updated on lab and imaging results. He agrees with the plan to be admitted for replacement of potassium, magnesium, and close monitoring. Dr. Mai accepts the admission at [facility]. Departure Communication (Admissions) Time/Spoke to Admitting Phy: 12:30 Dr. Mai accepts admission to [facility] at this time. Impression Primary Impression: Hypokalemia Additional Impressions: Hypomagnesemia Decreased appetite Disposition: ADMITTED INPATIENT Condition: Stable Admissions Decision to Admit Reason: Admit from ER (General) Decision to Admit/Date: Sep 28, 2019 Time/Decision to Admit Time: 12:30 Departure-Patient Inst. Referrals: ANNEMARIE WANG MD (PCP/Family) Primary Care Physician RODO ROCHA DO Sep 28, 2019 11:22 POS
[2019-09-28 11:33] LABS: BASOPHILS % (AUTO) 0 % (0-10); EOSINOPHILS % (AUTO) 1 % (0-10); HEMATOCRIT 28 % (40-54); HEMOGLOBIN 9.5 G/DL (13.3-17.7); LYMPHOCYTES # (AUTO) 0.4 X 10^3 (1.0-4.0); LYMPHOCYTES % (AUTO) 29 % (12-44); MEAN CORPUSCULAR HEMOGLOBIN 25 PG (25-34); MEAN CORPUSCULAR HGB CONC 34 G/DL (32-36); MEAN CORPUSCULAR VOLUME 74 FL (80-99); MEAN PLATELET VOLUME 11.4 FL (7.4-10.4); MONOCYTES # (AUTO) 0.2 X 10^3 (0.0-1.0); MONOCYTES % (AUTO) 13 % (0-12); NEUTROPHILS # (AUTO) 0.6 X 10^3 (1.8-7.8); NEUTROPHILS % (AUTO) 46 % (42-75); PLATELET COUNT 141 10^3/uL (130-400); RED CELL DISTRIBUTION WIDTH 17.1 % (10.0-14.5); WHITE BLOOD COUNT 1.3 10^3/uL (4.3-11.0)
[2019-09-28 11:57] LABS: SODIUM 128 MMOL/L (135-145)
[2019-09-28 11:58] LABS: POTASSIUM 2.5 MMOL/L (3.6-5.0)
[2019-09-28 11:59] LABS: BUN/CREATININE RATIO 34; CALCIUM 9.5 MG/DL (8.5-10.1); CARBON DIOXIDE 22 MMOL/L (21-32); CHLORIDE 84 MMOL/L (98-107); CREATININE SERUM 1.19 MG/DL (0.60-1.30); GFR ESTIMATED 60; GLUCOSE 271 MG/DL (70-105); MAGNESIUM 1.1 MG/DL (1.6-2.4)
[2019-09-28 12:00] LABS: ALANINE AMINOTRANSFERASE 16 U/L (0-55); ALBUMIN 3.3 GM/DL (3.2-4.5); ALKALINE PHOSPHATASE 88 U/L (40-136); AMYLASE 12 U/L (25-125); BILIRUBIN,TOTAL 0.9 MG/DL (0.1-1.0); TOTAL PROTEIN 6.2 GM/DL (6.4-8.2)
[2019-09-28 12:18] LABS: CLARITY,URINE SL CLOUDY; COLOR,URINE YELLOW
[2019-09-28 12:19] LABS: BACTERIA,URINE LARGE /HPF; BILIRUBIN,URINE NEGATIVE (NEGATIVE); GLUCOSE, URINE (UA) TRACE (NEGATIVE); KETONES,URINE TRACE (NEGATIVE); LEUKOCYTE ESTERASE ,URINE TRACE (NEGATIVE); NITRITE,URINE NEGATIVE (NEGATIVE); PH,URINE 5.5 (5-9); PROTEIN,URINE 1+ (NEGATIVE)
[2019-09-28] MEDS ORDERED: KCL 20 MEQ TAB (K-DUR) PO ONE (12:30)
[2019-09-28] MEDS ORDERED: cefTRIAXone FOR IV USE 1,000 MG in WATER (STERILE) FOR INJECTION 10 ML IV ONE (12:30)
[2019-09-28] MEDS: POTASSIUM CL 10MEQ/50ML IVPB 50 ML IV SCH ×4 (12:50→16:06)
[2019-09-28] MEDS: MAGNESIUM 1 GM/100 ML IVPB 100 ML IV SCH ×2 (12:51→13:56)
--- NOTE | 2019-09-28 17:53 | NUR ---
RECEIVED REPORT FROM JOSE MAYBERRY RN.
--- NOTE | 2019-09-28 18:36 | NUR ---
patient transferred at this time to [facility] via [facility] ems. Report given to MEENA and cordell, EMS crew.
--- NOTE | 2019-09-28 19:04 | NUR ---
RECEIVED REPORT FROM [facility] EMS. THEY STATED THEY ARE 15MIN OUT.
--- NOTE | 2019-09-28 19:21 | NUR ---
RODO TATE SR admitted to room CU7-1, with an admitting diagnosis of Severe hypokalemia,hypomagnesium on 09/28/19 from [facility], accompanied by staff.RODO TATE SR introduced to surroundings, call light, bed controls, phone, TV, temperature control, lights, meal times, smoking policy, visitor policy, side rail policy, bathrooms and showers. Patient Rights given to patient in the handbook. RODO TATE SR verbalizes understanding that [facility] is not responsible for the loss or damage to any personal effects or valuables that are kept in the patients possession during their hospitalization. The following Patient Care Plans were discussed with the patient: Discharge Planning, pain management,activity. RODO TATE SR verbalizes understanding of Interdisciplinary Patient Education. Patient and/or family were informed about the Rapid Response Team and its purpose.
--- NOTE | 2019-09-28 19:53 | NUR ---
Notified Dr Mai at this time that patient came from [facility] ED but doesn't have any orders for Lab, IV fluids or diet. Orders placed by Dr Mai. No order for repeat labs until am.
[2019-09-28] MEDS ORDERED: LOPERAMIDE 2 MG (IMODIUM) TABLET PO PRN (20:00)
[2019-09-28] MEDS ORDERED: diphenhydrAMINE 25 MG TAB (BENADRYL) PO PRN (20:00)
[2019-09-28] MEDS ORDERED: ENOXAPARIN 40 MG/0.4 ML (LOVENOX) SYR SC SCH (20:00)
[2019-09-28] MEDS ORDERED: CALCIUM CARBONATE 500 MG (TUMS) TAB.CHEW PO PRN (20:00)
[2019-09-28] MEDS ORDERED: ACETAMINOPHEN 500 MG TAB (TYLENOL) PO PRN (20:00)
[2019-09-28] MEDS ORDERED: DOCUSATE SODIUM 100 MG (COLACE) CAP PO PRN (20:00)
[2019-09-28] MEDS ORDERED: ONDANSETRON 4 MG/2 ML (SDV) Z0FRAN IVP PRN (20:00)
[2019-09-28] MEDS: POTASSIUM CHLORIDE INJ 10 MEQ in NS IV 1000 ML 1,000 ML IV SCH (20:18)
[2019-09-28] MEDS: ENOXAPARIN 40 MG/0.4 ML (LOVENOX) SYR SC SCH (20:18)
[2019-09-28] MEDS: SENNA W/DOCUSATE (SENOKOT S) TABLET PO SCH (20:31)
[2019-09-28] MEDS: inSUlin ASPART (NovoLOG) 1 UNIT/0.01 ML (CHARGE PER UNIT) SQ SCH (21:05)
[2019-09-28] MEDS: HYDROcodone/APAP 5 MG/325 MG (LORTAB) TAB PO PRN (21:15)
[2019-09-28] MEDS: ALPRAZolam 0.25 MG (XANAX) TAB PO PRN (21:15)
[2019-09-28] MEDS: fentaNYL INJECTION 100 MCG/2 ML AMP IVP PRN (23:53)
[2019-09-29] VITALS (10 sets, daily range): BP systolic 80–151; BP diastolic 44–92
[2019-09-29 03:18] LABS: BASOPHILS % (AUTO) 0 % (0-10); EOSINOPHILS % (AUTO) 1 % (0-10); HEMATOCRIT 26 % (40-54); LYMPHOCYTES # (AUTO) 0.3 X 10^3 (1.0-4.0); LYMPHOCYTES % (AUTO) 26 % (12-44); MEAN CORPUSCULAR HEMOGLOBIN 25 PG (25-34); MEAN CORPUSCULAR HGB CONC 34 G/DL (32-36); MEAN CORPUSCULAR VOLUME 73 FL (80-99); MEAN PLATELET VOLUME 10.7 FL (7.4-10.4); MONOCYTES # (AUTO) 0.2 X 10^3 (0.0-1.0); MONOCYTES % (AUTO) 16 % (0-12); NEUTROPHILS # (AUTO) 0.6 X 10^3 (1.8-7.8); NEUTROPHILS % (AUTO) 57 % (42-75); PLATELET COUNT 139 10^3/uL (130-400); RED CELL DISTRIBUTION WIDTH 17.5 % (10.0-14.5)
[2019-09-29 03:30] LABS: WHITE BLOOD COUNT 1.1 10^3/uL (4.3-11.0)
[2019-09-29 03:43] LABS: ALANINE AMINOTRANSFERASE 19 U/L (0-55); ALBUMIN 3.1 GM/DL (3.2-4.5); ALKALINE PHOSPHATASE 75 U/L (40-136); BILIRUBIN,TOTAL 0.7 MG/DL (0.1-1.0); BUN/CREATININE RATIO 32; CARBON DIOXIDE 21 MMOL/L (21-32); CHLORIDE 99 MMOL/L (98-107); CREATININE SERUM 0.81 MG/DL (0.60-1.30); GFR ESTIMATED > 60; GLUCOSE 179 MG/DL (70-105); MAGNESIUM 1.6 MG/DL (1.6-2.4); PHOSPHORUS 2.3 MG/DL (2.3-4.7); POTASSIUM 2.8 MMOL/L (3.6-5.0); SODIUM 133 MMOL/L (135-145); TOTAL PROTEIN 5.5 GM/DL (6.4-8.2)
[2019-09-29] MEDS: MAGNESIUM 1 GM/100 ML IVPB 100 ML IV SCH ×3 (04:09→05:12)
[2019-09-29] MEDS: POTASSIUM CL 10MEQ/50ML IVPB 50 ML IV SCH ×7 (04:10→18:15)
[2019-09-29] MEDS: inSUlin ASPART (NovoLOG) 1 UNIT/0.01 ML (CHARGE PER UNIT) SQ SCH ×4 (04:13→21:43)
[2019-09-29] MEDS: KCL 20 MEQ TAB (K-DUR) PO SCH (04:13)
--- NOTE | 2019-09-29 04:36 | Pulmonary Consultation ---
History of Present Illness History of Present Illness Date of Consultation 09/29/19 04:31 Time Seen by Provider: 04:31 Date of Admission History of Present Illness 74yo with hx of CLL, and blindness presented to ED via EMS secondary to decreased appetite and generalized pain. PT has had multiple ED visits. He lives at home alone with his . Pt is not undergoing chemotherapy secondary to transportation issues. I am consulted for ICU management. Allergies and Home Medications Allergies Coded Allergies: aspirin (Unverified Adverse Reaction, Unknown, 01/19/19) PATIENT STATES HE IS ABLE TO TAKE THE 81 MG DOSE BUT NOT THE "BIG ASPIRIN" Home Medications Albuterol Sulfate 18 Gm Hfa.aer.ad, 2 PUFF INH Q6H PRN for SHORTNESS OF BREATH, (Reported) Albuterol Sulfate 18 Gm Hfa.aer.ad, 18 GM INH Q4H PRN for COUGH Prescribed by: RODO ROCHA on 06/24/191818 Allopurinol 300 Mg Tablet, 300 MG PO DAILY, (Reported) Amoxicillin/Potassium Clav 1 Each Tablet, 1 EACH PO BID Prescribed by: SHANTELL MALAGON on 01/20/19 0853 Amoxicillin/Potassium Clav 1 Each Tablet, 1 EACH PO BID Prescribed by: LUTHER BIRCH MD on 05/15/19 2315 Atorvastatin Calcium 40 Mg Tablet, 40 MG PO HS, (Reported) Benzonatate 100 Mg Capsule, 100 MG PO TID PRN for COUGH Prescribed by: RODO ROCHA on 06/24/191818 Brimonidine Tartrate 5 Ml Drops, 1 DROP OS BID, (Reported) Cilostazol 100 Mg Tablet, 100 MG PO BID, (Reported) Citalopram Hydrobromide 20 Mg Tablet, 20 MG PO DAILY, (Reported) Dorzolamide HCl/Timolol Maleat 10 Ml Drops, 1 DROP OU BID, (Reported) Fenofibrate Nanocrystallized 145 Mg Tablet, 145 MG PO HS, (Reported) Flaxseed Oil 1,000 Mg Capsule, 1,000 MG PO BID, (Reported) Fluticasone/Vilanterol 1 Each Blst.w.dev, 1 PUFF INH DAILY, (Reported) Gabapentin 300 Mg Capsule, 300 MG PO BID, (Reported) Insuln Asp Prt/Insulin Aspart 1 Unit/0.01 Ml Susp, 100 UNITS SC BID, (Reported) Levofloxacin 750 Mg Tablet, 750 MG PO DAILY Prescribed by: RODO ROCHA on 06/24/191818 Lorazepam 1 Mg Tablet, 1 MG PO TID PRN for ANXIETY, (Reported) Metformin HCl 1,000 Mg Tablet, 1,000 MG PO BID, (Reported) Nystatin 15 Gm Cream..g., 1 GM TP BID Prescribed by: RONIT MARSH on 05/31/192005 Ironside 3 Polyunsat Fatty Acids 1,000 Mg Cap, 1,000 MG PO BID, (Reported) Potassium Chloride 20 Meq/15 Ml Liquid, 20 MEQ PO DAILY Prescribed by: OPAL CARTER on 08/18/192124 Prednisolone Acetate 5 Ml Drops.susp, 1 DROP OU BID, (Reported) Prednisone 20 Mg Tab, 20 MG PO DAILY Prescribed by: RODO ROCHA on 06/24/191818 Sulfamethoxazole/Trimethoprim 1 Each Tablet, 1 EACH PO BID Prescribed by: RONIT MARSH on 08/28/19 1358 Tramadol HCl 50 Mg Tablet, 100 MG PO Q6H PRN for PAIN-MODERATE, (Reported) Past Wfmwlpn-Kmttmw-Tklzmx Hx Past Med/Social Hx: Reviewed Nursing Past Med/Soc Hx Patient Social History Alcohol Use: Occasionally Uses Number of Drinks Today: AA Alcohol Beverage of Choice: Beer Recreational Drug Use: No Smoking Status: Never a Smoker 2nd Hand Smoke Exposure: No Recent Foreign Travel: No Contact w/Someone Who Travel: No Recent Infectious Disease Expo: No Recent Hopitalizations: No Physical Abuse: No Sexual Abuse: No Mistreated: No Fear: No Immunizations Up To Date Tetanus Booster (TDap): Unknown Date of Pneumonia Vaccine: Sep 10, 2017 Date of Influenza Vaccine: Sep 26, 2019 Seasonal Allergies Seasonal Allergies: No Past Medical History Surgeries: Yes (cataract removal) Appendectomy, CABG, Coronary Stent Respiratory: No Cardiac: Yes Heart Attack, Hypertension Neurological: No Sexually Transmitted Disease: No HIV/AIDS: No Genitourinary: No Gastrointestinal: No Musculoskeletal: Yes Arthritis, Chronic Back Pain Endocrine: Yes Diabetes, Insulin dep HEENT: Yes (blind) Cataract, Glaucoma Loss of Vision: Bilateral Hearing Impairment: Denies Cancer: Yes Lymphoma Did You Recieve Any Treatments: Yes What Type of Treatment Did You: Chemotherapy Psychosocial: No Integumentary: No Blood Disorders: Yes (thrombocytopenia) Family Medical History Hypertension Review of Systems Time Seen by Provider: 06:32 Constitutional: Weakness, Malaise; No: Fever, Chills, Sweats ENT: No: Ear pain, Ear discharge, Nose pain, Nose discharge, Nose congestion, Mouth pain, Mouth swelling, Throat pain, Throat swelling, Other Respiratory: No: Cough, Dry, Shortness of breath, SOB with excertion, Wheezing, Hemoptysis, Pleuritic Pain, Sputum, Wheezing, Other Cardiovascular: Chest Pain, Palpitations; No: Orthopnea, Paroxysmal Noc. Dyspnea, Edema, Lt Headedness, Other Gastrointestinal: No: Nausea, Vomiting, Abdominal Pain, Diarrhea, Constipation, Melena, Hematochezia, Other Genitourinary: No Dysuria, No Frequency, No Incontinence, No Hematuria, No Retention, No Other Sepsis Event Evaluation Height, Weight, BMI Height: 6'0.00" Weight: 190lbs. 0.0oz. 86.301770za; 24.00 BMI Method:Stated Exam Exam Vital Signs Date Time Temp Pulse Resp B/P (MAP) Pulse Ox O2 Delivery O2 Flow Rate FiO2 09/29/19 04:00 66 15 127/59 (81) 99 Room Air 09/29/19 03:25 100 Room Air 09/29/19 03:20 36.5 Room Air 09/29/19 03:00 71 18 151/62 (91) 98 Room Air 09/29/19 02:00 65 15 131/44 (73) 98 Room Air 09/29/19 01:00 75 09/29/19 01:00 75 15 119/49 (72) 98 Room Air 09/29/19 00:00 85 11 119/92 (101) 97 Room Air 09/28/19 23:55 36.5 Room Air 09/28/19 23:15 90 22 101/68 (79) 100 09/28/19 23:10 100 Room Air 09/28/19 22:00 96 23 89/38 (55) 100 09/28/19 22:00 09/28/19 21:00 101 19 89/56 (67) 99 09/28/19 20:15 101 17 100 Room Air 09/28/19 20:00 101 22 92/59 (70) 100 Room Air 09/28/19 19:45 101 38 128/67 (87) 100 Room Air 09/28/19 19:30 101 27 95/75 (82) 95 Room Air 09/28/19 19:25 36.9 103 16 135/52 (79) 100 Room Air 09/28/19 19:21 100 Room Air 09/28/19 19:20 103 09/28/19 17:42 109 21 100/85 100 09/28/19 11:08 35.2 102 16 122/93 (103) 100 I & O 09/29/19 07:00 Intake Total 1460 ml Output Total 1500 ml Balance -40 ml Height & Weight Height: 6'0.00" Weight: 190lbs. 0.0oz. 86.837077am; 24.00 BMI Method:Stated General Appearance: No Apparent Distress, WD/WN HEENT: Pharynx Normal Neck: Full Range of Motion, Normal Inspection, Non Tender, Supple Respiratory: Chest Non Tender, Lungs Clear, Normal Breath Sounds, No Accessory Muscle Use, No Respiratory Distress Cardiovascular: Regular Rate, Rhythm, No Edema, No JVD Capillary Refill: Less Than 3 Seconds Extremity: Normal Capillary Refill, Non Tender, No Calf Tenderness Neurologic/Psychiatric: Alert, No Motor/Sensory Deficits, Normal Mood/Affect Skin: Normal Color, Warm/Dry Results Lab Laboratory Tests 09/28/19 11:20 09/29/19 03:00 Assessment/Plan Assessment/Plan Severe electrolyte disturbance, Hypokalemia, hypomagnesium -Replace and recheck CLL with Decreased appetite and multiple ED visits -Does not want chemo -Will consult hospice for education Dehydration -IVF Leukopenia -Monitor Anemia -Monitor -Start protonix PO Severe debility and blindness MARCUS OLIVIER DO Sep 29, 2019 04:36 POS
[2019-09-29] MEDS: POTASSIUM CHLORIDE INJ 10 MEQ in NS IV 1000 ML 1,000 ML IV SCH ×3 (05:12→21:50)
--- NOTE | 2019-09-29 07:15 | NUR ---
REPORT RECEIVED AND CHART REVIEWED. PT REFUSED REPOSITIONING OR FOR ME TO ASSESS HIS SKIN. HE STATES THAT "HE IS FINE". IS AT BEDSIDE. PT DOES REPOSITION SELF BUT IS UNWILLING TO REPOSITION CLOTHING OR OTHER DEVICES ON HIS PERSON. STATES HE "CAN'T". HE IS VERY CACHECTIC IN APPEARANCE. PT REPORTS PAIN 12/10 ALL OVER BUT DOES NOT DESCRIBE IT FURTHER. PT IS NPO FOR COUGHING AND CHOKING DURING PO INTAKE. FENTANYL PROVIDED PER ORDER, SEE EMAR. PT RESTING WITH EYES CLOSED AFTER INTERVENTIONS WITH NO FURTHER NEEDS NOTED.
--- NOTE | 2019-09-29 07:18 | Diagnostic Imaging Report ---
CHEST 1 VIEW, AP/PA ONLY Indication: Dyspnea Comparison: 09/12/2019 Findings: No focal airspace disease in the visualized lungs. Please note that the posterior lower lobes are poorly evaluated by portable radiography. Stable calcified granulomas in the bilateral perihilar region. No pleural effusion or pneumothorax. Normal cardiomediastinal silhouette. Impression: 1. No acute cardiopulmonary process by portable radiography. Dictated by: Dictated on workstation # [id number]
[2019-09-29] MEDS ORDERED: POTASSIUM PHOSPHATE INJ 30 MM in NS (IVPB) 250 ML IV ONE (08:00)
[2019-09-29] MEDS: fentaNYL INJECTION 100 MCG/2 ML AMP IVP PRN (08:34)
[2019-09-29] MEDS ORDERED: METO-387 PO (08:39)
[2019-09-29] MEDS ORDERED: PANT40TA3 PO (08:39)
[2019-09-29] MEDS ORDERED: FLUT1BLS3 INH (08:39)
[2019-09-29] MEDS ORDERED: TRAM50TA2 PO (08:45)
--- NOTE | 2019-09-29 08:48 | NUR ---
SPOKE WITH THE PATIENTS ABOUT MEDICATIONS. WE WENT OVER THE EXT MED HX AND SHE VERIFIED HOW HE TAKES THEM. SHE STATES HE IS NO LONGER TAKING THE FISH OIL OR FLAXSEED OIL OTC BECAUSE HE CAN NOT SWALLOW THEM. SHE STATES HE IS STILL TAKING METFORMIN HOWEVER ACCORDING TO THE EXT MED HX [facility] LAST FILLED IT FOR 90 DAYS IN DEC. SHE STATES THEY GET IT FROM [email or web address], [email or web address] HAS NOT FILLED IT SINCE 2017. I NOTED THE PAST DUE FILL DATE ON THE MED REC.
[2019-09-29] MEDS: SENNA W/DOCUSATE (SENOKOT S) TABLET PO SCH ×2 (09:39→21:27)
[2019-09-29] MEDS: PANTOPRAZOLE 40 MG (PROTONIX) TAB PO SCH (09:39)
--- NOTE | 2019-09-29 09:48 | History & Physical-Hospitalist ---
GAYATHRI TERAN,MED STUDENT 09/29/19 0948: History of Present Illness HPI/Chief Complaint 74 yo male presented 1 day ago to [facility] ED via EMS for generalized fatigue/malaise. Beginning one week ago, he noticed gradually increasing weakness and fatigue associated with some decrease in appetite. Also complains of diffuse, generalized pain he is unable to characterize. Wonders if it is related to his lymphoma, followed by Dr. Calderon in oncology. Denies F/C/N/V constipation, diarrhea, chest pain, abdominal pain. Endorses some shortness of breath. Accompanied by at bedside. Source: patient, family ( assisting at bedside ) Exam Limitations: no limitations Date Seen 09/29/19 Time Seen by a Provider: 07:25 Attending Physician Brielle Barajas Pankaj K MD Referring Physician Date of Admission Sep 28, 2019 at 13:10 Home Medications & Allergies Home Medications Reviewed patient Home Medication Reconciliation performed by pharmacy medication reconciliations tree trimming line technician and/or nursing. Patients Allergies have been reviewed. Allergies Allergies Coded Allergies aspirin (Unverified Adverse Reaction, Unknown, 01/19/19) PATIENT STATES HE IS ABLE TO TAKE THE 81 MG DOSE BUT NOT THE "BIG ASPIRIN" Past Kgktkpc-[id number]-Rxartk Hx Past Med/Social Hx: Reviewed Nursing Past Med/Soc Hx Patient Social History Marrital Status: Alcohol Use: Occasionally Uses Number of Drinks Today: AA Alcohol Beverage of Choice: Beer Recreational Drug Use: No Smoking Status: Never a Smoker 2nd Hand Smoke Exposure: No Recent Foreign Travel: No Contact w/other who traveled: No Recent Hopitalizations: No Recent Infectious Disease Expo: No Immunizations Up To Date Tetanus Booster (TDap): Unknown Date of Pneumonia Vaccine: Sep 10, 2017 Date of Influenza Vaccine: Sep 26, 2019 Seasonal Allergies Seasonal Allergies: No Past Medical History Surgeries: Appendectomy, CABG, Coronary Stent Cardiac: Heart Attack, Hypertension Sexually Transmitted Disease: No HIV/AIDS: No Musculoskeletal: Arthritis, Chronic Back Pain Endocrine: Diabetes, Insulin dep HEENT: Cataract, Glaucoma Loss of Vision: Bilateral Hearing Impairment: Denies Cancer: Lymphoma Did You Recieve Any Treatments: Yes What Type of Treatment Did You: Chemotherapy History of Blood Disorders: Yes (thrombocytopenia) Family History Hypertension Review of Systems Constitutional: see HPI; No chills, No diaphoresis, No dizziness, No fever; malaise, weakness EENTM: vision loss; No hearing loss Respiratory: cough, short of breath Cardiovascular: chest pain (prior to admission noted some chest pain ); No edema; Hx of Intervention Gastrointestinal: No abdominal pain, No constipation, No diarrhea, No nausea, No vomiting Genitourinary: hesitancy; No pain Musculoskeletal: back pain, joint pain Skin: No lesions, No lumps Physical Exam Physical Exam Vital Signs Vital Signs - First Documented 09/28/19 09/28/19 11:08 19:21 Temp 35.2 Pulse 102 Resp 16 B/P (MAP) 122/93 (103) Pulse Ox 100 O2 Delivery Room Air Capillary Refill : Less Than 3 SecondsLess Than 3 Seconds Height, Weight, BMI Height: 6'0.00" Weight: 190lbs. 0.0oz. 86.363963qy; 24.00 BMI Method:Stated General Appearance: No Apparent Distress, Chronically ill, Thin Eyes: Left Eye Other (large cataract) HEENT: Moist Mucous Membranes; No Photophobia Neck: Non Tender, Supple Respiratory: Chest Non Tender, Lungs Clear, Normal Breath Sounds, No Accessory Muscle Use, No Respiratory Distress Cardiovascular: Regular Rate, Rhythm, No Edema Rectal: Deferred Extremity: No Calf Tenderness Neurologic/Psychiatric: Alert, Oriented x3 Skin: Damp, Pallor Results Results/Procedures Labs Laboratory Tests 09/28/19 11:20 09/29/19 03:00 Patient resulted labs reviewed. Assessment/Plan Admission Diagnosis Hypokalemia Hypomagnesemia Admission Status: Inpatient Order (span 2 midnights) Reason for Inpatient Admission: Potassium, Magnesium administration Assessment and Plan Hypokalemia Hypomagnesemia Decreased appetite leukopenia Transferring to med/surg floor Begin IVF, potassium and magnesium replenishment Reaching out to pt's oncologist to update on situation and to evaluate leukopenia Clinical Quality Measures DVT/VTE Risk/Contraindication: Risk Factor Score Per Nursin RFS Level Per Nursing on Admit: 4+=Very High BRIELLE BARAJAS DO 09/29/19 2010: History of Present Illness HPI/Chief Complaint Chief complaint: General malaise and hypokalemia HPI: This is a 74yoWM clinic Pt of Dr. Epps who has a PMH of chronic blindness, lives with his at home but has a history of Non-Hodgkin's Lymphoma who appears to be very debilitated who was admitted, placed in close observation, placed on IV supplemented potassium, cardiology and pulmonology consultation, along with Dr. Navas consultation. He is doing much better today but overall having such significant debility unsure what the next step will be but will confer with Dr Mendoza and Dr. Navas. Past Unfhkyt-Dpqzbv-Svhvji Hx Past Med/Social Hx: Reviewed Nursing Past Med/Soc Hx, Reviewed and Corrections made Patient Social History Marrital Status: Employed/Student: retired Smoking Status: Unknown if Ever Smoked Past Medical History Endocrine: Diabetes, Insulin dep Loss of Vision: Bilateral Hearing Impairment: Hard of Hearing Review of Systems Constitutional: see HPI, malaise, weakness Psychiatric/Neurological: Numbness Physical Exam Physical Exam General Appearance: No Apparent Distress, Chronically ill, Cachetic Respiratory: Lungs Clear Cardiovascular: Regular Rate, Rhythm Neurologic/Psychiatric: Alert, Oriented x3 Assessment/Plan Admission Diagnosis Assessment: Neutropenia Blindness Hyponatremia Hypokalemia Admission Status: Inpatient Order (span 2 midnights) Reason for Inpatient Admission: Severe neutropenia with electrolyte imbalance with blindness Diagnosis/Problems Diagnosis/Problems (1) Non-Hodgkin lymphoma Status: Chronic (2) Hypomagnesemia Status: Acute (3) Decreased appetite Status: Acute (4) Hypokalemia Status: Acute (5) Neutropenia Status: Acute (6) NSTEMI (non-ST elevated myocardial infarction) Status: Acute (7) Sepsis Status: Resolved Resolution Date/Time: 01/16/19 @ 11:20 (8) CHF (congestive heart failure) Status: Chronic (9) Deafness Status: Chronic (10) Blindness Status: Chronic Supervisory-Addendum Brief Verification & Attestation Participated in pt care: history, MDM, physical Personally performed: exam, history, MDM, supervision of care Care discussed with: Medical Student Procedures: n/a Results interpretation: Verified all documentation Verification and Attestation of Medical Student E/M Service A medical student performed and documented this service in my presence. I reviewed and verified all information documented by the medical student and made modifications to such information, when appropriate. I personally performed the physical exam and medical decision making. Brielle Barajas, Sep 29, 2019,20:10 GAYATHRI TERAN,NATHAN STUDENT Sep 29, 2019 09:48 BRIELLE WALTON DO Sep 29, 2019 20:10 POS
--- NOTE | 2019-09-29 12:15 | ST Dysphagia Evaluation ---
Speech Evaluation-General Medical Diagnosis Hypokalemia Onset Date: Sep 28, 2019 Therapy Diagnosis Therapy Diagnosis: Oropharyngeal Dysphagia Precautions Precautions: Aspiration Precautions/Isolations: Aspiration, Standard Precautions Referral Referring Physician: Dr. Alonso Reason for Referral: Evaluation/Treatment Medical History Reviewed History: Yes Social History Current Living Status: Spouse Speech PLF/Current-Dysphagia Prior Level of Function Patient lives at home with his . The patient is blind and dependent on his for his daily needs. Subjective Patient was cooperative with the Bedside Dysphagia Evaluation. Cognitive Status Patient Orientation: Person, Place Oral Motor Skills Dentition: Edentalous Ability to Follow Directions: Fair Oral Expression Ability: Mild Impairment Face Facial Symmetry: Symmetrical Oral-Facial Assessment Oral-Facial Dentition: Normal Labial Seal Description: Reduced ROM, Weak, Poor Coordination Smile: Reduced ROM, Poor Coordination Lingual Protrusion: Normal Lingual ROM: Normal Lingual Strength: Normal Volitional Dry Swallow: Yes Voluntary Cough: No Can Clear Throat Volitionally: Yes Productive Cough: No Productive Throat Clear: No Dysphagia Evaluation Consistencies Presented: Thin Liquid, Mechanical Soft, Pureed Patient tolerated all consistencies without s/s of aspiration. Oral Phase: Reduced Oral Transit Mechanical soft Pharyngeal Phase: Decreased A/P Bolus Transit Mechanical soft Dietary Recommendations: Pureed Liquid Recommendations: Thin Swallowing Precautions: Alternate Liquids/Solids, Liquids from Straw, Small Bites and Sips, Sitting Upright 90 Degrees, Sitting 90 Degrees 30 Post Intake Dysphagia Evaluation Summary Patient was seen at bedside for dysphagia evaluation. The patient is blind and WALES, however he was able to follow verbal directions. Patient's was at his bedside and was able to assist with patient's ability to follow directions. The patient was given thin liquids at 1/2 tsp x2 and small sips via straw x2 without difficulty. No overt s/s of aspiration noted. Patient was presented 1/2 tsp puree and 1/2 tsp mechanical soft. Patient did not exhibit any overt s/s of aspiration, however he does have a mild decrease with bolus management noted with the mechanical soft. Patient will be placed on a Dysphagia I and thin at this time. Information was provided for his nurse and written on the white board in his room. Barriers to Learning Patient is blind and WALES. Speech Short Term Goals Short Term Goals Short Term Goals 1) Patient will tolerate least restrictive diet level without s/s of aspiration at 80% or greater. 2) Patient/caregiver will utilize compensatory strategies as trained for safe oral intake at 90% or greater. Speech Intermediate Goals Range Manager Goals Patient will maintain adequate nutrition/hydration via safe effective swallow function. Speech-Plan Patient/Family Goals Patient/Family Goals: Patient plans on returning home with his upon discharge. Treatment Plan Speech Therapy Treatment Plan: Continue Plan of Care Patient will receive skilled ST for dysphagia. Treatment Duration: Oct 07, 2019 Frequency: 3 times per week Estimated Hrs Per Day: .25 hour per day Rehab Potential: Guarded Barriers to Learning: Patient is blind and WALES Pt/Family Agrees to Plan: Yes Safety Risks/Education Teaching Recipient: Patient, Significant Other Teaching Methods: Discussion Response to Teaching: Verbalize Understanding Education Topics Provided: Safety of oral intake and diet level. Time Speech Therapy Time In: 11:35 Speech Therapy Time Out: 11:50 Total Billed Time: 15 Billed Treatment Time 1[address] ST Sep 29, 2019 12:15 POS
--- NOTE | 2019-09-29 14:46 | NUR ---
PT HAS HAD CONSULT WITH ST AND DIET CHANGED TO DYSPHAGIA 1 WITH THIN LIQUIDS, HE DID EAT 10% OF HIS LUNCH AND SOME SPRITE. HE CONTINUES TO COUGH AFTER PO INTAKE. STATES THAT HE WAS GOING TO BE SCHEDULED TO HAVE HIS "THROAT STRETCHED" BUT IT HAD NOT BEEN DONE YET. PT ASSISTED TO THE BSC WITH MEDIUM SIZE LIQUID STOOL WITH UNMEASURABLE AMOUNT OF URINE OUTPUT.
[2019-09-29 17:19] LABS: MAGNESIUM 1.8 MG/DL (1.6-2.4); PHOSPHORUS 3.6 MG/DL (2.3-4.7); POTASSIUM 3.6 MMOL/L (3.6-5.0)
--- NOTE | 2019-09-29 17:29 | NUR ---
RD ASSESSMENT PMHx: NC; HTN; DM; lymphoma PT INTERACTION: Pt was awake and pleasant during consult for MST score. Note pt is blind and had family present. Family member states pt's current appetite is poor, and has been for some time. Family states pt follows diabetic diet at home, and has some difficulty swallowing food. Family states pt has had recent issues with n/v, but not constipation. Pt has had frequent episodes of diarrhea, per family. Family states pt has had recent wt loss, but only states that he has lost "a lot of weight." Note 1# wt gain x2w, per chart review. While pt has poor PO intake, pt does not meet criteria for malnutrition per ASPEN guidelines. ABNORMAL NUTRITION-RELATED LAB VALUES: Na 133 (L); K 2.8 (L); Pro 5.8 (L); alb 3.1 (L); BUN 26 (H); glu 179 (H); AST 36 (H) Est. kcal needs: 6836-6283 kcal (20-25 kcal/kg) Est. Pro needs: 83-100 g Pro (1.0-1.2 g Pro/kg) PES STATEMENT: Inadequate oral intake (NI-2.1) related to loss of appetite | NPO status as evidenced by pt (family) interview INTERVENTION: Continue with current diet order of DYS1 Pureed diet. Pt may benefit from nutrition supplementation if PO intake remains low. MONITOR/EVALUATE: PO Intake; Plan of Care; Hydration Status; Weight Status; Lab Values Katya Smith, MS, RD, LD Ext. 133
[2019-09-29] MEDS: cefTRIAXone FOR IV USE 1,000 MG in WATER (STERILE) FOR INJECTION 10 ML IV SCH (18:45)
[2019-09-29] MEDS: TBO-FILGRASTIM 300 MCG/0.5 ML (GRANIX) SQ SCH (18:45)
--- NOTE | 2019-09-29 20:08 | CONSULTATION REPORT ---
DATE OF SERVICE: 09/29/2019 The patient is admitted to ICU bed 7. PHYSICIAN REQUESTING CONSULTATION: Brielle Mai DO. IMPRESSION: 1. A 74-year-old male admitted to the hospital with increasing weakness and found to have significant hypokalemia and hypomagnesemia. 2. History of non-Hodgkin's lymphoma for several years with multiple chemotherapeutic regimens in the past. Most recently, he was on treatment with bendamustine and obinutuzumab regimen completed in 12/2018. He was started on maintenance treatment with obinutuzumab and received 2 treatments in March and May of 2019. 3. Grade III to IV neutropenia secondary to chemotherapy. 4. Recurrent infections, rule out hypogammaglobulinemia. 5. Other comorbidities including coronary artery disease with 4-vessel CABG in the past, diabetes mellitus, blindness. 6. Urinary tract infection due to Escherichia coli, sensitivity pending. RECOMMENDATIONS: 1. Continue management of the significant electrolyte abnormalities as you are doing. 2. Await the urine culture and sensitivity to rule out urinary tract infection, worsening the weakness. 3. If he has evidence of infection, I will start him on GCSF because of the grade III-IV neutropenia. 4. I will obtain a trough immunoglobulin level because of history of follicular non-Hodgkin's lymphoma, multiple chemotherapy regimens as well as anti-CD20 antibody treatment. 5. His overall prognosis is guarded. 6. Management of urinary tract infection with appropriate antibiotics. BRIEF HISTORY: The patient is a 74-year-old male who was seen at [facility] in [place] with significant fatigue starting about a week ago. He was also having difficulty swallowing and was evaluated by his primary physician at [place] and was scheduling an EGD on an outpatient basis. In the interim, he became more weak and was evaluated at the emergency room and admitted to the hospital for further management. He has a history of follicular lymphoma for several years with multiple treatments in the past at [facility]. Since the closure of this, he has followed up at [facility] in [place]. Previous staging studies obtained in spring showed no evidence of active or bulky disease. It was decided to start him on maintenance therapy with obinutuzumab and he received 2 treatments so far, once in 03/2019 and a second dose in 05/2019. Because of transportation issues, he did not keep the appointment since then. The patient is legally blind and his does not drive. They are dependent on their children for transportation. An oncology consultation was requested during the current admission for concurrent care. PAST MEDICAL HISTORY: Significant for follicular non-Hodgkin's lymphoma diagnosed 7 to 8 years ago. He has had multiple chemotherapy regimens over the years. Most recently, he was treated with bendamustine and obinutuzumab regimen for six cycles completing in 12/2018. Following this, he was started on a obinutuzumab maintenance therapy and received 2 doses in March and May 2019. He has history of diabetes mellitus diagnosed more than 12 years ago initially on oral agents and on insulin now. Coronary artery disease with NM in the past and a 4-vessel CABG few years ago. History of glaucoma and blindness since few years. Recurrent infections recently requiring hospitalization. Grade III to IV neutropenia, probably related to chemotherapy. SOCIAL HISTORY: The patient is and lives in [place], [place]. He has two sons, both of whom live close by. 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 Chewing tobacco use also in the past, but quit approximately 15 years ago. No recreational drug use. He has worked as a [employer] for a long time, but has been retired for several years. FAMILY HISTORY: Unremarkable. The patient does not know of any significant malignancies in the family. PHYSICAL EXAMINATION: GENERAL: Showed an elderly male, weak appearing and somnolent, but arousable. Answering questions fairly, but easily sleeping back to sleep. VITAL SIGNS: Temperature was 36.6 degree Celsius, pulse rate of 75, respirations 15, blood pressure 140/70 with oxygen saturation of 99% on room air. HEENT: Normocephalic, extraocular muscles intact, conjunctivae pink, oral mucosa moist without lesions. NECK: Supple, with no JVD. No cervical, supraclavicular or axillary lymphadenopathy palpable. CHEST: Symmetrical. LUNGS: With slightly diminished breath sounds bilaterally without wheezes or rales. CARDIOVASCULAR: Regular in rate and rhythm. No murmurs or gallops heard. ABDOMEN: Soft, nontender with no hepatosplenomegaly or other masses palpable. EXTREMITIES: Showed no edema. The patient has a crusted lesion in the right axilla with mild surrounding erythema. NEUROLOGIC: Showed no focal motor deficits. The patient is blind. LABORATORY DATA: CBC done today showed a white count of 1.1, hemoglobin 9.0, MCV 73, platelet count 139,000 with neutrophil count 0.6 and lymphocyte count 0.3. Chemistry panel showed a sodium level of 133 and potassium 2.8. BUN was 26 and creatinine 0.81 with GFR more than 60 mL per minute. Liver function studies were normal except AST level of 36. Albumin was 3.1. Potassium at the time of admission was 2.5 and magnesium of 1.1. UA showed trace leukocyte esterase with 5 to 10 WBCs per high power field and large amount of bacteria. Culture showed more than 100,000 colonies of E. coli. Thank you for allowing me to participate in the care of this patient. I will follow the patient with you and make appropriate recommendations. Job ID: [id number] DocumentID: [id number] Dictated Date: 09/29/2019 17:29:02 Rim Technician Date: 09/29/2019 20:07:05 Dictated By: ANEL ARMENDARIZ MD MTDD
[2019-09-29] MEDS: MELATONIN 3 MG TABLET PO PRN (21:05)
[2019-09-29] MEDS: HYDROcodone/APAP 5 MG/325 MG (LORTAB) TAB PO PRN (21:05)
--- NOTE | 2019-09-29 21:36 | Consultation-Cardiology ---
HPI-Cardiology Cardiology Consultation: Date of Consultation 09/29/19 Date of Admission Attending Physician Brielle Mai DO Admitting Physician Alvarado Epps MD Consulting Physician Jeanne FELIX MD HPI: Time Seen by a Provider: 09:00 Chief Complaint: fatigue This is a 74 year old gentleman with history of CABG, Follicular lymphoma, DM, Blindness, who i saw as inpatient consultation previously for sepsis and Type II IN due to sepsis. Nuclear stress test in June 2019 did not show any perfusion abnormality during rest and stress. He presents to [facility] with fatigue for one week. The patient denies any chest pain or shortness of breath. He was found to have severe hypokalemia and hypomagnesemia, which is being treated. Review of Systems-Cardiology Review of Systems Constitutional: As described under HPI; No As described under HPI, No no symptoms reported, No chills, No fever, No lightheadedness; malaise, tiredness Eyes: No As described under HPI, No no symptoms reported, No blindness, No blurred vision, No contact lenses, No drainage, No decreased acuity, No foreign body sensation, No pain, No vision change Ears/Nose/Throat: No As described under HPI, No no symptoms reported, No chronic hearing loss, No ear discharge, No ear pain, No nasal drainage, No ulcerations Respiratory: No no symptoms reported; As described under HPI; No As described under HPI, No cough, No orthopnea, No shortness of breath, No SOB with excertion Cardiovascular: No no symptoms reported; As described under HPI; No As described under HPI, No chest pain, No edema, No irregular heart rate, No lightheadedness, No palpitations Gastrointestinal: No no symptoms reported, No As described under HPI, No abdomen distended, No abdominal pain, No blood streaked bowels, No constipation, No diarrhea, No nausea, No vomiting, No stool coloration changes Genitourinary: No As described under HPI, No burning, No dysuria, No discharge, No frequency, No flank pain, No hematuria, No urgency Skin: No rash, No skin related problems, No ulcerations Psychiatric/Neurological: No anxiety, No depression, No seizure, No focal weakness, No syncope Hematologic: No bleeding abnormalities All Other Systems Reviewed Negative Unless Noted: Yes BOI-Urzlwa-Psjpze Hx Patient Social History Marrital Status: Employed/Student: retired Alcohol Use: Occasionally Uses Recreational Drug Use: No Smoking Status: Unknown if Ever Smoked 2nd Hand Smoke Exposure: No Recent Foreign Travel: No Recent Infectious Disease Expo: No Immunizations Up To Date Tetanus Booster (TDap): Unknown Date of Pneumonia Vaccine: Sep 10, 2017 Date of Influenza Vaccine: Sep 26, 2019 Past Medical History PMH As described under Assessment. Allergies and Home Medications Allergies Coded Allergies: aspirin (Unverified Adverse Reaction, Unknown, 01/19/19) PATIENT STATES HE IS ABLE TO TAKE THE 81 MG DOSE BUT NOT THE "BIG ASPIRIN" Home Medications Albuterol Sulfate 18 Gm Hfa.aer.ad, 2 PUFF INH Q6H PRN for SHORTNESS OF BREATH, (Reported) Atorvastatin Calcium 40 Mg Tablet, 40 MG PO HS, (Reported) Brimonidine Tartrate 5 Ml Drops, 1 DROP OS BID, (Reported) Cilostazol 100 Mg Tablet, 100 MG PO BID, (Reported) Citalopram Hydrobromide 20 Mg Tablet, 20 MG PO DAILY, (Reported) Dorzolamide HCl/Timolol Maleat 10 Ml Drops, 1 DROP OU BID, (Reported) Fenofibrate Nanocrystallized 145 Mg Tablet, 145 MG PO HS, (Reported) Fluticasone/Umeclidin/Vilanter 1 Each Blst.w.dev, 1 PUFF INH DAILY, (Reported) Gabapentin 300 Mg Capsule, 600 MG PO HS, (Reported) TAKES 2 (300MG) CAPSULES Insuln Asp Prt/Insulin Aspart 1 Unit/0.01 Ml Susp, 10-15 SC BID WITH MEALS, (Reported) Lorazepam 1 Mg Tablet, 1 MG PO TID PRN for ANXIETY, (Reported) Metformin HCl 1,000 Mg Tablet, 1,000 MG PO BID, (Reported) LAST FILLED #180 01-05-19 Metoprolol Succinate 25 Mg Tab.er.24h, 25 MG PO DAILY, (Reported) Pantoprazole Sodium 40 Mg Tablet.dr, 40 MG PO BID, (Reported) Prednisolone Acetate 5 Ml Drops.susp, 1 DROP OU BID, (Reported) Tramadol HCl 50 Mg Tablet, 50-100 MG PO TID PRN for PAIN-MODERATE, (Reported) Tramadol HCl 50 Mg Tablet, 100 MG PO HS, (Reported) Patient Home Medication List Home Medication List Reviewed: Yes Physical Exam-Cardiology Physical Exam Vital Signs/I&O 09/30/19 09/30/19 09/30/19 09/30/19 04:00 05:10 06:55 08:00 Temp 36.9 36.4 Pulse 77 78 66 68 Resp 14 16 B/P (MAP) 148/86 (106) 148/86 (106) 150/75 (100) Pulse Ox 100 100 O2 Delivery Room Air Room Air Room Air 09/30/19 09/30/19 09:00 12:00 Temp 36.4 Pulse 73 Resp 20 B/P (MAP) 138/69 (92) Pulse Ox 100 97 O2 Delivery Room Air Room Air 09/30/19 00:00 Intake Total 2660 ml Output Total 400 ml Balance 2260 ml Capillary Refill : Less Than 3 SecondsLess Than 3 Seconds Constitutional: appears stated age, AAO x 3; No apparent distress; well- developed, well-nourished HEENT: PERRL; No discharge; hearing is well preserved, oral hygience is good; No ulceration, No xanthelasmas are seen Neck: No carotid bruit; carotid pulses are 2 + bilaterally Respiratory: chest is bilaterally symmetric, lungs clear to auscultation Cardiovascular: regular rate-rhythm, S1 and S2 Gastrointestinal: soft, audible bowel sounds; No spleenomegaly Rectal: deferred Extremities: normal range of motion, non-tender; No clubbing, No cyanosis; no lower extremity edema bilateral; No significant edema Neurologic/Psychiatric: alert, normal mood/affect, oriented x 3, power is 5/5 both on sides Skin: normal color; No rash, No ulcerations Data Review Labs Laboratory Tests 09/29/19 16:52: Potassium Level 3.6, Phosphorus Level 3.6, Magnesium Level 1.8 09/29/19 16:54: Glucometer 225H 09/29/19 21:32: Glucometer 246H 09/30/19 03:05: Potassium Level 4.1, Phosphorus Level 3.0, Magnesium Level 1.6, White Blood Count 0.7*L, Red Blood Count 3.81L, Hemoglobin 9.4L, Hematocrit 29L, Mean Corpuscular Volume 75L, Mean Corpuscular Hemoglobin 25, Mean Corpuscular Hemoglobin Concent 33, Red Cell Distribution Width 17.8H, Platelet Count 145, Mean Platelet Volume 11.0H, Neutrophils (%) (Auto) 50, Lymphocytes (%) (Auto) 31, Monocytes (%) (Auto) 12, Eosinophils (%) (Auto) 7, Basophils (%) (Auto) 0, Neutrophils # (Auto) 0.4L, Lymphocytes # (Auto) 0.2L, Monocytes # (Auto) 0.1, Eosinophils # (Auto) 0.1, Basophils # (Auto) 0.0, Sodium Level 137, Chloride Level 102, Carbon Dioxide Level 20L, Anion Gap 15H, Blood Urea Nitrogen 19H, Creatinine 0.71, Estimat Glomerular Filtration Rate > 60, BUN/Creatinine Ratio 27, Glucose Level 157H, Calcium Level 8.7 09/30/19 12:13: Glucometer 263H Microbiology 09/28/19 MRSA Screen - Final, Complete MRSA not isolated 09/28/19 Urine Culture - Final, Complete Escherichia coli ECG Impression ECG Initial ECG Rhythm: Normal Sinus, PVC, PAC A/P-Cardiology Assessment/Admission Diagnosis Fatigue - multifactorial Hypokalemia, Hypomag CAD, CABG, Follicular Lymphoma, Neutropenia, ?UTI Plan ?UTI, immunodeficiency, defer to primary team. Electrolytes imbalance - K and Mg being repleted. CAD/CABG: Negative MPI in June 2019. Diabetes: Continue metformin. Non-Hodgkin's lymphoma. Defer to Dr Calderon. Patient is on Cilostazol - unclear reason. HyperTG- on fenofibrate. Thank you for your consultation. Please call me if you have any questions. Nagi Felix MD, FACP, FACC, FSCAI, FHRS, CCDS Interventional Cardiology Cardiac Electrophysiology Vascular Medicine and Endovascular Interventions Clinical Quality Measures DVT/VTE Risk/Contraindication: Risk Factor Score Per Nursin RFS Level Per Nursing on Admit: 4+=Very High Jeanne FELIX MD Sep 29, 2019 21:36 POS
[2019-09-29] MEDS: ENOXAPARIN 40 MG/0.4 ML (LOVENOX) SYR SC SCH (21:43)
[2019-09-30] VITALS (7 sets, daily range): BP systolic 136–150; BP diastolic 65–86
[2019-09-30 03:51] LABS: BASOPHILS % (AUTO) 0 % (0-10); EOSINOPHILS # (AUTO) 0.1 10^3/uL (0.0-0.3); EOSINOPHILS % (AUTO) 7 % (0-10); HEMATOCRIT 29 % (40-54); HEMOGLOBIN 9.4 G/DL (13.3-17.7); LYMPHOCYTES # (AUTO) 0.2 X 10^3 (1.0-4.0); LYMPHOCYTES % (AUTO) 31 % (12-44); MEAN CORPUSCULAR HEMOGLOBIN 25 PG (25-34); MEAN CORPUSCULAR HGB CONC 33 G/DL (32-36); MEAN CORPUSCULAR VOLUME 75 FL (80-99); MONOCYTES # (AUTO) 0.1 X 10^3 (0.0-1.0); MONOCYTES % (AUTO) 12 % (0-12); NEUTROPHILS # (AUTO) 0.4 X 10^3 (1.8-7.8); NEUTROPHILS % (AUTO) 50 % (42-75); PLATELET COUNT 145 10^3/uL (130-400); RED CELL DISTRIBUTION WIDTH 17.8 % (10.0-14.5)
[2019-09-30 03:54] LABS: WHITE BLOOD COUNT 0.7 10^3/uL (4.3-11.0)
[2019-09-30 04:08] LABS: BUN/CREATININE RATIO 27; CALCIUM 8.7 MG/DL (8.5-10.1); CARBON DIOXIDE 20 MMOL/L (21-32); CHLORIDE 102 MMOL/L (98-107); CREATININE SERUM 0.71 MG/DL (0.60-1.30); GFR ESTIMATED > 60; GLUCOSE 157 MG/DL (70-105); MAGNESIUM 1.6 MG/DL (1.6-2.4); POTASSIUM 4.1 MMOL/L (3.6-5.0); SODIUM 137 MMOL/L (135-145)
[2019-09-30] MEDS: POTASSIUM CL 10MEQ/50ML IVPB 50 ML IV SCH (04:31)
[2019-09-30] MEDS: KCL 20 MEQ TAB (K-DUR) PO SCH (04:31)
[2019-09-30] MEDS: inSUlin ASPART (NovoLOG) 1 UNIT/0.01 ML (CHARGE PER UNIT) SQ SCH ×4 (04:31→21:15)
[2019-09-30] MEDS: MAGNESIUM 1 GM/100 ML IVPB 100 ML IV SCH ×3 (04:31→05:09)
--- NOTE | 2019-09-30 04:40 | Pulmonary Progress Note ---
RAQUEL GEORGE A MEDICAL STUDENT 09/30/19 0440: Subjective Date Seen by a Provider: Sep 30, 2019 Time Seen by a Provider: 04:30 Sepsis Event Evaluation Height, Weight, BMI Height: 6'0.00" Weight: 190lbs. 0.0oz. [id number]; 24.00 BMI Method:Stated Exam Exam Vital Signs Date Time Temp Pulse Resp B/P (MAP) Pulse Ox O2 Delivery O2 Flow Rate FiO2 09/30/19 00:00 37.0 75 12 142/72 (95) 100 Room Air 09/29/19 21:00 100 Room Air 09/29/19 20:00 36.8 74 17 80/65 (70) 100 Room Air 09/29/19 19:00 80 09/29/19 16:00 36.8 84 18 140/70 (93) 100 Room Air 09/29/19 13:00 94 09/29/19 12:30 75 15 140/70 (93) 99 Room Air 09/29/19 12:15 98 Room Air 09/29/19 12:00 36.6 09/29/19 08:47 80 09/29/19 08:00 36.6 09/29/19 07:15 98 Room Air 09/29/19 07:15 36.8 09/29/19 07:00 78 113/65 (81) 99 Room Air 09/29/19 06:00 68 15 123/66 (85) 99 Room Air 09/29/19 05:00 70 12 I & O 09/30/19 07:00 Intake Total 3210 ml Output Total 800 ml Balance 2410 ml Height & Weight Height: 6'0.00" Weight: 190lbs. 0.0oz. 86.646277ju; 24.00 BMI Method:Stated General Appearance: No Apparent Distress, Chronically ill, Cachetic HEENT: Moist Mucous Membranes; No Photophobia Neck: Non Tender, Supple Respiratory: Lungs Clear Cardiovascular: Regular Rate, Rhythm Capillary Refill: Less Than 3 Seconds Extremity: No Calf Tenderness Neurologic/Psychiatric: Alert, Oriented x3 Skin: Damp, Pallor Results Lab Laboratory Tests 09/28/19 11:20 09/29/19 03:00 09/29/19 16:52 09/30/19 03:05 Assessment/Plan Assessment/Plan Hypokalemia -Potassium 4.1 today -pt on KCL drip at 100cc/hr -given 40Kcl PO Qd -will continue to monitor Hypomagnesemia -Will give 2g Mg UTI -urine culture grew out E. Coli -Will start CLL -followed by heme onc -does not want chemo, will consult hospice Dehydration -continue IVFWill consult hospice for education Dehydration -continue IVF Leukopenia -absolute neutrophils dropped to 0.4 -pt was placed filgrastim 300cmg SQ by heme onc -will continue to Monitor Anemia -will continue to monitor -continue protonix PO Severe debility and blindness In 4110 out 1525 net 2585 Lines: -Ceftriaxone 200cc/hr -KCl 100cc/hr - MARCUS ALONSO DO 09/30/19 1110: Exam Exam General Appearance: No Apparent Distress, Cachetic HEENT: Moist Mucous Membranes Neck: Non Tender, Supple Respiratory: Lungs Clear Cardiovascular: Regular Rate, Rhythm Extremity: No Calf Tenderness Neurologic/Psychiatric: Alert, Oriented x3 Supervisory-Addendum Brief Verification & Attestation Participated in pt care: history Personally performed: exam, history Care discussed with: Medical Student Procedures: n/a Verification and Attestation of Medical Student E/M Service A medical student performed and documented this service in my presence. I reviewed and verified all information documented by the medical student and made modifications to such information, when appropriate. I personally performed the physical exam and medical decision making. Marcus Alonso, Sep 30, 2019,11:10 RAQUEL GEORGE MEDICAL STUDENT Sep 30, 2019 04:40 MARCUS DUBOIS DO Sep 30, 2019 11:10 POS
[2019-09-30] MEDS: fentaNYL INJECTION 100 MCG/2 ML AMP IVP PRN ×4 (04:57→22:52)
--- NOTE | 2019-09-30 05:42 | Diagnostic Imaging Report ---
EXAMINATION: Portable erect AP chest at 3:51 AM INDICATION: Dyspnea The heart size is within normal limits and stable when compared to 09/29/2019. The sternotomy wires and surgical clips noted previously are again evident and no different. The lungs remain generally clear. There is still no sign of failure, pneumonia or for a pleural effusion. A skin fold is again seen overlying the right lung. The mediastinum is not widened. The osseous structures are intact. IMPRESSION: Stable chest. There has been no adverse change since the prior exam. Dictated by: Dictated on workstation # [id number]
[2019-09-30] MEDS: LACTATED RINGERS 1,000 ML IV SCH ×2 (07:25→17:20)
[2019-09-30] MEDS: PANTOPRAZOLE 40 MG (PROTONIX) TAB PO SCH (08:28)
[2019-09-30] MEDS: TBO-FILGRASTIM 300 MCG/0.5 ML (GRANIX) SQ SCH (08:35)
[2019-09-30] MEDS: SENNA W/DOCUSATE (SENOKOT S) TABLET PO SCH ×2 (08:35→19:56)
--- NOTE | 2019-09-30 09:54 | NUR ---
Met with pt to discuss continued care plans. Physician has also requested hospice consult. Pt's states she currently not in favor of hospice and wants to continue her caregiving plan. 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 Pt's staying with pt and will provide meal vouchers to assist her while he is hospitalized. will continue to follow.
--- NOTE | 2019-09-30 11:05 | Progress Note - Hospitalist ---
GAYATHRI TERAN,MED STUDENT 09/30/19 1105: Subjective HPI/CC On Admission Date Seen by Provider: Sep 30, 2019 Time Seen by Provider: 07:36 Chief complaint: General malaise and hypokalemia HPI: This is a 74yoWM clinic Pt of Dr. Epps who has a PMH of chronic blindness, lives with his at home but has a history of Non-Hodgkin's Lymphoma who appears to be very debilitated who was admitted, placed in close ob servation, placed on IV supplemented potassium, cardiology and pulmonology consultation, along with Dr. Navas consultation. He is doing much better today but overall having such significant debility unsure what the next step will be but will confer with Dr Mendoza and Dr. Navas. Subjective/Events-last exam Pt using commode during visit. Continues to complain of generalized pain and cough, which he thinks is the same as yesterday. Also having difficulty swallowing and has to cough and spits up after drinking. Dr. Davis planning on performing a scope for dysphagia. Dr. Navas, his oncologist, is now on board and recommending medications. Hypokalemia resolved but magnesium dropped further to 1.6 from 1.8. Accompanied by at bedside. Objective Exam Vital Signs Vital Signs Date Time Temp Pulse Resp B/P (MAP) Pulse Ox O2 Delivery O2 Flow Rate FiO2 09/30/19 09:00 100 Room Air 09/30/19 08:00 36.4 68 16 150/75 (100) Capillary Refill : Less Than 3 SecondsLess Than 3 Seconds General Appearance: No Apparent Distress, Chronically ill, Thin HEENT: Moist Mucous Membranes, Other (Cataract L eye ) Neck: Non Tender, Supple Respiratory: Chest Non Tender, Lungs Clear Cardiovascular: Regular Rate, Rhythm, No Edema Neurologic/Psychiatric: Alert Skin: Cool, Damp, Pallor Lymphatic: No Adenopathy (no Cervical LAD, no supra/infraclavicular LAD ) Results/Procedures Lab Laboratory Tests 09/29/19 16:52 09/30/19 03:05 Patient resulted labs reviewed. Assessment/Plan Assessment and Plan Assess & Plan/Chief Complaint Hypokalemia Hypomagnesemia Dysphagia Decreased appetite leukopenia Hx follicular NH lymphoma Prior chemotherapy with bendamustaine and obinutuzumab Administering G-CSF, will continue to follow WBC Transferring to med/surg floor Take off engineering and operations director Will be made NPO in preparation of EGD Continue IVF, magnesium replacement, hold potassium Dr. Navas, oncologist, consulted and providing recommendations Clinical Quality Measures DVT/VTE Risk/Contraindication: Risk Factor Score Per Nursin RFS Level Per Nursing on Admit: 4+=Very High BRIELLE BARAJAS DO 10/01/19 0658: Subjective Subjective/Events-last exam Poor prognosis continues Neutropenia worse at 0.7 was given GCSF Rocephin started for E.coli UTI Transferring to 4th floor DC telemetry at his requests Review of Systems General: Fatigue Pulmonary: Dyspnea Neurological: Confusion Objective Exam General Appearance: Anxious, Chronically ill, Cachetic Respiratory: Lungs Clear Cardiovascular: Regular Rate, Rhythm Neurologic/Psychiatric: Alert, Oriented x3, Disoriented Assessment/Plan Assessment and Plan Assess & Plan/Chief Complaint Dr Mittal appreciated Prognosis overall poor Diagnosis/Problems Diagnosis/Problems (1) Sepsis Status: Resolved Resolution Date/Time: 01/16/19 @ 11:20 (2) Lymphoma (3) Hypomagnesemia Status: Acute (4) Decreased appetite Status: Acute (5) Hypokalemia Status: Acute (6) Blindness Status: Chronic (7) Deafness Status: Chronic (8) CHF (congestive heart failure) Status: Chronic (9) Neutropenia Status: Acute (10) NSTEMI (non-ST elevated myocardial infarction) Status: Acute (11) Non-Hodgkin lymphoma Status: Chronic Supervisory-Addendum Brief Verification & Attestation Participated in pt care: history, MDM, physical Personally performed: exam, history, MDM, supervision of care Care discussed with: Medical Student Procedures: n/a Results interpretation: Verified all documentation Verification and Attestation of Medical Student E/M Service A medical student performed and documented this service in my presence. I reviewed and verified all information documented by the medical student and made modifications to such information, when appropriate. I personally performed the physical exam and medical decision making. Brielle Barajas, Oct 01, 2019,06:58 GAYATHRI TERAN,MED STUDENT Sep 30, 2019 11:05 BRIELLE WALTON DO Oct 01, 2019 06:58 POS
--- NOTE | 2019-09-30 12:45 | NUR ---
pt to room 406 via bed. introduced to room and call system. is at bedside. bedside report given to Danette MENESES
[2019-09-30] MEDS: HYDROcodone/APAP 5 MG/325 MG (LORTAB) TAB PO PRN ×2 (13:46→22:53)
--- NOTE | 2019-09-30 14:18 | Cardiology Progress Note ---
Cardiology SOAP Progress Note Subjective: No cardiac complaints Objective: I&O/Vital Signs 09/30/19 09/30/19 09/30/19 09/30/19 04:00 05:10 06:55 08:00 Temp 36.9 36.4 Pulse 77 78 66 68 Resp 14 16 B/P (MAP) 148/86 (106) 148/86 (106) 150/75 (100) Pulse Ox 100 100 O2 Delivery Room Air Room Air Room Air 09/30/19 09/30/19 09:00 12:00 Temp 36.4 Pulse 73 Resp 20 B/P (MAP) 138/69 (92) Pulse Ox 100 97 O2 Delivery Room Air Room Air 09/30/19 00:00 Intake Total 2660 ml Output Total 400 ml Balance 2260 ml Weight (Pounds): 190 Weight (Ounces): 0.0 Weight (Calculated Kilograms): [id number] Constitutional: appears stated age, AAO x 3; No apparent distress; well- developed, well-nourished Respiratory: chest is bilaterally symmetric, lungs clear to auscultation Cardiovascular: regular rate-rhythm, S1 and S2 Gastrointestional: soft, audible bowel sounds; No spleenomegaly Extremities: normal range of motion, non-tender; No clubbing, No cyanosis; no lower extremity edema bilateral; No significant edema Neurologic/Psychiatric: alert, normal mood/affect, oriented x 3, power is 5/5 both on sides Skin: normal color; No rash, No ulcerations Results/Procedures: Labs Laboratory Tests 09/29/19 16:52: Potassium Level 3.6, Phosphorus Level 3.6, Magnesium Level 1.8 09/29/19 16:54: Glucometer 225H 09/29/19 21:32: Glucometer 246H 09/30/19 03:05: Potassium Level 4.1, Phosphorus Level 3.0, Magnesium Level 1.6, White Blood Count 0.7*L, Red Blood Count 3.81L, Hemoglobin 9.4L, Hematocrit 29L, Mean Corpuscular Volume 75L, Mean Corpuscular Hemoglobin 25, Mean Corpuscular Hemoglobin Concent 33, Red Cell Distribution Width 17.8H, Platelet Count 145, Mean Platelet Volume 11.0H, Neutrophils (%) (Auto) 50, Lymphocytes (%) (Auto) 31, Monocytes (%) (Auto) 12, Eosinophils (%) (Auto) 7, Basophils (%) (Auto) 0, Neutrophils # (Auto) 0.4L, Lymphocytes # (Auto) 0.2L, Monocytes # (Auto) 0.1, Eosinophils # (Auto) 0.1, Basophils # (Auto) 0.0, Sodium Level 137, Chloride Level 102, Carbon Dioxide Level 20L, Anion Gap 15H, Blood Urea Nitrogen 19H, Creatinine 0.71, Estimat Glomerular Filtration Rate > 60, BUN/Creatinine Ratio 27, Glucose Level 157H, Calcium Level 8.7 09/30/19 12:13: Glucometer 263H Microbiology 09/28/19 MRSA Screen - Final, Complete MRSA not isolated 09/28/19 Urine Culture - Final, Complete Escherichia coli A/P: Assessment/Dx: Fatigue - multifactorial Hypokalemia, Hypomag CAD, CABG, Follicular Lymphoma, Neutropenia, ?UTI Plan: ?UTI, immunodeficiency, defer to primary team. Electrolytes imbalance - K and Mg being repleted. CAD/CABG: Negative MPI in June 2019. Diabetes: Continue metformin. Non-Hodgkin's lymphoma. Defer to Dr Calderon. Patient is on Cilostazol - unclear reason. HyperTG- on fenofibrate. Thank you for your consultation. Please call me if you have any questions. Nagi Felix MD, FACP, FACC, FSCAI, FHRS, CCDS Interventional Cardiology Cardiac Electrophysiology Vascular Medicine and Endovascular Interventions Jeanne FELIX MD Sep 30, 2019 14:18 POS
--- NOTE | 2019-09-30 14:28 | Progress Note ---
Standard Progress Note Progress Notes/Assess & Plan Date Seen by a Provider: Sep 30, 2019 Time Seen by a Provider: 14:21 Progress/Assessment & Plan 74-year-old male with history of follicular lymphoma, status post multiple chemotherapeutic regimens in the past with the last regimen of bendamustine and Obintuzumab completed in December 2018. He was placed on maintenance Obintuzumab and received 2 doses with the last dose in May 2019. Admitted to the hospital with significant weakness. Found to have UTI with Escherichia coli resistant to ciprofloxacin, levofloxacin, Bactrim and ampicillin/clavulinic acid. Started on Rocephin last evening. Patient also had grade 3-4 neutropenia probably worsened by the infection. He was started on Granix 300 g daily. WBC and ANC is lower this morning. Clinically patient is doing much better and awake and oriented. His only complaint is dysphagia which has been a problem over the last 1-2 weeks. Surgery consulted for possible EGD. I have ordered quantitative immunoglobulin levels to rule out hypogammaglobulinemia causing frequent infections. If the gamma globulin levels are low, he may benefit from IVIG therapy. Will follow patient with you. ANEL ARMENDARIZ Sep 30, 2019 14:28 POS
--- NOTE | 2019-09-30 18:41 | Consultation - Surgery ---
RADAMES WOODARD,MED STUDENT 09/30/19 1841: History of Present Illness History of Present Illness Patient Consulted On(hilario/time) 09/30/19 18:38 Date Seen by Provider: Sep 30, 2019 Time Seen by Provider: 18:15 History of Present Illness Mr. Walsh is a 74yo male who presented to the ED with general fatigue/malaise. For approximately two weeks he has experienced difficulty swallowing and coughin g up phlegm. He reports coughing and choking, and has had trouble taking PO home meds. Due to this swallowing difficulty, his medications have to be crushed and mixed with soft foods. He denies nausea, SOB, fevers/chills, abdominal pain. He has never had an EGD or colonoscopy performed. The risks and benefits of an EGD were discussed with the patient, and he expressed his understanding and consent for the procedure. Allergies and Home Medications Allergies Coded Allergies: aspirin (Unverified Adverse Reaction, Unknown, 01/19/19) PATIENT STATES HE IS ABLE TO TAKE THE 81 MG DOSE BUT NOT THE "BIG ASPIRIN" Home Medications Albuterol Sulfate 18 Gm Hfa.aer.ad, 2 PUFF INH Q6H PRN for SHORTNESS OF BREATH, (Reported) Atorvastatin Calcium 40 Mg Tablet, 40 MG PO HS, (Reported) Brimonidine Tartrate 5 Ml Drops, 1 DROP OS BID, (Reported) Cilostazol 100 Mg Tablet, 100 MG PO BID, (Reported) Citalopram Hydrobromide 20 Mg Tablet, 20 MG PO DAILY, (Reported) Dorzolamide HCl/Timolol Maleat 10 Ml Drops, 1 DROP OU BID, (Reported) Fenofibrate Nanocrystallized 145 Mg Tablet, 145 MG PO HS, (Reported) Fluticasone/Umeclidin/Vilanter 1 Each Blst.w.dev, 1 PUFF INH DAILY, (Reported) Gabapentin 300 Mg Capsule, 600 MG PO HS, (Reported) TAKES 2 (300MG) CAPSULES Insuln Asp Prt/Insulin Aspart 1 Unit/0.01 Ml Susp, 10-15 SC BID WITH MEALS, (Reported) Lorazepam 1 Mg Tablet, 1 MG PO TID PRN for ANXIETY, (Reported) Metformin HCl 1,000 Mg Tablet, 1,000 MG PO BID, (Reported) LAST FILLED #180 01-05-19 Metoprolol Succinate 25 Mg Tab.er.24h, 25 MG PO DAILY, (Reported) Pantoprazole Sodium 40 Mg Tablet.dr, 40 MG PO BID, (Reported) Prednisolone Acetate 5 Ml Drops.susp, 1 DROP OU BID, (Reported) Tramadol HCl 50 Mg Tablet, 50-100 MG PO TID PRN for PAIN-MODERATE, (Reported) Tramadol HCl 50 Mg Tablet, 100 MG PO HS, (Reported) Past Sqjusxj-Iqaxgj-Eugofc Hx Patient Social History Alcohol Use: Occasionally Uses Number of Drinks Today: AA Recreational Drug Use: No Smoking Status: Unknown if Ever Smoked 2nd Hand Smoke Exposure: No Recent Foreign Travel: No Contact w/Someone Who Travel: No Recent Infectious Disease Expo: No Recent Hopitalizations: No Immunizations Up To Date Tetanus Booster (TDap): Unknown Date of Pneumonia Vaccine: Sep 10, 2017 Date of Influenza Vaccine: Sep 26, 2019 Seasonal Allergies Seasonal Allergies: No Surgeries History of Surgeries: Yes (cataract removal) Surgeries: Appendectomy, CABG, Coronary Stent Respiratory History of Respiratory Disorde: No Cardiovascular History of Cardiac Disorders: Yes Cardiac Disorders: Heart Attack, Hypertension Neurological History of Neurological Disord: No Reproductive System Sexually Transmitted Disease: No HIV/AIDS: No Genitourinary History of Genitourinary Disor: No Gastrointestinal History of Gastrointestinal Di: No Musculoskeletal History of Musculoskeletal Dis: Yes Musculoskeletal Disorders: Arthritis, Chronic Back Pain Endocrine History of Endocrine Disorders: Yes Endocrine Disorders: Diabetes, 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) HEENT Disorders: Cataract, Glaucoma Loss of Vision: Bilateral Hearing Impairment: Hard of Hearing Cancer History of Cancer: Yes Cancer: Lymphoma Psychosocial History of Psychiatric Problem: No Integumentary History of Skin or Integumenta: No Blood Transfusions History of Blood Disorders: Yes (thrombocytopenia) Family Medical History Significant Family History: Hypertension Review of Systems-General Constitutional: No chills, No fever; malaise Respiratory: cough, phlegm; No short of breath Gastrointestinal: No abdominal pain; dysphagia; No nausea Physical Exam-General Problems Physical Exam Vital Signs Vital Signs - First Documented 09/28/19 09/28/19 11:08 19:21 Temp 35.2 Pulse 102 Resp 16 B/P (MAP) 122/93 (103) Pulse Ox 100 O2 Delivery Room Air Capillary Refill : Less Than 3 SecondsLess Than 3 Seconds Gastrointestinal: non tender, soft, no organomegaly; No guarding, No rebound Data Review Labs Laboratory Tests 09/29/19 21:32: Glucometer 246H 09/30/19 03:05: White Blood Count 0.7*L, Red Blood Count 3.81L, Hemoglobin 9.4L, Hematocrit 29L, Mean Corpuscular Volume 75L, Mean Corpuscular Hemoglobin 25, Mean Corpuscular Hemoglobin Concent 33, Red Cell Distribution Width 17.8H, Platelet Count 145, Mean Platelet Volume 11.0H, Neutrophils (%) (Auto) 50, Lymphocytes (%) (Auto) 31, Monocytes (%) (Auto) 12, Eosinophils (%) (Auto) 7, Basophils (%) (Auto) 0, Neutrophils # (Auto) 0.4L, Lymphocytes # (Auto) 0.2L, Monocytes # (Auto) 0.1, Eosinophils # (Auto) 0.1, Basophils # (Auto) 0.0, Sodium Level 137, Potassium Level 4.1, Chloride Level 102, Carbon Dioxide Level 20L, Anion Gap 15H, Blood Urea Nitrogen 19H, Creatinine 0.71, Estimat Glomerular Filtration Rate > 60, BUN/Creatinine Ratio 27, Glucose Level 157H, Calcium Level 8.7, Phosphorus Level 3.0, Magnesium Level 1.6 09/30/19 12:13: Glucometer 263H 09/30/19 16:43: Glucometer 180H Microbiology 09/28/19 MRSA Screen - Final, Complete MRSA not isolated 09/28/19 Urine Culture - Final, Complete Escherichia coli Assessment/Plan Assessment/Plan Assessment/Plan Possible dysphagia Non-hodgkins Lymphoma DM Schedule EGD Plan for NPO once EGD is scheduled Clinical Quality Measures DVT/VTE Risk/Contraindication: Risk Factor Score Per Nursin RFS Level Per Nursing on Admit: 4+=Very High AB KEYS DO 09/30/194: History of Present Illness History of Present Illness History of Present Illness Consult requested by Dr. Navas for dysphagia possible egd Patient is a 74 year old male with dysphagia for about 2 weeks. Has trouble with solid food and liquids he states. Can not take pills without difficulty as well he states. Says he get choked up easily. Nothing makes worse that he knows and nothing has made better. He has to crush his pill he states in order to take them. He has never had egd or colonoscopy he states and refuses to have colonoscopy. Patient has fatigue and overall weakness. He denies n/v fever sweats chills shortness of breath or chest pain at this time. Allergies and Home Medications Allergies Coded Allergies: aspirin (Unverified Adverse Reaction, Unknown, 01/19/19) PATIENT STATES HE IS ABLE TO TAKE THE 81 MG DOSE BUT NOT THE "BIG ASPIRIN" Home Medications Albuterol Sulfate 18 Gm Hfa.aer.ad, 2 PUFF INH Q6H PRN for SHORTNESS OF BREATH, (Reported) Atorvastatin Calcium 40 Mg Tablet, 40 MG PO HS, (Reported) Brimonidine Tartrate 5 Ml Drops, 1 DROP OS BID, (Reported) Cilostazol 100 Mg Tablet, 100 MG PO BID, (Reported) Citalopram Hydrobromide 20 Mg Tablet, 20 MG PO DAILY, (Reported) Dorzolamide HCl/Timolol Maleat 10 Ml Drops, 1 DROP OU BID, (Reported) Fenofibrate Nanocrystallized 145 Mg Tablet, 145 MG PO HS, (Reported) Fluticasone/Umeclidin/Vilanter 1 Each Blst.w.dev, 1 PUFF INH DAILY, (Reported) Gabapentin 300 Mg Capsule, 600 MG PO HS, (Reported) TAKES 2 (300MG) CAPSULES Insuln Asp Prt/Insulin Aspart 1 Unit/0.01 Ml Susp, 10-15 SC BID WITH MEALS, (Reported) Lorazepam 1 Mg Tablet, 1 MG PO TID PRN for ANXIETY, (Reported) Metformin HCl 1,000 Mg Tablet, 1,000 MG PO BID, (Reported) LAST FILLED #180 01-05-19 Metoprolol Succinate 25 Mg Tab.er.24h, 25 MG PO DAILY, (Reported) Pantoprazole Sodium 40 Mg Tablet.dr, 40 MG PO BID, (Reported) Prednisolone Acetate 5 Ml Drops.susp, 1 DROP OU BID, (Reported) Tramadol HCl 50 Mg Tablet, 50-100 MG PO TID PRN for PAIN-MODERATE, (Reported) Tramadol HCl 50 Mg Tablet, 100 MG PO HS, (Reported) Patient Home Medication List Home Medication List Reviewed: Yes Past Ypdrsbs-Bpmwlp-Viabrn Hx Patient Social History Alcohol Use: Occasionally Uses Surgeries History of Surgeries: Yes (cataract removal) Surgeries: Appendectomy, CABG, Coronary Stent Respiratory History of Respiratory Disorde: No Cardiovascular History of Cardiac Disorders: Yes Cardiac Disorders: Heart Attack, Hypertension Neurological History of Neurological Disord: No Reproductive System Sexually Transmitted Disease: No HIV/AIDS: No Genitourinary History of Genitourinary Disor: No Gastrointestinal History of Gastrointestinal Di: No Musculoskeletal History of Musculoskeletal Dis: Yes Musculoskeletal Disorders: Arthritis, Chronic Back Pain 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) HEENT Disorders: Cataract, Glaucoma Loss of Vision: Bilateral Hearing Impairment: Hard of Hearing Cancer History of Cancer: Yes Cancer: Lymphoma Psychosocial History of Psychiatric Problem: No Integumentary History of Skin or Integumenta: No Blood Transfusions History of Blood Disorders: Yes (thrombocytopenia) Family Medical History Significant Family History: No Pertinent Family Hx Review of Systems-General Constitutional: malaise EENTM: no symptoms reported Respiratory: cough, phlegm; No short of breath Cardiovascular: no symptoms reported Gastrointestinal: no symptoms reported; No abdominal pain; dysphagia; No nausea Genitourinary: no symptoms reported Musculoskeletal: no symptoms reported Skin: no symptoms reported Psychiatric/Neurological: No Symptoms Reported Physical Exam-General Problems Physical Exam General Appearance: no apparent distress HEENT: other (blind) Neck: non-tender, supple Respiratory: chest non-tender, no respiratory distress, no accessory muscle use Cardiovascular: regular rate, rhythm Gastrointestinal: non tender, soft, no organomegaly, no pulsatile mass Rectal: deferred Back: no CVA tenderness Extremities: non-tender, no pedal edema Neurologic/Psychiatric: no motor/sensory deficits, alert, normal mood/affect, o riented x 3 Skin: normal color, warm/dry Lymphatic: no adenopathy Assessment/Plan Assessment/Plan Assessment/Plan dysphagia non-hodgkins Lymphoma DM patient discussed risks and benefits of EGD he understands risks and benefits and wishes to proceed EGD tomorrow or Saturday NPO after midnight Supervisory-Addendum Brief Verification & Attestation Participated in pt care: history, MDM, physical Personally performed: exam, history, MDM, supervision of care Care discussed with: Medical Student Procedures: n/a Results interpretation: Verified all documentation Verification and Attestation of Medical Student E/M Service A medical student performed and documented this service in my presence. I reviewed and verified all information documented by the medical student and made modifications to such information, when appropriate. I personally performed the physical exam and medical decision making. Ab Keys, Sep 30, 2019,21:12 RADAMES WOODARD,MED STUDENT Sep 30, 2019 18:41 AB DEL CID DO Sep 30, 2019 21:08 POS
[2019-09-30] MEDS: cefTRIAXone FOR IV USE 1,000 MG in WATER (STERILE) FOR INJECTION 10 ML IV SCH ×2 (18:58→19:42)
[2019-09-30] MEDS: ENOXAPARIN 40 MG/0.4 ML (LOVENOX) SYR SC SCH (21:16)
[2019-09-30] MEDS: ALPRAZolam 0.25 MG (XANAX) TAB PO PRN (22:53)
[2019-10-01] VITALS (7 sets, daily range): BP systolic 115–174; BP diastolic 61–75
[2019-10-01] MEDS: LACTATED RINGERS 1,000 ML IV SCH ×3 (02:13→14:17)
[2019-10-01] MEDS: fentaNYL INJECTION 100 MCG/2 ML AMP IVP PRN ×2 (03:27→08:42)
[2019-10-01 05:53] LABS: BASOPHILS % (AUTO) 0 % (0-10); EOSINOPHILS # (AUTO) 0.1 10^3/uL (0.0-0.3); EOSINOPHILS % (AUTO) 14 % (0-10); HEMATOCRIT 26 % (40-54); HEMOGLOBIN 8.5 G/DL (13.3-17.7); LYMPHOCYTES # (AUTO) 0.3 X 10^3 (1.0-4.0); LYMPHOCYTES % (AUTO) 45 % (12-44); MEAN CORPUSCULAR HEMOGLOBIN 25 PG (25-34); MEAN CORPUSCULAR HGB CONC 32 G/DL (32-36); MEAN CORPUSCULAR VOLUME 76 FL (80-99); MEAN PLATELET VOLUME 10.9 FL (7.4-10.4); MONOCYTES # (AUTO) 0.1 X 10^3 (0.0-1.0); MONOCYTES % (AUTO) 12 % (0-12); NEUTROPHILS # (AUTO) 0.2 X 10^3 (1.8-7.8); NEUTROPHILS % (AUTO) 29 % (42-75); PLATELET COUNT 109 10^3/uL (130-400); RED CELL DISTRIBUTION WIDTH 18.2 % (10.0-14.5)
[2019-10-01 05:58] LABS: WHITE BLOOD COUNT 0.7 10^3/uL (4.3-11.0)
[2019-10-01] MEDS: inSUlin ASPART (NovoLOG) 1 UNIT/0.01 ML (CHARGE PER UNIT) SQ SCH ×4 (06:58→21:05)
--- NOTE | 2019-10-01 07:20 | Progress Note - Surgery ---
Subjective Date Seen by a Provider: Oct 01, 2019 Time Seen by a Provider: 07:15 Subjective/Events-last exam Patient is alert and oriented and in no acute distress, family at bedside No pain at this time Patient still has irritating feeling when swallowing Urinating and having bowel movements without issue Pt is aware that he will be having an EGD Denies the following, N/V, F/C, Chest pain, abdominal pain and SOB. Review of Systems General: No Chills; Night Sweats Pulmonary: No Dyspnea, No Pleuritic Chest Pain Cardiovascular: No: Chest Pain, Palpitations, Edema Gastrointestinal: No: Nausea, Vomiting, Abdominal Pain Objective Exam Vital Signs Date Time Temp Pulse Resp B/P (MAP) Pulse Ox O2 Delivery O2 Flow Rate FiO2 10/01/19 04:20 35.6 63 20 160/73 (102) 96 Room Air 10/01/19 00:10 35.8 64 20 124/61 (82) 96 Room Air 09/30/19 20:20 36.4 62 18 140/72 (94) 97 Room Air 09/30/19 19:56 100 Room Air 09/30/19 16:38 35.8 59 16 136/65 (88) 96 Room Air 09/30/19 12:00 36.4 73 20 138/69 (92) 97 Room Air 09/30/19 09:00 100 Room Air 09/30/19 08:00 36.4 68 16 150/75 (100) 100 Room Air I & O 10/01/19 07:00 Intake Total 2150 ml Output Total 1200 ml Balance 950 ml Capillary Refill : Less Than 3 SecondsLess Than 3 Seconds General Appearance: No Apparent Distress, Anxious, Chronically ill, Cachetic Neck: Non Tender, Supple Respiratory: Chest Non Tender, Lungs Clear, Normal Breath Sounds, No Accessory Muscle Use, No Respiratory Distress Cardiovascular: Regular Rate, Rhythm, No Edema Peripheral Pulses: 2+ Dorsalis Pedis (R), 2+ Left Dors-Pedis (L), 2+ Radial Pulses (R), 2+ Radial Pulses (L) Gastrointestinal: non tender, soft, no organomegaly, no pulsatile mass; No guarding, No rebound Extremity: No Calf Tenderness, No Pedal Edema Neurologic/Psychiatric: Alert, Oriented x3, Normal Mood/Affect, Disoriented Skin: Cool, Damp, Pallor Lymphatic: No Adenopathy (no Cervical LAD, no supra/infraclavicular LAD ) Results Lab Laboratory Tests 09/30/19 12:13: Glucometer 263H 09/30/19 16:43: Glucometer 180H 09/30/19 20:36: Glucometer 192H 10/01/19 05:30: White Blood Count 0.7*L, Red Blood Count 3.45L, Hemoglobin 8.5L, Hematocrit 26L, Mean Corpuscular Volume 76L, Mean Corpuscular Hemoglobin 25, Mean Corpuscular Hemoglobin Concent 32, Red Cell Distribution Width 18.2H, Platelet Count 109L, Mean Platelet Volume 10.9H, Neutrophils (%) (Auto) 29L, Lymphocytes (%) (Auto) 45H, Monocytes (%) (Auto) 12, Eosinophils (%) (Auto) 14H, Basophils (%) (Auto) 0, Neutrophils # (Auto) 0.2L, Lymphocytes # (Auto) 0.3L, Monocytes # (Auto) 0.1, Eosinophils # (Auto) 0.1, Basophils # (Auto) 0.0, Phosphorus Level 2.6 10/01/19 06:06: Glucometer 118H Microbiology 09/28/19 MRSA Screen - Final, Complete MRSA not isolated 09/28/19 Urine Culture - Final, Complete Escherichia coli Assessment/Plan Assessment/Plan Assessment/Plan dysphagia non-hodgkins Lymphoma DM - patient discussed risks and benefits of EGD he understands risks and benefits and wishes to proceed EGD today or Saturday - continue NPO until EGD is done Clinical Quality Measures DVT/VTE Risk/Contraindication: Risk Factor Score Per Nursin RFS Level Per Nursing on Admit: 4+=Very High DONA PEREZ [facility] Oct 01, 2019 07:20 POS
--- NOTE | 2019-10-01 07:39 | Progress Note - Surgery ---
DONA PEREZ [facility] 10/01/19 0739: Subjective Date Seen by a Provider: Oct 01, 2019 Time Seen by a Provider: 06:45 Subjective/Events-last exam Patient is alert and oriented and in no acute distress, family at bedside No pain at this time Patient still has irritating feeling when swallowing Urinating and having bowel movements without issue Pt is aware that he will be having an EGD Denies the following, N/V, F/C, Chest pain, abdominal pain and SOB Review of Systems General: No Chills; Night Sweats Cardiovascular: No: Chest Pain, Palpitations Gastrointestinal: No: Nausea, Vomiting, Abdominal Pain Objective Exam Vital Signs Date Time Temp Pulse Resp B/P (MAP) Pulse Ox O2 Delivery O2 Flow Rate FiO2 10/01/19 04:20 35.6 63 20 160/73 (102) 96 Room Air 10/01/19 00:10 35.8 64 20 124/61 (82) 96 Room Air 09/30/19 20:20 36.4 62 18 140/72 (94) 97 Room Air 09/30/19 19:56 100 Room Air 09/30/19 16:38 35.8 59 16 136/65 (88) 96 Room Air 09/30/19 12:00 36.4 73 20 138/69 (92) 97 Room Air 09/30/19 09:00 100 Room Air 09/30/19 08:00 36.4 68 16 150/75 (100) 100 Room Air I & O 10/01/19 07:00 Intake Total 2150 ml Output Total 1200 ml Balance 950 ml Capillary Refill : Less Than 3 SecondsLess Than 3 Seconds General Appearance: No Apparent Distress, Anxious, Chronically ill, Cachetic Neck: Non Tender, Supple Respiratory: Chest Non Tender, Lungs Clear, Normal Breath Sounds, No Accessory Muscle Use, No Respiratory Distress Cardiovascular: Regular Rate, Rhythm, No Edema Peripheral Pulses: 2+ Dorsalis Pedis (R), 2+ Left Dors-Pedis (L), 2+ Radial Pulses (R), 2+ Radial Pulses (L) Gastrointestinal: non tender, soft, no organomegaly, no pulsatile mass; No guarding, No rebound Extremity: No Calf Tenderness, No Pedal Edema Neurologic/Psychiatric: Alert, Oriented x3, Normal Mood/Affect, Disoriented Skin: Cool, Damp, Pallor Lymphatic: No Adenopathy (no Cervical LAD, no supra/infraclavicular LAD ) Results Lab Laboratory Tests 09/30/19 12:13: Glucometer 263H 09/30/19 16:43: Glucometer 180H 09/30/19 20:36: Glucometer 192H 10/01/19 05:30: White Blood Count 0.7*L, Red Blood Count 3.45L, Hemoglobin 8.5L, Hematocrit 26L, Mean Corpuscular Volume 76L, Mean Corpuscular Hemoglobin 25, Mean Corpuscular Hemoglobin Concent 32, Red Cell Distribution Width 18.2H, Platelet Count 109L, Mean Platelet Volume 10.9H, Neutrophils (%) (Auto) 29L, Lymphocytes (%) (Auto) 45H, Monocytes (%) (Auto) 12, Eosinophils (%) (Auto) 14H, Basophils (%) (Auto) 0, Neutrophils # (Auto) 0.2L, Lymphocytes # (Auto) 0.3L, Monocytes # (Auto) 0.1, Eosinophils # (Auto) 0.1, Basophils # (Auto) 0.0, Phosphorus Level 2.6 10/01/19 06:06: Glucometer 118H Microbiology 09/28/19 MRSA Screen - Final, Complete MRSA not isolated 09/28/19 Urine Culture - Final, Complete Escherichia coli Assessment/Plan Assessment/Plan Assessment/Plan dysphagia non-hodgkins Lymphoma DM - patient discussed risks and benefits of EGD he understands risks and benefits and wishes to proceed EGD today or Saturday - continue NPO until EGD is done - hold blood thinner Clinical Quality Measures DVT/VTE Risk/Contraindication: Risk Factor Score Per Nursin RFS Level Per Nursing on Admit: 4+=Very High AB DAVIS DO 10/02/19 0742: Subjective Subjective/Events-last exam Still with dysphagia. Irritated feeling when swallowing. On lovenox. No new complaints. Not okay with colonoscopy. Denies n/v fever chills shortness of breath or chest pain. Objective Exam General Appearance: No Apparent Distress Neck: Supple Respiratory: Chest Non Tender, No Accessory Muscle Use, No Respiratory Distress Cardiovascular: Regular Rate, Rhythm Gastrointestinal: non tender, soft, no pulsatile mass Neurologic/Psychiatric: Alert, Oriented x3, Normal Mood/Affect Skin: Warm/Dry Lymphatic: No Adenopathy Assessment/Plan Assessment/Plan Assessment/Plan dysphagia nh lymphoma dm plan egd tomorrow lovenox held understands risks and benefits Supervisory-Addendum Brief Verification & Attestation Participated in pt care: history, MDM, physical Personally performed: exam, history, MDM, supervision of care Care discussed with: Medical Student Procedures: n/a Results interpretation: Verified all documentation Verification and Attestation of Medical Student E/M Service A medical student performed and documented this service in my presence. I reviewed and verified all information documented by the medical student and made modifications to such information, when appropriate. I personally performed the physical exam and medical decision making. Ab Davis, Oct 01, 2019,10:41 DON[facility] PERE[facility] Oct 01, 2019 07:39 AB DELC ID DO Oct 02, 2019 07:42 POS
--- NOTE | 2019-10-01 08:52 | NUR ---
Initial visit with the pt and his . Pt was sitting at the side of his bed while his spoon served him Anitao. Both engaged warmly. The pt and his are Protestant and demonstrate mutual commitment and support. Both expressed emotional and physical fatigue related to declining health. I encouraged ventilation of stressors and offered active listening.
--- NOTE | 2019-10-01 10:14 | Progress Note - Hospitalist ---
GAYATHRI TERAN,MED STUDENT 10/01/19 1014: Subjective HPI/CC On Admission Date Seen by Provider: Oct 01, 2019 Time Seen by Provider: 07:36 Chief complaint: General malaise and hypokalemia HPI: This is a 74yoWM clinic Pt of Dr. Epps who has a PMH of chronic blindness, lives with his at home but has a history of Non-Hodgkin's Lymphoma who appears to be very debilitated who was admitted, placed in close ob servation, placed on IV supplemented potassium, cardiology and pulmonology consultation, along with Dr. Navas consultation. He is doing much better today but overall having such significant debility unsure what the next step will be but will confer with Dr Mendoza and Dr. Navas. Subjective/Events-last exam Pt accompanied by at bedside. Appears mildly disoriented. Hypertensive at 160/73 this morning. WBC stable at 0.7. Patient continues to feel malaise, fatigue, and whole body aches. Objective Exam Vital Signs Vital Signs Date Time Temp Pulse Resp B/P (MAP) Pulse Ox O2 Delivery O2 Flow Rate FiO2 10/01/19 08:30 36.4 70 18 172/70 (104) 98 Room Air Capillary Refill : Less Than 3 SecondsLess Than 3 Seconds General Appearance: Chronically ill, Thin HEENT: Moist Mucous Membranes, Other (L eye cataract ) Respiratory: Chest Non Tender, Lungs Clear, Normal Breath Sounds Cardiovascular: Regular Rate, Rhythm, No Edema Neurologic/Psychiatric: Alert Skin: Normal Color, Damp Results/Procedures Lab Laboratory Tests 10/01/19 05:30 Patient resulted labs reviewed. Assessment/Plan Assessment and Plan Assess & Plan/Chief Complaint Hypokalemia Hypomagnesemia Dysphagia Decreased appetite leukopenia Hx follicular NH lymphoma Prior chemotherapy with bendamustaine and obinutuzumab Continue G-CSF, will continue to follow WBC Will be made NPO Saturday in preparation of EGD to evaluate dysphagia Continue IVF administration Dr. Navas, oncologist, consulted and providing recommendations - awaiting Ig levels to determine if IVIG therapy is indicated Clinical Quality Measures DVT/VTE Risk/Contraindication: Risk Factor Score Per Nursin RFS Level Per Nursing on Admit: 4+=Very High BRIELLE BARAJAS DO 10/01/19 1700: Subjective Subjective/Events-last exam Pt awaiting EGD and will be rescheduled until tomorrow. Will give Pt food to eat as he has requested. Pt's white count remains at 0.7, very low. Receiving medications to help increase neutrophils. Review of Systems General: Fatigue Objective Exam General Appearance: No Apparent Distress, Chronically ill, Cachetic Respiratory: Lungs Clear Cardiovascular: Regular Rate, Rhythm Neurologic/Psychiatric: Alert Assessment/Plan Assessment and Plan Assess & Plan/Chief Complaint EGD in am Monitor closely Prognosis poor Diagnosis/Problems Diagnosis/Problems (1) Hypomagnesemia Status: Acute (2) Decreased appetite Status: Acute (3) Hypokalemia Status: Acute (4) Blindness Status: Chronic (5) Deafness Status: Chronic (6) CHF (congestive heart failure) Status: Chronic (7) Neutropenia Status: Acute (8) Sepsis Status: Resolved Resolution Date/Time: 01/16/19 @ 11:20 (9) NSTEMI (non-ST elevated myocardial infarction) Status: Acute (10) Non-Hodgkin lymphoma Status: Chronic (11) Lymphoma Supervisory-Addendum Brief Verification & Attestation Participated in pt care: history, MDM, physical Personally performed: exam, history, MDM, supervision of care Care discussed with: Medical Student Procedures: n/a Results interpretation: Verified all documentation Verification and Attestation of Medical Student E/M Service A medical student performed and documented this service in my presence. I reviewed and verified all information documented by the medical student and made modifications to such information, when appropriate. I personally performed the physical exam and medical decision making. Brielle Barajas, Oct 01, 2019,17:00 GAYATHRI TERAN,MED STUDENT Oct 01, 2019 10:14 BRIELLE WALTON DO Oct 01, 2019 17:00 POS
[2019-10-01] MEDS: PANTOPRAZOLE 40 MG (PROTONIX) TAB PO SCH (11:32)
[2019-10-01] MEDS: SENNA W/DOCUSATE (SENOKOT S) TABLET PO SCH ×2 (11:32→21:00)
[2019-10-01] MEDS: HYDROcodone/APAP 5 MG/325 MG (LORTAB) TAB PO PRN ×3 (11:33→20:08)
--- NOTE | 2019-10-01 11:35 | Progress Note - Cardiology ---
Cardiology SOAP Progress Note Subjective: Shortness of breath present. Better than at time of admission Gen malaise present No cp or palp or syncope Chronic, bilateral blindness Objective: I&O/Vital Signs 10/01/19 10/01/19 10/01/19 00:10 04:20 08:30 Temp 35.8 35.6 36.4 Pulse 64 63 70 Resp 20 20 18 B/P (MAP) 124/61 (82) 160/73 (102) 172/70 (104) Pulse Ox 96 96 98 O2 Delivery Room Air Room Air Room Air 10/01/19 00:00 Intake Total 850 ml Output Total 500 ml Balance 350 ml Weight (Pounds): 190 Weight (Ounces): 0.0 Weight (Calculated Kilograms): 86.784152 Constitutional: appears stated age, AAO x 3; No apparent distress; well- developed, well-nourished Respiratory: chest is bilaterally symmetric, lungs clear to auscultation Cardiovascular: regular rate-rhythm, S1 and S2 Gastrointestional: soft, audible bowel sounds; No spleenomegaly Extremities: normal range of motion, non-tender; No clubbing, No cyanosis; no lower extremity edema bilateral; No significant edema Neurologic/Psychiatric: alert, normal mood/affect, oriented x 3, power is 5/5 both on sides Skin: normal color; No rash, No ulcerations Results/Procedures: Labs Laboratory Tests 09/30/19 12:13: Glucometer 263H 09/30/19 16:43: Glucometer 180H 09/30/19 20:36: Glucometer 192H 10/01/19 05:30: White Blood Count 0.7*L, Red Blood Count 3.45L, Hemoglobin 8.5L, Hematocrit 26L, Mean Corpuscular Volume 76L, Mean Corpuscular Hemoglobin 25, Mean Corpuscular Hemoglobin Concent 32, Red Cell Distribution Width 18.2H, Platelet Count 109L, Mean Platelet Volume 10.9H, Neutrophils (%) (Auto) 29L, Lymphocytes (%) (Auto) 45H, Monocytes (%) (Auto) 12, Eosinophils (%) (Auto) 14H, Basophils (%) (Auto) 0, Neutrophils # (Auto) 0.2L, Lymphocytes # (Auto) 0.3L, Monocytes # (Auto) 0.1, Eosinophils # (Auto) 0.1, Basophils # (Auto) 0.0, Phosphorus Level 2.6 10/01/19 06:06: Glucometer 118H 10/01/19 10:48: Glucometer 145H Microbiology 09/28/19 MRSA Screen - Final, Complete MRSA not isolated 09/28/19 Urine Culture - Final, Complete Escherichia coli Laboratory Tests 09/29/19 16:52 09/30/19 03:05 10/01/19 05:30 A/P: Assessment: Pancytopenia: severe neutropenia and mod anemia and mild thrombocytopenia, managed by Dr Mai (on whose service the patient currently is) and by Dr Mittal (his fiber optic splicer-oncologist) CAD treated with CABG: Negative MPI in June 2019. DM 2 Non-Hodgkin's lymphoma, managed by Dr Mittal Bilateral blindness, stated (byt the patient and his ) to be a complication of glaucoma Hypertriglyceridemia, treated with fenofibrate. Plan: * I interviewed and examined him, reviewed his records, and spoke with his * Continue current cardiac regimen * Monitor labs PK TERRAZAS MD FACP FAC CCDS Oct 01, 2019 11:35 POS
[2019-10-01] MEDS: TBO-FILGRASTIM 300 MCG/0.5 ML (GRANIX) SQ SCH (14:17)
[2019-10-01] MEDS: cefTRIAXone FOR IV USE 1,000 MG in WATER (STERILE) FOR INJECTION 10 ML IV SCH (19:37)
[2019-10-02 00:19] VITALS: BP 178/86
[2019-10-02] MEDS: LACTATED RINGERS 1,000 ML IV SCH (00:40)
[2019-10-02] MEDS: fentaNYL INJECTION 100 MCG/2 ML AMP IVP PRN (00:41)
[2019-10-02 04:15] VITALS: BP 159/61
[2019-10-02 05:46] LABS: BASOPHILS % (AUTO) 2 % (0-10); EOSINOPHILS # (AUTO) 0.1 10^3/uL (0.0-0.3); EOSINOPHILS % (AUTO) 13 % (0-10); HEMATOCRIT 26 % (40-54); HEMOGLOBIN 8.4 G/DL (13.3-17.7); LYMPHOCYTES # (AUTO) 0.3 X 10^3 (1.0-4.0); LYMPHOCYTES % (AUTO) 48 % (12-44); MEAN CORPUSCULAR HEMOGLOBIN 24 PG (25-34); MEAN CORPUSCULAR HGB CONC 32 G/DL (32-36); MEAN CORPUSCULAR VOLUME 76 FL (80-99); MEAN PLATELET VOLUME 11.2 FL (7.4-10.4); MONOCYTES # (AUTO) 0.1 X 10^3 (0.0-1.0); MONOCYTES % (AUTO) 16 % (0-12); NEUTROPHILS # (AUTO) 0.1 X 10^3 (1.8-7.8); NEUTROPHILS % (AUTO) 22 % (42-75); PLATELET COUNT 98 10^3/uL (130-400)
[2019-10-02 05:52] LABS: WHITE BLOOD COUNT 0.6 10^3/uL (4.3-11.0)
--- NOTE | 2019-10-02 06:04 | NUR ---
CRITICAL LAB RESULT WBC 0.6 DOWN FROM 0.[address] RAMEY WITH RESULTS. NO FURTHER ORDERS AT THIS TIME.
[2019-10-02 06:08] LABS: ALANINE AMINOTRANSFERASE 13 U/L (0-55); ALBUMIN 2.7 GM/DL (3.2-4.5); ALKALINE PHOSPHATASE 77 U/L (40-136); BILIRUBIN,TOTAL 0.6 MG/DL (0.1-1.0); BUN/CREATININE RATIO 16; CARBON DIOXIDE 24 MMOL/L (21-32); CHLORIDE 100 MMOL/L (98-107); CREATININE SERUM 0.58 MG/DL (0.60-1.30); GFR ESTIMATED > 60; GLUCOSE 146 MG/DL (70-105); POTASSIUM 3.3 MMOL/L (3.6-5.0); SODIUM 137 MMOL/L (135-145); TOTAL PROTEIN 4.8 GM/DL (6.4-8.2)
[2019-10-02] MEDS: inSUlin ASPART (NovoLOG) 1 UNIT/0.01 ML (CHARGE PER UNIT) SQ SCH ×4 (06:33→21:04)
[2019-10-02] MEDS ORDERED: PROPOFOL INJECTION 0 ML IV ONE (07:15)
[2019-10-02] MEDS ORDERED: fentaNYL INJECTION 100 MCG/2 ML AMP ONE (07:16)
[2019-10-02] MEDS ORDERED: MIDAZOLAM 2 MG/2 ML (VERSED) VIAL ONE (07:16)
[2019-10-02] MEDS ORDERED: proPOfol 200 MG/20 ML (DIPRIVAN) VIAL IV ONE (07:17)
[2019-10-02] MEDS ORDERED: LIDOCAINE PF 2% 5 ML (XYLOCAINE) VIAL ONE (07:22)
[2019-10-02 08:05] VITALS: BP 137/65
--- NOTE | 2019-10-02 08:13 | Progress Note-Post Operative ---
Post-Operative Progess Note Surgeon (s)/Manager Work (s) Surgeon AB KEYS DO Manager Work: na Pre-Operative Diagnosis Dysphagia Post-Operative Diagnosis Mucosal changes of the esophagus Procedure & Operative Findings Date of Procedure 10/02/19 Procedure Performed/Findings EGD with Biopsies Anesthesia Type per EVENTS ASSOCIATE Estimated Blood Loss Estimated blood loss (mL): NONE Specimens/Packing Specimens Removed Biopsies of the Antrum of the stomach, and the Mid and proximal esophagus AB KEYS DO Oct 02, 2019 08:13 POS
[2019-10-02] MEDS ORDERED: HURRICAINE EXT TUBE (BENZOCAINE) XX ONE (08:15)
[2019-10-02] MEDS ORDERED: LACTATED RINGERS 1,000 ML IV ONE (08:15)
[2019-10-02 08:23] VITALS: BP 130/65
--- NOTE | 2019-10-02 09:13 | Cardiology Progress Note ---
Cardiology SOAP Progress Note Subjective: No cardiac complaints. Objective: I&O/Vital Signs 10/02/19 10/02/19 10/02/19 10/02/19 00:19 04:15 08:05 08:23 Temp 36.3 36.6 36.1 Pulse 70 73 74 85 Resp 19 18 16 18 B/P (MAP) 178/86 (116) 159/61 (93) 130/65 (86) Pulse Ox 96 97 98 95 O2 Delivery Room Air Room Air OxyMask Room Air O2 Flow Rate 8 10/02/19 00:00 Intake Total 1620 ml Output Total 1450 ml Balance 170 ml Weight (Pounds): 190 Weight (Ounces): 0.0 Weight (Calculated Kilograms): 86.641361 Constitutional: appears stated age, AAO x 3; No apparent distress; well- developed, well-nourished Respiratory: chest is bilaterally symmetric, lungs clear to auscultation Cardiovascular: regular rate-rhythm, S1 and S2 Gastrointestional: soft, audible bowel sounds; No spleenomegaly Extremities: normal range of motion, non-tender; No clubbing, No cyanosis; no lower extremity edema bilateral; No significant edema Neurologic/Psychiatric: alert, normal mood/affect, oriented x 3, power is 5/5 both on sides Skin: normal color; No rash, No ulcerations Results/Procedures: Labs Laboratory Tests 10/01/19 10:48: Glucometer 145H 10/01/19 15:52: Glucometer 282H 10/01/19 21:03: Glucometer 180H 10/02/19 04:45: White Blood Count 0.6*L, Red Blood Count 3.45L, Hemoglobin 8.4L, Hematocrit 26L, Mean Corpuscular Volume 76L, Mean Corpuscular Hemoglobin 24L, Mean Corpuscular Hemoglobin Concent 32, Red Cell Distribution Width 18.0H, Platelet Count 98L, Mean Platelet Volume 11.2H, Neutrophils (%) (Auto) 22L, Lymphocytes (%) (Auto) 48H, Monocytes (%) (Auto) 16H, Eosinophils (%) (Auto) 13H, Basophils (%) (Auto) 2, Neutrophils # (Auto) 0.1L, Lymphocytes # (Auto) 0.3L, Monocytes # (Auto) 0.1, Eosinophils # (Auto) 0.1, Basophils # (Auto) 0.0, Sodium Level 137, Potassium Level 3.3L, Chloride Level 100, Carbon Dioxide Level 24, Anion Gap 13, Blood Urea Nitrogen 9, Creatinine 0.58L, Estimat Glomerular Filtration Rate > 60, BUN/Creatinine Ratio 16, Glucose Level 146H, Calcium Level 8.0L, Corrected Calcium 9.0, Total Bilirubin 0.6, Aspartate Amino Transf (AST/SGOT) 15, Alanine Aminotransferase (ALT/SGPT) 13, Alkaline Phosphatase 77, Total Protein 4.8L, Albumin 2.7L 10/02/19 06:29: Glucometer 173H Microbiology 09/28/19 MRSA Screen - Final, Complete MRSA not isolated 09/28/19 Urine Culture - Final, Complete Escherichia coli A/P: Assessment/Dx: Fatigue - multifactorial Hypokalemia, Hypomag CAD, CABG, Follicular Lymphoma, Neutropenia, ?UTI Plan: ?UTI, immunodeficiency, defer to primary team. Electrolytes imbalance - K and Mg being repleted. CAD/CABG: Negative MPI in June 2019. Diabetes: Continue metformin. Non-Hodgkin's lymphoma. Defer to Dr Calderon. Patient is on Cilostazol - unclear reason. HyperTG- on fenofibrate. Thank you for your consultation. Please call me if you have any questions. Nagi Felix MD, FACP, FACC, FSCAI, FHRS, CCDS Interventional Cardiology Cardiac Electrophysiology Vascular Medicine and Endovascular Interventions Jeanne FELIX MD Oct 02, 2019 09:13 POS
--- NOTE | 2019-10-02 10:09 | Anesthesia-General Post-Op ---
MAC Patient Condition Mental Status/LOC: Same as Preop Cardiovascular: Satisfactory Nausea/Vomiting: Absent Respiratory: Satisfactory Pain: Controlled Complications: Absent Post Op Complications Complications None Follow Up Care/Instructions Patient Instructions None needed. Anesthesiology Discharge Order Discharge Order Patient is doing well, no complaints, stable vital signs, no apparent adverse anesthesia problems. ADAMS JUNG DO Oct 02, 2019 10:09 POS
[2019-10-02] MEDS: SENNA W/DOCUSATE (SENOKOT S) TABLET PO SCH ×2 (10:46→20:59)
[2019-10-02] MEDS: PANTOPRAZOLE 40 MG (PROTONIX) TAB PO SCH (10:47)
[2019-10-02] MEDS: TBO-FILGRASTIM 300 MCG/0.5 ML (GRANIX) SQ SCH (10:47)
--- NOTE | 2019-10-02 11:40 | Progress Note - Hospitalist ---
GAYATHRI TERAN,MED STUDENT 10/02/19 1140: Subjective HPI/CC On Admission Date Seen by Provider: Oct 02, 2019 Time Seen by Provider: 09:16 Chief complaint: General malaise and hypokalemia HPI: This is a 74yoWM clinic Pt of Dr. Epps who has a PMH of chronic blindness, lives with his at home but has a history of Non-Hodgkin's Lymphoma who appears to be very debilitated who was admitted, placed in close ob servation, placed on IV supplemented potassium, cardiology and pulmonology consultation, along with Dr. Navas consultation. He is doing much better today but overall having such significant debility unsure what the next step will be but will confer with Dr Mendoza and Dr. Navas. Subjective/Events-last exam Pt still feeling unwell after EGD today Accompanied by in room Denies fever/chills, Nausea/vomiting WBC fell further to 0.6 Objective Exam Vital Signs Vital Signs Date Time Temp Pulse Resp B/P (MAP) Pulse Ox O2 Delivery O2 Flow Rate FiO2 10/02/19 08:23 36.1 85 18 130/65 (86) 95 Room Air 10/02/19 08:05 8 Capillary Refill : Less Than 3 SecondsLess Than 3 Seconds General Appearance: Chronically ill, Cachetic Respiratory: Chest Non Tender, Lungs Clear, Normal Breath Sounds, No Accessory Muscle Use, No Respiratory Distress Cardiovascular: Regular Rate, Rhythm, No Edema, No Gallop, No Murmur Neurologic/Psychiatric: Alert Skin: Normal Color, Warm/Dry Results/Procedures Lab Laboratory Tests 10/02/19 04:45 IgG : 347 (672-1680) IgA : 38 (71-263) IgM : 22 (47-209) Patient resulted labs reviewed. Assessment/Plan Assessment and Plan Assess & Plan/Chief Complaint Hypokalemia Hypomagnesemia Dysphagia S/P EGD Decreased appetite leukopenia Hypogammaglobulinemia Hx follicular NH lymphoma Prior chemotherapy with bendamustaine and obinutuzumab Continue G-CSF, will continue to follow WBC Consider IVIG therapy d/t hypogammaglobulinemia EGD discovered some inflammation, no acute abnormalities. bx pending Continue IVF administration, potassium resuscitation Dr. Navas, oncologist, consulted and providing recommendations Appreciate Dr. Navas's input on this case Clinical Quality Measures DVT/VTE Risk/Contraindication: Risk Factor Score Per Nursin RFS Level Per Nursing on Admit: 4+=Very High KARLBRIELLE PORTER 10/02/19 1702: Subjective Subjective/Events-last exam White count remains low at 0.6. Overall very poor prognosis. Very difficult to manage since he reports pain everywhere. Poor prognosis shelter. Review of Systems General: Fatigue Objective Exam General Appearance: No Apparent Distress, Chronically ill, Cachetic Respiratory: Lungs Clear Cardiovascular: Regular Rate, Rhythm Assessment/Plan Assessment and Plan Assess & Plan/Chief Complaint Monitor wbc Monitor O2 Prognosis poor Needs NH Diagnosis/Problems Diagnosis/Problems (1) Hypomagnesemia Status: Acute (2) Decreased appetite Status: Acute (3) Hypokalemia Status: Acute (4) Blindness Status: Chronic (5) Deafness Status: Chronic (6) CHF (congestive heart failure) Status: Chronic (7) Neutropenia Status: Acute (8) Sepsis Status: Resolved Resolution Date/Time: 01/16/19 @ 11:20 (9) NSTEMI (non-ST elevated myocardial infarction) Status: Acute (10) Non-Hodgkin lymphoma Status: Chronic (11) Lymphoma Supervisory-Addendum Brief Verification & Attestation Participated in pt care: history, MDM, physical Personally performed: exam, history, MDM, supervision of care Care discussed with: Medical Student Procedures: n/a Results interpretation: Verified all documentation Verification and Attestation of Medical Student E/M Service A medical student performed and documented this service in my presence. I reviewed and verified all information documented by the medical student and made modifications to such information, when appropriate. I personally performed the physical exam and medical decision making. Brielle Mai, Oct 02, 2019,17:02 GAYATHRI TERAN,MED STUDENT Oct 02, 2019 11:40 BRIELLE WALTON DO Oct 02, 2019 17:02 POS
--- NOTE | 2019-10-02 14:39 | Speech Therapy Progress Note ---
Therapy Progress Note Patient is doing as well as can be expected due to poor prognosis. ST discharging patient at this time. ALEXX HOANG Oct 02, 2019 14:39 POS
--- NOTE | 2019-10-02 15:10 | Progress Note ---
Standard Progress Note Progress Notes/Assess & Plan Date Seen by a Provider: Oct 02, 2019 Time Seen by a Provider: 15:04 Progress/Assessment & Plan 74-year-old male with history of follicular lymphoma, status post multiple chemotherapeutic regimens in the past with the last regimen of bendamustine and Obintuzumab completed in December 2018. He was placed on maintenance Obintuzumab and received 2 doses with the last dose in May 2019. Admitted to the hospital with significant weakness. Found to have UTI with Escherichia coli resistant to ciprofloxacin, levofloxacin, Bactrim and ampicillin/clavulinic acid. Started on Rocephin with clinical improvement. Patient also has grade 4 neutropenia probably worsened by the infection. He was started on Granix 300 g daily. WBC and ANC is lower and I would increase the dose of Granix to 480 micrograms daily. Clinically patient is doing better. His only complaint is dysphagia which has been a problem over the last 1-2 weeks. EGD completed today with probable esophagitis/gastritis. Biopsies done with results pending. Quantitative immunoglobulin levels showed mild hypogammaglobulinemia. If he continues to have recurrent/major infections, he may be a candidate for IVIG therapy. Will follow patient with you. ANEL ARMENDARIZ Oct 02, 2019 15:10 POS
[2019-10-02] MEDS: HYDROcodone/APAP 5 MG/325 MG (LORTAB) TAB PO PRN ×2 (15:11→20:58)
[2019-10-02 16:06] VITALS: BP 134/63
[2019-10-02] MEDS: cefTRIAXone FOR IV USE 1,000 MG in WATER (STERILE) FOR INJECTION 10 ML IV SCH (19:31)
[2019-10-02 20:00] VITALS: BP 117/57
--- NOTE | 2019-10-02 20:16 | OPERATIVE REPORT ---
DATE OF SERVICE: 10/02/2019 PREOPERATIVE DIAGNOSIS: Dysphagia. POSTOPERATIVE DIAGNOSIS: Mucosal changes of the esophagus. PROCEDURE: EGD with biopsy. SURGEON: Ab Davis DO ANESTHESIA: Per CHECK INSPECTOR. ESTIMATED BLOOD LOSS: None. COMPLICATIONS: None. INDICATIONS: The patient is a 74-year-old male who has been having difficulty with swallowing for the last couple of weeks. He was recommended to have EGD performed. He understands risks and benefits and wishes to proceed with procedure. Consent was signed in the chart. DESCRIPTION OF PROCEDURE: The patient was taken to the endoscopy suite, placed in left lateral recumbent position. Timeout was performed. Scope was inserted in mouth, down the esophagus, stomach and into the duodenum without difficulty. There were no polyps, masses or ulcerations within the duodenum. Scope was then slowly retracted back into the stomach where it was further insufflated. No polyps, masses or ulcerations within the main portion of the stomach. Scope was retroflexed noting a small either submucosal small mass or dilatation of the venous complex up in the cardia of the stomach. This was fairly small. Scope was returned to its normal position, slowly withdrawn to the distal esophagus. GE junction had normal appearance. The middle esophagus had some slight changes and mucosal changes and also the proximal esophagus did as well. Biopsies of these were obtained. The scope was slowly retracted back to completely remove noting no other pathology. Also note there was a biopsy of the antrum obtained as well. The patient tolerated procedure well without any complications. He was taken to recovery room in stable condition. RECOMMENDATIONS: Await biopsy results. We will also start him on Protonix 40 mg daily. Any issues before that will be seen at that time. Job ID: [id number] DocumentID: [id number] Dictated Date: 10/02/2019 12:40:40 Electrophysiology Technician Date: 10/02/2019 20:15:50 Dictated By: AB DAVIS DO
[2019-10-03] VITALS: BP 163/76
[2019-10-03] MEDS: HYDROcodone/APAP 5 MG/325 MG (LORTAB) TAB PO PRN ×2 (02:51→20:15)
[2019-10-03 04:00] VITALS: BP 109/56
[2019-10-03 04:44] LABS: BASOPHILS % (AUTO) 0 % (0-10); EOSINOPHILS # (AUTO) 0.1 10^3/uL (0.0-0.3); EOSINOPHILS % (AUTO) 12 % (0-10); HEMATOCRIT 26 % (40-54); HEMOGLOBIN 8.3 G/DL (13.3-17.7); LYMPHOCYTES # (AUTO) 0.3 X 10^3 (1.0-4.0); LYMPHOCYTES % (AUTO) 54 % (12-44); MEAN CORPUSCULAR HEMOGLOBIN 24 PG (25-34); MEAN CORPUSCULAR HGB CONC 32 G/DL (32-36); MEAN CORPUSCULAR VOLUME 76 FL (80-99); MONOCYTES # (AUTO) 0.1 X 10^3 (0.0-1.0); MONOCYTES % (AUTO) 14 % (0-12); NEUTROPHILS # (AUTO) 0.1 X 10^3 (1.8-7.8); NEUTROPHILS % (AUTO) 21 % (42-75); PLATELET COUNT 86 10^3/uL (130-400); RED CELL DISTRIBUTION WIDTH 18.3 % (10.0-14.5)
[2019-10-03 05:00] LABS: WHITE BLOOD COUNT 0.5 10^3/uL (4.3-11.0)
[2019-10-03] MEDS: inSUlin ASPART (NovoLOG) 1 UNIT/0.01 ML (CHARGE PER UNIT) SQ SCH ×4 (06:16→20:31)
--- NOTE | 2019-10-03 06:35 | NUR ---
CRITICAL LAB WBC 0.5. CONTACTED DR RAMEY. NO FURTHER ORDERS AT THIS TIME.
[2019-10-03 08:00] VITALS: BP 147/85
[2019-10-03] MEDS: TBO-FILGRASTIM 480 MCG/0.8 ML (GRANIX) SQ SCH (08:48)
[2019-10-03] MEDS: SENNA W/DOCUSATE (SENOKOT S) TABLET PO SCH ×2 (08:49→20:31)
[2019-10-03] MEDS: PANTOPRAZOLE 40 MG (PROTONIX) TAB PO SCH (08:52)
[2019-10-03] MEDS ORDERED: TBO-FILGRASTIM 300 MCG/0.5 ML (GRANIX) SQ SCH (09:00)
--- NOTE | 2019-10-03 09:53 | Progress Note - Surgery ---
Subjective Date Seen by a Provider: Oct 03, 2019 Time Seen by a Provider: 09:49 Subjective/Events-last exam Patient no new complaints. Still with dysphagia. Difficulty taking pills so wants other alternatives to Protonix. Denies n/v fever sweats chills shortness of breath or chest pain. Objective Exam Vital Signs Date Time Temp Pulse Resp B/P (MAP) Pulse Ox O2 Delivery O2 Flow Rate FiO2 10/03/19 04:00 36.2 73 18 109/56 (73) 96 Room Air 10/03/19 00:00 36.2 70 18 163/76 (105) 97 Room Air 10/02/19 21:00 100 Room Air 10/02/19 20:00 36.6 71 18 117/57 (77) 96 Room Air 10/02/19 16:06 36.3 71 20 134/63 (86) 100 Room Air I & O 10/03/19 07:00 Intake Total 1810 ml Output Total 975 ml Balance 835 ml Capillary Refill : Less Than 3 SecondsLess Than 3 Seconds General Appearance: No Apparent Distress, Chronically ill, Cachetic HEENT: Moist Mucous Membranes, Other (L eye cataract ) Neck: Non Tender, Supple Respiratory: Chest Non Tender, No Accessory Muscle Use, No Respiratory Distress Cardiovascular: Regular Rate, Rhythm Peripheral Pulses: 2+ Dorsalis Pedis (R), 2+ Left Dors-Pedis (L), 2+ Radial Pulses (R), 2+ Radial Pulses (L) Gastrointestinal: non tender, soft, no pulsatile mass Extremity: No Calf Tenderness, No Pedal Edema Neurologic/Psychiatric: Alert Skin: Normal Color, Warm/Dry Lymphatic: No Adenopathy Results Lab Laboratory Tests 10/02/19 11:13: Glucometer 199H 10/02/19 16:13: Glucometer 277H 10/02/19 20:48: Glucometer 173H 10/03/19 04:35: White Blood Count 0.5*L, Red Blood Count 3.42L, Hemoglobin 8.3L, Hematocrit 26L, Mean Corpuscular Volume 76L, Mean Corpuscular Hemoglobin 24L, Mean Corpuscular Hemoglobin Concent 32, Red Cell Distribution Width 18.3H, Platelet Count 86L, Mean Platelet Volume 11.0H, Neutrophils (%) (Auto) 21L, Lymphocytes (%) (Auto) 54H, Monocytes (%) (Auto) 14H, Eosinophils (%) (Auto) 12H, Basophils (%) (Auto) 0, Neutrophils # (Auto) 0.1L, Lymphocytes # (Auto) 0.3L, Monocytes # (Auto) 0.1, Eosinophils # (Auto) 0.1, Basophils # (Auto) 0.0 10/03/19 05:50: Glucometer 169H Microbiology 09/30/19 MRSA Screen - Final, Complete 09/28/19 Urine Culture - Final, Complete Escherichia coli Assessment/Plan Assessment/Plan Assessment/Plan dysphagia nh lymphoma dm likely eosphagitis will stop protonix since can't take and do Carafate 1 gram 4 times a day in slurry form. can follow up in office in couple weeks to see how he is doing and go over pathology. will sign off, call if needed. Clinical Quality Measures DVT/VTE Risk/Contraindication: Risk Factor Score Per Nursin RFS Level Per Nursing on Admit: 4+=Very High AB KEYS DO Oct 03, 2019 09:53 POS
[2019-10-03] MEDS ORDERED: SUCR1TAB36 PO (09:56)
--- NOTE | 2019-10-03 10:05 | Progress Note ---
Standard Progress Note Progress Notes/Assess & Plan Date Seen by a Provider: Oct 03, 2019 Time Seen by a Provider: 10:01 Progress/Assessment & Plan 74-year-old male with history of follicular lymphoma, status post multiple chemotherapeutic regimens in the past with the last regimen of bendamustine and Obintuzumab completed in December 2018. He was placed on maintenance Obintuzumab and received 2 doses with the last dose in May 2019. Admitted to the hospital with significant weakness. Found to have UTI with Escherichia coli resistant to ciprofloxacin, levofloxacin, Bactrim and ampicillin/clavulinic acid. Started on Rocephin with clinical improvement. Patient also has grade 4 neutropenia probably worsened by the infection. He was started on Granix 300 g and increased to 480 mcg daily. WBC and ANC is lower along with hemoglobin and platelets. Iron studies pending because of microcytic indices. Clinically patient is doing better. EGD completed yesterday because of dysphagia with probable esophagitis/gastritis. Biopsies done with results pending. Quantitative immunoglobulin levels showed mild hypogammaglobulinemia. If the pancytopenia is worsening, he may need a bone marrow evaluation. . Will follow patient with you. ANEL ARMENDARIZ Oct 03, 2019 10:05 POS
--- NOTE | 2019-10-03 11:44 | Progress Note - Hospitalist ---
Subjective HPI/CC On Admission Date Seen by Provider: Oct 03, 2019 Time Seen by Provider: 10:15 Chief complaint: General malaise and hypokalemia HPI: This is a 74yoWM clinic Pt of Dr. Epps who has a PMH of chronic blindness, lives with his at home but has a history of Non-Hodgkin's Lymphoma who appears to be very debilitated who was admitted, placed in close observation, placed on IV supplemented potassium, cardiology and pulmonology consultation, along with Dr. Navas consultation. He is doing much better today but overall having such significant debility unsure what the next step will be but will confer with Dr Mendoza and Dr. Navas. Subjective/Events-last exam Patient is laying flat and is without complaint other than that he says he hurts all over. History is mainly obtained from his who is discussing that Dr. Bailey wants to do bone marrow biopsy and whether I would concur with that which I did Review of Systems Neurological: Weakness Objective Exam Vital Signs Vital Signs Date Time Temp Pulse Resp B/P (MAP) Pulse Ox O2 Delivery O2 Flow Rate FiO2 10/03/19 15:35 36.6 66 16 156/67 (96) 97 Room Air 10/02/19 08:05 8 Capillary Refill : Less Than 3 SecondsLess Than 3 Seconds General Appearance: Chronically ill HEENT: Other (Blind opaque left eye) Neck: Limited Range of Motion Respiratory: Lungs Clear, Normal Breath Sounds, No Accessory Muscle Use, No Respiratory Distress Cardiovascular: Regular Rate, Rhythm, No Edema, No Gallop, No JVD Gastrointestinal: Normal Bowel Sounds, Non Tender, Soft Rectal: Deferred Extremity: Normal Inspection, Non Tender, No Calf Tenderness Neurologic/Psychiatric: Depressed Affect, Other (Awake) Results/Procedures Lab Laboratory Tests 10/03/19 04:35 Patient resulted labs reviewed. Assessment/Plan Assessment and Plan Assess & Plan/Chief Complaint Pancytopenia scheduled for bone marrow biopsy Saturday on reverse isolation Hypokalemia-replace Hypomagnesemia replace Dysphagia-possibly secondary to motor weakness-changed from Protonix to Carafate Decreased appetite-mostly secondary to weakness Hypogammaglobulinemia Hx follicular NH lymphoma Prior chemotherapy with bendamustaine and obinutuzumab Diarrhea we'll try Questran Prognosis is guarded Clinical Quality Measures DVT/VTE Risk/Contraindication: Risk Factor Score Per Nursin RFS Level Per Nursing on Admit: 4+=Very High LIA MITCHELL MD Oct 03, 2019 11:44 POS
[2019-10-03] MEDS: SUCRALFATE 1 GM (CARAFATE) TAB PO SCH ×3 (11:51→21:20)
[2019-10-03] MEDS ORDERED: CHOLESTYRAMINE 4 GM (QUESTRAN LITE, PREVALITE) PKT PO NR (11:58)
[2019-10-03 12:00] VITALS: BP 132/67
--- NOTE | 2019-10-03 14:07 | Progress Note - Cardiology ---
Cardiology SOAP Progress Note Subjective: Gen malaise and weakness and tiredness Gets short of breath easily No cp or palp or syncope Objective: I&O/Vital Signs 10/03/19 10/03/19 10/03/19 10/03/19 04:00 08:00 09:15 12:00 Temp 36.2 36.2 36.2 Pulse 73 79 78 Resp 18 14 16 B/P (MAP) 109/56 (73) 147/85 (105) 132/67 (88) Pulse Ox 96 96 100 99 O2 Delivery Room Air Room Air Room Air Room Air 10/03/19 00:00 Intake Total 1160 ml Output Total 825 ml Balance 335 ml Weight (Pounds): 190 Weight (Ounces): 0.0 Weight (Calculated Kilograms): 86.248325 Constitutional: appears stated age, AAO x 3; No apparent distress; well- developed, well-nourished Respiratory: chest is bilaterally symmetric, lungs clear to auscultation Cardiovascular: regular rate-rhythm, S1 and S2 Gastrointestional: soft, audible bowel sounds; No spleenomegaly Extremities: normal range of motion, non-tender; No clubbing, No cyanosis; no lower extremity edema bilateral; No significant edema Neurologic/Psychiatric: alert, normal mood/affect, oriented x 3, power is 5/5 both on sides Skin: normal color; No rash, No ulcerations Results/Procedures: Labs Laboratory Tests 10/02/19 16:13: Glucometer 277H 10/02/19 20:48: Glucometer 173H 10/03/19 04:35: White Blood Count 0.5*L, Red Blood Count 3.42L, Hemoglobin 8.3L, Hematocrit 26L, Mean Corpuscular Volume 76L, Mean Corpuscular Hemoglobin 24L, Mean Corpuscular Hemoglobin Concent 32, Red Cell Distribution Width 18.3H, Platelet Count 86L, Mean Platelet Volume 11.0H, Neutrophils (%) (Auto) 21L, Lymphocytes (%) (Auto) 54H, Monocytes (%) (Auto) 14H, Eosinophils (%) (Auto) 12H, Basophils (%) (Auto) 0, Neutrophils # (Auto) 0.1L, Lymphocytes # (Auto) 0.3L, Monocytes # (Auto) 0.1, Eosinophils # (Auto) 0.1, Basophils # (Auto) 0.0 10/03/19 05:50: Glucometer 169H 10/03/19 11:13: Glucometer 211H Microbiology 09/30/19 MRSA Screen - Final, Complete 09/28/19 Urine Culture - Final, Complete Escherichia coli A/P: Assessment: Pancytopenia: severe neutropenia and mod anemia and mild thrombocytopenia, managed by Dr Mai (on whose service the patient currently is) and by Dr Mittal (his calciminer-oncologist) E Coli UTI, managed by Dr Mai CAD treated with CABG: Negative MPI in June 2019. DM 2 Non-Hodgkin's lymphoma, managed by Dr Mittal Bilateral blindness, stated (by the patient and his ) to be a complication of glaucoma Hypertriglyceridemia, treated with fenofibrate. Plan: * No new cardiac recs at this time * Continue current cardiac regimen * Monitor labs * I answered his and his 's CV-related questions PK TERRAZAS MD FACP FAC CCDS Oct 03, 2019 14:07 POS
[2019-10-03 15:35] VITALS: BP 156/67
[2019-10-03] MEDS: cefTRIAXone FOR IV USE 1,000 MG in WATER (STERILE) FOR INJECTION 10 ML IV SCH (18:26)
[2019-10-03 19:53] VITALS: BP 151/66
[2019-10-04] VITALS: BP 121/70
[2019-10-04 04:00] VITALS: BP 146/73
[2019-10-04 05:20] LABS: ABSOLUTE RETIC # 21 10e9/L (24-90); BASOPHILS % (AUTO) 2 % (0-10); EOSINOPHILS # (AUTO) 0.1 10^3/uL (0.0-0.3); EOSINOPHILS % (AUTO) 7 % (0-10); HEMATOCRIT 26 % (40-54); HEMOGLOBIN 8.3 G/DL (13.3-17.7); LYMPHOCYTES # (AUTO) 0.5 X 10^3 (1.0-4.0); LYMPHOCYTES % (AUTO) 58 % (12-44); MEAN CORPUSCULAR HEMOGLOBIN 25 PG (25-34); MEAN CORPUSCULAR HGB CONC 32 G/DL (32-36); MEAN CORPUSCULAR VOLUME 78 FL (80-99); MEAN PLATELET VOLUME 11.6 FL (7.4-10.4); MONOCYTES # (AUTO) 0.1 X 10^3 (0.0-1.0); MONOCYTES % (AUTO) 14 % (0-12); NEUTROPHILS # (AUTO) 0.2 X 10^3 (1.8-7.8); NEUTROPHILS % (AUTO) 19 % (42-75); PLATELET COUNT 78 10^3/uL (130-400); RETICULOCYTE % 0.63 % (0.50-2.40)
[2019-10-04 05:22] LABS: WHITE BLOOD COUNT 0.9 10^3/uL (4.3-11.0)
[2019-10-04 05:40] LABS: ALANINE AMINOTRANSFERASE 10 U/L (0-55); ALBUMIN 2.7 GM/DL (3.2-4.5); ALKALINE PHOSPHATASE 85 U/L (40-136); BILIRUBIN,TOTAL 0.7 MG/DL (0.1-1.0); BUN/CREATININE RATIO 17; CALCIUM 7.8 MG/DL (8.5-10.1); CARBON DIOXIDE 21 MMOL/L (21-32); CHLORIDE 100 MMOL/L (98-107); CREATININE SERUM 0.54 MG/DL (0.60-1.30); GFR ESTIMATED > 60; GLUCOSE 137 MG/DL (70-105); POTASSIUM 3.1 MMOL/L (3.6-5.0); SODIUM 135 MMOL/L (135-145)
[2019-10-04] MEDS: inSUlin ASPART (NovoLOG) 1 UNIT/0.01 ML (CHARGE PER UNIT) SQ SCH ×4 (05:57→20:13)
[2019-10-04] MEDS: SUCRALFATE 1 GM (CARAFATE) TAB PO SCH ×4 (06:15→21:47)
--- NOTE | 2019-10-04 06:47 | NUR ---
CRITICAL LAB RESULT WBC 0.9 UP FROM 0.[address] RAMEY, NO NEW ORDERS.
[2019-10-04 08:00] VITALS: BP 147/70
[2019-10-04] MEDS: TBO-FILGRASTIM 480 MCG/0.8 ML (GRANIX) SQ SCH (10:38)
[2019-10-04] MEDS: HYDROcodone/APAP 5 MG/325 MG (LORTAB) TAB PO PRN (10:39)
[2019-10-04] MEDS: SENNA W/DOCUSATE (SENOKOT S) TABLET PO SCH ×2 (10:56→21:30)
[2019-10-04 12:00] VITALS: BP 144/71
--- NOTE | 2019-10-04 12:08 | Progress Note ---
Standard Progress Note Progress Notes/Assess & Plan Date Seen by a Provider: Oct 04, 2019 Time Seen by a Provider: 12:06 Progress/Assessment & Plan 74-year-old male with history of follicular lymphoma, status post multiple chemotherapeutic regimens in the past with the last regimen of bendamustine and Obintuzumab completed in December 2018. He was placed on maintenance Obintuzumab and received 2 doses with the last dose in May 2019. Admitted to the hospital with significant weakness. Found to have UTI with Escherichia coli resistant to ciprofloxacin, levofloxacin, Bactrim and ampicillin/clavulinic acid. Started on Rocephin with clinical improvement and today is day 5. Patient also has grade 4 neutropenia probably worsened by the infection. He was started on Granix 300 g and increased to 480 mcg daily. WBC and ANC is low along with hemoglobin and platelets but slightly better today. Iron studies pending because of microcytic indices. Clinically patient is stable. EGD with probable esophagitis/gastritis. Biopsies done with results pending. Quantitative immunoglobulin levels showed mild hypogammaglobulinemia. If the pancytopenia is worsening, he may need a bone marrow evaluation. Reevaluate tomorrow AM labs and decide abour marrow. Will follow patient with you. ANEL ARMENDARIZ Oct 04, 2019 12:08 POS
--- NOTE | 2019-10-04 13:41 | Progress Note - Hospitalist ---
Subjective HPI/CC On Admission Date Seen by Provider: Oct 04, 2019 Time Seen by Provider: 14:15 Chief complaint: General malaise and hypokalemia HPI: This is a 74yoWM clinic Pt of Dr. Epps who has a PMH of chronic blindnes s, lives with his at home but has a history of Non-Hodgkin's Lymphoma who appears to be very debilitated who was admitted, placed in close observation, placed on IV supplemented potassium, cardiology and pulmonology consultation, along with Dr. Navas consultation. He is doing much better today but overall having such significant debility unsure what the next step will be but will confer with Dr Mendoza and Dr. Navas. Subjective/Events-last exam Patient is sitting up being fed by his today. He would like a straw. He asked what time his bone marrow biopsy of be tomorrow. He was very pleasant and thanked me for coming by Review of Systems Neurological: Weakness Objective Exam Vital Signs Vital Signs Date Time Temp Pulse Resp B/P (MAP) Pulse Ox O2 Delivery O2 Flow Rate FiO2 10/04/19 12:00 36.4 81 18 144/71 (95) 98 Room Air 10/02/19 08:05 8 Capillary Refill : Less Than 3 SecondsLess Than 3 Seconds General Appearance: Chronically ill HEENT: Other (Bilateral blindness) Neck: Limited Range of Motion Respiratory: Chest Non Tender, Lungs Clear, Normal Breath Sounds, No Accessory Muscle Use, No Respiratory Distress Cardiovascular: Regular Rate, Rhythm, No Gallop, No Murmur Gastrointestinal: Soft Rectal: Deferred Back: Normal Inspection Extremity: Other (Cachectic) Neurologic/Psychiatric: Alert, Normal Mood/Affect Skin: Pallor Results/Procedures Lab Laboratory Tests 10/04/19 05:08 Patient resulted labs reviewed. Assessment/Plan Assessment and Plan Assess & Plan/Chief Complaint Pancytopenia scheduled for bone marrow biopsy tomorrow on reverse isolation Hypokalemia-replace Hypomagnesemia replace Dysphagia-possibly secondary to motor weakness-changed from Protonix to Carafate Decreased appetite-mostly secondary to weakness -seems to be better today Hypogammaglobulinemia Hx follicular NH lymphoma Prior chemotherapy with bendamustaine and obinutuzumab Diarrhea we'll try Questran Prognosis is guarded Clinical Quality Measures DVT/VTE Risk/Contraindication: Risk Factor Score Per Nursin RFS Level Per Nursing on Admit: 4+=Very High LIA MITCHELL MD Oct 04, 2019 13:41 POS
[2019-10-04 16:10] VITALS: BP 145/63
--- NOTE | 2019-10-04 16:32 | Progress Note - Cardiology ---
Cardiology SOAP Progress Note Subjective: Somnolent today. Does not report symptoms by bedside. She feels he has been doing better. Less short of breath. Resting better Objective: I&O/Vital Signs 10/04/19 10/04/19 10/04/19 10/04/19 08:00 09:00 12:00 16:10 Temp 36.2 36.4 36.1 Pulse 76 81 69 Resp 16 18 18 B/P (MAP) 147/70 (95) 144/71 (95) 145/63 (90) Pulse Ox 97 98 99 O2 Delivery Room Air Room Air Room Air Room Air 10/04/19 00:00 Intake Total 1480 ml Output Total 985 ml Balance 495 ml Weight (Pounds): 190 Weight (Ounces): 0.0 Weight (Calculated Kilograms): 86.786236 Constitutional: No apparent distress; well-developed, well-nourished Respiratory: chest is bilaterally symmetric, lungs clear to auscultation Cardiovascular: regular rate-rhythm, S1 and S2 Gastrointestional: soft, audible bowel sounds; No spleenomegaly Extremities: normal range of motion, non-tender; No clubbing, No cyanosis; no lower extremity edema bilateral; No significant edema Neurologic/Psychiatric: other (able to move all limbs equally) Skin: normal color; No rash, No ulcerations Results/Procedures: Labs Laboratory Tests 10/03/19 20:23: Glucometer 158H 10/04/19 05:08: White Blood Count 0.9*L, Red Blood Count 3.37L, Hemoglobin 8.3L, Hematocrit 26L, Mean Corpuscular Volume 78L, Mean Corpuscular Hemoglobin 25, Mean Corpuscular Hemoglobin Concent 32, Red Cell Distribution Width 18.0H, Platelet Count 78L, Mean Platelet Volume 11.6H, Neutrophils (%) (Auto) 19L, Lymphocytes (%) (Auto) 58H, Monocytes (%) (Auto) 14H, Eosinophils (%) (Auto) 7, Basophils (%) (Auto) 2, Neutrophils # (Auto) 0.2L, Lymphocytes # (Auto) 0.5L, Monocytes # (Auto) 0.1, Eosinophils # (Auto) 0.1, Basophils # (Auto) 0.0, Absolute Reticulocyte Count 21L, Percent Reticulocyte Count 0.63, Sodium Level 135, Potassium Level 3.1L, Chloride Level 100, Carbon Dioxide Level 21, Anion Gap 14, Blood Urea Nitrogen 9, Creatinine 0.54L, Estimat Glomerular Filtration Rate > 60, BUN/Creatinine Ratio 17, Glucose Level 137H, Calcium Level 7.8L, Corrected Calcium 8.8, Total Bilirubin 0.7, Aspartate Amino Transf (AST/SGOT) 16, Alanine Aminotransferase (ALT/SGPT) 10, Alkaline Phosphatase 85, Total Protein 5.0L, Albumin 2.7L 10/04/19 05:34: Glucometer 142H 10/04/19 11:52: Glucometer 218H Microbiology 09/30/19 MRSA Screen - Final, Complete 09/28/19 Urine Culture - Final, Complete Escherichia coli Laboratory Tests 10/03/19 04:35 10/04/19 05:08 A/P: Assessment: Pancytopenia: severe neutropenia and mod anemia and mild thrombocytopenia, managed by Dr Mai (on whose service the patient currently is) and by Dr Mittal (his thermostat maker-oncologist) E Coli UTI, managed by Dr Mai CAD treated with CABG: Negative MPI in June 2019. DM 2 Non-Hodgkin's lymphoma, managed by Dr Mittal Bilateral blindness, stated (by the patient and his ) to be a complication of glaucoma Hypertriglyceridemia, treated with fenofibrate. Plan: * Replenish K * Monitor labs * I answered his and his 's CV-related questions PK TERRAZAS MD FACP FAC CCDS Oct 04, 2019 16:32 POS
[2019-10-04] MEDS ORDERED: KCL 20 MEQ TAB (K-DUR) PO NR (16:37)
[2019-10-04 19:43] VITALS: BP 138/65
[2019-10-05] MEDS: HYDROcodone/APAP 5 MG/325 MG (LORTAB) TAB PO PRN ×3 (00:11→21:24)
[2019-10-05 00:36] VITALS: BP 159/56
[2019-10-05 04:46] VITALS: BP 102/56
[2019-10-05] MEDS: inSUlin ASPART (NovoLOG) 1 UNIT/0.01 ML (CHARGE PER UNIT) SQ SCH ×4 (05:58→21:06)
[2019-10-05 06:22] LABS: BASOPHILS % (AUTO) 1 % (0-10); EOSINOPHILS # (AUTO) 0.1 10^3/uL (0.0-0.3); EOSINOPHILS % (AUTO) 8 % (0-10); HEMATOCRIT 25 % (40-54); LYMPHOCYTES # (AUTO) 0.4 X 10^3 (1.0-4.0); LYMPHOCYTES % (AUTO) 51 % (12-44); MEAN CORPUSCULAR HGB CONC 32 G/DL (32-36); MEAN CORPUSCULAR VOLUME 77 FL (80-99); MONOCYTES # (AUTO) 0.1 X 10^3 (0.0-1.0); MONOCYTES % (AUTO) 12 % (0-12); NEUTROPHILS # (AUTO) 0.2 X 10^3 (1.8-7.8); NEUTROPHILS % (AUTO) 28 % (42-75); PLATELET COUNT 74 10^3/uL (130-400); RED CELL DISTRIBUTION WIDTH 18.3 % (10.0-14.5)
[2019-10-05 06:23] LABS: MEAN CORPUSCULAR HEMOGLOBIN 24 PG (25-34); WHITE BLOOD COUNT 0.8 10^3/uL (4.3-11.0)
[2019-10-05] MEDS: SUCRALFATE 1 GM (CARAFATE) TAB PO SCH ×4 (06:34→21:24)
[2019-10-05 07:21] LABS: ANISOCYTOSIS MARKED; BAND NEUTROPHILS 0 %; BASOPHILS % (MANUAL) 0 %; EOSINOPHILS % (MANUAL) 16 %; LYMPHOCYTES % (MANUAL) 36 %; MONOCYTES % (MANUAL) 24 %; NEUTROPHILS % (MANUAL) 24 %
[2019-10-05 08:46] VITALS: BP 142/71
[2019-10-05] MEDS: SENNA W/DOCUSATE (SENOKOT S) TABLET PO SCH ×2 (09:32→19:41)
[2019-10-05] MEDS: TBO-FILGRASTIM 480 MCG/0.8 ML (GRANIX) SQ SCH (09:44)
[2019-10-05 10:40] LABS: BUN/CREATININE RATIO 15; CALCIUM 8.3 MG/DL (8.5-10.1); CARBON DIOXIDE 24 MMOL/L (21-32); CHLORIDE 101 MMOL/L (98-107); CREATININE SERUM 0.59 MG/DL (0.60-1.30); GFR ESTIMATED > 60; GLUCOSE 193 MG/DL (70-105); POTASSIUM 3.4 MMOL/L (3.6-5.0); SODIUM 137 MMOL/L (135-145)
[2019-10-05 12:41] VITALS: BP 140/62
--- NOTE | 2019-10-05 14:04 | Cardiology Progress Note ---
Cardiology SOAP Progress Note Subjective: No cardiac symptoms. Objective: I&O/Vital Signs 10/05/19 10/05/19 10/05/19 10/05/19 04:46 08:46 09:00 12:41 Temp 35.4 36.4 36.1 Pulse 75 69 70 Resp 18 18 18 B/P (MAP) 102/56 (71) 142/71 (94) 140/62 (88) Pulse Ox 100 96 97 O2 Delivery Room Air Room Air Room Air Room Air 10/05/19 00:00 Intake Total 880 ml Output Total 600 ml Balance 280 ml Weight (Pounds): 190 Weight (Ounces): 0.0 Weight (Calculated Kilograms): 86.758481 Constitutional: No apparent distress; well-developed, well-nourished Respiratory: chest is bilaterally symmetric, lungs clear to auscultation Cardiovascular: regular rate-rhythm, S1 and S2 Gastrointestional: soft, audible bowel sounds; No spleenomegaly Extremities: normal range of motion, non-tender; No clubbing, No cyanosis; no lower extremity edema bilateral; No significant edema Neurologic/Psychiatric: other (able to move all limbs equally) Skin: normal color; No rash, No ulcerations Results/Procedures: Labs Laboratory Tests 10/04/19 16:15: Glucometer 182H 10/04/19 20:12: Glucometer 144H 10/05/19 05:29: Glucometer 156H 10/05/19 06:07: White Blood Count 0.8*L, Red Blood Count 3.27L, Hemoglobin 8.0L, Hematocrit 25L, Mean Corpuscular Volume 77L, Mean Corpuscular Hemoglobin 24L, Mean Corpuscular Hemoglobin Concent 32, Red Cell Distribution Width 18.3H, Platelet Count 74L, Mean Platelet Volume , Neutrophils (%) (Auto) 28L, Lymphocytes (%) (Auto) 51H, Monocytes (%) (Auto) 12, Eosinophils (%) (Auto) 8, Basophils (%) (Auto) 1, Neutrophils # (Auto) 0.2L, Lymphocytes # (Auto) 0.4L, Monocytes # (Auto) 0.1, Eosinophils # (Auto) 0.1, Basophils # (Auto) 0.0, Neutrophils % (Manual) 24, Lymphocytes % (Manual) 36, Monocytes % (Manual) 24, Eosinophils % (Manual) 16, Basophils % (Manual) 0, Band Neutrophils 0, Anisocytosis MARKED 10/05/19 10:17: Sodium Level 137, Potassium Level 3.4L, Chloride Level 101, Carbon Dioxide Level 24, Anion Gap 12, Blood Urea Nitrogen 9, Creatinine 0.59L, Estimat Glomerular Filtration Rate > 60, BUN/Creatinine Ratio 15, Glucose Level 193H, Calcium Level 8.3L 10/05/19 10:52: Glucometer 206H Microbiology 09/30/19 MRSA Screen - Final, Complete 09/28/19 Urine Culture - Final, Complete Escherichia coli A/P: Assessment/Dx: Fatigue - multifactorial Hypokalemia, Hypomag CAD, CABG, Follicular Lymphoma, Neutropenia, ?UTI Plan: Escherichia coli UTI, immunodeficiency, defer to primary team. Electrolytes imbalance - K and Mg being repleted. CAD/CABG: Negative MPI in June 2019. Diabetes: Continue metformin. Non-Hodgkin's lymphoma. Defer to Dr Calderon. Patient is on Cilostazol - unclear reason. HyperTG- on fenofibrate. Thank you for your consultation. Please call me if you have any questions. Nagi Felix MD, FACP, FACC, FSCAI, FHRS, CCDS Interventional Cardiology Cardiac Electrophysiology Vascular Medicine and Endovascular Interventions Jeanne FELIX MD Oct 05, 2019 2:04 pm POS
[2019-10-05 15:53] VITALS: BP 159/68
--- NOTE | 2019-10-05 17:07 | Progress Note ---
Subjective Subjective/Events-last exam Seen at 1248 pm. Afebrile. States feeling okay. Objective Exam Last Set of Vital Signs Vital Signs Date Time Temp Pulse Resp B/P (MAP) Pulse Ox O2 Delivery O2 Flow Rate FiO2 10/05/19 15:53 37.0 67 16 159/68 (98) 94 Room Air 10/02/19 08:05 8 Capillary Refill : Less Than 3 SecondsNONE I&O Intake and Output 10/05/19 00:00 Intake Total 1280 ml Output Total 1150 ml Balance 130 ml Intake Oral 1280 ml Output Urine Total 1150 ml # Voids 4 # Bowel Movements 3 General: Alert, No Acute Distress Lungs: Clear to Auscultation, Normal Air Movement Heart: Regular Rate, No Murmurs Abdomen: Normal Bowel Sounds, Soft Results/Procedures Lab Laboratory Tests 10/04/19 20:12: Glucometer 144H 10/05/19 05:29: Glucometer 156H 10/05/19 06:07: White Blood Count 0.8*L, Red Blood Count 3.27L, Hemoglobin 8.0L, Hematocrit 25L, Mean Corpuscular Volume 77L, Mean Corpuscular Hemoglobin 24L, Mean Corpuscular Hemoglobin Concent 32, Red Cell Distribution Width 18.3H, Platelet Count 74L, Mean Platelet Volume , Neutrophils (%) (Auto) 28L, Lymphocytes (%) (Auto) 51H, Monocytes (%) (Auto) 12, Eosinophils (%) (Auto) 8, Basophils (%) (Auto) 1, N eutrophils # (Auto) 0.2L, Lymphocytes # (Auto) 0.4L, Monocytes # (Auto) 0.1, Eosinophils # (Auto) 0.1, Basophils # (Auto) 0.0, Neutrophils % (Manual) 24, Lymphocytes % (Manual) 36, Monocytes % (Manual) 24, Eosinophils % (Manual) 16, Basophils % (Manual) 0, Band Neutrophils 0, Anisocytosis MARKED 10/05/19 10:17: Sodium Level 137, Potassium Level 3.4L, Chloride Level 101, Carbon Dioxide Level 24, Anion Gap 12, Blood Urea Nitrogen 9, Creatinine 0.59L, Estimat Glomerular Filtration Rate > 60, BUN/Creatinine Ratio 15, Glucose Level 193H, Calcium Level 8.3L 10/05/19 10:52: Glucometer 206H 10/05/19 15:53: Glucometer 159H Microbiology 09/30/19 MRSA Screen - Final, Complete 09/28/19 Urine Culture - Final, Complete Escherichia coli Assessment/Plan Assessment/Plan Assessment & Plan Pancytopenia - plan for bone marrow biopsy today Hypokalemia-replace and recheck Hypomagnesemia replace and recheck Dysphagia-possibly secondary to motor weakness-changed from Protonix to Carafate Hypogammaglobulinemia Hx follicular NH lymphoma appreciate Hematology recommendations UTI with E coli- treated with ceftriaxone DVT prophylaxis- SCDs, enoxaparin on hold- pancytopenia Clinical Quality Measures DVT/VTE Risk/Contraindication: Risk Factor Score Per Nursin RFS Level Per Nursing on Admit: 4+=Very High INNA LEON MD Oct 05, 2019 17:07 POS
--- NOTE | 2019-10-05 17:11 | Progress Note ---
Standard Progress Note Progress Notes/Assess & Plan Date Seen by a Provider: Oct 05, 2019 Time Seen by a Provider: 17:07 Progress/Assessment & Plan 74-year-old male with history of follicular lymphoma, status post multiple chemotherapeutic regimens in the past with the last regimen of bendamustine and Obintuzumab completed in December 2018. He was placed on maintenance Obintuzumab and received 2 doses with the last dose in May 2019. Admitted to the hospital with significant weakness. Found to have UTI with Escherichia coli resistant to ciprofloxacin, levofloxacin, Bactrim and ampicillin/clavulinic acid. Status post antibiotic therapy with Rocephin with clinical improvement. Patient also has grade 4 neutropenia probably worsened by the infection. He was started on Granix 300 g and increased to 480 mcg daily. WBC and ANC is low along with hemoglobin and platelets. Iron studies pending because of microcytic indices. EGD with probable esophagitis/gastritis. Biopsies done with results pending. Quantitative immunoglobulin levels showed mild hypogammaglobulinemia. As the pancytopenia is worsening, he will need a bone marrow aspiration and biopsy. This has been scheduled for tomorrow early afternoon by radiology. We'll ask protective services social worker to visit with patient and his regarding social situation at home. He will also need assistance for return visit and need to arrange wheelchair accessible care van. Okay to discharge home after bone marrow evaluation if stable medically. Will follow patient with you. ANEL ARMENDARIZ Oct 05, 2019 17:11 POS
[2019-10-05] MEDS ORDERED: NS IV 500 ML 500 ML IV ONE (17:30)
[2019-10-05] MEDS: POTASSIUM CL 10MEQ/50ML IVPB 50 ML IV SCH ×2 (17:41→19:40)
[2019-10-05 19:16] VITALS: BP 146/70
[2019-10-05] MEDS: MELATONIN 3 MG TABLET PO PRN (21:23)
[2019-10-06] VITALS (8 sets, daily range): BP systolic 116–144; BP diastolic 58–70
[2019-10-06] MEDS: inSUlin ASPART (NovoLOG) 1 UNIT/0.01 ML (CHARGE PER UNIT) SQ SCH ×2 (04:58→10:36)
[2019-10-06] MEDS: SUCRALFATE 1 GM (CARAFATE) TAB PO SCH ×2 (05:10→10:21)
[2019-10-06] MEDS: fentaNYL INJECTION 100 MCG/2 ML AMP IVP PRN ×2 (05:35→10:41)
[2019-10-06 06:07] LABS: HEMATOCRIT 27 % (40-54); HEMOGLOBIN 8.4 G/DL (13.3-17.7); MEAN CORPUSCULAR HEMOGLOBIN 24 PG (25-34); MEAN CORPUSCULAR HGB CONC 32 G/DL (32-36); MEAN CORPUSCULAR VOLUME 76 FL (80-99); PLATELET COUNT 67 10^3/uL (130-400); RED CELL DISTRIBUTION WIDTH 18.5 % (10.0-14.5)
[2019-10-06 06:23] LABS: INR 1.1 (0.8-1.4)
[2019-10-06 06:25] LABS: BUN/CREATININE RATIO 14; CALCIUM 8.5 MG/DL (8.5-10.1); CARBON DIOXIDE 26 MMOL/L (21-32); CHLORIDE 103 MMOL/L (98-107); CREATININE SERUM 0.59 MG/DL (0.60-1.30); GFR ESTIMATED > 60; GLUCOSE 162 MG/DL (70-105); POTASSIUM 3.9 MMOL/L (3.6-5.0); SODIUM 137 MMOL/L (135-145)
[2019-10-06] MEDS: TBO-FILGRASTIM 480 MCG/0.8 ML (GRANIX) SQ SCH (08:22)
[2019-10-06] MEDS: SENNA W/DOCUSATE (SENOKOT S) TABLET PO SCH (08:22)
--- NOTE | 2019-10-06 09:03 | NUR ---
RD ASSESSMENT PMHx: MT; HTN; DM; lymphoma PT INTERACTION: Pt was awake and pleasant during follow-up. Note pt is blind and is present at bedside. Pt states eating poorly since last assessment. Note pt avg PO intake of 25% x3d, per chart review. Pt states episodes of nausea and vomiting "phlegm" since last assessment. Pt states issues with diarrhea since last assessment. Note last BM was 10/05 and pt not currently on bowel regimen per chart review. ABNORMAL NUTRITION-RELATED LAB VALUES: cr 0.59 (L); glu 162 (H) Est. kcal needs: 2863-0917 kcal (25-30 kcal/kg) Est. Pro needs: 69-82 g Pro (1.0-1.2 g Pro/kg) PES STATEMENT: Inadequate oral intake (NI-2.1) related to nausea | vomiting | loss of appetite as evidenced by pt interview | avg PO intake 25% x3d INTERVENTION: Pt is currently NPO for a scheduled procedure. Advance diet to DYS1 Pureed, when medically able. Add Ensure Enlive (vary) to meals BID. Provides 350 kcal and 20 g Pro per serving. MONITOR/EVALUATE: PO Intake; Plan of Care; Hydration Status; Weight Status; Lab Values Katya Smith, MS, RD, LD
--- NOTE | 2019-10-06 10:43 | Cardiology Progress Note ---
Cardiology SOAP Progress Note Subjective: No cardiac complaints. Objective: I&O/Vital Signs 10/06/19 10/06/19 10/06/19 10/06/19 00:16 04:11 08:07 09:00 Temp 35.8 35.2 35.8 Pulse 69 71 83 Resp 16 20 18 B/P (MAP) 142/67 (92) 138/65 (89) 116/64 (81) Pulse Ox 98 98 99 O2 Delivery Room Air Room Air Room Air Room Air 10/06/19 00:00 Intake Total 1640 ml Output Total 900 ml Balance 740 ml Weight (Pounds): 190 Weight (Ounces): 0.0 Weight (Calculated Kilograms): 86.960878 Constitutional: No apparent distress; well-developed, well-nourished Respiratory: chest is bilaterally symmetric, lungs clear to auscultation Cardiovascular: regular rate-rhythm, S1 and S2 Gastrointestional: soft, audible bowel sounds; No spleenomegaly Extremities: normal range of motion, non-tender; No clubbing, No cyanosis; no lower extremity edema bilateral; No significant edema Neurologic/Psychiatric: other (able to move all limbs equally) Skin: normal color; No rash, No ulcerations Results/Procedures: Labs Laboratory Tests 10/05/19 10:52: Glucometer 206H 10/05/19 15:53: Glucometer 159H 10/05/19 20:55: Glucometer 146H 10/06/19 04:53: Glucometer 159H 10/06/19 05:55: White Blood Count 1.0*L, Red Blood Count 3.48L, Hemoglobin 8.4L, Hematocrit 27L, Mean Corpuscular Volume 76L, Mean Corpuscular Hemoglobin 24L, Mean Corpuscular Hemoglobin Concent 32, Red Cell Distribution Width 18.5H, Platelet Count 67L, Mean Platelet Volume , Prothrombin Time 15.0H, INR Comment 1.1, Activated Partial Thromboplast Time 40H, Sodium Level 137, Potassium Level 3.9, Chloride Level 103, Carbon Dioxide Level 26, Anion Gap 8, Blood Urea Nitrogen 8, Creatinine 0.59L, Estimat Glomerular Filtration Rate > 60, BUN/Creatinine Ratio 14, Glucose Level 162H, Calcium Level 8.5 10/06/19 10:15: Glucometer 185H Microbiology 09/30/19 MRSA Screen - Final, Complete 09/28/19 Urine Culture - Final, Complete Escherichia coli A/P: Assessment/Dx: Fatigue - multifactorial Hypokalemia, Hypomag CAD, CABG, Follicular Lymphoma, Neutropenia, ?UTI Plan: Escherichia coli UTI, immunodeficiency, defer to primary team. Electrolytes imbalance - K and Mg being repleted. CAD/CABG: Negative MPI in June 2019. Diabetes: Continue metformin. Non-Hodgkin's lymphoma. Defer to Dr Calderon. Patient is on Cilostazol - unclear reason. HyperTG- on fenofibrate. Thank you for your consultation. Please call me if you have any questions. Nagi Felix MD, FACP, FACC, FSCAI, FHRS, CCDS Interventional Cardiology Cardiac Electrophysiology Vascular Medicine and Endovascular Interventions Jeanne FELIX MD Oct 06, 2019 10:43 POS
[2019-10-06] MEDS ORDERED: MIDAZOLAM 2 MG/2 ML (VERSED) VIAL ONE (12:59)
[2019-10-06] MEDS ORDERED: NS IV 1000 ML 1,000 ML ONE (12:59)
[2019-10-06] MEDS ORDERED: LIDOCAINE 1% INJ 20 ML 20 ML VIAL ONE (12:59)
[2019-10-06] MEDS ORDERED: NS IV 1000 ML 1,000 ML IV STA (13:07)
[2019-10-06] MEDS ORDERED: fentaNYL INJECTION 100 MCG/2 ML AMP IVP ONE (13:15)
[2019-10-06] MEDS ORDERED: MIDAZOLAM 2 MG/2 ML (VERSED) VIAL IVP ONE (13:15)
--- NOTE | 2019-10-06 13:44 | Discharge Summary ---
Discharge Summary Hospital Course Hospital Course Date of Admission: Sep 28, 2019 at 13:10 Admission Diagnosis : Family Physician/Provider: Annemarie Wang MD Date of Discharge: 10/06/19 Discharge Diagnosis: Pancytopenia Hypokalemia Hypomagnesemia Dysphagia Hypogammaglobulinemia Hx follicular NH lymphoma UTI with E coli Hospital Course: Pancytopenia - Hematology consulted, given filgastrim inpatient, bone marrow biopsy done on day of d/c. Hypokalemia-replaced Hypomagnesemia replaced Dysphagia- possibly secondary to motor weakness, EGD done by Dr. Davis, biopsy results pending at d/c, carafate added Hypogammaglobulinemia Hx follicular NH lymphoma appreciate Hematology recommendations UTI with E coli- treated with ceftriaxone Labs and Pending Lab Test: Laboratory Tests 10/05/19 15:53: Glucometer 159H 10/05/19 20:55: Glucometer 146H 10/06/19 04:53: Glucometer 159H 10/06/19 05:55: White Blood Count 1.0*L, Red Blood Count 3.48L, Hemoglobin 8.4L, Hematocrit 27L, Mean Corpuscular Volume 76L, Mean Corpuscular Hemoglobin 24L, Mean Corpuscular Hemoglobin Concent 32, Red Cell Distribution Width 18.5H, Platelet Count 67L, Mean Platelet Volume , Prothrombin Time 15.0H, INR Comment 1.1, Activated Parti al Thromboplast Time 40H, Sodium Level 137, Potassium Level 3.9, Chloride Level 103, Carbon Dioxide Level 26, Anion Gap 8, Blood Urea Nitrogen 8, Creatinine 0.59L, Estimat Glomerular Filtration Rate > 60, BUN/Creatinine Ratio 14, Glucose Level 162H, Calcium Level 8.5 10/06/19 10:15: Glucometer 185H Microbiology 09/30/19 MRSA Screen - Final, Complete 09/28/19 Urine Culture - Final, Complete Escherichia coli Home Meds Active Carafate (Sucralfate) 1 Gm Tablet 1 Gm PO QID take pill and place in small amount of water and make slurry, then take. Reported Tramadol HCl 50 Mg Tablet 100 Mg PO HS Trelegy Ellipta 100-62.5-25 (Fluticasone/Umeclidin/Vilanter) 1 Each Blst.w.dev 1 Puff INH DAILY Metoprolol Succinate 25 Mg Tab.er.24h 25 Mg PO DAILY Pantoprazole Sodium 40 Mg Tablet.dr 40 Mg PO BID Prednisolone Acetate 5 Ml Drops.susp 1 Drop OU BID Dorzolamide-Timolol Eye Drops (Dorzolamide HCl/Timolol Maleat) 10 Ml Drops 1 Drop OU BID Alphagan P (Brimonidine Tartrate) 5 Ml Drops 1 Drop OS BID Fenofibrate (Fenofibrate Nanocrystallized) 145 Mg Tablet 145 Mg PO HS Gabapentin 300 Mg Capsule 600 Mg PO HS TAKES 2 (300MG) CAPSULES Cilostazol 100 Mg Tablet 100 Mg PO BID Tramadol HCl 50 Mg Tablet 50-100 Mg PO TID PRN Metformin HCl 1,000 Mg Tablet 1,000 Mg PO BID LAST FILLED #180 01-05-19 Novolog Mix 70-30 Vial (Insuln Asp Prt/Insulin Aspart) 1 Unit/0.01 Ml Susp 10-15 SC BID WITH MEALS Atorvastatin Calcium 40 Mg Tablet 40 Mg PO HS Ventolin Hfa (Albuterol Sulfate) 18 Gm Hfa.aer.ad 2 Puff INH Q6H PRN Lorazepam 1 Mg Tablet 1 Mg PO TID PRN Citalopram HBr (Citalopram Hydrobromide) 20 Mg Tablet 20 Mg PO DAILY Assessment/Pt DC Instructions Follow up with Dr. Wang at [facility] in [facility] on 10/09 at 2:15 pm. Follow up with Dr. Mittal as instructed. Discharge Diet: Semi-Solid Diet (pureed, thin liquids) Activity as Tolerated: Yes Discharge Physical Examination Allergies: Coded Allergies: aspirin (Unverified Adverse Reaction, Unknown, 01/19/19) PATIENT STATES HE IS ABLE TO TAKE THE 81 MG DOSE BUT NOT THE "BIG ASPIRIN" General Appearance: Other (sleepin soundly) Respiratory: Lungs Clear, Normal Breath Sounds Cardiovascular: Regular Rate, Rhythm, No Murmur Skin: Warm/Dry Copy Copies To 1: ANNEMARIE WANG MD Discharge Summary Date of Admission Sep 28, 2019 at 13:10 Date of Discharge Admission Diagnosis Assessment: Neutropenia Blindness Hyponatremia Hypokalemia Discharge Diagnosis (1) Hypomagnesemia Status: Acute (2) Decreased appetite Status: Acute (3) Hypokalemia Status: Acute (4) Blindness Status: Chronic (5) Deafness Status: Chronic (6) CHF (congestive heart failure) Status: Chronic (7) Neutropenia Status: Acute (8) Sepsis Status: Resolved (9) NSTEMI (non-ST elevated myocardial infarction) Status: Acute (10) Non-Hodgkin lymphoma Status: Chronic (11) Lymphoma Clinical Quality Measures DVT/VTE Risk/Contraindication: Risk Factor Score Per Nursin RFS Level Per Nursing on Admit: 4+=Very High INNA LEON MD Oct 06, 2019 13:42 POS
--- NOTE | 2019-10-06 14:28 | Diagnostic Imaging Report ---
INDICATION: Lymphoma. Patient presents for CT-guided bone marrow biopsy. PROCEDURE: Patient was brought to the CT suite and placed on the table in the prone position. Axial imaging through the pelvis was performed to evaluate appropriate entry site. The skin of the posterior pelvis was prepped and draped in usual sterile fashion. A small amount of 1% lidocaine was utilized for local anesthesia. Bone marrow needle was advanced and placed with its tip adjacent to the cortex of the right iliac bone. The needle was advanced through the cortex into the marrow utilizing the bone marrow drill. Two bone marrow aspirates and a bone marrow core biopsy were obtained. Needle was removed and hemostasis was obtained using manual compression. The patient tolerated the procedure well. The study was performed utilizing conscious sedation with radiology nursing and constant patient monitoring. Patient was administered a total of 1 mg of Versed intravenously and 25 mcg of fentanyl intravenously. IMPRESSION: Successful CT-guided bone marrow aspiration and biopsy, utilizing conscious sedation. Dictated by: Dictated on workstation # [id number]
--- NOTE | 2019-10-06 14:55 | Pre-Op Note & Conscious Sedat ---
Pre-Operative Progress Note H&P Reviewed The H&P was reviewed, patient examined and no changes noted. Date H&P Reviewed: Oct 06, 2019 Time H&P Reviewed: 12:00 Pre-Op Diagnosis: Lymphoma Conscious Sedation Pre-Proced Time 12:00 ASA Score 2 For ASA 3 and 4: Consider anesthesia and medical clearance. Also, for patients with a history of failed moderate sedation consider anesthesia. Airway Lungs Heart ASA score ASA 1: a normal healthy patient ASA 2: a patient with a mild systemic disease (mid diabetes, controlled hypertension, obesity ASA 3: a patient with a severe systemic disease that limits activity (angina, COPD, prior Myocardial infarction) ASA 4: a patient with an incapacitating disease that is a constant threat to life (CHF, renal failure) ASA 5: a moribund patient not expected to survive 24 hrs. (ruptured aneurysm) ASA 6: a declared brain- patient whose organs are being harvested. For emergent operations, add the letter E after the classification Mallampati Classification Grade 2 Sedation Plan Analgesia, Amnesia, Plan communicated to team members, Discussed options with patient/fam, Discussed risks with patient/fam The patient is an appropriate candidate to undergo the planned procedure, sedation, and anesthesia. The patient immediately re-assessed prior to indication. NAKUL GLEASON MD Oct 06, 2019 14:55 POS
[2019-10-06 15:01] LABS: ABSOLUTE RETIC # 33 10e9/L (24-90); BASOPHILS % (AUTO) 2 % (0-10); EOSINOPHILS # (AUTO) 0.1 10^3/uL (0.0-0.3); EOSINOPHILS % (AUTO) 10 % (0-10); LYMPHOCYTES # (AUTO) 0.4 X 10^3 (1.0-4.0); LYMPHOCYTES % (AUTO) 44 % (12-44); MONOCYTES # (AUTO) 0.2 X 10^3 (0.0-1.0); MONOCYTES % (AUTO) 18 % (0-12); NEUTROPHILS # (AUTO) 0.3 X 10^3 (1.8-7.8); NEUTROPHILS % (AUTO) 26 % (42-75); RETICULOCYTE % 0.94 % (0.50-2.40)
[2019-10-06 16:06] LABS: EOSINOPHILS % (MANUAL) 6 %; LYMPHOCYTES % (MANUAL) 50 %; MONOCYTES % (MANUAL) 22 %; NEUTROPHILS % (MANUAL) 22 %
[2019-10-06 16:07] LABS: ANISOCYTOSIS MODERATE; BURR CELLS SLIGHT; ELLIPT/OVALOCYTES SLIGHT; MICROCYTOSIS MODERATE; POIKILOCYTOSIS SLIGHT; ROULEAUX SLIGHT
--- NOTE | 2019-10-06 17:35 | NUR ---
Pt discharged home with continuing to be his primary caregiver. Pt also receives caregiving from the [facility] and currently has over 40 hours a week. Pt's it audit manager, Kathrine Cho was notified of pt's need for additional caregiving as pt currently is a 2 person transfer and requires 24 hour care. Will provide medical documentation to support the increase of caregiving paid hours. Pt will return to see Dr. Mittal on Oct.29 and will arrange wheel chair transport for that clinic appt.
== END 2019-10-06 16:24 | disposition home or self-care (01) | DRG 809 ==
LOC: EDUNIT# 10:56 → ER FS 10:58 → ICU 13:10 → 4TH 09-30 14:11
PROVIDERS: ADMIT Internal Medicine; ATTEND Family Medicine
PROC: 0DB18ZX Excision of Upper Esophagus, Via Natural or Artificial Opening Endoscopic, Diagnostic (ICD-10-PCS; principal; 2019-10-02 07:37)
PROC: 07DR3ZX Extraction of Iliac Bone Marrow, Percutaneous Approach, Diagnostic (ICD-10-PCS; 2019-10-06)
PROC: 07DR3ZZ Extraction of Iliac Bone Marrow, Percutaneous Approach (ICD-10-PCS; 2019-10-06)
DX: D61.818 Other pancytopenia (principal); N39.0 Urinary tract infection, site not specified; C91.10 Chronic lymphocytic leukemia of B-cell type not having achieved remission; C85.90 Non-Hodgkin lymphoma, unspecified, unspecified site; R64 Cachexia; E87.1 Hypo-osmolality and hyponatremia; E83.42 Hypomagnesemia; E87.6 Hypokalemia; M19.90 Unspecified osteoarthritis, unspecified site; M54.9 Dorsalgia, unspecified; G89.29 Other chronic pain; E11.9 Type 2 diabetes mellitus without complications; H26.9 Unspecified cataract; H40.9 Unspecified glaucoma; E86.0 Dehydration; I11.0 Hypertensive heart disease with heart failure; I50.9 Heart failure, unspecified; H54.3 Unqualified visual loss, both eyes; R13.19 Other dysphagia; K20.9 Esophagitis, unspecified; K29.70 Gastritis, unspecified, without bleeding; T45.1X5A Adverse effect of antineoplastic and immunosuppressive drugs, initial encounter; I25.10 Atherosclerotic heart disease of native coronary artery without angina pectoris; Z90.49 Acquired absence of other specified parts of digestive tract; Z95.1 Presence of aortocoronary bypass graft; Z95.5 Presence of coronary angioplasty implant and graft; I25.2 Old myocardial infarction; Z68.34 Body mass index [BMI] 34.0-34.9, adult
CPT/HCPCS: 36415; 71045; 77012; 80048; 80053; 81000; 82150; 82728; 82784; 82962; 83540; 83735; 84100; 84132; 84484; 85007; 85025; 85027; 85045; 85610; 85730; 87077; 87081; 87088; 87186; 87804; 88305; 88312; 88313; 88368; 93005; 93306; 96361; 96365; 96366; 96375; J1447